=== PATIENT | female | born 1980 ===

== ENCOUNTER → 2020-10-21 15:29 | Outpatient (BNV) | payer MEDICAID, SELFPAY | PROVIDERS: Visit Provider Internal Medicine Medical Oncology | DX: C82.90 Follicular lymphoma, unspecified, unspecified site (principal) | CPT/HCPCS: 99213; 99214 ==

== ENCOUNTER 2020-12-09 14:46 | Outpatient (REF) | payer MEDICAID, SELFPAY ==
[2020-12-11 13:41] LABS: H Pylori Breath Test NOT DETECTED (NOT DETECTED)
== END 2020-12-09 14:47 | disposition home or self-care (01) ==
LOC: HO.LNP 14:46
PROVIDERS: PCP Family Medicine; Referring Provider Family Medicine; Visit Provider Nurse Practitioner Family
DX: K21.9 Gastro-esophageal reflux disease without esophagitis (principal); R10.13 Epigastric pain; K59.00 Constipation, unspecified; C82.90 Follicular lymphoma, unspecified, unspecified site; Z11.0 Encounter for screening for intestinal infectious diseases; Z88.0 Allergy status to penicillin
CPT/HCPCS: 83013; 99202

== ENCOUNTER 2021-01-20 09:09 | Day surgery (SDC) | payer MEDICAID, SELFPAY ==
[2021-01-13 10:07] VITALS: BMI 32.6
--- NOTE | 2021-01-19 10:12 | HO.ANESPROP2 ---
Documented by User: Laura Mercedes NP 01/19/21 10:13 HPI - Anesthesia Eval Consult details Narrative: 40yo F for Upper Endoscopy PMFSH Active Problems Active Problems: All Active Problems (Updated 01/13/21 @ 10:06 by Shelbie Diamond) Follicular lymphoma (Acute) Past Medical History Medical History Follicular lymphoma Family History Family History Maternal Aunt Diabetes Hypertension Surgical History Surgical History H/O hernia repair Social History Social History Alcohol intake: current Alcohol intake frequency: a few times a month Alcohol type: wine Patient Tobacco Use Status: Current everyday Tobacco user Tobacco use type: Cigarette Cigarettes Per Day: 5 Smoked in Last 30 Days: Yes Use of substances other than those prescribed or required for medical reasons: Yes Substance Use Type: Marijuana Substance Use Frequency: Daily Are you DNR?: No Advance Directives: No Advance Directives Information Provided: Yes Meds Allergies Allergy/AdvReac Type Severity Reaction Status Date / Time Penicillins [PENICILLINS] Allergy Intermediate RASH Verified 01/20/21 09:26 Home Medications Medication Instructions Recorded Confirmed Last Taken Type clonazepam 1 mg tablet 1 tab PO BID 10/21/20 01/20/21 01/20/21 09:00 History Exam Exam Date and Time: January 19, 2021 1012 Height,Weight and Vital Signs: Height 5 ft 2 in Weight 80.966 kg Pertinent Lab Results Pertinent Lab Results: Laboratory Tests 10/21/20 10/21/20 15:42 15:42 WBC 10.0 Hgb 12.9 Hct 39.1 Plt Count 260 Sodium 142 Potassium 3.9 Chloride 107 Carbon Dioxide 28 BUN 10 Creatinine 0.79 Assessment and Plan Assessment Anesthesia Assessment: Chart Reviewed Documented by User: Qing Mckeon MD 01/20/21 10:23 [facility] Past Medical History Medical History Follicular lymphoma Functional capacity: independent ambulation Patient : No Family History Family History Maternal Aunt Diabetes Hypertension Surgical History Surgical History H/O hernia repair History of Problems with Anesthesia: No Social History Social History Alcohol intake: current Alcohol intake frequency: a few times a month Alcohol type: wine Patient Tobacco Use Status: Current everyday Tobacco user Tobacco use type: Cigarette Cigarettes Per Day: 5 Smoked in Last 30 Days: Yes Use of substances other than those prescribed or required for medical reasons: Yes Substance Use Type: Marijuana Substance Use Frequency: Daily Are you DNR?: No Advance Directives: No Advance Directives Information Provided: Yes Meds Allergies Allergy/AdvReac Type Severity Reaction Status Date / Time Penicillins [PENICILLINS] Allergy Intermediate RASH Verified 01/20/21 09:26 Home Medications Medication Instructions Recorded Confirmed Last Taken Type clonazepam 1 mg tablet 1 tab PO BID 10/21/20 01/20/21 01/20/21 09:00 History Exam Airway TM Dist: >3cm Neck ROM: Full Heart: RRR Lungs: CTA Assessment and Plan Final Anesthetic Review History of Problems with Anesthesia: No
[2021-01-20 09:26] VITALS: BMI 32.1
[2021-01-20 09:31] VITALS: BP 125/79; PULSE 61; RESP 16; TEMP 36.2; O2SAT 100
[2021-01-20 09:31] LABS: UPreg QC Valid YES; Urine Pregnancy NEGATIVE (NEGATIVE)
[2021-01-20] MEDS: Lactated Ringers 1,000 ML 100 ML IVCONT (09:48)
--- NOTE | 2021-01-20 10:10 | MHC.SHP ---
Pre-Procedural Eval Section A Date of Service: 01/20/21 The patient is an INPATIENT: No The History & Physical has been completed within 30 days and I have reviewed it.: No Section B Chief Complaint: GERD Details of Present Illness: GERD, epigastric pain, regurgitation Medical History: Significant History (Follicular lymphoma) History of Previous Operations: Relevant previous surgery/procedure and date(s) (H/O hernia repair) Allergies: Allergies Allergy/AdvReac Type Severity Reaction Status Date / Time Penicillins [PENICILLINS] Allergy Intermediate RASH Verified 01/20/21 09:26 Review of Systems Sugical H&P ROS: Negative: Constitution, Cardiovascular and Respiratory and Yes, Specify: Gastrointestinal (GERD) Exam Surgical H&P Exam: Normal: Heart, Normal: Lungs, Normal: Extremities and Normal: Abdomen Plan Diagnosis/Plan: Unchanged I have reviewed the history and physical and performed a pertinent physical examination on my patient. No changes have occurred unless specified.
--- NOTE | 2021-01-20 10:18 | PM.OP ---
Brief Operative Note Date of Service: 01/20/21 Pre-op diagnosis: GERD, regurgitation Post-op diagnosis: other (GERD, hiatal hernia, gastritis) Procedure: FLEXIBLE TRANSORAL UPPER GASTROINTESTINAL ENDOSCOPY WITH BIOPSIES Consent: Indications for the procedure and potential complications of bleeding, perforation, reaction to medications and missed diagnosis were discussed with the patient and informed consent was obtained. Instrument: Olympus GIF H 190 mid size upper endoscope Monitoring: Vital signs and clinical assessment, continuous EKG monitoring, Pulse oximetry, Carbon Dioxide monitoring and blood pressure monitoring were done throughout the procedure. Procedure: The patient was placed in the left lateral decubitis position and pre-procedure medications were administered and a bite block was placed. The endoscope was inserted into the mouth and advanced under direct vision to the third part of duodenum. A careful inspection was made as the upper endoscope was withdrawn including a retroflexed examination of the proximal stomach; Findings and interventions are described below. Findings: Larynx: Normal Esophagus: GE junction at 34 cms, small hiatal hernia 34 to 36 cms. No esophagitis or Grissom Stomach: Mild gastric erythema. Biopsies were obtained. Grade 2 flap valve on retroflexed examination of the cardia. Duodenum: Normal bulb and descending duodenum. Biopsies were obtained from 3rd part of duodenum to check for celiac sprue. Intervention: Biopsies as noted above Impression and Post Procedure Diagnosis: Endoscopy Findings: ESOPHAGUS: Small hiatal hernia STOMACH: Gastritis DUODENUM: Normal - biopsied to check for celiac sprue Plan: Await pathology results Patient has an appointment on 02/03/21 in the GI Clinic with DIANE Jain. Above findings were reviewed with the patient and GERD and Hiatal hernia handouts were given in the discharge area Surgeon: Ricki Arguello MD Anesthesia: MAC (Dr Cha, Ariana CarbajalDeandre [facility]) Was an Deputy Director Of Finance used for this Procedure?: Yes Deputy Director Of Finance: Karen Broderick Estimated blood loss (mL): 0 Pathology: other (A- SMALL BOWEL BIOPSIES- R/O CELIACS B- GASTRIC ANTRUM BIOPSIES- R/O H.PYLORI) Condition: stable Disposition: PACU
--- NOTE | 2021-01-20 10:18 | W.PM.OPN ---
Operative Note Operative Note Date of Service: 01/20/21 Narrative: Pre-op diagnosis:?GERD, regurgitation Post-op diagnosis:?other (GERD, hiatal hernia, gastritis) Procedure:? FLEXIBLE TRANSORAL UPPER GASTROINTESTINAL ENDOSCOPY WITH BIOPSIES Consent:?Indications for the procedure and potential complications of bleeding, perforation, reaction to medications and missed diagnosis were discussed with the patient and informed consent was obtained. Instrument:?Olympus GIF H 190 mid size upper endoscope Monitoring: Vital signs and clinical assessment, continuous EKG monitoring, Pulse oximetry, Carbon Dioxide monitoring and blood pressure monitoring were done throughout the procedure. Procedure:?The patient was placed in the left lateral decubitis position and pre-procedure medications were administered and a bite block was placed. The endoscope was inserted into the mouth and advanced under direct vision to the third part of duodenum. A careful inspection was made as the upper endoscope was withdrawn including a retroflexed examination of the proximal stomach; Findings and interventions are described below. Findings: Larynx:? Normal Esophagus:?GE junction at 34 cms, small hiatal hernia 34 to 36 cms.? No esophagitis or Grissom Stomach:?Mild gastric erythema. Biopsies were obtained. Grade 2 flap valve on retroflexed examination of the cardia. Duodenum:?Normal bulb and descending duodenum.? Biopsies were obtained from 3rd part of duodenum to check for celiac sprue. Intervention:?Biopsies as noted above Impression and Post Procedure Diagnosis: Endoscopy Findings: ESOPHAGUS: Small hiatal hernia STOMACH: Gastritis DUODENUM: Normal - biopsied to check for celiac sprue Plan: Await pathology results Patient has an appointment on 02/03/21 in the GI Clinic with Joann Jones NP-. Above findings were reviewed with the patient and GERD and Hiatal hernia handouts were given in the discharge area Surgeon:?Ricki Arguello MD Anesthesia:?MAC (Dr Cha, Ariana Maddox CRNA) Was an Flight Line Mechanic used for this Procedure?:?Yes Flight Line Mechanic:?Karen Broderick Estimated blood loss (mL):?0 Pathology:?other (A- SMALL BOWEL BIOPSIES-? R/O CELIACS? B- GASTRIC ANTRUM BIOPSIES- R/O H.PYLORI) Condition:?stable Disposition:?PACU
[2021-01-20 10:36] VITALS: BP 93/49; PULSE 70; RESP 16; TEMP 36.1; O2SAT 93
[2021-01-20 10:51] VITALS: BP 127/72; PULSE 62; RESP 18; TEMP 36.1; O2SAT 98
--- NOTE | 2021-01-20 10:59 | PC.NURSE ---
iv d/nancy nad
== END 2021-01-20 11:53 | disposition home or self-care (01) ==
PROVIDERS: Nurse Practitioner; PCP Family Medicine; Visit Provider Internal Medicine Gastroenterology
PROC: 0DJ08ZZ Inspection of Upper Intestinal Tract, Via Natural or Artificial Opening Endoscopic (ICD-10-PCS; CPT 43235; principal; 2021-01-20 10:30)
DX: K21.9 Gastro-esophageal reflux disease without esophagitis (principal); K29.50 Unspecified chronic gastritis without bleeding; K44.9 Diaphragmatic hernia without obstruction or gangrene; C82.90 Follicular lymphoma, unspecified, unspecified site; F12.90 Cannabis use, unspecified, uncomplicated; F17.210 Nicotine dependence, cigarettes, uncomplicated; Z79.899 Other long term (current) drug therapy; Z88.0 Allergy status to penicillin
CPT/HCPCS: 43239; 81025; 88305; 88342

== ENCOUNTER → 2021-02-03 11:09 | Outpatient (BNVA) | payer MEDICAID, SELFPAY | PROVIDERS: PCP Family Medicine; Visit Provider Nurse Practitioner Family ==

== ENCOUNTER → 2021-03-03 11:08 | Outpatient (BNVA) | payer MEDICAID, SELFPAY | PROVIDERS: PCP Family Medicine; Visit Provider Nurse Practitioner Family ==

== ENCOUNTER 2021-11-21 07:22 | Emergency (ER) | payer MEDICAID, SELFPAY ==
--- NOTE | ~2021-11-21 | CT_ITS ---
EXAMINATION: CT ABDOMEN AND PELVIS WITHOUT CONTRAST CLINICAL INFORMATION: Back pain. Abdominal lymphoma. Night sweats. COMPARISON: Multiple priors, most recent CT abdomen/pelvis dated 05/05/2019. TECHNIQUE: Multidetector volumetric imaging was performed from the superior aspect of the liver through the pubic symphysis. Sagittal and coronal reformatted images were obtained on the technologist's workstation. This CT examination was performed using dose optimization techniques as appropriate, variously including the following: *Automated exposure control *Adjustment of mA and/or kV according to patient size (this includes techniques or standardized protocols for targeted exams where dose is matched to indication/reason for exam; i.e. extremities or head) *Use of iterative reconstruction technique DLP: 641 mGy-cm FINDINGS: LUNG BASES: The visualized lung bases are unremarkable. LIVER, GALLBLADDER, AND BILIARY TREE: The liver is normal in size, shape, and attenuation. No focal hepatic lesion or biliary ductal dilatation is present. The gallbladder is unremarkable with no evidence of radiopaque gallstones, gallbladder wall thickening, or obvious pericholecystic inflammatory changes. PANCREAS: Unremarkable. SPLEEN: Unremarkable. ADRENAL GLANDS: Unremarkable. KIDNEYS AND URETERS: The kidneys are normal in size, shape, and attenuation. No hydronephrosis, hydroureter, or calculi seen. No perinephric stranding. BLADDER: Unremarkable. GASTROINTESTINAL TRACT: No bowel wall thickening or inflammatory change. No small- or large-bowel obstruction. Unremarkable appendix. PERITONEAL CAVITY: No intra-abdominal free air or free fluid. No new intra-abdominal mass or organized fluid collection/abscess formation. ABDOMINAL WALL: No significant hernia is appreciated. LYMPH NODES: Redemonstration of central mesenteric stranding, similar when compared to the prior examination. No new or increasing lymphadenopathy. VASCULAR: Unremarkable. PELVIC VISCERA: Nabothian cysts within the cervix. Otherwise unremarkable. OSSEOUS STRUCTURES: Unremarkable. CT/CT abdomen pelvis wo con IMPRESSION: 1. No acute intra-abdominal or intrapelvic findings to explain the patient's pain. 2. Stable central mesenteric stranding, unchanged. No new or increasing lymphadenopathy. Fleischner guidelines were followed.
[2021-11-21 07:27] VITALS: BP 113/84; BP 122/80; PULSE 75; PULSE 76; RESP 18; TEMP 36.7; O2SAT 96; O2SAT 98; BMI 34.0
[2021-11-21] MEDS: Ketorolac Tromethamine 15 MG/ML VIAL IM (08:02)
[2021-11-21] MEDS: Acetaminophen 325 MG TABLET 975 MG PO (08:02)
--- NOTE | 2021-11-21 09:13 | ED_ITS ---
HPI - Back Pain/Injury General Chief Complaint: Back Pain/Injury Stated Complaint: back pain Time Seen by Provider: 11/21/21 07:49 Source: patient and [employer] Mode of arrival: ambulatory History of Present Illness HPI Narrative: 41-year-old female with history of abdominal lymphoma and was followed by Dr. Bell in 2017 presents with persistent back pain for 4 weeks that she had attributed to a work related injury but states that is continued to bother her despite taking chom-oav-mxaxmyo medications. She says that last night she was awoken with severe abdominal pain that she states radiates down into both lower extremities that results and difficulty with her having a bowel movement but denies any groin numbness, does report night sweats as well as weight loss but denies any urinary symptoms. Related Data Home Medications Medication Instructions Recorded Confirmed clonazepam 1 mg tablet 1 tab PO BID 10/21/20 06/26/21 aripiprazole 5 mg tablet 5 mg PO DAILY 03/03/21 06/26/21 fluticasone propionate 220 0 mcg PO BID 03/03/21 06/26/21 mcg/actuation HFA aerosol inhaler (Flovent HFA) trazodone 100 mg tablet 100 mg PO BEDTIME 03/03/21 06/26/21 Previous Rx's Medication Instructions Recorded docusate sodium 100 mg capsule 100 mg PO BEDTIME #30 caps 03/03/21 methylcellulose (laxative) 500 mg 500 mg PO DAILY #30 tabs 03/03/21 tablet (Citrucel) ondansetron 4 mg disintegrating 4 mg PO Q8H PRN nausea and 04/17/21 tablet vomiting #20 tabs pantoprazole 40 mg tablet,delayed 40 mg PO BID #30 tabs 06/26/21 release cyclobenzaprine 5 mg tablet 5 mg PO BEDTIME PRN muscle spasm 11/21/21 #4 tabs ketorolac 10 mg tablet 10 mg PO Q6H PRN pain 5 days #20 11/21/21 tabs Allergies Allergy/AdvReac Type Severity Reaction Status Date / Time Penicillins [PENICILLINS] Allergy Intermediate RASH Verified 06/26/21 09:23 Review of Systems Review of Systems: Pertinent positives and negatives as stated HPI and 10 point review of systems is otherwise negative. [facility] Past Medical History Source: nursing notes reviewed Medical History Back pain Follicular lymphoma Surgical History H/O hernia repair Hx of esophagogastroduodenoscopy Family History Family History Maternal Aunt Diabetes Hypertension Social History Social History Household Members: Significant Other Alcohol intake: current Alcohol intake frequency: a few times a month Alcohol type: wine Patient Tobacco Use Status: Current everyday Tobacco user Tobacco use type: Cigarette Cigarettes Per Day: 5 Substance Use Type: Marijuana Advance Directives: No Advance Directives Information Provided: Yes Patient : No Current occupational status: disabled Physical Exam Vital Signs: Vital Signs: Last Vital Signs Temp 98.1 F 11/21/21 07:27 Pulse 75 11/21/21 07:27 Resp 18 11/21/21 07:27 BP 113/84 11/21/21 07:27 Pulse Ox 96 11/21/21 07:27 O2 Del Method 11/21/21 07:27 BMI result Body Mass Index 34.0 VITAL SIGNS: Reviewed. GENERAL: Well developed, well nourished, in no acute distress. HEAD: Normocephalic/atraumatic EYES: PERRLA, EOMI EARS: Ext canals without abnormality OROPHARYNX: no oral lesions noted, posterior pharynx clear LUNGS: Normal breath sounds. No adventitious sounds or accessory muscle use. SpO2<96> CARDIOVASCULAR: Regular rate and rhythm without noted murmurs ABDOMEN: Soft, non-tender, non-distended with bowel sounds. BACK: No midline vertebral tenderness or step-offs noted, no noted muscle spasm MUSCULOSKELETAL: No tenderness, deformities, or effusions noted on gross inspection. EXTREMITIES: No cyanosis, clubbing or edema. SKIN: Inspection of the skin reveals no rashes NEUROLOGIC: Alert and oriented x 4. Course Course Course Narrative: 41-year-old female with history and clinical presentation concerning for possible cancer recurrence given the less likelihood of persistent minor back injury for this length of time and given patient's reports of night sweats and weight loss additionally raises concerns for recurrence. There is a possibility this is UTI/cystitis, renal colic and low clinical suspicion for cauda equina. review of all investigations otherwise negative for acute findings. Patient was informed of all results and will be treated for back pain and has had some relief but will require some additional lidocaine patch and muscle relaxant. She is otherwise discharged home. MDM - Back Pain/Injury Lab Data Result diagrams: 11/21/21 09:38 11/21/21 09:38 Labs: Lab Results 11/21/21 11/21/21 11/21/21 Range/Units 09:38 09:38 09:39 WBC 8.2 (4.8-10.8) X10*3/uL RBC 4.90 (4.20-5.50) X10*6/uL Hgb 14.1 (12.0-16.0) g/dl Hct 42.9 (37.0-47.0) % MCV 87.6 (80.0-98.0) fL MCH 28.8 (27.0-33.0) pg MCHC 32.9 (31.0-35.0) g/dl RDW 13.3 (11.0-16.0) % Plt Count 227 (160-400) X10*3/uL MPV 10.6 (9.4-12.3) fL Immature Gran % (Auto) 0.2 (0.0-0.4) % Neut % (Auto) 59.1 (45-73) % Lymph % (Auto) 33.2 (20-40) % [place] % (Auto) 5.4 (2-11) % Eos % (Auto) 1.6 (0-4) % Baso % (Auto) 0.5 (0-2) % Lymph # (Auto) 2.7 (1.2-4.9) X10*3/uL [place] # (Auto) 0.4 (0.1-1.2) X10*3/uL Eos # (Auto) 0.1 (0.0-0.4) X10*3/uL Baso # (Auto) 0.0 (0.0-0.2) X10*3/uL Abs Immat Gran (auto) 0.02 (0.00-0.03) X10*3/uL Absolute Neuts (auto) 4.8 (2.0-8.3) x10*3/uL Absolute Nucleated RBC 0.000 (0.0-0.012) X10*3/uL Nucleated RBC % (auto) 0.0 (0.0-0.2) /100WBC Sodium 139 (135-145) mmol/L Potassium 5.2 H D (3.3-5.1) mmol/L Chloride 107 (96-108) mmol/L Carbon Dioxide 25 (22-29) mmol/L Anion Gap 12 (12-20) BUN 12 (9-16) mg/dL Creatinine 0.82 (0.5-1.4) mg/dL Estim Creat Clear Calc 89.2 Estimated GFR > 60 Random Glucose 99 (60-115) mg/dL Calcium 8.9 (8.4-10.2) mg/dL Total Bilirubin 1.2 H (0.0-1.0) mg/dL AST 18 (5-31) U/L ALT 10 (0-31) U/L Alkaline Phosphatase 61 (39-117) U/L Lactate Dehydrogenase 163 (122-220) U/L Total Protein 6.5 (6.5-8.0) g/dL Albumin 4.0 (3.5-5.0) g/dL Urine Color YELLOW Urine Appearance CLEAR Urine pH 6.0 (5.0-8.0) Ur Specific [place] 1.025 (1.005-1.025) Urine Protein NEG (NEG-TRACE) MG/DL Urine Glucose (UA) NEG (NEG) MG/DL Urine Ketones NEG (NEG) MG/DL Urine Blood NEG (NEG) Urine Nitrite NEG (NEG) Ur Leukocyte Esterase NEG (NEG) Urine Test (NEGATIVE) 11/21/21 Range/Units 09:39 WBC (4.8-10.8) X10*3/uL RBC (4.20-5.50) X10*6/uL Hgb (12.0-16.0) g/dl Hct (37.0-47.0) % MCV (80.0-98.0) fL MCH (27.0-33.0) pg MCHC (31.0-35.0) g/dl RDW (11.0-16.0) % Plt Count (160-400) X10*3/uL MPV (9.4-12.3) fL Immature Gran % (Auto) (0.0-0.4) % Neut % (Auto) (45-73) % Lymph % (Auto) (20-40) % [place] % (Auto) (2-11) % Eos % (Auto) (0-4) % Baso % (Auto) (0-2) % Lymph # (Auto) (1.2-4.9) X10*3/uL [place] # (Auto) (0.1-1.2) X10*3/uL Eos # (Auto) (0.0-0.4) X10*3/uL Baso # (Auto) (0.0-0.2) X10*3/uL Abs Immat Gran (auto) (0.00-0.03) X10*3/uL Absolute Neuts (auto) (2.0-8.3) x10*3/uL Absolute Nucleated RBC (0.0-0.012) X10*3/uL Nucleated RBC % (auto) (0.0-0.2) /100WBC Sodium (135-145) mmol/L Potassium (3.3-5.1) mmol/L Chloride (96-108) mmol/L Carbon Dioxide (22-29) mmol/L Anion Gap (12-20) BUN (9-16) mg/dL Creatinine (0.5-1.4) mg/dL Estim Creat Clear Calc Estimated GFR Random Glucose (60-115) mg/dL Calcium (8.4-10.2) mg/dL Total Bilirubin (0.0-1.0) mg/dL AST (5-31) U/L ALT (0-31) U/L Alkaline Phosphatase (39-117) U/L Lactate Dehydrogenase (122-220) U/L Total Protein (6.5-8.0) g/dL Albumin (3.5-5.0) g/dL Urine Color Urine Appearance Urine pH (5.0-8.0) Ur Specific [place] (1.005-1.025) Urine Protein (NEG-TRACE) MG/DL Urine Glucose (UA) (NEG) MG/DL Urine Ketones (NEG) MG/DL Urine Blood (NEG) Urine Nitrite (NEG) Ur Leukocyte Esterase (NEG) Urine Test NEGATIVE (NEGATIVE) Discharge Plan Discharge Clinical Impression: Back pain, Muscle spasm Patient Disposition: Home, Self-Care Instructions: Muscle Spasm (ED), Back Pain (ED) Additional Instructions: 1. Tylenol 1000 mg, por v?a oral, cada 6 horas seg?n sea necesario para controlar el dolor. No exceda los 4000 mg dentro de las 24 horas. 2. Parche de lidoca?na, aplique en el ?mary de m?xima sensibilidad bambi se indica en el empaque exterior. 3. Realice un seguimiento con guzman proveedor de atenci?n primaria el lunes por la ma?andrew para hitesh reevaluaci?n adicional del manejo ambulatorio. Regrese a la milagros de emergencias si los s?ntomas empeoran. Prescriptions: New cyclobenzaprine 5 mg tablet 5 mg PO BEDTIME PRN (Reason: muscle spasm) Qty: 4 0RF ketorolac 10 mg tablet 10 mg PO Q6H PRN (Reason: pain) 5 Days Qty: 20 0RF Rx Instructions: Patient has received Toradol here in the emergency room. No Action ondansetron 4 mg tablet,disintegrating 4 mg PO Q8H PRN (Reason: nausea and vomiting) Qty: 20 0RF pantoprazole 40 mg tablet,delayed release (DR/EC) 40 mg PO BID Qty: 30 6RF Rx Instructions: michele hitesh tableta media hora antes del desayuno clonazepam 1 mg tablet 1 tab PO BID aripiprazole 5 mg tablet 5 mg PO DAILY trazodone 100 mg tablet 100 mg PO BEDTIME Flovent HFA 220 mcg/actuation HFA aerosol inhaler 0 mcg PO BID Citrucel 500 mg tablet 500 mg PO DAILY Qty: 30 6RF Rx Instructions: michele un comprimido todos los waggoner con un vaso de agua docusate sodium 100 mg capsule 100 mg PO BEDTIME Qty: 30 6RF Rx Instructions: michele hitesh capsula todas las noches antes de acostarse Referrals: Elsi Sal MD [Primary Care Provider] - Print Language: Trinidadian
[2021-11-21 09:45] LABS: MANUAL DIFF FLAG NO
[2021-11-21 09:46] LABS: Basophils Percent Auto 0.5 % (0-2); Eosinophils Absolute Auto 0.1 X10*3/uL (0.0-0.4); Eosinophils Percent Auto 1.6 % (0-4); Hematocrit 42.9 % (37.0-47.0); Hemoglobin 14.1 g/dl (12.0-16.0); Imm Gran Abs Auto 0.02 X10*3/uL (0.00-0.03); Imm Gran Pct Auto 0.2 % (0.0-0.4); Lymphocytes Absolute Auto 2.7 X10*3/uL (1.2-4.9); Lymphocytes Percent Auto 33.2 % (20-40); Mean Corpuscular HGB Conc 32.9 g/dl (31.0-35.0); Mean Corpuscular Hemoglobin 28.8 pg (27.0-33.0); Mean Corpuscular Volume 87.6 fL (80.0-98.0); Mean Platelet Volume 10.6 fL (9.4-12.3); Monocytes Absolute Auto 0.4 X10*3/uL (0.1-1.2); Monocytes Percent Auto 5.4 % (2-11); Neutrophils Absolute Auto 4.8 x10*3/uL (2.0-8.3); Neutrophils Percent Auto 59.1 % (45-73); Platelet Count 227 X10*3/uL (160-400); Red Cell Distribution Width 13.3 % (11.0-16.0); White Blood Count 8.2 X10*3/uL (4.8-10.8)
[2021-11-21 09:50] LABS: Appearance Urine CLEAR; Color Urine YELLOW; Glucose Urine UA NEG (NEG); Leukocyte Esterase Urine NEG (NEG); Nitrite Urine NEG (NEG); Specific Gravity - Urine 1.025 (1.005-1.025); Urine Blood NEG (NEG); Urine Ketones NEG (NEG); Urine Protein NEG (NEG-TRACE)
[2021-11-21 10:05] LABS: Alanine Aminotransferase 10 U/L (0-31); Alkaline Phosphatase 61 U/L (39-117); Anion Gap 12 (12-20); Aspartate Amino Transferase 18 U/L (5-31); Bilirubin Total 1.2 mg/dL (0.0-1.0); Blood Urea Nitrogen 12 mg/dL (9-16); Calcium 8.9 mg/dL (8.4-10.2); Carbon Dioxide 25 mmol/L (22-29); Chloride 107 mmol/L (96-108); Creatinine Clr Calc Pharmacy 89.2; Estimated Glomerular Filt Rate > 60; Glucose Random 99 mg/dL (60-115); Lactate Dehydrogenase 163 U/L (122-220); Potassium 5.2 mmol/L (3.3-5.1); Sodium 139 mmol/L (135-145); Total Protein 6.5 g/dL (6.5-8.0)
[2021-11-21 10:39] LABS: UPreg QC Valid YES; Urine Pregnancy NEGATIVE (NEGATIVE)
[2021-11-21] MEDS: Lidocaine 4 % Patch ADH..PATCH 1 PATCH TRANSDERMA (12:08)
[2021-11-21] MEDS: Cyclobenzaprine HCl 5 MG TABLET PO (12:09)
== END 2021-11-21 12:34 | disposition home or self-care (01) ==
PROVIDERS: Emergency Provider Student in an Organized Health Care Education/Training Program; PCP Family Medicine
DX: M54.50 Low back pain, unspecified (principal); M62.830 Muscle spasm of back; R10.2 Pelvic and perineal pain; Z79.899 Other long term (current) drug therapy
CPT/HCPCS: 36415; 74176; 80053; 81003; 81025; 83615; 85025; 96372; 99284; J1885

== ENCOUNTER 2021-12-04 08:01 | Outpatient (REF) | payer MEDICAID, SELFPAY ==
--- NOTE | ~2021-12-04 | CT_ITS ---
EXAMINATION: CT CHEST, ABDOMEN AND PELVIS WITH CONTRAST. CLINICAL INFORMATION: Follicular lymphoma. Question recurrence. COMPARISON: CT abdomen pelvis 11/21/[address] chest 04/02/2019. TECHNIQUE: 5 mm thin axial and reformatted 3 mm thin sagittal and coronal images of chest, abdomen and pelvis were obtained following IV 85 mL Omnipaque 350. DLP: 427 mGy-cm FINDINGS: CHEST: LUNGS: The lungs are well expanded and clear of acute pneumonic process. There are no pulmonary nodules, mass or consolidation. No ground-glass density seen. MEDIASTINUM: The thyroid lobes are symmetric and normal. The central trachea and the bronchi are widely patent. The heart size and the great vessels are normal caliber. No abnormal size mediastinal or hilar lymph nodes seen. No pericardial effusion seen. PLEURA: There is no pleural calcification, thickening or effusion. AXILLA: There is no abnormal axillary lymph nodes. The chest wall is unremarkable. OSSEOUS STRUCTURES: No lytic or sclerotic process seen. ABDOMEN AND PELVIS: LIVER, DUCTS AND GALLBLADDER: The liver is normal size, homogeneous density without intrahepatic ductal dilatation. There is a focal 6 mm hypodensity right hepatic lobe. No additional lesions seen. The gallbladder is contracted and unremarkable. SPLEEN: Unremarkable. PANCREAS: Unremarkable. ADRENAL GLANDS: Unremarkable. KIDNEYS AND URETER: Both kidney nephrograms are symmetrical, normal size and cortical thinning. No radiopaque renal calculi or hydronephrosis seen. No perinephric fat stranding. BLADDER: Unremarkable. GI TRACT: There is scattered stool seen throughout the colon without significant distention. The small bowel loops are normal caliber. The ileocecal junction and the terminal ileum is unremarkable. Appendix is normal caliber. No inflammatory process, free air or free fluid seen. There is a nonspecific mesenteric haziness in the left midabdomen, stable. ABDOMINAL WALL: There is a small umbilical hernia containing fat. LYMPHOVASCULAR STRUCTURES: Unremarkable. No abnormal lymph nodes seen in the retroperitoneum. PELVIS: The uterus is anteverted. There is no adnexal mass or free fluid seen. There are small nabothian cysts seen in the cervix. There are no abnormal lymph nodes. No inguinal hernia seen. OSSEOUS STRUCTURES: There is no aggressive lytic or sclerotic process seen. CT/CT abdomen pelvis w con IMPRESSION: Unremarkable CT chest. No acute intra-abdominal or pelvic acute process. Punctate hypodensity in the right hepatic lobe, probable cyst. It is stable to 11/21/2021 and 05/05/2019 exam.
[2021-12-04] MEDS: iohexoL 350 MG/ML 100 ML INFUS..BTL IV (10:53)
[2021-12-04] MEDS: Barium Sulfate Oral (Mocha) 450 ML ORAL.SUSP 900 ML PO (10:54)
== END 2021-12-04 08:02 | disposition home or self-care (01) ==
LOC: HO.CT 08:01
PROVIDERS: Visit Provider Internal Medicine Medical Oncology
DX: C82.92 Follicular lymphoma, unspecified, intrathoracic lymph nodes (principal)
CPT/HCPCS: 71260; 74177; Q9967

== ENCOUNTER 2022-06-02 09:48 | Emergency (ER) | payer MEDICAID, SELFPAY ==
--- NOTE | ~2022-06-02 | XR_ITS ---
EXAMINATION: XR CHEST CLINICAL INFORMATION: Cough COMPARISON: Previous chest x-ray from 2019 TECHNIQUE: 2 views of the chest were obtained. FINDINGS: No significant abnormality is noted involving the heart, lungs, mediastinum, bony thorax or soft tissues. XR/XR chest 2V IMPRESSION: Unremarkable examination.
--- NOTE | 2022-06-02 09:56 | ED_ITS ---
HPI - General Adult General Chief complaint: Upper Respiratory Symptoms Stated complaint: Back/abd pain, cough, nausea per EMS Time Seen by Provider: 06/02/22 09:49 Source: patient and EMS Mode of arrival: EMS Limitations: no limitations History of Present Illness HPI narrative: Patient is a 41 year old assigned female at with no reported medical history presenting to the emergency department today with a cough, nausea, and body aches. Patient states that over the last 3 days she has had a cough, body aches, and nausea. Patient denies any dizziness, lightheadedness, abdominal pain, vomiting, fever, chills, blurry vision, double vision, loss of vision, chest pain, difficulty breathing, shortness of breath, back pain, night sweats, pain with urination, increased urinary frequency, increased urinary urgency, blood in her urine or stool, syncope or a near syncopal episode, recent trauma or falls, bowel incontinence, bladder incontinence, bowel retention, bladder retention, or any other complaints at this time. Onset (ago): day(s) (3) Severity: mild Severity scale (1-10): 3 Relieving factors: none Exacerbating factors: none Associated symptoms: cough Treatments prior to arrival: none Related Data Home Medications Medication Instructions Recorded Confirmed clonazepam 1 mg tablet 1 tab PO BID 10/21/20 11/24/21 aripiprazole 5 mg tablet 5 mg PO DAILY 03/03/21 11/24/21 fluticasone propionate 220 0 mcg PO BID 03/03/21 11/24/21 mcg/actuation HFA aerosol inhaler (Flovent HFA) trazodone 100 mg tablet 100 mg PO BEDTIME 03/03/21 11/24/21 Previous Rx's Medication Instructions Recorded docusate sodium 100 mg capsule 100 mg PO BEDTIME #30 caps 03/03/21 methylcellulose (laxative) 500 mg 500 mg PO DAILY #30 tabs 03/03/21 tablet (Citrucel) ondansetron 4 mg disintegrating 4 mg PO Q8H PRN nausea and 04/17/21 tablet vomiting #20 tabs pantoprazole 40 mg tablet,delayed 40 mg PO BID #30 tabs 06/26/21 release cyclobenzaprine 5 mg tablet 5 mg PO BEDTIME PRN muscle spasm 11/21/21 #4 tabs ketorolac 10 mg tablet 10 mg PO Q6H PRN pain 5 days #20 11/21/21 tabs benzonatate 100 mg capsule 100 mg PO BID PRN cough 7 days #14 06/02/22 caps Allergies Allergy/AdvReac Type Severity Reaction Status Date / Time Penicillins [PENICILLINS] Allergy Intermediate RASH Verified 11/24/21 08:44 Review of Systems Constitutional: Constitutional: Reports no additional constitutional complaints, Reports body ache(s), Denies chills, Denies fever(s) and Denies night sweats Eyes: Eyes: Reports no additional eye complaints, Denies blurry vision, Denies change in vision, Denies diplopia, Denies eye discharge, Denies loss of vision and Denies eye pain ENT: Denies dizziness Cardiovascular: Cardiovascular: Reports no additional cardiovascular complaints, Denies chest pain, Denies lightheadedness, Denies Loss of Consciousness and Denies dyspnea Respiratory: Respiratory: Reports no additional respiratory complaints, Reports cough and Denies dyspnea Gastrointestinal: Gastrointestinal: Reports no additional gastrointestinal complaints, Denies abdominal pain, Denies melena, Denies hematochezia, Denies change in bowel habits, Denies change in stool character and Reports nausea Genitourinary: Genitourinary: Denies hematuria, Denies urinary frequency, Denies dysuria, Denies urinary incontinence, Denies urinary hesitancy and Denies urinary urgency Musculoskeletal: Musculoskeletal: Reports no additional musculoskeletal complaints, Denies numbness and Denies tingling Neurologic: Denies dizziness, Denies loss of vision, Denies numbness and Denies tingling Psychiatric: Psychiatric: Reports no additional psychiatric complaints Endocrine: Endocrine: Reports no additional endocrine complaints Hematologic/Lymphatic: Hematologic/Lymphatic: Reports no additional hematologic/lymphatic complaints Allergic/Immunologic: Allergic/Immunologic: Reports no additional allergic/immunologic complaints [facility] Past Medical History Attestation statement: The following information was validated with the patient. Source: old records reviewed and nursing notes reviewed Medical History Back pain Follicular lymphoma Surgical History H/O hernia repair Hx of esophagogastroduodenoscopy Family History Family History Maternal Aunt Diabetes Hypertension Social History Social History Household Members: Spouse and Children Housing: House Are you a primary care program resident to a significant other at home: No Do you presently have visiting nurse or other home services: No Alcohol intake: current Alcohol intake frequency: a few times a month Alcohol type: wine Patient Tobacco Use Status: Current everyday Tobacco user Tobacco use type: Cigarette Substance Use Type: Marijuana Advance Directives: No Advance Directives Information Provided: Yes service: No Current occupational status: employed Physical Exam ED Vital Signs: Vital Signs - 24 hr 06/02/22 09:58 Temperature 100.1 F Pulse Rate 99 Respiratory Rate 16 Blood Pressure 137/80 Pulse Oximetry 100 Oxygen Delivery Method Room Air BMI result Body Mass Index 35.4 Const General: cooperative, no acute distress, alert and awake Nutritional Appearance: well nourished Orientation/consciousness: patient oriented x3 Limitations: no limitations HENMT Head: Yes normal to inspection and Yes atraumatic Ears: hearing grossly normal bilaterally and external ears normal General nose exam: Normal external nose present, no nasal discharge noted and no epistaxis Face and sinus: Yes normal facial exam, No abrasion and No laceration Mouth: Normal oral and palatal mucosa present, no drooling and no muffled voice Eyes General: appearance normal, both eyes and all related structures Periorbital: periorbital findings normal Eyelids: Yes eyelids normal Conjunctivae: conjunctivae normal Pupils: Equal, round and reactive pupils present EOM: EOMs intact bilaterally Neck Neck: Yes normal visual inspection, Yes full ROM and Yes no lymphadenopathy Chest Chest palpation & inspection: normal inspection of the chest Resp Effort & Inspection: normal respiratory effort and able to speak in complete sentences Auscultation: clear to auscultation bilaterally Cardio Rate: regular rate Rhythm: regular rhythm GI Inspection: Yes normal to inspection Palpation (GI): Soft to palpation, not firm, nontender, no guarding and not rigid Neuro General: patient oriented x3 and moves all extremities Cranial nerves: Yes Equal, round and reactive pupils present Cognition (Neuro): normal cognition Motor exam (neuro): 5/5 motor strength present throughout Sensory Exam: Normal double simultaneous stimulation for sensation Coordination: chaxde-en-fucz test normal Extrem General: Yes normal to inspection, Yes full ROM and Yes capillary refill normal Psych Appearance: grossly normal Mental Status: mental status grossly normal Affect: normal affect Attitude: cooperative Thought process: Normal thought process present Thought content: Normal thought content present Insight: Good insight present (Psych) Medications Administered Discontinued Medications Generic Name Dose Route Start Last Admin Trade Name Yuliya PRN Reason Stop Dose Admin Acetaminophen 650 mg 06/02/22 09:57 06/02/22 10:15 Acetaminophen 325 Mg Tablet PO 06/02/22 09:58 650 mg ONCE ONE Administration Benzonatate 100 mg 06/02/22 09:57 06/02/22 10:15 Benzonatate 100 Mg Capsule PO 06/02/22 09:58 100 mg ONCE ONE Administration Ondansetron HCl 4 mg 06/02/22 09:57 06/02/22 10:15 Ondansetron Odt 4 Mg Tab.Rapdis TRANSLINGU 06/02/22 09:58 4 mg ONCE ONE Administration Medical Decision Making Medical Decision Making [facility] Narrative: Patient is a 41 year old assigned female at with no reported medical history presenting to the emergency department today with cough, body aches, and nausea. Patient's physical exam was unremarkable. Patient's chest x-ray showed no acute process. Patient's influenza swab was positive. I explained my physical exam findings as well as all test results to the patient. I answered all questions asked by the patient. Patient received ODT Zofran, PO Benzonatate, and PO Tylenol which she stated helped her symptoms significantly. I stressed the importance of the patient taking her medication as prescribed. I stressed the im portance of the patient following up with her primary care provider. I stressed the importance of the patient returning to the emergency department immediately if her symptoms were to worsen or if she were to develop any dizziness, shortness of breath, difficulty breathing, chest pain, blurry vision, loss of vision, nausea, vomiting, abdominal pain, fever, chills, back pain, or any other complaints. Patient verbalized agreement and understanding with this treatment plan and discharge. Differential Diagnosis Differential Diagnoses: The differential diagnosis associated with the presentation includes influenza, URI, COVID-19, RSV Lab Data [facility] Lab Attestation statement: I reviewed the patient's lab results. Labs: Lab Results 06/02/22 Range/Units 10:05 Influenza Type A (PCR) POSITIVE A (Negative) Influenza Type B (PCR) NEGATIVE (Negative) RSV RNA Qual (PCR) NEGATIVE (Negative) SARS-CoV-2 RNA (RT-PCR) NEGATIVE (Negative) Radiology Impression Discussion of test interpretation with radiology: I have reviewed the radiologist's reading. Radiologist Impression: My interpretation is in agreement with the radiologist's impression of this imaging study. EXAMINATION: XR CHEST CLINICAL INFORMATION: Cough COMPARISON: Previous chest x-ray from 2019 TECHNIQUE: 2 views of the chest were obtained. FINDINGS: No significant abnormality is noted involving the heart, lungs, mediastinum, bony thorax or soft tissues. XR/XR chest 2V IMPRESSION: Unremarkable examination. Dictated By: Gayle Velazquez MD Signed By: Electronically signed by Gayle Velazquez MD 06/02/22 1048 Independent Historian Clinical information obtained from an independent historian. History obtained from or confirmed by: EMS Discharge Plan Discharge Clinical Impression: Influenza Patient Disposition: Home, Self-Care Instructions: Influenza (ED) Additional Instructions: Follow up with your primary care provider. Return to the emergency department immediately if your symptoms worsen or if you develop any dizziness, shortness of breath, difficulty breathing, chest pain, blurry vision, loss of vision, nausea, vomiting, abdominal pain, fever, chills, back pain, or any other complaints. Gloria un seguimiento con guzman proveedor de atenci?n primaria. Regrese a la milagros de emergencias de inmediato si nallely s?ntomas empeoran o si presenta mareos, dificultad para respirar, dolor de pecho, visi?n borrosa, p?rdida de la visi?n, n?useas, v?mitos, dolor abdominal, fiebre, escalofr?os, dolor de espalda o cualquier otras quejas. Prescriptions: New benzonatate 100 mg capsule 100 mg PO BID PRN (Reason: cough) 7 Days Qty: 14 0RF No Action ondansetron 4 mg tablet,disintegrating 4 mg PO Q8H PRN (Reason: nausea and vomiting) Qty: 20 0RF pantoprazole 40 mg tablet,delayed release (DR/EC) 40 mg PO BID Qty: 30 6RF Rx Instructions: michele hitesh tableta media hora antes del desayuno clonazepam 1 mg tablet 1 tab PO BID cyclobenzaprine 5 mg tablet 5 mg PO BEDTIME PRN (Reason: muscle spasm) Qty: 4 0RF ketorolac 10 mg tablet 10 mg PO Q6H PRN (Reason: pain) 5 Days Qty: 20 0RF Rx Instructions: Patient has received Toradol here in the emergency room. aripiprazole 5 mg tablet 5 mg PO DAILY trazodone 100 mg tablet 100 mg PO BEDTIME Flovent HFA 220 mcg/actuation HFA aerosol inhaler 0 mcg PO BID Citrucel 500 mg tablet 500 mg PO DAILY Qty: 30 6RF Rx Instructions: michele un comprimido todos los waggoner con un vaso de agua docusate sodium 100 mg capsule 100 mg PO BEDTIME Qty: 30 6RF Rx Instructions: michele hitesh capsula todas las noches antes de acostarse Referrals: Elsi Sal MD [Primary Care Provider] - Stand Alone Forms: Work/School Release Print Language: Macanese
[2022-06-02 09:58] VITALS: BP 120/81; BP 137/80; PULSE 90; PULSE 99; RESP 16; TEMP 37.8; O2SAT 100; O2SAT 98; BMI 35.4
[2022-06-02] MEDS: Benzonatate 100 MG CAPSULE PO (10:15)
[2022-06-02] MEDS: Acetaminophen 325 MG TABLET 650 MG PO (10:15)
[2022-06-02] MEDS: Ondansetron ODT 4 MG TAB.RAPDIS TRANSLINGU (10:15)
[2022-06-02 10:54] LABS: Influenza A PCR POSITIVE (Negative); Influenza B PCR NEGATIVE (Negative); Resp Syncy Virus RNA Qual PCR NEGATIVE (Negative); SARS COV2 PCR INHOUSE NEGATIVE (Negative)
== END 2022-06-02 11:29 | disposition home or self-care (01) ==
PROVIDERS: Physician Assistant Medical; Emergency Provider Student in an Organized Health Care Education/Training Program; PCP Family Medicine
DX: J10.1 Influenza due to other identified influenza virus with other respiratory manifestations (principal); M54.50 Low back pain, unspecified; R05.9 Cough, unspecified; R11.2 Nausea with vomiting, unspecified; Z20.822 Contact with and (suspected) exposure to COVID-19; Z79.899 Other long term (current) drug therapy
CPT/HCPCS: 0241U; 71046; 99283

== ENCOUNTER 2022-08-23 14:38 | Outpatient (REF) | payer MEDICAID, SELFPAY ==
[2022-08-25 11:55] LABS: H Pylori Breath Test Negative (Negative)
== END 2022-08-23 14:39 | disposition home or self-care (01) ==
LOC: CF 14:38
PROVIDERS: PCP Family Medicine; Visit Provider Nurse Practitioner Family
DX: K21.9 Gastro-esophageal reflux disease without esophagitis (principal); K58.9 Irritable bowel syndrome, unspecified; R14.0 Abdominal distension (gaseous)
CPT/HCPCS: 36415; 83013; 99212

== ENCOUNTER 2022-09-11 12:46 | Emergency (ER) | payer MEDICAID, SELFPAY ==
--- NOTE | ~2022-09-11 | CT_ITS ---
EXAMINATION: CT abdomen pelvis wo IV con CLINICAL INFORMATION: Reason for Exam low back pain COMPARISON: No prior CT available for comparison. TECHNIQUE: Multidetector volumetric imaging was performed from the superior aspect of the liver through the pubic symphysis , noncontrasted study Sagittal and coronal reformatted images were obtained on the technologist's workstation. This CT examination was performed using dose optimization techniques as appropriate, variously including the following: *Automated exposure control *Adjustment of mA and/or kV according to patient size (this includes techniques or standardized protocols for targeted exams where dose is matched to indication/reason for exam; i.e. extremities or head) *Use of iterative reconstruction technique DLP: 697 mGy-cm FINDINGS: LOWER THORAX: Included lung bases are clear. HEPATOBILIARY: Tiny hypodensity in the posterior segment right lobe of the liver less than 5 mm too small to characterize nonspecific. Similar tiny 5 mm structure in the left lobe of the liver. Liver otherwise unremarkable. GALLBLADDER: Gallbladder unremarkable. SPLEEN: Spleen is normal in size. PANCREAS: No focal mass or ductal dilatation. STOMACH AND GASTROINTESTINAL TRACT: Stomach is grossly unremarkable. There is no bowel distention or thickening. No CT evidence of appendicitis. ADRENALS: No adrenal nodules. KIDNEYS/URETERS: No hydronephrosis, stones or solid mass lesions. URINARY BLADDER: Partially decompressed. PELVIC VISCERA: Unremarkable PERITONEUM: There is sun cloudy mesentery midabdomen, a few mesenteric lymph nodes compatible with mesenteric panniculitis. LYMPH NODES: No lymphadenopathy. VASCULAR:Abdominal aorta normal in size, no aneurysm found. BONES, ABDOMINAL WALL AND SOFT TISSUES: Age-appropriate changes of the spine and skeletal system, no destructive osteolytic or osteosclerotic bone lesion found CT/CT abdomen pelvis wo IV con IMPRESSION: * No CT evidence of acute intra-abdominal process to explain patient's pain symptoms. No kidney stone or hydronephrosis. No evidence of appendicitis. * Sun cloudy mesentery midabdomen, a few mesenteric lymph nodes compatible with mesenteric panniculitis. Mesenteric panniculitis is a nonspecific finding and can coexistent with malignancy such as extra-abdominal non-Hodgkin lymphoma, breast carcinoma, prostate carcinoma, lung carcinoma, gastrointestinal carcinoma, colorectal carcinoma, melanoma, pancreatic neoplasm among other neoplasms. It also can coexist with benign process such as Crohn's disease, sarcoidosis, liver cirrhosis, colitis, lupus, sclerosing cholangitis, pancreatitis, mesenteritis, retroperitoneal fibrosis. It also could be idiopathic. Recommended clinical assessment and careful exclusion of possible other neoplasms. If no further action taken now, followup CT scan in 6 months advised. Reference: [place] Journal of Radiology July 1999, volume 174, #2.
[2022-09-11 12:50] VITALS: BP 116/90; PULSE 85; O2SAT 96
[2022-09-11 13:18] VITALS: BP 114/69; PULSE 66; RESP 18; TEMP 36.8; O2SAT 100; BMI 34.9
--- NOTE | 2022-09-11 13:18 | ED.GENADULT ---
HPI - General Adult General Chief complaint: Back Pain/Injury <LEONIE Ha - Last Filed: 09/11/22 13:19> Stated complaint: BACK PAIN RAD TO R,NO INJURY PER EMS <LEONIE Ha - Last Filed: 09/11/22 13:19> Time Seen by Provider: 09/11/22 14:16 <LEONIE Ha - Last Filed: 09/11/22 13:19> Source: patient and EMS <LEONIE Fairbanks Last Filed: 09/11/22 18:23> Mode of arrival: EMS <LEONIE Fairbanks Last Filed: 09/11/22 18:23> Limitations: no limitations <LEONIE Fairbanks Last Filed: 09/11/22 18:23> History of Present Illness HPI narrative: 41 yo female with history of asthma and follicular lymphoma in 2017 who presents to the ER for evaluation of severe low lack pain that started 3 days ago when she got out of bed. She states the pain is across her entire lower back, radiates down her buttocks and her legs. It also radiates to her middle and upper back at times. Worse with movement and walking. No urinary symptoms. She saw her PCP who arranged physical therapy, however she was unable to go becaue of the pain. She had not taken any medications for the pain. She has never had pain like this in the past. No fever, chills, incontinence, numbness or weakness. The pain makes it hard for her to stand. <LEONIE Fairbanks - Last Filed: 09/11/22 18:23> MD complaint: low back pain <LEONIE Fairbanks Last Filed: 09/11/22 18:23> Onset (ago): day(s) (3) <LEONIE Fairbanks Last Filed: 09/11/22 18:23> Location: back <LEONIE Fairbanks Last Filed: 09/11/22 18:23> Radiation: back and extremity <LEONIE Fairbanks Last Filed: 09/11/22 18:23> Severity: severe <LEONIE Fairbanks Last Filed: 09/11/22 18:23> Severity scale (1-10): 10 <LEONIE Fairbanks - Last Filed: 09/11/22 18:23> Quality: stabbing, aching and sharp <LEONIE Fairbanks - Last Filed: 09/11/22 18:23> Pain Consistency: constant <LEONIE Fairbanks - Last Filed: 09/11/22 18:23> Relieving factors: immobilization and rest <LEONIE Fairbanks Last Filed: 09/11/22 18:23> Exacerbating factors: movement <LEONIE Fairbanks - Last Filed: 09/11/22 18:23> Associated symptoms: denies other symptoms <LEONIE Fairbanks - Last Filed: 09/11/22 18:23> Treatments prior to arrival: none <LEONIE Fairbanks Last Filed: 09/11/22 18:23> Related Data Home medications: Home Medications Medication Instructions Recorded Confirmed clonazepam 1 mg tablet 1 tab PO BID 10/21/20 08/23/22 fluticasone propionate 220 0 mcg PO BID 03/03/21 08/23/22 mcg/actuation HFA aerosol inhaler (Flovent HFA) trazodone 100 mg tablet 100 mg PO BEDTIME 03/03/21 08/23/22 sertraline 25 mg tablet 25 mg PO DAILY 08/23/22 08/23/22 Previous Rx's Medication Instructions Recorded pantoprazole 40 mg tablet,delayed 40 mg PO DAILY #30 tabs 08/23/22 release sucralfate 1 gram tablet 1 g PO BEDTIME #30 tabs 08/23/22 cyclobenzaprine 10 mg tablet 10 mg PO TID PRN muscle spasm #14 09/11/22 tabs ibuprofen 600 mg tablet 600 mg PO Q8H PRN pain #14 tabs 09/11/22 oxycodone 5 mg tablet 5 mg PO Q8H PRN severe pain (scale 09/11/22 score 7-10) #6 tabs prednisone 50 mg tablet 50 mg PO DAILY #5 tabs 09/11/22 <LEONIE Ha - Last Filed: 09/11/22 13:19> Allergies/adverse reactions: Allergies Allergy/AdvReac Type Severity Reaction Status Date / Time Penicillins [PENICILLINS] Allergy Intermediate RASH Verified 09/11/22 13:18 <LEONIE Ha - Last Filed: 09/11/22 13:19> Review of Systems Review of Systems: Yes all other systems are reviewed and are negative <LEONIE Fairbanks - Last Filed: 09/11/22 18:23> COUNTS INCLUDE 234 BEDS AT THE [facility] Past Medical History Medical History: Medical History Back pain Follicular lymphoma <LEONIE Ha - Last Filed: 09/11/22 13:19> Surgical History: Surgical History H/O hernia repair Hx of esophagogastroduodenoscopy <LEONIE Ha - Last Filed: 09/11/22 13:19> Family History Family History: Family History Maternal Aunt Diabetes Hypertension <LEONIE Ha - Last Filed: 09/11/22 13:19> Social History Social History: Social History Household Members: Spouse and Children Housing: House Are you a primary pet care associate to a significant other at home: No Do you presently have visiting nurse or other home services: No Alcohol intake: current Alcohol intake frequency: a few times a month Alcohol type: wine Patient Tobacco Use Status: Current everyday Tobacco user Tobacco use type: Cigarette Substance Use Type: Marijuana Advance Directives: No Advance Directives Information Provided: Yes service: No Current occupational status: employed <LEONIE Ha - Last Filed: 09/11/22 13:19> Physical Exam ED Vital Signs: Vital Signs - 24 hr 09/11/22 13:18 Temperature 98.3 F Pulse Rate 66 Respiratory Rate 18 Blood Pressure 114/69 Pulse Oximetry 100 Oxygen Delivery Method Room Air BMI result Body Mass Index 34.9 <LEONIE Ha - Last Filed: 09/11/22 13:19> Vital Signs - 24 hr 09/11/22 13:18 Temperature 98.3 F Pulse Rate 66 Respiratory Rate 18 Blood Pressure 114/69 Pulse Oximetry 100 Oxygen Delivery Method Room Air BMI result Body Mass Index 34.9 <LEONIE Fairbanks - Last Filed: 09/11/22 18:23> Appearance: Alert. Oriented X3. No acute distress. Head: normocephalic, atraumatic. Eyes: Pupils equal, round and reactive to light. ENT: Pharynx normal. No tonsillar swelling or exudate. Neck: Normal inspection. Neck supple. CVS: Normal heart rate and rhythm. Pulses normal. Respiratory: No respiratory distress. Breath sounds normal. Abdomen: Soft and nontender. +BS x4 Back: lumbar soft tissue tenderness L>R, no midline tenderness. +straight leg raise test on the left. Skin: Skin warm and dry. Normal skin color. Normal skin turgor. No rashes. Extremities: No lower extremity edema. No joint swelling. Neuro/psych: Oriented X 3. No motor deficit. No sensory deficit. Normal DTRs. CN II-XII intact. Normal speech and cognition. <LEONIE Fairbanks - Last Filed: 09/11/22 18:23> Course Course Course Narrative: RME performed by Siobhan Weeks PA-C. Patient is a 41 year old assigned female at presenting to the emergency department with back pain. Labs, imaging, and swab ordered. Patient placed back in the waiting room pending room availability and results. <LEONIE Ha - Last Filed: 09/11/22 13:19> Medications Administered Discontinued Medications Generic Name Dose Route Start Last Admin Trade Name Freq PRN Reason Stop Dose Admin Acetaminophen 975 mg 09/11/22 14:31 09/11/22 14:35 Acetaminophen 325 Mg Tablet PO 09/11/22 14:32 975 mg ONCE ONE Administration Ketorolac Tromethamine 30 mg 09/11/22 14:31 09/11/22 14:35 Ketorolac Tromethamine 30 Mg/Ml Vial IM 09/11/22 14:32 30 mg ONCE ONE Administration Oxycodone HCl 5 mg 09/11/22 14:31 09/11/22 14:36 Oxycodone Hcl Immed Release 5 Mg Tablet PO 09/11/22 14:32 5 mg ONCE ONE Administration <LEONIE Ha - Last Filed: 09/11/22 13:19> Medications Administered Discontinued Medications Generic Name Dose Route Start Last Admin Trade Name Freq PRN Reason Stop Dose Admin Acetaminophen 975 mg 09/11/22 14:31 09/11/22 14:35 Acetaminophen 325 Mg Tablet PO 09/11/22 14:32 975 mg ONCE ONE Administration Ketorolac Tromethamine 30 mg 09/11/22 14:31 09/11/22 14:35 Ketorolac Tromethamine 30 Mg/Ml Vial IM 09/11/22 14:32 30 mg ONCE ONE Administration Oxycodone HCl 5 mg 09/11/22 14:31 09/11/22 14:36 Oxycodone Hcl Immed Release 5 Mg Tablet PO 09/11/22 14:32 5 mg ONCE ONE Administration <LEONIE Fairbanks - Last Filed: 09/11/22 18:23> Medical Decision Making Medical Decision Making MDM Narrative: 41-year-old female with history of follicular lymphoma in 2017 presents to the ER for evaluation of 3 days of nontraumatic lower back pain that radiates down her legs and buttocks. It is worse with movement and ambulation. She has no red flag symptoms of low back pain. Her deep tendon reflexes are intact. Her CT scan does not show any acute abnormalities causing low back pain. It does show some nonspecific mesenteric panniculitis. The case was discussed with Dr. Guzman who is on-call for Oncology - not a concerning finding for recurrent lymphoma. supervisor pig machine was used to discuss the results and impression from the oncologist. Her pain significantly improved after a round of pain medication, anti-inflammatories. She is up and ambulating well. Will plan to discharge her on pain control and steroids. She will follow-up with her primary care doctor next week. She will re-attempt physical therapy once her pain is more controlled. Patient was given return precautions I will follow-up with her PCP next week. She is stable for discharge home. She agrees with plan. <LEONIE Fairbanks - Last Filed: 09/11/22 18:23> Differential Diagnosis Differential Diagnoses: The differential diagnosis associated with the presentation includes <LEONIE Fairbanks - Last Filed: 09/11/22 18:23> Inflammatory disorders, malignancy, trauma, osteoporosis, nerve root compression, radiculopathy, plexopathy, degenerative disc disease, disc herniation, spinal stenosis, sacroiliac joint dysfunction, facet joint injury, and less likely infection?like abscess or diskitis <LEONIE Fairbanks - Last Filed: 09/11/22 18:23> Consult Healthcare Provider Management of the patient was discussed with: Hammer Fitter <LEONIE Fairbanks - Last Filed: 09/11/22 18:23> Dr. Guzman - not an acute finding for mesenteric panniculitis as tylical recurrenace for lymphoma. no current B symptoms, normal CBC which is reassuring <LEONIE Fairbanks - Last Filed: 09/11/22 18:23> Lab Data MDM Lab Attestation statement: I reviewed the patient's lab results. <LEONIE Fairbanks - Last Filed: 09/11/22 18:23> unremarkable <LEONIE Fairbanks - Last Filed: 09/11/22 18:23> Result Diagrams: 09/11/22 13:34 09/11/22 13:34 <LEONIE Ha - Last Filed: 09/11/22 13:19> Labs: Lab Results 09/11/22 09/11/22 09/11/22 Range/Units 13:34 13:34 13:34 WBC 9.2 (4.8-10.8) X10*3/uL RBC 4.72 (4.20-5.50) X10*6/uL Hgb 13.5 (12.0-16.0) g/dl Hct 40.9 (37.0-47.0) % MCV 86.7 (80.0-98.0) fL MCH 28.6 (27.0-33.0) pg MCHC 33.0 (31.0-35.0) g/dl RDW 12.9 (11.0-16.0) % Plt Count 250 (160-400) X10*3/uL MPV 10.8 (9.4-12.3) fL Immature Gran % (Auto) 0.2 (0.0-0.4) % Neut % (Auto) 62.9 (45-73) % Lymph % (Auto) 29.3 (20-40) % [place] % (Auto) 5.2 (2-11) % Eos % (Auto) 2.0 (0-4) % Baso % (Auto) 0.4 (0-2) % Lymph # (Auto) 2.7 (1.2-4.9) X10*3/uL [place] # (Auto) 0.5 (0.1-1.2) X10*3/uL Eos # (Auto) 0.2 (0.0-0.4) X10*3/uL Baso # (Auto) 0.0 (0.0-0.2) X10*3/uL Abs Immat Gran (auto) 0.02 (0.00-0.03) X10*3/uL Absolute Neuts (auto) 5.8 (2.0-8.3) x10*3/uL Absolute Nucleated RBC 0.000 (0.0-0.012) X10*3/uL Nucleated RBC % (auto) 0.0 (0.0-0.2) /100WBC Sodium 141 (135-145) mmol/L Potassium 4.7 D (3.3-5.1) mmol/L Chloride 106 (96-108) mmol/L Carbon Dioxide 28 (22-29) mmol/L Anion Gap 12 (12-20) BUN 12 (9-16) mg/dL Creatinine 0.74 (0.5-1.4) mg/dL Estim Creat Clear Calc 100.2 Estimated GFR > 60 Random Glucose 85 (60-115) mg/dL Calcium 8.8 (8.4-10.2) mg/dL Magnesium 2.0 (1.6-2.6) mg/dL Total Bilirubin 1.3 H (0.0-1.0) mg/dL AST 14 (5-31) U/L ALT 6 (0-31) U/L Alkaline Phosphatase 62 (39-117) U/L Total Protein 6.1 L (6.5-8.0) g/dL Albumin 3.8 (3.5-5.0) g/dL Beta HCG, Quant < 2 mIU/mL Urine Color Urine Appearance Urine pH (5.0-9.0) Ur Specific [place] (1.005-1.025) Urine Protein (Neg-Trace) mg/dL Urine Glucose (UA) (Negative) mg/dL Urine Ketones (Negative) mg/dL Urine Blood (Negative) Urine Nitrite (Negative) Ur Leukocyte Esterase (Negative) COVID-19 (GIL) (Negative) COVID-19 Clin Com 09/11/22 09/11/22 Range/Units 13:34 13:44 WBC (4.8-10.8) X10*3/uL RBC (4.20-5.50) X10*6/uL Hgb (12.0-16.0) g/dl Hct (37.0-47.0) % MCV (80.0-98.0) fL MCH (27.0-33.0) pg MCHC (31.0-35.0) g/dl RDW (11.0-16.0) % Plt Count (160-400) X10*3/uL MPV (9.4-12.3) fL Immature Gran % (Auto) (0.0-0.4) % Neut % (Auto) (45-73) % Lymph % (Auto) (20-40) % [place] % (Auto) (2-11) % Eos % (Auto) (0-4) % Baso % (Auto) (0-2) % Lymph # (Auto) (1.2-4.9) X10*3/uL [place] # (Auto) (0.1-1.2) X10*3/uL Eos # (Auto) (0.0-0.4) X10*3/uL Baso # (Auto) (0.0-0.2) X10*3/uL Abs Immat Gran (auto) (0.00-0.03) X10*3/uL Absolute Neuts (auto) (2.0-8.3) x10*3/uL Absolute Nucleated RBC (0.0-0.012) X10*3/uL Nucleated RBC % (auto) (0.0-0.2) /100WBC Sodium (135-145) mmol/L Potassium (3.3-5.1) mmol/L Chloride (96-108) mmol/L Carbon Dioxide (22-29) mmol/L Anion Gap (12-20) BUN (9-16) mg/dL Creatinine (0.5-1.4) mg/dL Estim Creat Clear Calc Estimated GFR Random Glucose (60-115) mg/dL Calcium (8.4-10.2) mg/dL Magnesium (1.6-2.6) mg/dL Total Bilirubin (0.0-1.0) mg/dL AST (5-31) U/L ALT (0-31) U/L Alkaline Phosphatase (39-117) U/L Total Protein (6.5-8.0) g/dL Albumin (3.5-5.0) g/dL Beta HCG, Quant mIU/mL Urine Color Yellow Urine Appearance Clear Urine pH 6.5 (5.0-9.0) Ur Specific [place] 1.020 (1.005-1.025) Urine Protein Negative (Neg-Trace) mg/dL Urine Glucose (UA) Negative (Negative) mg/dL Urine Ketones Negative (Negative) mg/dL Urine Blood Negative (Negative) Urine Nitrite Negative (Negative) Ur Leukocyte Esterase Negative (Negative) COVID-19 (GIL) Negative (Negative) COVID-19 Clin Com See Note <LEONIE Ha - Last Filed: 09/11/22 13:19> Lab Results 09/11/22 09/11/22 09/11/22 Range/Units 13:34 13:34 13:34 WBC 9.2 (4.8-10.8) X10*3/uL RBC 4.72 (4.20-5.50) X10*6/uL Hgb 13.5 (12.0-16.0) g/dl Hct 40.9 (37.0-47.0) % MCV 86.7 (80.0-98.0) fL MCH 28.6 (27.0-33.0) pg MCHC 33.0 (31.0-35.0) g/dl RDW 12.9 (11.0-16.0) % Plt Count 250 (160-400) X10*3/uL MPV 10.8 (9.4-12.3) fL Immature Gran % (Auto) 0.2 (0.0-0.4) % Neut % (Auto) 62.9 (45-73) % Lymph % (Auto) 29.3 (20-40) % [place] % (Auto) 5.2 (2-11) % Eos % (Auto) 2.0 (0-4) % Baso % (Auto) 0.4 (0-2) % Lymph # (Auto) 2.7 (1.2-4.9) X10*3/uL [place] # (Auto) 0.5 (0.1-1.2) X10*3/uL Eos # (Auto) 0.2 (0.0-0.4) X10*3/uL Baso # (Auto) 0.0 (0.0-0.2) X10*3/uL Abs Immat Gran (auto) 0.02 (0.00-0.03) X10*3/uL Absolute Neuts (auto) 5.8 (2.0-8.3) x10*3/uL Absolute Nucleated RBC 0.000 (0.0-0.012) X10*3/uL Nucleated RBC % (auto) 0.0 (0.0-0.2) /100WBC Sodium 141 (135-145) mmol/L Potassium 4.7 D (3.3-5.1) mmol/L Chloride 106 (96-108) mmol/L Carbon Dioxide 28 (22-29) mmol/L Anion Gap 12 (12-20) BUN 12 (9-16) mg/dL Creatinine 0.74 (0.5-1.4) mg/dL Estim Creat Clear Calc 100.2 Estimated GFR > 60 Random Glucose 85 (60-115) mg/dL Calcium 8.8 (8.4-10.2) mg/dL Magnesium 2.0 (1.6-2.6) mg/dL Total Bilirubin 1.3 H (0.0-1.0) mg/dL AST 14 (5-31) U/L ALT 6 (0-31) U/L Alkaline Phosphatase 62 (39-117) U/L Total Protein 6.1 L (6.5-8.0) g/dL Albumin 3.8 (3.5-5.0) g/dL Beta HCG, Quant < 2 mIU/mL Urine Color Urine Appearance Urine pH (5.0-9.0) Ur Specific [place] (1.005-1.025) Urine Protein (Neg-Trace) mg/dL Urine Glucose (UA) (Negative) mg/dL Urine Ketones (Negative) mg/dL Urine Blood (Negative) Urine Nitrite (Negative) Ur Leukocyte Esterase (Negative) COVID-19 (GIL) (Negative) COVID-19 Clin Com 09/11/22 09/11/22 Range/Units 13:34 13:44 WBC (4.8-10.8) X10*3/uL RBC (4.20-5.50) X10*6/uL Hgb (12.0-16.0) g/dl Hct (37.0-47.0) % MCV (80.0-98.0) fL MCH (27.0-33.0) pg MCHC (31.0-35.0) g/dl RDW (11.0-16.0) % Plt Count (160-400) X10*3/uL MPV (9.4-12.3) fL Immature Gran % (Auto) (0.0-0.4) % Neut % (Auto) (45-73) % Lymph % (Auto) (20-40) % [place] % (Auto) (2-11) % Eos % (Auto) (0-4) % Baso % (Auto) (0-2) % Lymph # (Auto) (1.2-4.9) X10*3/uL [place] # (Auto) (0.1-1.2) X10*3/uL Eos # (Auto) (0.0-0.4) X10*3/uL Baso # (Auto) (0.0-0.2) X10*3/uL Abs Immat Gran (auto) (0.00-0.03) X10*3/uL Absolute Neuts (auto) (2.0-8.3) x10*3/uL Absolute Nucleated RBC (0.0-0.012) X10*3/uL Nucleated RBC % (auto) (0.0-0.2) /100WBC Sodium (135-145) mmol/L Potassium (3.3-5.1) mmol/L Chloride (96-108) mmol/L Carbon Dioxide (22-29) mmol/L Anion Gap (12-20) BUN (9-16) mg/dL Creatinine (0.5-1.4) mg/dL Estim Creat Clear Calc Estimated GFR Random Glucose (60-115) mg/dL Calcium (8.4-10.2) mg/dL Magnesium (1.6-2.6) mg/dL Total Bilirubin (0.0-1.0) mg/dL AST (5-31) U/L ALT (0-31) U/L Alkaline Phosphatase (39-117) U/L Total Protein (6.5-8.0) g/dL Albumin (3.5-5.0) g/dL Beta HCG, Quant mIU/mL Urine Color Yellow Urine Appearance Clear Urine pH 6.5 (5.0-9.0) Ur Specific [place] 1.020 (1.005-1.025) Urine Protein Negative (Neg-Trace) mg/dL Urine Glucose (UA) Negative (Negative) mg/dL Urine Ketones Negative (Negative) mg/dL Urine Blood Negative (Negative) Urine Nitrite Negative (Negative) Ur Leukocyte Esterase Negative (Negative) COVID-19 (GIL) Negative (Negative) COVID-19 Clin Com See Note <LEONIE Fairbanks - Last Filed: 09/11/22 18:23> Independent Interpretation I performed an independent interpretation of an: CT Scan <LEONIE Fairbanks - Last Filed: 09/11/22 18:23> Interpretation: spine appears normal, no obstructive bowel pattern - agree w/ radiology read <LEONIE Fairbanks - Last Filed: 09/11/22 18:23> Radiology Impression Discussion of test interpretation with radiology: I have reviewed the radiologist's reading. <LEONIE Fairbanks - Last Filed: 09/11/22 18:23> Radiologist Impression: CT/CT abdomen pelvis wo IV con IMPRESSION: ? *? No CT evidence of acute intra-abdominal process to explain patient's pain symptoms. No kidney stone or hydronephrosis. No evidence of appendicitis. ? *? Jaimie cloudy mesentery midabdomen, a few mesenteric lymph nodes compatible with mesenteric panniculitis. ? Mesenteric panniculitis is a nonspecific finding and can coexistent with malignancy such as extra-abdominal non-Hodgkin lymphoma, breast carcinoma, prostate carcinoma, lung carcinoma, gastrointestinal carcinoma, colorectal carcinoma, melanoma, pancreatic neoplasm among other neoplasms. It also can coexist with benign process such as Crohn's disease, sarcoidosis, liver cirrhosis, colitis, lupus, sclerosing cholangitis, pancreatitis, mesenteritis, retroperitoneal fibrosis. It also could be idiopathic. Recommended clinical assessment and careful exclusion of possible other neoplasms. If no further action taken now, followup CT scan in 6 months advised. <LEONIE Fairbanks Last Filed: 09/11/22 18:23> External Record Review External record reviewed: Office record, Outpatient record, Prior outpatient labs and Prior outpatient radiology <LEONIE Fairbanks - Last Filed: 09/11/22 18:23> Prescription Management I considered prescription management with: Pain Medication <LEONIE Fairbanks - Last Filed: 09/11/22 18:23> Chronic Conditions Patient?s care impacted by: Other (lymphoma) <LEONIE Fairbanks - Last Filed: 09/11/22 18:23> Critical Care Time Critical Care Time Critical Care Time: No <LEONIE Fairbanks Last Filed: 09/11/22 18:23> Discharge Plan Discharge Clinical Impression: Sciatica <LEONIE Ha Last Filed: 09/11/22 13:19> Patient Disposition: Home, Self-Care <LEONIE Ha Last Filed: 09/11/22 13:19> Instructions: Sciatica (ED) <LEONIE aH Last Filed: 09/11/22 13:19> Additional Instructions: Your labs today were normal. Your CT scan showed Jaimie cloudy mesentery mid abdomen, a few mesenteric lymph nodes compatible with mesenteric panniculitis. This is a nonspecific finding. Spoke with the oncologist about this finding, they are not concerned at this time. Recommend following up with your primary care doctor. Take the prescribed medications for your back pain. No bending, lifting or twisting. Use ice several times per day for 20 minutes at a time for the next 48 hours and then change to heat. Take medications as prescribed to help with pain and discomfort. Follow up with your Primary Care Doctor this week. If your pain worsens, if you develop new numbness, tingling, weakness, loss of function or incontinence call 911 or come back to the ER right away for evaluation. Tus laboratorios hoy fueron normales. Barajas tomograf?a computarizada mostr? Mesenterio nublado brumoso en la mitad del abdomen, algunos ganglios linf?ticos mesent?ricos compatibles con paniculitis mesent?saleem. Mariaelena es un hallazgo inespec?fico . Habl? con el onc?logo sobre mariaelena hallazgo, no est?n preocupados en mariaelena momento. Recomendar el seguimiento con barajas m?dico de atenci?n primaria. [place] los medicamentos recetados para barajas dolor de espalda. Sin doblar, levantar o torcer. Use hielo varias veces al d?a colette 20 minutos a la vez colette las pr?ximas 48 horas y luego cambie a calor. [place] los medicamentos seg?n lo prescrito para ayudar con el dolor y la incomodidad. Gloria un seguimiento con barajas m?dico de atenci?n primaria esta semana. Si barajas dolor empeora, si desarrolla un nuevo entumecimiento, hormigueo, debilidad, p?rdida de funci?n o incontinencia, llame al 911 o regrese a la milagros de emergencias de inmediato para hitesh evaluaci?n. <LEONIE Ha - Last Filed: 09/11/22 13:19> Prescriptions: New oxycodone 5 mg tablet 5 mg PO Q8H PRN (Reason: severe pain (scale score 7-10)) Qty: 6 0RF Rx Instructions: Partial Fill upon patient request. prednisone 50 mg tablet 50 mg PO DAILY Qty: 5 0RF cyclobenzaprine 10 mg tablet 10 mg PO TID PRN (Reason: muscle spasm) Qty: 14 0RF ibuprofen 600 mg tablet 600 mg PO Q8H PRN (Reason: pain) Qty: 14 0RF No Action clonazepam 1 mg tablet 1 tab PO BID trazodone 100 mg tablet 100 mg PO BEDTIME Flovent HFA 220 mcg/actuation HFA aerosol inhaler 0 mcg PO BID sertraline 25 mg tablet 25 mg PO DAILY pantoprazole 40 mg tablet,delayed release (DR/EC) 40 mg PO DAILY Qty: 30 2RF Rx Instructions: take one tablet half an hour before breakfast sucralfate 1 gram tablet 1 g PO BEDTIME Qty: 30 4RF <LEONIE Ha - Last Filed: 09/11/22 13:19> Referrals: [facility] [place] Oncology/Hematology [Provider Group] Esli Sal MD [Primary Care Provider] - (back pain - CT negative for acute pathology) <LEONIE Ha - Last Filed: 09/11/22 13:19> Interventions: ED Discharge Assessment Last Done: 09/11/22 17:58 <LEONIE Ha - Last Filed: 09/11/22 13:19> Discharge Date/Time: 09/11/22 17:59 <LEONIE Ha - Last Filed: 09/11/22 13:19> Print Language: [place] <LEONIE Ha - Last Filed: 09/11/22 13:19>
[2022-09-11 13:40] LABS: MANUAL DIFF FLAG NO
[2022-09-11 13:43] LABS: Basophils Percent Auto 0.4 % (0-2); Eosinophils Absolute Auto 0.2 X10*3/uL (0.0-0.4); Hematocrit 40.9 % (37.0-47.0); Hemoglobin 13.5 g/dl (12.0-16.0); Imm Gran Abs Auto 0.02 X10*3/uL (0.00-0.03); Imm Gran Pct Auto 0.2 % (0.0-0.4); Lymphocytes Absolute Auto 2.7 X10*3/uL (1.2-4.9); Lymphocytes Percent Auto 29.3 % (20-40); Mean Corpuscular Hemoglobin 28.6 pg (27.0-33.0); Mean Corpuscular Volume 86.7 fL (80.0-98.0); Mean Platelet Volume 10.8 fL (9.4-12.3); Monocytes Absolute Auto 0.5 X10*3/uL (0.1-1.2); Monocytes Percent Auto 5.2 % (2-11); Neutrophils Absolute Auto 5.8 x10*3/uL (2.0-8.3); Neutrophils Percent Auto 62.9 % (45-73); Platelet Count 250 X10*3/uL (160-400); Red Blood Count 4.72 X10*6/uL (4.20-5.50); Red Cell Distribution Width 12.9 % (11.0-16.0); White Blood Count 9.2 X10*3/uL (4.8-10.8)
[2022-09-11 13:54] LABS: Appearance Urine Clear; Color Urine Yellow; Glucose Urine UA Negative (Negative); Leukocyte Esterase Urine Negative (Negative); Nitrite Urine Negative (Negative); PH 6.5 (5.0-9.0); Urine Blood Negative (Negative); Urine Ketones Negative (Negative); Urine Protein Negative (Neg-Trace)
[2022-09-11 13:56] LABS: COVID-19 Test Negative (Negative); IDNOW Serial# 9DB6401D
[2022-09-11] MEDS: Ketorolac Tromethamine 30 MG/ML VIAL IM (14:35)
[2022-09-11] MEDS: Acetaminophen 325 MG TABLET 975 MG PO (14:35)
[2022-09-11] MEDS: oxyCODONE HCl Immed Release 5 MG TABLET PO (14:36)
[2022-09-11 14:38] LABS: Alanine Aminotransferase 6 U/L (0-31); Albumin Level 3.8 g/dL (3.5-5.0); Alkaline Phosphatase 62 U/L (39-117); Anion Gap 12 (12-20); Aspartate Amino Transferase 14 U/L (5-31); Bilirubin Total 1.3 mg/dL (0.0-1.0); Blood Urea Nitrogen 12 mg/dL (9-16); Calcium 8.8 mg/dL (8.4-10.2); Carbon Dioxide 28 mmol/L (22-29); Chloride 106 mmol/L (96-108); Creatinine Clr Calc Pharmacy 100.2; Estimated Glomerular Filt Rate > 60; Glucose Random 85 mg/dL (60-115); Potassium 4.7 mmol/L (3.3-5.1); Sodium 141 mmol/L (135-145); Total Protein 6.1 g/dL (6.5-8.0)
--- NOTE | 2022-09-11 14:40 | PC.NURSE ---
pt medicated per AUG for 10/10 back pain, pt tearful, awaiting CT, call vail placed within reach [facility]CTM
[2022-09-11 14:58] LABS: HCG Quantitative < 2 mIU/mL
== END 2022-09-11 17:59 | disposition home or self-care (01) ==
PROVIDERS: Physician Assistant Medical; Emergency Provider Emergency Medicine; PCP Family Medicine
DX: M54.42 Lumbago with sciatica, left side (principal); M54.41 Lumbago with sciatica, right side; Z20.822 Contact with and (suspected) exposure to COVID-19; F17.210 Nicotine dependence, cigarettes, uncomplicated; F12.90 Cannabis use, unspecified, uncomplicated; C82.90 Follicular lymphoma, unspecified, unspecified site
CPT/HCPCS: 36415; 74176; 80053; 81003; 83735; 84702; 85025; 87635; 96372; 99283; 99284; J1885

== ENCOUNTER 2022-09-15 09:45 | Outpatient (REF) | payer MEDICAID, SELFPAY ==
[2022-09-15 17:02] LABS: CT PCR NOT DETECTED (Not Detect.); NG PCR NOT DETECTED (Not Detect.)
[2022-09-16 22:23] LABS: HPV mRNA E6/E7 rflx Not Detected (Not Detected)
== END 2022-09-15 09:46 | disposition home or self-care (01) ==
LOC: HO.LNP 09:45
PROVIDERS: PCP Family Medicine; Visit Provider Obstetrics & Gynecology
DX: N93.9 Abnormal uterine and vaginal bleeding, unspecified (principal); Z11.51 Encounter for screening for human papillomavirus (HPV)
CPT/HCPCS: 0353U; 81025; 87624; 88142; 99202

== ENCOUNTER 2022-12-15 13:08 | Emergency (ER) | payer MEDICAID, SELFPAY ==
--- NOTE | ~2022-12-15 | CT_ITS ---
EXAMINATION: CT HEAD WITHOUT CONTRAST CT CERVICAL SPINE WITHOUT CONTRAST CLINICAL INFORMATION: Headache. Fall. COMPARISON: None. TECHNIQUE: Imaging was performed from the skull base to vertex without intravenous administration of contrast. In addition, helical noncontrast CT imaging was acquired through the cervical spine and source images were reviewed along with axial reconstructions and sagittal and coronal MPRs. [This CT examination was performed using dose optimization techniques as appropriate, variously including the following: *Automated exposure control *Adjustment of mA and/or kV according to patient size (this includes techniques or standardized protocols for targeted exams where dose is matched to indication/reason for exam; i.e. extremities or head) *Use of iterative reconstruction technique] DLP: 10.25+643.99+384.28 mGy-cm FINDINGS: HEAD: No intracranial mass, hemorrhage, or midline shift is visualized. The ventricles and sulci are proportional. No extra-axial collections are identified. The paranasal sinuses and mastoid air cells are well aerated. CERVICAL SPINE: There is no evidence of acute cervical spine fracture. Vertebral bodies remain normal in height. Cervical vertebrae have normal alignment. There is mild multilevel degenerative spondylosis of the cervical spine with disc height narrowing and endplate spurs and facet joint arthrosis No pre- or paravertebral soft tissue abnormality is identified. Limited assessment of the lung apices is unremarkable. CT/CT cervical spine wo IV con IMPRESSION: 1. No acute intracranial pathology. 2. No CT evidence of acute cervical spine fracture or traumatic subluxation
--- NOTE | ~2022-12-15 | CT_ITS ---
EXAMINATION: CT CHEST, ABDOMEN AND PELVIS WITHOUT CONTRAST CLINICAL INFORMATION: Status post fall. COMPARISON: 09/11/2022 TECHNIQUE: Multidetector volumetric imaging was performed of the chest, abdomen and pelvis. Oral contrast was not administered. Sagittal and coronal reformatted images were obtained on the technologist's workstation. This CT examination was performed using dose optimization techniques as appropriate, variously including the following: *Automated exposure control *Adjustment of mA and/or kV according to patient size (this includes techniques or standardized protocols for targeted exams where dose is matched to indication/reason for exam; i.e. extremities or head) *Use of iterative reconstruction technique DLP: 213.6 mGy-cm FINDINGS: CHEST: CHEST WALL: No acute abnormality. MEDIASTINUM: No bulky axillary, hilar or mediastinal lymphadenopathy. Great vessels are of normal caliber. Heart size is normal. No pericardial effusion. CORONARY ARTERY CALCIFICATION: No significant coronary artery calcification appreciated on this exam. PLEURA: There is no pleural effusion. LUNGS: No suspicious pulmonary nodule. ABDOMEN AND PELVIS: ABDOMINAL AND PELVIC WALL: No acute abnormality. LIVER AND BILIARY TREE: The noncontrast liver is normal in size and contour. No biliary ductal dilatation. GALLBLADDER: Unremarkable. PANCREAS: Unremarkable. SPLEEN: Unremarkable. ADRENAL GLANDS: Unremarkable. KIDNEYS AND URETERS: The kidneys are symmetric in size. No renal calculus. No hydronephrosis or perinephric stranding. GASTROINTESTINAL TRACT: Small hiatal hernia. Small and large bowel loops are of normal caliber. No small bowel obstruction. Appendix is within normal limits. VASCULAR: Normal caliber abdominal aorta. LYMPH NODES: Nonspecific mesenteric stranding and edema. No bulky abdominal or pelvic lymphadenopathy. FREE FLUID: No free fluid. BLADDER: Unremarkable. PELVIC VISCERA: Unremarkable. OSSEOUS STRUCTURES: No destructive bone lesions. CT/CT abdomen pelvis wo IV con IMPRESSION: No acute abnormality in the chest, abdomen or pelvis.
--- NOTE | ~2022-12-15 | XR_ITS ---
EXAMINATION: XR THORACIC SPINE CLINICAL INFORMATION: Tenderness to palpation COMPARISON: CT chest 12/15/2022 TECHNIQUE: 3 views of the thoracic spine were obtained. FINDINGS: Mild degenerative spondylosis of thoracic disc height narrowing degenerative lipping at the anterior endplates of the vertebrae. No acute abnormality. There is no fracture or bone destruction seen and the vertebral alignment is normal. . There is no abnormality of the paraspinal soft tissues. XR/XR thoracic spine 3V IMPRESSION: 1. No acute abnormality. 2. Mild degenerative spondylosis of thoracic spine.
--- NOTE | ~2022-12-15 | CT_ITS ---
EXAMINATION: CT HEAD WITHOUT CONTRAST CT CERVICAL SPINE WITHOUT CONTRAST CLINICAL INFORMATION: Headache. Fall. COMPARISON: None. TECHNIQUE: Imaging was performed from the skull base to vertex without intravenous administration of contrast. In addition, helical noncontrast CT imaging was acquired through the cervical spine and source images were reviewed along with axial reconstructions and sagittal and coronal MPRs. [This CT examination was performed using dose optimization techniques as appropriate, variously including the following: *Automated exposure control *Adjustment of mA and/or kV according to patient size (this includes techniques or standardized protocols for targeted exams where dose is matched to indication/reason for exam; i.e. extremities or head) *Use of iterative reconstruction technique] DLP: 10.25+643.99+384.28 mGy-cm FINDINGS: HEAD: No intracranial mass, hemorrhage, or midline shift is visualized. The ventricles and sulci are proportional. No extra-axial collections are identified. The paranasal sinuses and mastoid air cells are well aerated. CERVICAL SPINE: There is no evidence of acute cervical spine fracture. Vertebral bodies remain normal in height. Cervical vertebrae have normal alignment. There is mild multilevel degenerative spondylosis of the cervical spine with disc height narrowing and endplate spurs and facet joint arthrosis No pre- or paravertebral soft tissue abnormality is identified. Limited assessment of the lung apices is unremarkable. CT/CT head/brain wo IV con IMPRESSION: 1. No acute intracranial pathology. 2. No CT evidence of acute cervical spine fracture or traumatic subluxation
[2022-12-15 13:50] VITALS: BP 122/80; PULSE 80; RESP 16; TEMP 36.4; O2SAT 98; BMI 34.0
--- NOTE | 2022-12-15 13:50 | ED.GENADULT ---
HPI - General Adult General Chief complaint: Dizziness Stated complaint: Fall Time Seen by Provider: 12/15/22 14:08 Related Data Home Medications Medication Instructions Recorded Confirmed clonazepam 1 mg tablet 1 tab PO BID 10/21/20 08/23/22 fluticasone propionate 220 0 mcg PO BID 03/03/21 08/23/22 mcg/actuation HFA aerosol inhaler (Flovent HFA) trazodone 100 mg tablet 100 mg PO BEDTIME 03/03/21 08/23/22 sertraline 25 mg tablet 25 mg PO DAILY 08/23/22 08/23/22 Previous Rx's Medication Instructions Recorded pantoprazole 40 mg tablet,delayed 40 mg PO DAILY #30 tabs 08/23/22 release sucralfate 1 gram tablet 1 g PO BEDTIME #30 tabs 08/23/22 cyclobenzaprine 10 mg tablet 10 mg PO TID PRN muscle spasm #14 09/11/22 tabs ibuprofen 600 mg tablet 600 mg PO Q8H PRN pain #14 tabs 09/11/22 oxycodone 5 mg tablet 5 mg PO Q8H PRN severe pain (scale 09/11/22 score 7-10) #6 tabs prednisone 50 mg tablet 50 mg PO DAILY #5 tabs 09/11/22 Allergies Allergy/AdvReac Type Severity Reaction Status Date / Time Penicillins [PENICILLINS] Allergy Intermediate RASH Verified 12/15/22 13:50 PMFSH Past Medical History Medical History (Updated 12/15/22 @ 17:21 by Annie Cueva MD) Back pain DEEPALI I (cervical intraepithelial neoplasia I) Depression Follicular lymphoma Surgical History H/O hernia repair Hx of esophagogastroduodenoscopy Family History Family History Maternal Aunt Diabetes Hypertension Social History Social History Household Members: Spouse and Children Housing: House Are you a primary healthcare economics manager to a significant other at home: No Do you presently have visiting nurse or other home services: No Alcohol intake: current Alcohol intake frequency: holidays/special occasions only Alcohol type: wine Patient Tobacco Use Status: Current everyday Tobacco user Tobacco use type: Cigarette Smoked in Last 30 Days: No Use of substances other than those prescribed or required for medical reasons: Yes Substance Use Type: Marijuana Advance Directives: No Patient : No service: No Current occupational status: employed Physical Exam ED Vital Signs: Vital Signs - 24 hr 12/15/22 13:50 12/15/22 14:38 12/15/22 15:17 Temperature 97.6 F 97.8 F 97.6 F Pulse Rate 80 60 56 Respiratory Rate 16 14 14 Blood Pressure 122/80 105/72 101/6 L Pulse Oximetry 98 98 100 Oxygen Delivery Method Room Air Room Air Room Air BMI result Body Mass Index 34.0 Course Course Course Narrative: This is an RME: Additional HPI, ROS, PE not included below will be deferred to primary provider. Patient is a 42-year-old Croatian-speaking female with history of follicular lymphoma and AUB presenting to the emergency department with complaint of back pain after two slip and falls today. This morning was walking when she slipped and fell onto her back. Later in the day she also slipped getting out of the bathub. Reports intermittent episodes of lightheadedness for the past week and shortness of breath. States was home during the falls. Denies taking any blood thinners. No midline c-spine tenderness. Mild thoracic spinal tenderness to palpation. No lumbar spinal tenderness. Plan: EKG, labs, x-ray Medications Administered Discontinued Medications Generic Name Dose Route Start Last Admin Trade Name Freq PRN Reason Stop Dose Admin Sodium Chloride 1,000 mls @ 999 mls/hr 12/15/22 14:45 12/15/22 16:48 Ns IV 12/15/22 15:45 Infused .Q1H1M [facility] Medical Decision Making Lab Data 12/15/22 14:10 12/15/22 14:10 Labs: Lab Results 12/15/22 12/15/22 12/15/22 Range/Units 14:10 14:10 14:10 WBC 6.6 (4.8-10.8) X10*3/uL RBC 4.78 (4.20-5.50) X10*6/uL Hgb 13.6 (12.0-16.0) g/dl Hct 41.7 (37.0-47.0) % MCV 87.2 (80.0-98.0) fL MCH 28.5 (27.0-33.0) pg MCHC 32.6 (31.0-35.0) g/dl RDW 13.2 (11.0-16.0) % Plt Count 219 (160-400) X10*3/uL MPV 10.8 (9.4-12.3) fL Immature Gran % (Auto) 0.3 (0.0-0.4) % Neut % (Auto) 49.1 (45-73) % Lymph % (Auto) 41.5 H (20-40) % [place] % (Auto) 6.2 (2-11) % Eos % (Auto) 2.3 (0-4) % Baso % (Auto) 0.6 (0-2) % Lymph # (Auto) 2.8 (1.2-4.9) X10*3/uL [place] # (Auto) 0.4 (0.1-1.2) X10*3/uL Eos # (Auto) 0.2 (0.0-0.4) X10*3/uL Baso # (Auto) 0.0 (0.0-0.2) X10*3/uL Abs Immat Gran (auto) 0.02 (0.00-0.03) X10*3/uL Absolute Neuts (auto) 3.3 (2.0-8.3) x10*3/uL Absolute Nucleated RBC 0.000 (0.0-0.012) X10*3/uL Nucleated RBC % (auto) 0.0 (0.0-0.2) /100WBC Sodium 142 (135-145) mmol/L Potassium 4.4 (3.3-5.1) mmol/L Chloride 108 (96-108) mmol/L Carbon Dioxide 27 (22-29) mmol/L Anion Gap 11 L (12-20) BUN 11 (9-16) mg/dL Creatinine 0.77 (0.5-1.4) mg/dL Estim Creat Clear Calc 94.0 Estimated GFR > 60 Random Glucose 89 (60-115) mg/dL Calcium 9.4 D (8.4-10.2) mg/dL Troponin I High Sens < 2.7 (<3.5-17.0) ng/L Beta HCG, Quant mIU/mL 12/15/22 Range/Units 14:10 WBC (4.8-10.8) X10*3/uL RBC (4.20-5.50) X10*6/uL Hgb (12.0-16.0) g/dl Hct (37.0-47.0) % MCV (80.0-98.0) fL MCH (27.0-33.0) pg MCHC (31.0-35.0) g/dl RDW (11.0-16.0) % Plt Count (160-400) X10*3/uL MPV (9.4-12.3) fL Immature Gran % (Auto) (0.0-0.4) % Neut % (Auto) (45-73) % Lymph % (Auto) (20-40) % [place] % (Auto) (2-11) % Eos % (Auto) (0-4) % Baso % (Auto) (0-2) % Lymph # (Auto) (1.2-4.9) X10*3/uL [place] # (Auto) (0.1-1.2) X10*3/uL Eos # (Auto) (0.0-0.4) X10*3/uL Baso # (Auto) (0.0-0.2) X10*3/uL Abs Immat Gran (auto) (0.00-0.03) X10*3/uL Absolute Neuts (auto) (2.0-8.3) x10*3/uL Absolute Nucleated RBC (0.0-0.012) X10*3/uL Nucleated RBC % (auto) (0.0-0.2) /100WBC Sodium (135-145) mmol/L Potassium (3.3-5.1) mmol/L Chloride (96-108) mmol/L Carbon Dioxide (22-29) mmol/L Anion Gap (12-20) BUN (9-16) mg/dL Creatinine (0.5-1.4) mg/dL Estim Creat Clear Calc Estimated GFR Random Glucose (60-115) mg/dL Calcium (8.4-10.2) mg/dL Troponin I High Sens (<3.5-17.0) ng/L Beta HCG, Quant < 2 mIU/mL Discharge Plan Discharge Clinical Impression: Near syncope Patient Disposition: Home, Self-Care Instructions: Near Syncope (ED) Prescriptions: No Action clonazepam 1 mg tablet 1 tab PO BID oxycodone 5 mg tablet 5 mg PO Q8H PRN (Reason: severe pain (scale score 7-10)) Qty: 6 0RF Rx Instructions: Partial Fill upon patient request. prednisone 50 mg tablet 50 mg PO DAILY Qty: 5 0RF cyclobenzaprine 10 mg tablet 10 mg PO TID PRN (Reason: muscle spasm) Qty: 14 0RF ibuprofen 600 mg tablet 600 mg PO Q8H PRN (Reason: pain) Qty: 14 0RF trazodone 100 mg tablet 100 mg PO BEDTIME Flovent HFA 220 mcg/actuation HFA aerosol inhaler 0 mcg PO BID sertraline 25 mg tablet 25 mg PO DAILY pantoprazole 40 mg tablet,delayed release (DR/EC) 40 mg PO DAILY Qty: 30 2RF Rx Instructions: take one tablet half an hour before breakfast sucralfate 1 gram tablet 1 g PO BEDTIME Qty: 30 4RF Referrals: Elsi Sal MD [Primary Care Provider] - 12/17/22 Interventions: ED Discharge Assessment Last Done: 12/15/22 17:47 Discharge Date/Time: 12/15/22 17:47
--- NOTE | 2022-12-15 13:55 | ECG_ITS ---
Test Reason : syncope ? Blood Pressure : / mmHG Vent. Rate : 067 BPM Atrial Rate : 067 BPM P-R Int : 144 ms QRS Dur : 082 ms QT Int : 386 ms P-R-T Axes : 041 000 026 degrees QTc Int : 407 ms Normal sinus rhythm with sinus arrhythmia Normal ECG When compared with ECG of 05-MAY-2019 09:34, No significant change was found Referred By: Akanksha Marquez Electronically Signed By:SAKINA REEDER MD
[2022-12-15 14:15] LABS: MANUAL DIFF FLAG NO
[2022-12-15 14:16] LABS: Basophils Percent Auto 0.6 % (0-2); Eosinophils Absolute Auto 0.2 X10*3/uL (0.0-0.4); Eosinophils Percent Auto 2.3 % (0-4); Hematocrit 41.7 % (37.0-47.0); Hemoglobin 13.6 g/dl (12.0-16.0); Imm Gran Abs Auto 0.02 X10*3/uL (0.00-0.03); Imm Gran Pct Auto 0.3 % (0.0-0.4); Lymphocytes Absolute Auto 2.8 X10*3/uL (1.2-4.9); Lymphocytes Percent Auto 41.5 % (20-40); Mean Corpuscular HGB Conc 32.6 g/dl (31.0-35.0); Mean Corpuscular Hemoglobin 28.5 pg (27.0-33.0); Mean Corpuscular Volume 87.2 fL (80.0-98.0); Mean Platelet Volume 10.8 fL (9.4-12.3); Monocytes Absolute Auto 0.4 X10*3/uL (0.1-1.2); Monocytes Percent Auto 6.2 % (2-11); Neutrophils Absolute Auto 3.3 x10*3/uL (2.0-8.3); Neutrophils Percent Auto 49.1 % (45-73); Platelet Count 219 X10*3/uL (160-400); Red Blood Count 4.78 X10*6/uL (4.20-5.50); Red Cell Distribution Width 13.2 % (11.0-16.0); White Blood Count 6.6 X10*3/uL (4.8-10.8)
[2022-12-15 14:29] LABS: Anion Gap 11 (12-20); Blood Urea Nitrogen 11 mg/dL (9-16); Calcium 9.4 mg/dL (8.4-10.2); Carbon Dioxide 27 mmol/L (22-29); Chloride 108 mmol/L (96-108); Estimated Glomerular Filt Rate > 60; Glucose Random 89 mg/dL (60-115); Potassium 4.4 mmol/L (3.3-5.1); Sodium 142 mmol/L (135-145)
[2022-12-15 14:38] VITALS: BP 105/72; PULSE 60; RESP 14; TEMP 36.6; O2SAT 98
[2022-12-15 14:38] LABS: HCG Quantitative < 2 mIU/mL; Troponin-I High Sensitivity < 2.7 ng/L (<3.5-17.0)
--- NOTE | 2022-12-15 14:39 | ED_ITS ---
HPI - Dizziness General Chief Complaint: Dizziness Stated Complaint: Fall Time Seen by Provider: 12/15/22 14:08 History of Present Illness HPI Narrative: Patient is a 42-year-old female presents today with having syncopal episode x2. Patient claims she was lightheaded dizzy while trying to walk to the bathroom. Associated with no diaphoresis. Patient fell hitting her back. Complaining of pain to the back of her head all the way down to the lumbar area. There is no bowel urinary incontinence. There is no focal weakness. Patient got up went to take a shower after shower patient felt lightheaded again and then had a 2nd episode of near-syncope. She denies any history of diabetes, hypertension, high cholesterol, smoking, [place]. Does have a family history of coronary artery di sease. Patient's father from [place] at the age of 42. Patient denies any coughing congestion upper respiratory symptoms. Denies noticing any blood in the stool. Currently not on blood thinners. Minimal diaphoresis. Positive history of anxiety. No history of leg swelling. Not on control. No history of blood clots in the past. Related Data Home Medications Medication Instructions Recorded Confirmed clonazepam 1 mg tablet 1 tab PO BID 10/21/20 08/23/22 fluticasone propionate 220 0 mcg PO BID 03/03/21 08/23/22 mcg/actuation HFA aerosol inhaler (Flovent HFA) trazodone 100 mg tablet 100 mg PO BEDTIME 03/03/21 08/23/22 sertraline 25 mg tablet 25 mg PO DAILY 08/23/22 08/23/22 Previous Rx's Medication Instructions Recorded pantoprazole 40 mg tablet,delayed 40 mg PO DAILY #30 tabs 08/23/22 release sucralfate 1 gram tablet 1 g PO BEDTIME #30 tabs 08/23/22 cyclobenzaprine 10 mg tablet 10 mg PO TID PRN muscle spasm #14 09/11/22 tabs ibuprofen 600 mg tablet 600 mg PO Q8H PRN pain #14 tabs 09/11/22 oxycodone 5 mg tablet 5 mg PO Q8H PRN severe pain (scale 09/11/22 score 7-10) #6 tabs prednisone 50 mg tablet 50 mg PO DAILY #5 tabs 09/11/22 Allergies Allergy/AdvReac Type Severity Reaction Status Date / Time Penicillins [PENICILLINS] Allergy Intermediate RASH Verified 12/15/22 13:50 Review of Systems Review of Systems: No chest pain or diaphoresis Yes all other systems are reviewed and are negative [facility] Past Medical History Attestation statement: The following information was validated with the patient. Medical History (Updated 12/15/22 @ 17:21 by Annie Cueva MD) Back pain DEEPALI I (cervical intraepithelial neoplasia I) Depression Follicular lymphoma Surgical History H/O hernia repair Hx of esophagogastroduodenoscopy Family History Family History Maternal Aunt Diabetes Hypertension Social History Social History Household Members: Spouse and Children Housing: House Are you a primary career services coordinator to a significant other at home: No Do you presently have visiting nurse or other home services: No Alcohol intake: current Alcohol intake frequency: holidays/special occasions only Alcohol type: wine Patient Tobacco Use Status: Current everyday Tobacco user Tobacco use type: Cigarette Smoked in Last 30 Days: No Use of substances other than those prescribed or required for medical reasons: Yes Substance Use Type: Marijuana Advance Directives: No Patient : No service: No Current occupational status: employed Physical Exam Vital Signs: Vital Signs: Last Vital Signs Temp 97.6 F 12/15/22 15:17 Pulse 56 12/15/22 15:17 Resp 14 12/15/22 15:17 BP 101/6 L 12/15/22 15:17 Pulse Ox 100 12/15/22 15:17 O2 Del Method Room Air 12/15/22 15:17 BMI result Body Mass Index 34.0 Appearance: Alert. Oriented X3. No acute distress. Eyes: Pupils equal, round and reactive to light. ENT: Pharynx normal. Neck: Normal inspection. Neck supple. No lymph nodes noted. No crepitus CVS: Normal heart rate and rhythm. Pulses normal. Normal S1 and S2 Respiratory: No respiratory distress. Breath sounds normal. No Wheezing. No rales Abdomen: Soft and nontender. No rigidity. No distention. good BS x4 Skin: Skin warm and dry. Normal skin color. Normal skin turgor. Extremities: No lower extremity edema. Neurovascular intact to all extremities. No Lacerations. No Rash Neuro: Oriented X 3. No motor deficit. No sensory deficit. Moving all extermities. No slurred speech Medications Administered Discontinued Medications Generic Name Dose Route Start Last Admin Trade Name Freq PRN Reason Stop Dose Admin Sodium Chloride 1,000 mls @ 999 mls/hr 12/15/22 14:45 12/15/22 16:48 Ns IV 12/15/22 15:45 Infused .Q1H1M [facility] Medical Decision Making Medical Decision Making [facility] Narrative: Patient well-appearing. Positive getting up feeling lightheaded then had a near syncopal episode. Seems basal vagal. Has no risk factors for PE. Has no leg swelling. Not on control. Patient's cardiac enzyme was negative x2 sets. My interpretation of patient's EKG showed a sinus rhythm heart rate is 65 SD QRS QT within normal limits is no acute ST segment elevation noted. Patient's hemoglobin is 13.6 is no evidence for anemia. Her electrolytes are normal there is no evidence for gross dehydration. Symptom improved while in the ED. CT scan of the head was negative for any acute evidence of bleeding. CT scan of chest abdomen pelvis negative for any traumatic injury. No evidence of abdominal aortic aneurysm. Her test was negative. She is in stable condition. Will discharge patient home. Differential Diagnosis Differential Diagnoses: The differential diagnosis associated with the pres entation includes Intracranial bleed, arrhythmia, PE, ACS, related issue, Lab Data [facility] Lab Attestation statement: I reviewed the patient's lab results. 12/15/22 14:10 12/15/22 14:10 Labs: Lab Results 12/15/22 12/15/22 12/15/22 Range/Units 14:10 14:10 14:10 WBC 6.6 (4.8-10.8) X10*3/uL RBC 4.78 (4.20-5.50) X10*6/uL Hgb 13.6 (12.0-16.0) g/dl Hct 41.7 (37.0-47.0) % MCV 87.2 (80.0-98.0) fL MCH 28.5 (27.0-33.0) pg MCHC 32.6 (31.0-35.0) g/dl RDW 13.2 (11.0-16.0) % Plt Count 219 (160-400) X10*3/uL MPV 10.8 (9.4-12.3) fL Immature Gran % (Auto) 0.3 (0.0-0.4) % Neut % (Auto) 49.1 (45-73) % Lymph % (Auto) 41.5 H (20-40) % [place] % (Auto) 6.2 (2-11) % Eos % (Auto) 2.3 (0-4) % Baso % (Auto) 0.6 (0-2) % Lymph # (Auto) 2.8 (1.2-4.9) X10*3/uL [place] # (Auto) 0.4 (0.1-1.2) X10*3/uL Eos # (Auto) 0.2 (0.0-0.4) X10*3/uL Baso # (Auto) 0.0 (0.0-0.2) X10*3/uL Abs Immat Gran (auto) 0.02 (0.00-0.03) X10*3/uL Absolute Neuts (auto) 3.3 (2.0-8.3) x10*3/uL Absolute Nucleated RBC 0.000 (0.0-0.012) X10*3/uL Nucleated RBC % (auto) 0.0 (0.0-0.2) /100WBC Sodium 142 (135-145) mmol/L Potassium 4.4 (3.3-5.1) mmol/L Chloride 108 (96-108) mmol/L Carbon Dioxide 27 (22-29) mmol/L Anion Gap 11 L (12-20) BUN 11 (9-16) mg/dL Creatinine 0.77 (0.5-1.4) mg/dL Estim Creat Clear Calc 94.0 Estimated GFR > 60 Random Glucose 89 (60-115) mg/dL Calcium 9.4 D (8.4-10.2) mg/dL Troponin I High Sens < 2.7 (<3.5-17.0) ng/L Beta HCG, Quant mIU/mL 12/15/22 Range/Units 14:10 WBC (4.8-10.8) X10*3/uL RBC (4.20-5.50) X10*6/uL Hgb (12.0-16.0) g/dl Hct (37.0-47.0) % MCV (80.0-98.0) fL MCH (27.0-33.0) pg MCHC (31.0-35.0) g/dl RDW (11.0-16.0) % Plt Count (160-400) X10*3/uL MPV (9.4-12.3) fL Immature Gran % (Auto) (0.0-0.4) % Neut % (Auto) (45-73) % Lymph % (Auto) (20-40) % [place] % (Auto) (2-11) % Eos % (Auto) (0-4) % Baso % (Auto) (0-2) % Lymph # (Auto) (1.2-4.9) X10*3/uL [place] # (Auto) (0.1-1.2) X10*3/uL Eos # (Auto) (0.0-0.4) X10*3/uL Baso # (Auto) (0.0-0.2) X10*3/uL Abs Immat Gran (auto) (0.00-0.03) X10*3/uL Absolute Neuts (auto) (2.0-8.3) x10*3/uL Absolute Nucleated RBC (0.0-0.012) X10*3/uL Nucleated RBC % (auto) (0.0-0.2) /100WBC Sodium (135-145) mmol/L Potassium (3.3-5.1) mmol/L Chloride (96-108) mmol/L Carbon Dioxide (22-29) mmol/L Anion Gap (12-20) BUN (9-16) mg/dL Creatinine (0.5-1.4) mg/dL Estim Creat Clear Calc Estimated GFR Random Glucose (60-115) mg/dL Calcium (8.4-10.2) mg/dL Troponin I High Sens (<3.5-17.0) ng/L Beta HCG, Quant < 2 mIU/mL Independent Interpretation I performed an independent interpretation of an: EKG and CT Scan Interpretation: EKG showed a sinus pattern heart rate is 70 SD QRS QT within normal limits is no acute ST segment elevation noted. CT scan of the head was grossly negative for any acute evidence of bleeding Radiology Impression Discussion of test interpretation with radiology: I have reviewed the radiologist's reading. External Record Review External record reviewed: Office record Patient's previous office workup was reviewed. Discharge Plan Discharge Clinical Impression: Near syncope Patient Disposition: Home, Self-Care Instructions: Near Syncope (ED) Prescriptions: No Action clonazepam 1 mg tablet 1 tab PO BID oxycodone 5 mg tablet 5 mg PO Q8H PRN (Reason: severe pain (scale score 7-10)) Qty: 6 0RF Rx Instructions: Partial Fill upon patient request. prednisone 50 mg tablet 50 mg PO DAILY Qty: 5 0RF cyclobenzaprine 10 mg tablet 10 mg PO TID PRN (Reason: muscle spasm) Qty: 14 0RF ibuprofen 600 mg tablet 600 mg PO Q8H PRN (Reason: pain) Qty: 14 0RF trazodone 100 mg tablet 100 mg PO BEDTIME Flovent HFA 220 mcg/actuation HFA aerosol inhaler 0 mcg PO BID sertraline 25 mg tablet 25 mg PO DAILY pantoprazole 40 mg tablet,delayed release (DR/EC) 40 mg PO DAILY Qty: 30 2RF Rx Instructions: take one tablet half an hour before breakfast sucralfate 1 gram tablet 1 g PO BEDTIME Qty: 30 4RF Referrals: Elsi Sal MD [Primary Care Provider] - 12/17/22
[2022-12-15 15:17] VITALS: BP 101/6; PULSE 56; RESP 14; TEMP 36.4; O2SAT 100
[2022-12-15] MEDS: 0.9 % Sodium Chloride 1,000 ML 999 ML IV (15:39)
--- NOTE | 2022-12-15 15:40 | PC.NURSE ---
Addendum entered by Delmy Cortez 12/15/22 15:42: 20g IV placed in the left forearm Original Note: IVF administered per provider order.
== END 2022-12-15 17:47 | disposition home or self-care (01) ==
PROVIDERS: Registered Nurse Emergency; Emergency Provider Emergency Medicine Emergency Medical Services; PCP Family Medicine
DX: R55 Syncope and collapse (principal); E11.9 Type 2 diabetes mellitus without complications; I10 Essential (primary) hypertension; E78.5 Hyperlipidemia, unspecified; F17.210 Nicotine dependence, cigarettes, uncomplicated; F12.90 Cannabis use, unspecified, uncomplicated; Z79.899 Other long term (current) drug therapy
CPT/HCPCS: 36415; 70450; 71250; 72072; 72125; 74176; 80048; 84484; 84702; 85025; 93005; 96360; 99284; 99285

== ENCOUNTER → 2022-12-15 13:55 | Outpatient (BNV) | payer MEDICAID, SELFPAY | PROVIDERS: Emergency Provider Emergency Medicine Emergency Medical Services; PCP Family Medicine; Visit Provider Internal Medicine Cardiovascular Disease | DX: I49.9 Cardiac arrhythmia, unspecified (principal) | CPT/HCPCS: 93010 ==

== ENCOUNTER 2023-03-01 08:32 | Outpatient (REF) | payer MEDICAID, SELFPAY ==
[2023-03-01 11:15] LABS: MANUAL DIFF FLAG NO
[2023-03-01 11:35] LABS: Basophils Percent Auto 0.5 % (0-2); Eosinophils Absolute Auto 0.1 X10*3/uL (0.0-0.4); Eosinophils Percent Auto 2.1 % (0-4); Hematocrit 42.5 % (37.0-47.0); Hemoglobin 14.1 g/dl (12.0-16.0); Imm Gran Abs Auto 0.01 X10*3/uL (0.00-0.03); Imm Gran Pct Auto 0.2 % (0.0-0.4); Lymphocytes Absolute Auto 2.6 X10*3/uL (1.2-4.9); Lymphocytes Percent Auto 42.7 % (20-40); Mean Corpuscular HGB Conc 33.2 g/dl (31.0-35.0); Mean Corpuscular Volume 87.3 fL (80.0-98.0); Mean Platelet Volume 11.6 fL (9.4-12.3); Monocytes Absolute Auto 0.3 X10*3/uL (0.1-1.2); Monocytes Percent Auto 4.6 % (2-11); Neutrophils Absolute Auto 3.1 x10*3/uL (2.0-8.3); Neutrophils Percent Auto 49.9 % (45-73); Platelet Count 209 X10*3/uL (160-400); Red Blood Count 4.87 X10*6/uL (4.20-5.50); Red Cell Distribution Width 13.4 % (11.0-16.0); White Blood Count 6.1 X10*3/uL (4.8-10.8)
[2023-03-01 11:54] LABS: Alanine Aminotransferase 6 U/L (0-31); Alkaline Phosphatase 55 U/L (39-117); Anion Gap 15 (12-20); Aspartate Amino Transferase 16 U/L (5-31); Bilirubin Total 0.8 mg/dL (0.0-1.0); Blood Urea Nitrogen 11 mg/dL (9-16); Calcium 9.1 mg/dL (8.4-10.2); Carbon Dioxide 24 mmol/L (22-29); Chloride 106 mmol/L (96-108); Estimated Glomerular Filt Rate > 60; Glucose Random 93 mg/dL (60-115); Lactate Dehydrogenase 260 U/L (122-220); Sodium 141 mmol/L (135-145); Total Protein 6.6 g/dL (6.5-8.0)
[2023-03-03 04:28] LABS: Follicle Stimulating Hormone 84.1 mIU/mL; Lutenizing Hormone 45.4 mIU/mL
[2023-03-07 05:13] LABS: Estradiol Ultra Sensitive 33 pg/mL
== END 2023-03-01 08:33 | disposition home or self-care (01) ==
LOC: HO.HHCL 08:32
PROVIDERS: Visit Provider Student in an Organized Health Care Education/Training Program
DX: R61 Generalized hyperhidrosis (principal)
CPT/HCPCS: 36415; 80053; 82670; 83001; 83002; 83615; 85025

== ENCOUNTER 2023-03-02 08:22 | Outpatient (AMB) | payer MEDICAID, SELFPAY ==
[2023-03-02 08:30] VITALS: BP 100/66; BMI 34.4
--- NOTE | 2023-03-02 08:30 | A.OFFVIS_ITS ---
Intake Vital Signs 03/02/23 08:30 Height 5 ft 1 in Weight 182 lb BMI 34.4 BP 100/66 Intake Visit Reasons: menses for 34 days Intake Note: The patient agreed to use of a medical numerical control operator during this encounter. Scribed for FRANKLIN Pena by Anna Sue medical numerical control operator, on 03/02/2023 at 8:56 am EST. Account Maintenance Representative Required: Yes Account Maintenance Representative Language: Billing Specialist Name: Jaylene Information Interpreted: non-clinical & clinical Soda Fountain Operator: Soda Fountain Operator Present (Jaylene) Allergies Penicillins [PENICILLINS] Allergy (Intermediate, Verified 03/02/23 08:37) RASH Is last menstrual period known: Yes Last menstrual period: 01/11/23 HPI HPI Comments History of Present Illness Details She is here to with complaints of VB for over a month with cramping. Reports last regular menses was in August, it stopped and returned in January 11- Feb 18. History of AUB, seen last in September by Dr. Carrasquillo, did not follow up with labs or US eval. at that time. Denies any urinary symptoms. No odors or itching. [facility] Medical History Pelvic pain Depression DEEPALI I (cervical intraepithelial neoplasia I) Back pain Follicular lymphoma Surgical History Hx of esophagogastroduodenoscopy H/O hernia repair Family History Maternal Aunt Diabetes Hypertension Social History Household Members: Spouse and Children Housing: House Are you a primary customer care specialist to a significant other at home: No Do you presently have visiting nurse or other home services: No Alcohol intake: current Alcohol intake frequency: holidays/special occasions only Alcohol type: wine Patient Tobacco Use Status: Current everyday Tobacco user Tobacco use type: Cigarette Substance Use Type: Marijuana service: No Current occupational status: employed Female Reproductive History Menstrual Date of last menstrual period: 01/11/23 Physical Exam Vital Signs: Last Vital Signs BP 100/66 03/02/23 08:30 BMI result Body Mass Index 34.4 Const General: cooperative, healthy appearing, comfortable, no acute distress, well developed, alert and awake Other: General: Yes bladder normal to palpation External Female Exam: normal external appearance and normal appearance of the urethra Speculum Exam - Vagina: normal appearance of the vagina, normal palpation and normal vaginal discharge Speculum Exam - Cervix: normal appearance of the cervix and normal palpation Bimanual exam- vagina & uterus: normal bimanual exam, normal palpation, bladder normal to palpation and normal palpation Bimanual Exam- Adnexa, other: normal adnexae and no masses Results AMB Test Urine AMB Test Urine Negative Last Edit by JOHN Bingham on 03/02/23 08:42 Results Reviewed Results Reviewed: Laboratory Last Values [facility]st Clinic Negative 03/02/23 08:41 Assessment & Plan Assessment & Plan (1) Abnormal uterine bleeding (AUB): Comment: History of DEEPALI 1 in 2014 followed by negative co testing in 2017 Code(s): N93.9 - Abnormal uterine and vaginal bleeding, unspecified Plan: Discussed: US and lab work previously ordered. Strongly advised to comply with plan of care. Follow up in person for results. BV testing and GC/CT panel done today. Await results and treat accordingly. All of her questions and concerns were addressed to the best of my ability and shared decision making. She is agreeable to plan of care. (2) Pelvic pain: Code(s): R10.2 - Pelvic and perineal pain Orders: Orders AMB HCG Urine Test Today Z32.02 - Encounter for test, result negative Bacterial Vaginosis Panel Today N93.9 - Abnormal uterine and vaginal bleeding, unspecified, R10.2 - Pelvic and perineal pain CT NG by PCR Today N93.9 - Abnormal uterine and vaginal bleeding, unspecified, R10.2 - Pelvic and perineal pain Coding Level of Care Code Est Pt Level 3 (26565) Diagnoses Abnormal uterine bleeding (AUB) N93.9 Pelvic pain R10.2
== END 2023-03-02 09:16 | disposition home or self-care (01) ==
PROVIDERS: PCP Family Medicine; Visit Provider Advanced Practice Midwife
DX: N93.9 Abnormal uterine and vaginal bleeding, unspecified (principal); R10.2 Pelvic and perineal pain; Z32.02 Encounter for pregnancy test, result negative
CPT/HCPCS: 99213

== ENCOUNTER 2023-03-02 08:22 | Outpatient (REF) | payer MEDICAID, SELFPAY ==
[2023-03-02 10:10] LABS: Hematocrit 41.9 % (37.0-47.0); Hemoglobin 13.6 g/dl (12.0-16.0); Mean Corpuscular HGB Conc 32.5 g/dl (31.0-35.0); Mean Corpuscular Hemoglobin 28.8 pg (27.0-33.0); Mean Corpuscular Volume 88.8 fL (80.0-98.0); Mean Platelet Volume 11.2 fL (9.4-12.3); Platelet Count 212 X10*3/uL (160-400); Red Blood Count 4.72 X10*6/uL (4.20-5.50); Red Cell Distribution Width 13.3 % (11.0-16.0); White Blood Count 6.6 X10*3/uL (4.8-10.8)
[2023-03-02 10:56] LABS: HCG Quantitative 3 mIU/mL; TSH reflex Free T4 1.02 uIU/mL (0.32-4.0)
[2023-03-02 18:25] LABS: CT PCR NOT DETECTED (Not Detect.); NG PCR NOT DETECTED (Not Detect.)
[2023-03-03 13:00] LABS: BV Int Neg Control Negative (Negative); BV Int Pos Control Positive (Positive)
== END 2023-03-02 08:23 | disposition home or self-care (01) ==
LOC: HO.LAB 08:22
PROVIDERS: Obstetrics & Gynecology; PCP Family Medicine; Visit Provider Advanced Practice Midwife
DX: N93.9 Abnormal uterine and vaginal bleeding, unspecified (principal); R10.2 Pelvic and perineal pain; Z32.02 Encounter for pregnancy test, result negative; Z20.2 Contact with and (suspected) exposure to infections with a predominantly sexual mode of transmission
CPT/HCPCS: 0353U; 36415; 81025; 84443; 84702; 85027; 87480; 87510; 87660; 99212

== ENCOUNTER 2023-03-02 09:04 | Outpatient (REF) | payer MEDICAID, SELFPAY | END 2023-03-02 09:05 | disposition home or self-care (01) | LOC: HO.LNP 09:04 | PROVIDERS: Visit Provider Advanced Practice Midwife | DX: Z13.89 Encounter for screening for other disorder (principal) ==

== ENCOUNTER 2023-03-02 13:53 | Outpatient (REF) | payer MEDICAID, SELFPAY ==
--- NOTE | ~2023-03-02 | US_ITS ---
EXAMINATION: ULTRASOUND PELVIC, COMPLETE CLINICAL INFORMATION: Abnormal uterine and vaginal bleeding. COMPARISON: 06/21/2017. TECHNIQUE: Pelvic ultrasound was performed using transvaginal and transabdominal technique without spectral doppler. FINDINGS: The uterus is of normal size and echogenicity measuring 9.2 x 4.9 x 5.2 cm. Left fundal fibroid measuring 2.4 x 2.2 x 2.1 cm not significantly changed from 2.4 x 2.5 x 2.4 cm on 06/21/2017. A regular homogeneous endometrium is identified measuring 0.4 cm in thickness. The right ovary measures 2.8 x 1.6 x 2.3 cm, volume 5.4 mL. The right ovary appears normal. The left ovary measures 2.3 x 1.1 x 1.8 cm, volume 2.4 mL. The left ovary appears normal. There is no pelvic free fluid. US/US pelvic and transvaginal IMPRESSION: Fibroid uterus. Normal thickness endometrial stripe.
== END 2023-03-02 13:54 | disposition home or self-care (01) ==
LOC: HO.US 13:53
PROVIDERS: PCP Family Medicine; Visit Provider Obstetrics & Gynecology
DX: N93.9 Abnormal uterine and vaginal bleeding, unspecified (principal)
CPT/HCPCS: 76830; 76856

== ENCOUNTER 2023-03-09 16:21 | Outpatient (REF) | payer MEDICAID, SELFPAY ==
[2023-03-09 18:40] LABS: HCG Quantitative 3 mIU/mL
[2023-03-12 02:08] LABS: Lutenizing Hormone 62.8 mIU/mL
[2023-03-12 02:22] LABS: Follicle Stimulating Hormone 104.6 mIU/mL
== END 2023-03-09 16:22 | disposition home or self-care (01) ==
LOC: HO.LAB 16:21
PROVIDERS: Absent Provider Internal Medicine Medical Oncology; PCP Family Medicine; Visit Provider Obstetrics & Gynecology
DX: N93.9 Abnormal uterine and vaginal bleeding, unspecified (principal)
CPT/HCPCS: 36415; 83001; 83002; 84702

== ENCOUNTER 2023-03-16 12:51 | Outpatient (AMB) | payer MEDICAID, SELFPAY ==
--- NOTE | 2023-03-16 12:55 | MHC.OFFVIS ---
Intake Vital Signs 03/16/23 12:56 Height 5 ft 1 in BP 110/72 Intake Visit Reasons: Ultrasound follow up Professor Of Biostatistics Required: Yes Professor Of Biostatistics Language: Sugar Chipper Machine Operator Name: Jaylene Information Interpreted: non-clinical & clinical Allergies Penicillins [PENICILLINS] Allergy (Intermediate, Verified 03/16/23 12:55) RASH HPI HPI Comments History of Present Illness Details The patient is presenting for follow-up from previous visit in 09/26 to discuss the results of her abnormal uterine bleeding workup and options of treatment. The following workup was done.: H&H= 13.6/41.6 FSH/LH 104.6/62 in the menopausal range TSH within normal, HCG= 3 repeated state the same GC and chlamydia were negative. Co testing was done was negative. Pelvic ultrasound showed the following: The uterus is of normal size and echogenicity measuring 9.2 x 4.9 x 5.2 cm. Left fundal fibroid measuring 2.4 x 2.2 x 2.1 cm not significantly changed from 2.4 x 2.5 x 2.4 cm on 06/21/2017. A regular homogeneous endometrium is identified measuring 0.4 cm in thickness. The right ovary measures 2.8 x 1.6 x 2.3 cm, volume 5.4 mL. The right ovary appears normal. The left ovary measures 2.3 x 1.1 x 1.8 cm, volume 2.4 mL. The left ovary appears normal. There is no pelvic free fluid. Mammogram ordered in 09/26 not done yet [facility] Medical History Pelvic pain Depression DEEPALI I (cervical intraepithelial neoplasia I) Back pain Follicular lymphoma Surgical History Hx of esophagogastroduodenoscopy H/O hernia repair Family History Maternal Aunt Diabetes Hypertension Social History Household Members: Spouse and Children Housing: House Are you a primary critical care nurse to a significant other at home: No Do you presently have visiting nurse or other home services: No Alcohol intake: current Alcohol intake frequency: holidays/special occasions only Alcohol type: wine Patient Tobacco Use Status: Current everyday Tobacco user Tobacco use type: Cigarette Substance Use Type: Marijuana service: No Current occupational status: employed Review of Systems Const All systems reviewed & are unremarkable except as noted in HPI and below Reports as per HPI and Reports no additional complaints GI Reports no additional complaints Reports no additional complaints Physical Exam Vital Signs: Last Vital Signs BP 110/72 03/16/23 12:56 Assessment & Plan Assessment & Plan (1) Postmenopausal bleeding: Code(s): N95.0 - Postmenopausal bleeding Plan: Discussed with the patient the results of her workup including elevated FSH/ LH and the diagnosis of menopause and postmenopausal bleeding. Endometrial stripe is 4 mm but since the patient has recurrent episodes of vaginal bleeding recommended endometrial sampling rule out endometrial pathology including endometrial hyperplasia and/or malignancy. The patient would like to schedule another appointment for EMB, explained to the patient the importance of not delaying the diagnosis therefore the treatment request delaying the treatment and diagnose can affect the prognosis. 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 Will repeat pelvic ultrasound periodically. Instructions given to patient to call in case any of the following occurs: pressure symptoms, abnormal uterine bleeding, pelvic pain; and to schedule a future office follow-up appointment for reassessment and to order a repeat ultrasound . All questions answered, the patient verbalized understanding and agreed with the plan . (3) Menopause: Code(s): Z78.0 - Asymptomatic menopausal state Plan: Discussed with the patient the results of FSH/LH pointing to worse the diagnosis of clinical menopause. Instructed the patient to schedule her mammogram as soon as possible. Will check mammogram results and EMB pathology and discuss different options of treatment next visit. Coding Level of Care Code Est Pt Level 3 (34651) Diagnoses Postmenopausal bleeding N95.0 Uterine myoma D25.9 Menopause Z78.0
[2023-03-16 12:56] VITALS: BP 110/72
== END 2023-03-16 15:52 | disposition home or self-care (01) ==
PROVIDERS: PCP Family Medicine; Visit Provider Obstetrics & Gynecology
DX: N95.0 Postmenopausal bleeding (principal); D25.9 Leiomyoma of uterus, unspecified; Z78.0 Asymptomatic menopausal state
CPT/HCPCS: 99213

== ENCOUNTER → 2023-03-16 12:51 | Outpatient (BNVA) | payer MEDICAID, SELFPAY | PROVIDERS: PCP Family Medicine; Visit Provider Obstetrics & Gynecology | DX: N95.0 Postmenopausal bleeding (principal); D25.9 Leiomyoma of uterus, unspecified; Z78.0 Asymptomatic menopausal state | CPT/HCPCS: 99212 ==

== ENCOUNTER 2023-03-21 15:16 | Outpatient (AMB) | payer MEDICAID, SELFPAY ==
[2023-03-21 15:26] VITALS: BP 116/66; BMI 34.2
--- NOTE | 2023-03-21 15:26 | A.OFFVIS_ITS ---
Intake Vital Signs 03/21/23 15:26 Height 5 ft 1 in Weight 180 lb 12.465 oz BMI 34.2 BP 116/66 Intake Visit Reasons: EMB Chart Writer Required: Yes Chart Writer Language: Bottle House Quality Control Technician Name: Jaylene LOPEZ Information Interpreted: non-clinical & clinical Carbon Paper Coating Machine Setter: Carbon Paper Coating Machine Setter Present (Jaylene LOPEZ) Accompanied by: Self / Same As Patient Allergies Penicillins [PENICILLINS] Allergy (Intermediate, Verified 03/21/23 15:27) RASH PFSH Medical History Pelvic pain Depression DEEPALI I (cervical intraepithelial neoplasia I) Back pain Follicular lymphoma Surgical History Hx of esophagogastroduodenoscopy H/O hernia repair Family History Maternal Aunt Diabetes Hypertension Social History Household Members: Spouse and Children Housing: House Are you a primary child day care teacher to a significant other at home: No Do you presently have visiting nurse or other home services: No Alcohol intake: current Alcohol intake frequency: holidays/special occasions only Alcohol type: wine Patient Tobacco Use Status: Current everyday Tobacco user Tobacco use type: Cigarette Substance Use Type: Marijuana service: No Current occupational status: employed Physical Exam Vital Signs: Last Vital Signs BP 116/66 03/21/23 15:26 BMI result Body Mass Index 34.2 Office Procedures Endometrial Biopsy Details: The patient was counseled regarding the indication and benefits of endometrial sampling to rule out endometrial pathology including not limited to endometrial hyperplasia or endometrial cancer and others; The alternatives (Either do nothing vs. hysteroscopy D&C) & the risks were discussed with the patient including but not limited: pain, uterine perforation, bleeding, infection, possible injury to bladder, bowel, ureter, possible need for blood transfusion with all its possible risks. The patient verbalized understanding all questions answered and signed consent. The patient was placed into the dorsal lithotomy position; a speculum was inserted in the vagina. Using aseptic technique for the procedure, the cervix was cleansed with Betadine. The anterior lip of the cervix was grasped with a single tooth tenaculum. The uterus was sounded to 7 cm with a 4 mm Pipelle was used. Tissues samples were obtained and placed in formalin, in a patient labeled container and sent to the pathology department. At the end of the procedure, there was minimal bleeding noted The patient tolerated the procedure well and was discharged in good condition with the following instructions: Nothing in the vagina until the bleeding stops. No sex until the bleeding stops, to call if any of the following occurs: fever (>100.4), flu-like symptoms, abdominal pain, heavy bleeding, four smelling vaginal discharge. The patient was instructed to schedule a Follow up appointment in 2 weeks to discuss pathology results of the biopsy and treatment options. This note was generated with a voice recognition program. Some errors may have been overlooked during the review of this note. Sometimes these errors may affect the content or meaning of a given sentence. [id number] Biopsy Assessment & Plan Assessment & Plan (1) Postmenopausal bleeding: Code(s): N95.0 - Postmenopausal bleeding Orders: Orders AMB Endometrial Biopsy Today N95.0 - Postmenopausal bleeding Coding Level of Care Code Procedure Only Diagnoses Postmenopausal bleeding N95.0 CPT Codes Endometrial Biopsy - CPT: 45893-Srxoblahlrr Biopsy ([id number])
== END 2023-03-21 15:45 | disposition home or self-care (01) ==
PROVIDERS: PCP Family Medicine; Visit Provider Obstetrics & Gynecology
DX: N95.0 Postmenopausal bleeding (principal); Z32.02 Encounter for pregnancy test, result negative
CPT/HCPCS: 58100

== ENCOUNTER 2023-03-21 15:16 | Outpatient (REF) | payer MEDICAID, SELFPAY | END 2023-03-21 15:17 | disposition home or self-care (01) | LOC: HO.LNP 15:16 | PROVIDERS: PCP Family Medicine; Visit Provider Obstetrics & Gynecology | DX: N93.9 Abnormal uterine and vaginal bleeding, unspecified (principal); N95.0 Postmenopausal bleeding | CPT/HCPCS: 58100; 81025; 88305 ==

== ENCOUNTER 2023-05-04 10:40 | Outpatient (REF) | payer MEDICAID, SELFPAY ==
[2023-05-04 11:55] LABS: Estimated Average Glucose 100 mg/dL; Hemoglobin A1c % 5.1 % (<6.0)
[2023-05-04 12:17] LABS: Cholesterol 192 mg/dL (<200); HDL Cholesterol 53 mg/dL (>40); LDL Cholesterol Calculated 126 mg/dL (<100); Triglycerides 69 mg/dL (<150)
[2023-05-04 12:18] LABS: Alanine Aminotransferase 7 U/L (0-31); Alkaline Phosphatase 65 U/L (39-117); Anion Gap 9 (12-20); Aspartate Amino Transferase 14 U/L (5-31); Bilirubin Total 1.5 mg/dL (0.0-1.0); Blood Urea Nitrogen 11 mg/dL (9-16); Calcium 8.8 mg/dL (8.4-10.2); Carbon Dioxide 30 mmol/L (22-29); Chloride 107 mmol/L (96-108); Estimated Glomerular Filt Rate > 60; Glucose Random 95 mg/dL (60-115); Potassium 3.4 mmol/L (3.3-5.1); Sodium 143 mmol/L (135-145); Total Protein 6.8 g/dL (6.5-8.0)
[2023-05-04 13:38] LABS: Reflex LDLD? No
== END 2023-05-04 10:41 | disposition home or self-care (01) ==
LOC: HO.HHCL 10:40
PROVIDERS: Visit Provider Family Medicine
DX: E06.9 Thyroiditis, unspecified (principal); Z83.3 Family history of diabetes mellitus
CPT/HCPCS: 36415; 80053; 80061; 83036

== ENCOUNTER 2023-05-10 10:35 | Outpatient (REF) | payer MEDICAID, SELFPAY ==
[2023-05-10 18:15] LABS: CT PCR NOT DETECTED (Not Detect.); NG PCR NOT DETECTED (Not Detect.)
[2023-05-11 14:21] LABS: BV Int Neg Control Negative (Negative); BV Int Pos Control Positive (Positive)
== END 2023-05-10 10:36 | disposition home or self-care (01) ==
LOC: HO.LNP 10:35
PROVIDERS: PCP Family Medicine; Visit Provider Obstetrics & Gynecology
DX: N76.0 Acute vaginitis (principal); D25.9 Leiomyoma of uterus, unspecified; N95.0 Postmenopausal bleeding
CPT/HCPCS: 0353U; 87480; 87510; 87660; 99212

== ENCOUNTER 2023-05-10 10:35 | Outpatient (AMB) | payer MEDICAID, SELFPAY ==
--- NOTE | 2023-05-10 10:45 | A.OFFVIS_ITS ---
Intake Vital Signs 05/10/23 10:49 Height 5 ft 1 in Weight 180 lb 12.465 oz BMI 34.2 BP 116/74 Intake Visit Reasons: EMB Results Intake Note: c/o of vaginal discharge Lamp Shade Joiner Required: Yes Lamp Shade Joiner Language: Manager Of Allied Health Services Name: Jaylene LOPEZ Information Interpreted: non-clinical & clinical Gis Administrator: Gis Administrator Present (Jaylene LOPEZ) Accompanied by: Self / Same As Patient Allergies Penicillins [PENICILLINS] Allergy (Intermediate, Verified 05/10/23 10:50) RASH Post menopausal: Yes HPI HPI Comments History of Present Illness Details The patient is presenting for follow-up to discuss the results of her abnormal uterine bleeding workup and options of treatment. The patient is complaining of vaginal discharge associated vulvovaginal itching with no foul odor. The following workup was done.: H&H= 13.6/41.9 TSH, GC and chlamydia were negative. FSH/LH in the menopausal range HCG was 3 repeated was 3. Endometrial biopsy pathology showed the following: Benign inactive endometrium, and benign endocervical glandular and squamous epithelium; no atypia or carcinoma Co testing was done was negative. Mammogram not done Pelvic ultrasound showed the following: The uterus is of normal size and echogenicity measuring 9.2 x 4.9 x 5.2 cm. Left fundal fibroid measuring 2.4 x 2.2 x 2.1 cm not significantly changed from 2.4 x 2.5 x 2.4 cm on 06/21/2017. A regular homogeneous endometrium is identified measuring 0.4 cm in thickness. The right ovary measures 2.8 x 1.6 x 2.3 cm, volume 5.4 mL. The right ovary appears normal. The left ovary measures 2.3 x 1.1 x 1.8 cm, volume 2.4 mL. The left ovary appears normal. There is no pelvic free fluid. [facility] Medical History Pelvic pain Depression DEEPALI I (cervical intraepithelial neoplasia I) Back pain Follicular lymphoma Surgical History Hx of esophagogastroduodenoscopy H/O hernia repair Family History Maternal Aunt Diabetes Hypertension Social History Household Members: Spouse and Children Housing: House Are you a primary client care coordinator to a significant other at home: No Do you presently have visiting nurse or other home services: No Alcohol intake: current Alcohol intake frequency: holidays/special occasions only Alcohol type: wine Patient Tobacco Use Status: Current everyday Tobacco user Tobacco use type: Cigarette Substance Use Type: Marijuana service: No Current occupational status: employed Assessment & Plan Assessment & Plan (1) Uterine myoma: Code(s): D25.9 - Leiomyoma of uterus, unspecified Plan: Discussed with the patient the findings on pelvic ultrasound & the risk of myosarcoma; discussed with the patient the options of treatment including expe ctant management versus hysterectomy; the pros and cons, risks benefits of each approach were discussed with the patient including the fact that in cases of myosarcoma, surgical treatment can lead to early diagnosis and positively affects the prognosis; after further discussion, the patient decided to proceed with expectant management. Will repeat pelvic ultrasound periodically. Instructions given to patient to call in case any of the following occurs: pressure symptoms, abnormal uterine bleeding, pelvic pain; and to schedule a future office follow-up appointment for reassessment and to order a repeat ultrasound . All questions answered, the patient verbalized understanding and agreed with the plan . (2) Postmenopausal bleeding: Code(s): N95.0 - Postmenopausal bleeding Plan: Instructions given the patient to schedule screening mammogram. Discussed with the patient the results of her FSH/LH being elevated, and the diagnosis of menopause, in addition discussed with the patient the endometrial biopsy showing inactive endometrium. Discussed with the patient the sensitivity, specificity, positive and negative predictive value, of endometrial biopsy in detecting endometrial pathology including but not limited to endometrial hyperplasia, cancer and other pathology; instructed the patient to call in case is vaginal bleeding bleeding recurs, the next step will be to proceed with a diagnostic hysteroscopy/D&C for further endometrial sampling evaluation to rule out endometrial pathology. All questions answered and the patient verbalized understanding and agreed with the plan. (3) Vulvovaginitis: Code(s): N76.0 - Acute vaginitis Plan: GC/CT, Bacterial Vaginosis panel taken, Terazol 0.8% q.h.s. for 3 days was sent to the patient's pharmacy. The patient was instructed to call if symptoms don't improve in 48 hours. Medications: New terconazole 0.8% 1 appful vaginal BEDTIME 20 grams 0RF 3 days Coding Level of Care Code Est Pt Level 3 (42864) Diagnoses Uterine myoma D25.9 Postmenopausal bleeding N95.0 Vulvovaginitis N76.0
[2023-05-10 10:49] VITALS: BP 116/74; BMI 34.2
== END 2023-05-10 11:31 | disposition home or self-care (01) ==
LOC: HO.HWS 10:35
PROVIDERS: PCP Family Medicine; Referring Provider Family Medicine; Visit Provider Obstetrics & Gynecology
DX: D25.9 Leiomyoma of uterus, unspecified (principal); N95.0 Postmenopausal bleeding; N76.0 Acute vaginitis
CPT/HCPCS: 99213

== ENCOUNTER 2023-06-09 13:46 | Outpatient (REF) | payer MEDICAID, SELFPAY | END 2023-06-09 13:47 | disposition home or self-care (01) | LOC: HO.LNP 13:46 | PROVIDERS: PCP Family Medicine; Visit Provider Obstetrics & Gynecology | DX: N76.0 Acute vaginitis (principal) | CPT/HCPCS: 0353U; 87480; 87510; 87660; 99212 ==

== ENCOUNTER 2023-06-09 13:46 | Outpatient (AMB) | payer MEDICAID, SELFPAY ==
--- NOTE | 2023-06-09 13:53 | MHC.OFFVIS ---
Intake Vital Signs 06/09/23 13:57 Height 5 ft 1 in Weight 180 lb 12.465 oz BMI 34.2 Intake Visit Reasons: vaginal itch Allergies Penicillins [PENICILLINS] Allergy (Intermediate, Verified 05/10/23 10:50) RASH HPI HPI Comments History of Present Illness Details Presenting complaining of bilateral vulvovaginal itching with no vaginal odor PFSH Medical History Pelvic pain Depression DEEPALI I (cervical intraepithelial neoplasia I) Back pain Follicular lymphoma Surgical History Hx of esophagogastroduodenoscopy H/O hernia repair Family History Maternal Aunt Diabetes Hypertension Social History Household Members: Spouse and Children Housing: House Are you a primary day care home provider to a significant other at home: No Do you presently have visiting nurse or other home services: No Alcohol intake: current Alcohol intake frequency: holidays/special occasions only Alcohol type: wine Patient Tobacco Use Status: Current everyday Tobacco user Tobacco use type: Cigarette Substance Use Type: Marijuana service: No Current occupational status: employed Review of Systems Const All systems reviewed & are unremarkable except as noted in HPI and below Physical Exam General: Yes no CVA tenderness External Female Exam: normal external appearance and normal appearance of the urethra Speculum Exam - Vagina: normal appearance of the vagina, normal palpation, no lesions and no masses Speculum Exam - Cervix: normal appearance of the cervix, normal palpation, no lesions, no masses and nontender Bimanual exam- vagina & uterus: normal bimanual exam, normal palpation, uterine size normal, normal palpation, uterine shape normal, No Cervical tenderness present and non-tender Bimanual Exam- Adnexa, other: normal adnexae Back/Spine/Pelvis Back: no CVA tenderness Assessment & Plan Assessment & Plan (1) Vulvovaginitis: Code(s): N76.0 - Acute vaginitis Plan: GC/CT, Bacterial Vaginosis panel taken, Terazol 0.8% q.h.s. for 3 days was sent to the patient's pharmacy. The patient was instructed to call if symptoms don't improve in 48 hours. Medications: New terconazole 0.8% 1 appful vaginal BEDTIME 20 grams 0RF 3 days Coding Level of Care Code Est Pt Level 3 (74615) Diagnoses Vulvovaginitis N76.0
[2023-06-09 13:57] VITALS: BMI 34.2
== END 2023-06-09 15:16 | disposition home or self-care (01) ==
LOC: HO.HWS 13:46
PROVIDERS: PCP Family Medicine; Visit Provider Obstetrics & Gynecology
DX: N76.0 Acute vaginitis (principal)
CPT/HCPCS: 99213

== ENCOUNTER 2023-07-05 12:56 | Outpatient (AMB) | payer MEDICAID, SELFPAY ==
--- NOTE | 2023-07-05 13:01 | A.OFFVIS_ITS ---
Intake Vital Signs 07/05/23 13:03 Height 5 ft 1 in Weight 191 lb BMI 36.1 BP 118/67 Intake Visit Reasons: vaginal bleeding Residential Life Director Required: Yes Residential Life Director Language: Sales Agent Financial Report Service Name: Jaylene Montes Information Interpreted: non-clinical & clinical Barrel Assembly Inspector: Barrel Assembly Inspector Present (Jaylene) Allergies Penicillins [PENICILLINS] Allergy (Intermediate, Verified 07/05/23 13:08) RASH Is last menstrual period known: Yes Last menstrual period: 07/03/23 HPI HPI Comments History of Present Illness Details The patient is presenting complaining of vaginal bleeding. The patient was evaluated with the same complaint in 02/26 the following workup was done Ultrasound showed a 2.4 cm myoma, endometrial biopsy showed inactive endometrium with no evidence of endometrial hyperplasia and malignancy, co testing done in 09/26 was negative, TSH was negative and LH/FSH were elevated in the menopausal range. Mammogram was ordered but still not done. Instruction was given to the patient to call in case of recurrence of her vaginal bleeding. PFSH Medical History Pelvic pain Depression DEEPALI I (cervical intraepithelial neoplasia I) Back pain Follicular lymphoma Surgical History Hx of tubal ligation Hx of esophagogastroduodenoscopy H/O hernia repair Family History Maternal Aunt Diabetes Hypertension Social History Household Members: Spouse and Children Housing: House Are you a primary ocular care aide to a significant other at home: No Do you presently have visiting nurse or other home services: No Alcohol intake: current Alcohol intake frequency: holidays/special occasions only Alcohol type: wine Patient Tobacco Use Status: Current everyday Tobacco user Tobacco use type: Cigarette Substance Use Type: Marijuana service: No Current occupational status: employed Female Reproductive History Menstrual Date of last menstrual period: 07/03/23 Date of last pap smear: 09/15/22 (NEGATIVE) Review of Systems Const All systems reviewed & are unremarkable except as noted in HPI and below Physical Exam Vital Signs: Last Vital Signs BP 118/67 07/05/23 13:03 BMI result Body Mass Index 36.1 General: Yes no CVA tenderness External Female Exam: normal external appearance and normal appearance of the urethra Speculum Exam - Vagina: normal appearance of the vagina, normal palpation, no lesions and no masses Speculum Exam - Cervix: normal appearance of the cervix, normal palpation, no lesions, no masses and nontender Bimanual exam- vagina & uterus: normal bimanual exam, normal palpation, uterine size normal, normal palpation, uterine shape normal, No Cervical tenderness present and non-tender Bimanual Exam- Adnexa, other: normal adnexae Back/Spine/Pelvis Back: no CVA tenderness Assessment & Plan Assessment & Plan (1) Postmenopausal bleeding: Comment: Recurrent Code(s): N95.0 - Postmenopausal bleeding Plan: Discussed with the patient the differential diagnosis of post menopausal bleeding with normal pelvic exam including but not limited to, endometrial hyperplasia, cancer, polyps and other causes; co testing up-to-date, not indicated today, recommended repeat ultrasound to measure the size of the myomas, and schedule endometrial biopsy to rule out endometrial pathology including endometrial hyperplasia and/or malignancy. Instructed the patient to schedule an ultrasound follow-up with an EMB appointment in 2 weeks. All questions answered, the patient verbalized understanding and agreed with the plan. Coding Level of Care Code Est Pt Level 3 (88534) Diagnoses Postmenopausal bleeding N95.0
[2023-07-05 13:03] VITALS: BP 118/67; BMI 36.1
== END 2023-07-05 13:32 | disposition home or self-care (01) ==
LOC: HO.HWS 12:56
PROVIDERS: PCP Family Medicine; Visit Provider Obstetrics & Gynecology
DX: N95.0 Postmenopausal bleeding (principal)
CPT/HCPCS: 99213

== ENCOUNTER → 2023-07-05 12:56 | Outpatient (BNVA) | payer MEDICAID, SELFPAY | PROVIDERS: PCP Family Medicine; Visit Provider Obstetrics & Gynecology | DX: N95.0 Postmenopausal bleeding (principal) | CPT/HCPCS: 99212 ==

== ENCOUNTER 2023-08-03 12:46 | Outpatient (REF) | payer MEDICAID, SELFPAY ==
[2023-08-03 18:40] LABS: CT PCR NOT DETECTED (Not Detect.); NG PCR NOT DETECTED (Not Detect.)
[2023-08-04 04:12] LABS: Syphilis Screen Nonreactive (Nonreactive)
[2023-08-04 04:23] LABS: HBsAGNum1 0.34 S/CO (0.00-0.99); HIV AB/AG Nonreactive (Nonreactive); HIV Num 1 0.05 S/CO (0.00-0.99); Hepatitis B Surface Antigen Negative (Negative); ~HepC Num1 0.08 S/CO (0.00-0.79); ~Hepatitis C Antibody Nonreactive (Nonreactive)
[2023-08-04 15:43] LABS: BV Int Neg Control Negative (Negative); BV Int Pos Control Positive (Positive)
== END 2023-08-03 12:47 | disposition home or self-care (01) ==
LOC: HO.LAB 12:46
PROVIDERS: PCP Family Medicine; Visit Provider Obstetrics & Gynecology
DX: N76.0 Acute vaginitis (principal); B96.89 Other specified bacterial agents as the cause of diseases classified elsewhere; Z20.2 Contact with and (suspected) exposure to infections with a predominantly sexual mode of transmission
CPT/HCPCS: 0353U; 36415; 86780; 86803; 87340; 87389; 87480; 87510; 87660; 99212

== ENCOUNTER 2023-08-03 12:46 | Outpatient (AMB) | payer MEDICAID, SELFPAY ==
[2023-08-03 13:02] VITALS: BMI 34.6
--- NOTE | 2023-08-03 13:02 | A.OFFVIS_ITS ---
Intake Vital Signs 08/03/23 13:02 Height 5 ft 1 in Weight 182 lb 15.739 oz BMI 34.6 Intake Visit Reasons: ? BV Rate Engineer Required: Yes Rate Engineer Language: Chairman And Chief Executive Officer Name: Jaylene LOPEZ Information Interpreted: non-clinical & clinical Waredresser: Waredresser Present (Jaylene LOPEZ) Accompanied by: Self / Same As Patient Allergies Penicillins [PENICILLINS] Allergy (Intermediate, Verified 08/03/23 13:06) RASH HPI HPI Comments History of Present Illness Details The patient is presenting complaining of vaginal discharge associated with foul odor, no other associated symptoms, vaginal itching or any other complaint PFSH Medical History Pelvic pain Depression DEEPALI I (cervical intraepithelial neoplasia I) Back pain Follicular lymphoma Surgical History Hx of tubal ligation Hx of esophagogastroduodenoscopy H/O hernia repair Family History Maternal Aunt Diabetes Hypertension Social History Household Members: Spouse and Children Housing: House Are you a primary specialist wound care to a significant other at home: No Do you presently have visiting nurse or other home services: No Alcohol intake: current Alcohol intake frequency: holidays/special occasions only Alcohol type: wine Patient Tobacco Use Status: Current everyday Tobacco user Tobacco use type: Cigarette Substance Use Type: Marijuana service: No Current occupational status: employed Review of Systems Const All systems reviewed & are unremarkable except as noted in HPI and below Physical Exam Vital Signs: BMI result Body Mass Index 34.6 General: Yes no CVA tenderness External Female Exam: normal external appearance and normal appearance of the urethra Speculum Exam - Vagina: normal appearance of the vagina, normal palpation, no lesions and no masses Speculum Exam - Cervix: normal appearance of the cervix, normal palpation, no lesions, no masses and nontender Bimanual exam- vagina & uterus: normal bimanual exam, normal palpation, uterine size normal, normal palpation, uterine shape normal, No Cervical tenderness present and non-tender Bimanual Exam- Adnexa, other: normal adnexae Back/Spine/Pelvis Back: no CVA tenderness Assessment & Plan Assessment & Plan (1) Bacterial vaginitis: Code(s): N76.0 - Acute vaginitis; B96.89 - Other specified bacterial agents as the cause of diseases classified elsewhere Plan: GC and chlamydia cultures with BV panel taken. Per CDC recommendation, will screen for STI, HepBs Ag, HIV, RPR, Hep C Ab ordered. Will treat with Flagyl 500 mg p.o. b.i.d. x 7 days, Instructions given to the patient to refrain from sexual activity or to use condoms consistently and correctly during the BV treatment regimen, not to douch, it might increase the risk for relapse, and to call if symptoms persist or recur. Medications: New metronidazole 500 mg PO BID 7 days 14 tabs 0RF Coding Level of Care Code Est Pt Level 3 (75219) Diagnoses Bacterial vaginitis N76.0; B96.89
== END 2023-08-03 15:24 | disposition home or self-care (01) ==
LOC: HO.HWS 12:46
PROVIDERS: PCP Family Medicine; Visit Provider Obstetrics & Gynecology
DX: N76.0 Acute vaginitis (principal); B96.89 Other specified bacterial agents as the cause of diseases classified elsewhere
CPT/HCPCS: 99213

== ENCOUNTER 2023-08-03 14:51 | Outpatient (REF) | payer MEDICAID, SELFPAY | END 2023-08-03 14:52 | disposition home or self-care (01) | LOC: HO.LNP 14:51 | PROVIDERS: Visit Provider Obstetrics & Gynecology | DX: Z13.89 Encounter for screening for other disorder (principal) ==

== ENCOUNTER 2023-09-30 12:03 | Emergency (ER) | payer MEDICAID, SELFPAY ==
[2023-09-30 12:49] VITALS: BP 126/78; PULSE 65; RESP 16; TEMP 36.6; O2SAT 97; BMI 36.1
--- NOTE | 2023-09-30 12:49 | ED_ITS ---
HPI - General Adult General Chief complaint: Dental/Oral Stated complaint: headache Time Seen by Provider: 09/30/23 12:55 Source: patient and lowerator operator (all interactions with this patient were facilitated by an [facility] regulatory affairs strategy specialist) Mode of arrival: ambulatory Limitations: language barrier (all interactions with this patient were facilitated by an [facility] regulatory affairs strategy specialist) History of Present Illness HPI narrative: Patient is a 43 year old assigned female at with no reported medical history presenting to the emergency department today with right sided dental pain. Patient states that her right lower molar is cracked and needs to be removed but she is having too much pain to make it to her dentist appointment next week. Patient denies any dizziness, lightheadedness, abdominal pain, nausea, vomiting, fever, chills, blurry vision, double vision, loss of vision, chest pain, difficulty breathing, shortness of breath, back pain, night sweats, pain with urination, increased urinary frequency, increased urinary urgency, blood in her urine or stool, syncope or a near syncopal episode, recent trauma or falls, bowel incontinence, bladder incontinence, bowel retention, bladder retention, or any other complaints at this time. Onset (ago): day(s) Location: mouth and right Severity: mild Severity scale (1-10): 4 Quality: aching Pain Consistency: constant Relieving factors: none Exacerbating factors: none Associated symptoms: denies other symptoms Treatments prior to arrival: none Related Data Home Medications ?Medication ?Instructions ?Recorded ?Confirmed clonazepam 1 mg tablet 1 tab PO BID 10/21/20 03/07/23 fluticasone propionate 220 0 mcg PO BID 03/03/21 03/07/23 mcg/actuation HFA aerosol inhaler (Flovent HFA) trazodone 100 mg tablet 100 mg PO BEDTIME 03/03/21 03/07/23 sertraline 25 mg tablet 25 mg PO DAILY 08/23/22 03/07/23 Previous Rx's ?Medication ?Instructions ?Recorded pantoprazole 40 mg tablet,delayed 40 mg PO DAILY #30 tabs 08/23/22 release sucralfate 1 gram tablet 1 g PO BEDTIME #30 tabs 08/23/22 cyclobenzaprine 10 mg tablet 10 mg PO TID PRN muscle spasm #14 09/11/22 tabs ibuprofen 600 mg tablet 600 mg PO Q8H PRN pain #14 tabs 09/11/22 metronidazole 500 mg tablet 500 mg PO BID 7 days #14 tabs 08/03/23 terconazole 0.8 % vaginal cream 1 appful vaginal BEDTIME 3 days 08/04/23 #20 grams chlorhexidine gluconate 0.12 % 15 ml buccal BID #118 mL 09/30/23 mouthwash (Peridex) clindamycin HCl 300 mg capsule 450 mg (1.5 x 300 mg) PO TID 7 09/30/23 days #32 caps naproxen 500 mg tablet 500 mg PO BID 7 days #14 tabs 09/30/23 Allergies Allergy/AdvReac Type Severity Reaction Status Date / Time Penicillins [PENICILLINS] Allergy Intermediate RASH Verified 09/30/23 12:51 Review of Systems 2 Constitutional: Constitutional: Reports no additional constitutional complaints, Denies chills, Denies fever(s) and Denies night sweats Eyes: Eyes: Reports no additional eye complaints, Denies blurry vision, Denies change in vision, Denies diplopia, Denies eye discharge, Denies loss of vision and Denies eye pain ENT: Denies dizziness Comments: right lower dental pain Cardiovascular: Cardiovascular: Reports no additional cardiovascular complaints, Denies chest pain, Denies lightheadedness, Denies Loss of Consciousness and Denies dyspnea Respiratory: Respiratory: Reports no additional respiratory complaints and Denies dyspnea Gastrointestinal: Gastrointestinal: Reports no additional gastrointestinal complaints, Denies abdominal pain, Denies melena, Denies hematochezia, Denies change in bowel habits and Denies change in stool character Genitourinary: Genitourinary: Denies hematuria, Denies urinary frequency, Denies dysuria, Denies urinary incontinence, Denies urinary hesitancy and Denies urinary urgency Musculoskeletal: Musculoskeletal: Reports no additional musculoskeletal complaints, Denies numbness and Denies tingling Neurologic: Denies dizziness, Denies loss of vision, Denies numbness and Denies tingling Psychiatric: Psychiatric: Reports no additional psychiatric complaints Endocrine: Endocrine: Reports no additional endocrine complaints Hematologic/Lymphatic: Hematologic/Lymphatic: Reports no additional hematologic/lymphatic complaints Allergic/Immunologic: Allergic/Immunologic: Reports no additional allergic/immunologic complaints PMFSH Past Medical History Attestation statement: The following information was validated with the patient. Source: old records reviewed and nursing notes reviewed Medical History Pelvic pain Depression DEEPALI I (cervical intraepithelial neoplasia I) Back pain Follicular lymphoma Surgical History Hx of tubal ligation Hx of esophagogastroduodenoscopy H/O hernia repair Family History Family History Maternal Aunt Diabetes Hypertension Social History Social History Household Members: Spouse and Children Housing: House Are you a primary acute care occupational therapist to a significant other at home: No Do you presently have visiting nurse or other home services: No Alcohol intake: current Alcohol intake frequency: holidays/special occasions only Alcohol type: wine Patient Tobacco Use Status: Current everyday Tobacco user Tobacco use type: Cigarette Substance Use Type: Marijuana Advance Directives: No Advance Directives Information Provided: Yes service: No Current occupational status: employed Physical Exam ED Vital Signs: Vital Signs - 24 hr 09/30/23 12:49 Temperature 97.9 F Pulse Rate 65 Respiratory Rate 16 Blood Pressure 126/78 Pulse Oximetry 97 Oxygen Delivery Method Room Air BMI result Body Mass Index 36.1 Const General: cooperative, no acute distress, alert and awake Nutritional Appearance: well nourished Orientation/consciousness: patient oriented x3 Limitations: no limitations HENMT Head: Yes normal to inspection and Yes atraumatic Ears: hearing grossly normal bilaterally and external ears normal General nose exam: Normal external nose present, no nasal discharge noted and no epistaxis Face and sinus: Yes normal facial exam, No abrasion and No laceration Mouth: Normal oral and palatal mucosa present, no drooling and no muffled voice Teeth and gingiva: poor dentition Teeth image: 2 1. cracked tooth - mild surrounding erythema, no fluctuance Eyes General: appearance normal, both eyes and all related structures Periorbital: periorbital findings normal Eyelids: Yes eyelids normal Conjunctivae: conjunctivae normal Pupils: Equal, round and reactive pupils present EOM: EOMs intact bilaterally Neck Neck: Yes normal visual inspection, Yes full ROM and Yes no lymphadenopathy Chest Chest palpation & inspection: normal inspection of the chest Resp Effort & Inspection: normal respiratory effort and able to speak in complete sentences GI Inspection: Yes normal to inspection Neuro General: patient oriented x3 and moves all extremities Cranial nerves: Yes Equal, round and reactive pupils present Cognition (Neuro): normal cognition Motor exam (neuro): 5/5 motor strength present throughout Sensory Exam: Normal double simultaneous stimulation for sensation Coordination: [id number]-[id number] test normal Extrem General: Yes normal to inspection, Yes full ROM and Yes capillary refill normal Psych Appearance: grossly normal Mental Status: mental status grossly normal Affect: normal affect Attitude: cooperative Thought process: Normal thought process present Thought content: Normal thought content present Insight: Good insight present (Psych) Medications Administered Discontinued Medications Generic Name Dose Route Start Last Admin Trade Name Freq PRN Reason Stop Dose Admin Oxycodone HCl 5 mg 09/30/23 12:55 09/30/23 12:58 Oxycodone Hcl Immed Release 5 Mg Tablet PO 09/30/23 12:56 5 mg ONCE ONE Administration Medical Decision Making Medical Decision Making MDM Narrative: Patient is a 43 year old assigned female at with no reported medical history presenting to the emergency department today with right lower dental pain. Patient's physical exam was as noted in the physical exam portion of this note. I explained my physical exam findings to the patient. I answered all questions asked by the patient. I stressed the importance of the patient taking her medication as prescribed. I stressed the importance of the patient following up with her primary care provider and a dentist. I stressed the importance of the patient returning to the emergency department immediately if her symptoms were to worsen or if she were to develop any dizziness, shortness of breath, difficulty breathing, chest pain, blurry vision, loss of vision, nausea, vomiting, abdominal pain, fever, chills, back pain, or any other complaints. Patient verbalized agreement and understanding with this treatment plan and discharge. Differential Diagnosis Differential Diagnoses: The differential diagnosis associated with the presentation includes Dental caries Cracked tooth Dental abscess Admission/Observation Consideration of admission/observation: Escalation of care including admission/observation considered Patient would have been admitted to the hospital had her clinical presentation warranted hospital admission. Prescription Management I considered prescription management with: Pain Medication (patient prescribed pain medication) and Antibiotic (patient prescribed an antibiotic for possible dental infection) Discharge Plan Discharge Clinical Impression: Abscess, dental Patient Disposition: Home, Self-Care Instructions: Dental Abscess (ED) Additional Instructions: Take your antibiotic as prescribed. Follow up with your primary care provider and a dentist. Return to the emergency department immediately if your symptoms worsen or if you develop any dizziness, shortness of breath, difficulty breathing, chest pain, blurry vision, loss of vision, nausea, vomiting, abdominal pain, fever, chills, back pain, or any other complaints. Prescriptions: New naproxen 500 mg tablet 500 mg PO BID 7 Days Qty: 14 0RF clindamycin HCl 300 mg capsule 450 mg PO TID 7 Days Qty: 32 0RF chlorhexidine gluconate [Peridex] 0.12 % mouthwash 15 ml buccal BID Qty: 118 0RF No Action terconazole 0.8 % cream 1 appful vaginal BEDTIME 3 Days Qty: 20 0RF clonazepam 1 mg tablet 1 tab PO BID cyclobenzaprine 10 mg tablet 10 mg PO TID PRN (Reason: muscle spasm) Qty: 14 0RF ibuprofen 600 mg tablet 600 mg PO Q8H PRN (Reason: pain) Qty: 14 0RF trazodone 100 mg tablet 100 mg PO BEDTIME Flovent HFA 220 mcg/actuation HFA aerosol inhaler 0 mcg PO BID sertraline 25 mg tablet 25 mg PO DAILY pantoprazole 40 mg tablet,delayed release (DR/EC) 40 mg PO DAILY Qty: 30 2RF Rx Instructions: take one tablet half an hour before breakfast sucralfate 1 gram tablet 1 g PO BEDTIME Qty: 30 4RF metronidazole 500 mg tablet 500 mg PO BID 7 Days Qty: 14 0RF Referrals: [facility] [place] Family Medicine [Provider Group] (Call to establish and follow up with a primary care provider. If you already have a primary care provider, please follow up with them.) [facility] [place] [facility] [Provider Group] [facility] [place] [facility] [Provider Group] Discharge Date/Time: 09/30/23 13:03 Print Language: Welsh
[2023-09-30] MEDS: oxyCODONE HCl Immed Release 5 MG TABLET PO (12:58)
== END 2023-09-30 13:03 | disposition home or self-care (01) ==
PROVIDERS: Emergency Provider Student in an Organized Health Care Education/Training Program; PCP Family Medicine
DX: K04.7 Periapical abscess without sinus (principal); K08.89 Other specified disorders of teeth and supporting structures; F17.210 Nicotine dependence, cigarettes, uncomplicated
CPT/HCPCS: 99282; 99283

== ENCOUNTER 2023-12-26 13:11 | Outpatient (AMB) | payer MEDICAID, SELFPAY ==
--- NOTE | 2023-12-26 13:13 | MHC.OFFVIS ---
Vital Signs 12/26/23 13:14 Height 5 ft 1 in Weight 178 lb 2.136 oz BMI 33.7 BP 106/56 L Blood Pressure Location Lt brachial Position Sitting Pulse 70 Pulse Source Pulse Oximeter Pulse Oximetry (%) 99 Oxygen Delivery Method Room Air Intake Visit Reasons: Colonoscopy Screening Intake Note: Breana presents in office today for a scheduled colo s/p scrn CC: Pt reports previous hx of colo s/p approximately 14-15 years ago. Pt reports that they have also been experiencing abdominal pain which they notice primarily after eating. This started approximately 4 mos ago. Pt reports that they are also experiencing constipation intermittently. Net Developer Programmer Required: Yes Net Developer Programmer Services: Net Developer Programmer Present Net Developer Programmer Name: [id number] Information Interpreted: non-clinical & clinical Accompanied by: Family/Other Allergies Penicillins [PENICILLINS] Allergy (Intermediate, Verified 12/26/23 13:24) RASH HPI HPI Colonoscopy Screening: Details: LAST VISIT GERD (gastroesophageal reflux disease) Will do H pylori testing in the office today. Will treat empirically if positive. Will start her on pantoprazole in the morning half an hour before breakfast and sucralfate at bedtime. Discussed with patient avoiding dietary triggers a late night snacking. Staying upright for minimal 3 hours after meals discussed with patient. IBS (irritable bowel syndrome) Low FODMAP diet discussed with patient. Patient states that she sometimes at nighttime will have milk with cookies and wakes up in the middle of the night with epigastric discomfort. List of food recommended as well as list of food to avoid given to patient. Postprandial abdominal bloating Discussed with patient avoiding dietary triggers. Low FODMAP diet discussed with patient as mentioned above. I will see patient in 6 weeks, sooner on as needed basis. Patient is agreeable to this plan and verbalizes understanding of instructions. She was given the opportunity to ask questions and all questions answered. ? Thank you for allowing me to participate in her care Plan Orders Orders H Pylori Breath Test Today Rast Allergen Today K21.9, R10.13, R14.0 Medications New pantoprazole take one tablet half an hour before breakfast 40 mg PO DAILY 30 tabs 2RF K21.9 sucralfate 1 g PO BEDTIME 30 tabs 4RF R19.7 TODAY'S VISIT: Patient has positive family history of CRC. Patient's maternal cousin was diagnosed with colorectal cancer at age 44, had a surgery last Tuesday for tumor removal. Patient is maternal aunt also was diagnosed with colorectal cancer. Patient requested to be seen sooner and is requesting to go for colonoscopy. Patient denies any rectal bleeding or melena. Occasional abdominal bloating depending on what she eats. Patient states that she is moving her bowels without any issues. No history of sleep apnea. Not on any anticoagulation medication. No trouble with anesthesia in the past. Patient denies any cardiac or respiratory symptoms. Patient is taking pantoprazole daily and sucralfate at bedtime and reports that her symptoms are suppressed for the most part. [facility] Medical History Pelvic pain Depression DEEPALI I (cervical intraepithelial neoplasia I) Back pain Follicular lymphoma Surgical History Hx of tubal ligation Hx of esophagogastroduodenoscopy H/O hernia repair Family History (Updated 12/26/23 @ 13:24 by ENRICO Winters) Maternal Aunt Diabetes Hypertension Colon cancer Family/Other Lung cancer Breast cancer Colon cancer Social History Household Members: Spouse and Children Housing: House Are you a primary ambulatory care coordinator to a significant other at home: No Do you presently have visiting nurse or other home services: No Alcohol intake: current Alcohol intake frequency: holidays/special occasions only Alcohol type: wine Patient Tobacco Use Status: Current everyday Tobacco user Tobacco use type: Cigarette Substance Use Type: Marijuana service: No Current occupational status: employed Review of Systems Const Denies weight gain and Denies weight loss ENT Reports no additional complaints, Denies dysphagia and Denies odynophagia Card Reports no additional complaints Resp Reports no additional complaints GI Denies abdominal pain, Denies belching, Denies melena, Denies bloating, Denies change in bowel habits, Denies dysphagia, Denies excessive flatus, Denies dyspepsia, Denies heartburn, Denies diarrhea, Denies loose stools, Denies nausea, Denies odynophagia and Denies vomiting Musc Reports no additional complaints Neuro Reports no additional complaints Psych Reports no additional complaints Endo Reports no additional complaints Physical Exam Vital Signs: Last Vital Signs Pulse 70 12/26/23 13:14 BP 106/56 L 12/26/23 13:14 Pulse Ox 99 12/26/23 13:14 Oxygen Delivery Method Room Air 12/26/23 13:14 BMI result Body Mass Index 33.7 Const General: healthy appearing, no acute distress and well developed Nutritional Appearance: well nourished Orientation/consciousness: patient oriented x3 Resp Effort & Inspection: normal respiratory effort, able to speak in complete sentences, no tracheal deviation and symmetric chest movement Auscultation: clear to auscultation bilaterally Cardio Rate: regular rate GI Inspection: Yes normal to inspection and No distended Palpation (GI): Soft to palpation, not firm, nontender and No hepatosplenomegaly present Auscultation: normal bowel sounds General: Yes no CVA tenderness Back/Spine/Pelvis Back: no CVA tenderness Skin General skin exam: elasticity normal, turgor normal and dry skin Neuro General: patient oriented x3 Psych Appearance: grossly normal Mental Status: mental status grossly normal Assessment & Plan Assessment & Plan (1) GERD (gastroesophageal reflux disease): Code(s): K21.9 - Gastro-esophageal reflux disease without esophagitis Qualifiers: Esophagitis presence: esophagitis presence not specified Qualified Code(s): K21.9 - Gastro-esophageal reflux disease without esophagitis (2) IBS (irritable bowel syndrome): Code(s): K58.9 - Irritable bowel syndrome without diarrhea Qualifiers: Irritable bowel syndrome type: without diarrhea Qualified Code(s): K58.9 - Irritable bowel syndrome without diarrhea (3) Postprandial abdominal bloating: Code(s): R14.0 - Abdominal distension (gaseous) (4) Family history of colorectal cancer: Code(s): Z80.0 - Family history of malignant neoplasm of digestive organs Plan Continue pantoprazole and sucralfate. Patient will be sent for upper endoscopy to rule out gastritis, esophagitis, duodenitis, gastric or peptic ulcer, Grissom's, H pylori. Patient just found out that her cousin who is 44 years old was diagnosed with colorectal cancer and had surgery last Tuesday. Patient denies any melena, hematochezia, unintentional weight loss or ribbon like stools. Patient will be sent for colonoscopy due to strong family history of CRC. Patient's aunt also was diagnosed with colorectal cancer. No issues with anesthesia in the past. No history of sleep apnea. Not on any anticoagulation medication. Patient denies any cardiac or respiratory symptoms. I will see patient in 2 months to re-evaluate. Patient will be schedule for upper endoscopy and colonoscopy. Message sent to surgical schedulers. Medications: New bisacodyl (Dulcolax (bisacodyl)) 10 mg (2 x 5 mg) PO BEDTIME 180 tabs 4RF polyethylene glycol 3350 (Miralax) As directed by gastroenterology department at [facility] 238 grams PO ONCE 238 grams 0RF Z12.11 - Encounter for screening for malignant neoplasm of colon pantoprazole take one tablet half an hour before breakfast 40 mg PO DAILY 30 tabs 3RF K21.9 - Gastro-esophageal reflux disease without esophagitis Coding Level of Care Code Est Pt Level 3 (29802) Diagnoses Gastroesophageal reflux disease, unspecified whether esophagitis present K21.9 Esophagitis presence: esophagitis presence not specified Irritable bowel syndrome without diarrhea K58.9 Irritable bowel syndrome type: without diarrhea Postprandial abdominal bloating R14.0 Family history of colorectal cancer Z80.0 Time Spent (min) 30 Comment 20 minutes spent with patient and additional 10 minutes spent reviewing her records
[2023-12-26 13:14] VITALS: BP 106/56; PULSE 70; O2SAT 99; BMI 33.7
== END 2023-12-26 13:54 | disposition home or self-care (01) ==
PROVIDERS: PCP Family Medicine; Visit Provider Nurse Practitioner Family
DX: K21.9 Gastro-esophageal reflux disease without esophagitis (principal); K58.9 Irritable bowel syndrome, unspecified; R14.0 Abdominal distension (gaseous); Z80.0 Family history of malignant neoplasm of digestive organs
CPT/HCPCS: 99213

== ENCOUNTER → 2023-12-26 13:11 | Outpatient (BNVA) | payer MEDICAID, SELFPAY | PROVIDERS: PCP Family Medicine; Visit Provider Nurse Practitioner Family | DX: K21.9 Gastro-esophageal reflux disease without esophagitis (principal); K58.9 Irritable bowel syndrome, unspecified; R14.0 Abdominal distension (gaseous); Z80.0 Family history of malignant neoplasm of digestive organs | CPT/HCPCS: 99212 ==

== ENCOUNTER 2024-01-26 11:34 | Outpatient (REF) | payer MEDICAID, SELFPAY ==
[2024-01-29 00:39] LABS: TS Negative Control Passed; TS Panel A 1; TS Panel B 0; TS Positive Control Passed; TSpotTB Negative (Negative)
== END 2024-01-26 11:35 | disposition home or self-care (01) ==
LOC: HO.HHCL 11:34
PROVIDERS: Visit Provider Family Medicine
DX: Z11.1 Encounter for screening for respiratory tuberculosis (principal)
CPT/HCPCS: 36415; 86481

== ENCOUNTER 2024-02-20 11:13 | Outpatient (REF) | payer MEDICAID, SELFPAY ==
[2024-02-21 05:01] LABS: CT PCR NOT DETECTED (Not Detect.); NG PCR NOT DETECTED (Not Detect.)
[2024-02-21 11:14] LABS: Bacterial Vaginosis PCR POSITIVE (Negative); Candida Group PCR DETECTED (Not Detect); Candida glab krusei PCR NOT DETECTED (Not Detect); Trichomonas vaginalis PCR NOT DETECTED (Not Detect)
== END 2024-02-20 11:14 | disposition home or self-care (01) ==
LOC: HO.LNP 11:13
PROVIDERS: PCP Family Medicine; Visit Provider Obstetrics & Gynecology
DX: N76.0 Acute vaginitis (principal); B96.89 Other specified bacterial agents as the cause of diseases classified elsewhere
CPT/HCPCS: 0352U; 87491; 87591; 99212

== ENCOUNTER 2024-02-20 11:13 | Outpatient (AMB) | payer MEDICAID, SELFPAY ==
[2024-02-20 11:18] VITALS: BMI 33.3
--- NOTE | 2024-02-20 11:18 | A.OFFVIS_ITS ---
Vital Signs 02/20/24 11:18 Height 5 ft 1 in Weight 176 lb 5.917 oz BMI 33.3 Intake Visit Reasons: vaginal discharge Delivery Recruiter Required: Yes Delivery Recruiter Language: Forming Machine Upkeep Mechanic Helper Services: Delivery Recruiter Present (in person) Delivery Recruiter Name: Jaylene LOPEZ Information Interpreted: non-clinical & clinical Rosin Barrel Filler: Rosin Barrel Filler Present (Jaylene LOPEZ) Allergies Penicillins [PENICILLINS] Allergy (Intermediate, Verified 12/26/23 13:24) RASH HPI Comments Details: The patient is presenting complaining of vaginal discharge associated with foul odor, no other associated symptoms, vaginal itching or any other complaint. The patient had 3 previous episodes of recurrent BV since 05/28 [facility] Medical History Pelvic pain Depression DEEPALI I (cervical intraepithelial neoplasia I) Back pain Follicular lymphoma Surgical History Hx of tubal ligation Hx of esophagogastroduodenoscopy H/O hernia repair Family History Maternal Aunt Diabetes Hypertension Colon cancer Family/Other Lung cancer Breast cancer Colon cancer Social History Household Members: Spouse and Children Housing: House Are you a primary associate director career services to a significant other at home: No Do you presently have visiting nurse or other home services: No Alcohol intake: current Alcohol intake frequency: holidays/special occasions only Alcohol type: wine Patient Tobacco Use Status: Current everyday Tobacco user Tobacco use type: Cigarette Substance Use Type: Marijuana service: No Current occupational status: employed Review of Systems Const All systems reviewed & are unremarkable except as noted in HPI and below Physical Exam Vital Signs: BMI result Body Mass Index 33.3 General: Yes no CVA tenderness External Female Exam: normal external appearance and normal appearance of the urethra Speculum Exam - Vagina: normal appearance of the vagina, normal palpation, no lesions and no masses Speculum Exam - Cervix: normal appearance of the cervix, normal palpation, no lesions, no masses and nontender Bimanual exam- vagina & uterus: normal bimanual exam, normal palpation, uterine size normal, normal palpation, uterine shape normal, No Cervical tenderness present and non-tender Bimanual Exam- Adnexa, other: normal adnexae Back/Spine/Pelvis Back: no CVA tenderness Assessment & Plan Assessment & Plan (1) Bacterial vaginitis: Comment: Recurrent Code(s): N76.0 - Acute vaginitis; B96.89 - Other specified bacterial agents as the cause of diseases classified elsewhere Category: Medical Plan: Urine dip and test done in the office were negative. Discussed with the patient that detection of certain BV-associated organisms has been associated with antimicrobial resistance and can be the cause of subsequent treatment failure. Limited data are available regarding optimal management strategies for women with persistent or recurrent BV. Recent fasting blood sugar was within normal, after completion of the recommended treatment will use CDC guidelines to treat recurrent BV with metronidazole 500 mg twice daily for 7 days followed by intravaginal boric acid 600 mg daily for 21 days and then suppressive 0.75% metronidazole gel twice weekly for 4?6 months, if this fails the other suppressive regimen is monthly oral metronidazole 2g administered with fluconazole 150 mg has also been evaluated as suppressive therapy; this regimen reduced the incidence of BV and promoted colonization with normal vaginal jonathon. All questions answered, the patient verbalized understanding Orders: Orders CT NG by PCR Today B96.89 - Other specified bacterial agents as the cause of diseases classified elsewhere, N76.0 - Acute vaginitis Hepatitis C Antibody Today B96.89 - Other specified bacterial agents as the cause of diseases classified elsewhere, N76.0 - Acute vaginitis Bacterial Vaginosis Panel Today B96.89 - Other specified bacterial agents as the cause of diseases classified elsewhere, N76.0 - Acute vaginitis Hepatitis B Surface Antigen Today B96.89 - Other specified bacterial agents as the cause of diseases classified elsewhere, N76.0 - Acute vaginitis HIV Ab/Ag Today B96.89 - Other specified bacterial agents as the cause of diseases classified elsewhere, N76.0 - Acute vaginitis Syphilis Screen Today B96.89 - Other specified bacterial agents as the cause of diseases classified elsewhere, N76.0 - Acute vaginitis Medications: New metronidazole 500 mg PO BID 7 days 14 tabs 0RF metronidazole Start on 03/21 after completion of initial 7 days of metronidazole treatment and boric acid vaginal suppositories. 2,000 mg (4 x 500 mg) PO .Once a month 4 months 16 tabs 0RF fluconazole Start in a month after completion of metronidazole 1 week treatment followed by boric acid vaginal suppositories therapy for 21 days. 150 mg PO .Once a month 4 months 4 tabs 0RF Coding Level of Care Code Est Pt Level 3 (91044) Diagnoses Bacterial vaginitis N76.0; B96.89
== END 2024-02-20 12:13 | disposition home or self-care (01) ==
LOC: HO.HWS 11:13
PROVIDERS: PCP Family Medicine; Referring Provider Family Medicine; Visit Provider Obstetrics & Gynecology
DX: N76.0 Acute vaginitis (principal); B96.89 Other specified bacterial agents as the cause of diseases classified elsewhere
CPT/HCPCS: 99213

== ENCOUNTER 2024-03-20 09:58 | Outpatient (REF) | payer MEDICAID, SELFPAY ==
[2024-03-20 11:25] LABS: MANUAL DIFF FLAG NO
[2024-03-20 11:26] LABS: Basophils Percent Auto 0.5 % (0-2); Eosinophils Absolute Auto 0.1 X10*3/uL (0.0-0.4); Eosinophils Percent Auto 1.5 % (0-4); Hematocrit 40.8 % (37.0-47.0); Hemoglobin 13.7 g/dl (12.0-16.0); Imm Gran Abs Auto 0.01 X10*3/uL (0.00-0.03); Imm Gran Pct Auto 0.1 % (0.0-0.4); Lymphocytes Absolute Auto 2.8 X10*3/uL (1.2-4.9); Lymphocytes Percent Auto 37.7 % (20-40); Mean Corpuscular HGB Conc 33.6 g/dl (31.0-35.0); Mean Corpuscular Hemoglobin 29.1 pg (27.0-33.0); Mean Corpuscular Volume 86.8 fL (80.0-98.0); Mean Platelet Volume 11.6 fL (9.4-12.3); Monocytes Absolute Auto 0.3 X10*3/uL (0.1-1.2); Monocytes Percent Auto 4.5 % (2-11); Neutrophils Absolute Auto 4.2 x10*3/uL (2.0-8.3); Neutrophils Percent Auto 55.7 % (45-73); Platelet Count 241 X10*3/uL (160-400); Red Cell Distribution Width 13.7 % (11.0-16.0); White Blood Count 7.5 X10*3/uL (4.8-10.8)
[2024-03-20 12:05] LABS: Alanine Aminotransferase 9 U/L (0-31); Albumin Level 3.9 g/dL (3.5-5.0); Alkaline Phosphatase 59 U/L (39-117); Aspartate Amino Transferase 15 U/L (5-31); Bilirubin Direct 0.4 mg/dL (0.0-0.5); Bilirubin Total 1.2 mg/dL (0.0-1.0); Lipase 19 U/L (8-78); Total Protein 6.5 g/dL (6.5-8.0)
[2024-03-20 12:06] LABS: Syphilis Screen Nonreactive (Nonreactive)
[2024-03-20 12:27] LABS: HBsAGNum1 0.38 S/CO (0.00-0.99); HIV AB/AG Nonreactive (Nonreactive); HIV Num 1 0.05 S/CO (0.00-0.99); Hepatitis B Surface Antigen Negative (Negative); ~HepC Num1 0.09 S/CO (0.00-0.79); ~Hepatitis C Antibody Nonreactive (Nonreactive)
== END 2024-03-20 09:59 | disposition home or self-care (01) ==
LOC: HO.HHCL 09:58
PROVIDERS: Obstetrics & Gynecology; Visit Provider Internal Medicine
DX: N76.0 Acute vaginitis (principal); R10.13 Epigastric pain; B96.89 Other specified bacterial agents as the cause of diseases classified elsewhere
CPT/HCPCS: 36415; 80076; 83690; 85025; 86780; 86803; 87340; 87389

== ENCOUNTER 2024-07-13 16:44 | Outpatient (REF) | payer MEDICAID, SELFPAY ==
--- OUTSIDE RECORDS SUMMARY | 2024-07-13 16:46 | XMS_ITS | Encounter Summary ---
Author Organization [employer] [facility] Address [address] [place] [address] [address] [place] [address] Care Team Providers Care Diabetes Manager Name Role Phone Elsi Sal MD Primary Care Provider Reason for Visit * Reason Comments Med Refill Encounter Details Date Type Department Care Team (Late st Contact Info) Description 08/05/2022 Refill [facility] [address] [place] [address] Francisco Perdomo FNP Social History Tobacco Use Types Packs/Day Years Used Date Smoking Tobacco: Every Day Cigarettes Smokeless Tobacco: Never Comments Unknown Sex and Gender Information Value Date Recorded Sex Assigned at Female 04/05/2022 10:17 AM EDT Legal Sex Female 10:17 AM EDT Gender Identity Female 04/05/2022 10:17 AM EDT Sexual Orientation Choose not to disclose 2021 10:17 AM EDT documented as of this encounter Plan of Treatment Not on file documented as of this encounter Visit Diagnoses Not on filedocumented in this encounter Care Teams Diabetes Manager Relationship Specialty Start Date End Date Elsi Sal MD [address] [place] [address] PCP - General Family Medicine 05/09/11 documented as of this encounter
--- OUTSIDE RECORDS SUMMARY | 2024-07-13 16:46 | XMS_ITS | Encounter Summary ---
Author Organization [employer] Address [address] [place] [address] [address] [place] [address] Care Team Providers Care Heel Caser Name Role Phone Elsi Sal MD Primary Care Provider Reason for Visit * Reason Onset Date Comments Med Refill Appointment 07/30/2022 Encounter Details Date Type Department Care Team (Late st Contact Info) Description 07/30/2022 Refill [facility] [address] [place] [address] Francisco Perdomo FNP Social History Tobacco Use [...] AM EDT documented as of this encounter Miscellaneous Notes * Telephone Encounter - ROSEY Diaz - 08/04/2022 12:11 PM EST No prescriptions without Psychopharmacology follow up. * Telephone Encounter - Isela García - 08/04/2022 11:19 AM EST T/C placed to pt @ [phone] and the person who answered my call said is a wrong phone #. Also, I called @ her mother phone # that is listed and is disconnected at this time. documented in this encounter Plan of Treatment Not on file documented as of this encounter Visit Diagnoses Not on filedocumented in this encounter Care Teams Heel Caser Relationship Specialty Start Date End Date Elsi Sal MD [address] [place] [address] PCP - General Family Medicine 05/09/11 documented as of this encounter
--- OUTSIDE RECORDS SUMMARY | 2024-07-13 16:47 | XMS_ITS | Encounter Summary ---
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 Name Role Phone Elsi Sal MD Primary Care Provider [phone] Reason for Visit * Reason Comments Back Pain Headache Encounter Details Date Type Department Care Team ([facility] st Contact Info) Description 07/13/2024 8:40 AM EST Office Visit [facility] [address], [place] [phone] Cristhian Lozada MD [address] [place], [place] [phone] Acute bilateral low back pain with left-sided sciatica (Primary Dx); Migraine without status migrainosus, not intractable, unspecified migraine type; Vomiting and diarrhea Social History Tobacco Use Types Packs/Day Years Used Date Smoking Tobacco: Never Smokeless Tobacco: Never Depression Answer Date Recorded Patient Health Questionnaire-9 Score 7 04/20/2023 Patient Health Questionnaire-9 Score 7 04/20/2023 Last PHQ-9: Questionnaire Data Not on file 1 06/20/2022 Housing Stability Answer Date Recorded What is your housing situation today? I have mati fink 03/21/[address] you li ve. Do you have problems with any of the following? None of the above 03/21/2023 Food Insecurity Answer Date Recorded Within the past 12 months, y ou worried that your food would run out before you got money to buy more: Never True 03/21/2023 Within the past 12 months,th e food you bought just didn't last and you didn't have enough money to get more: Never True Transportation Answer Date Recorded In the past 12 months, has l ack of transportation kept you from medical appts, meetings, work or from getting things needed for daily living? No 03/21/2023 Utilities Answer Date Recorded In the past 12 months, has t he electric, gas, oil or water company threatened to shut off services in your home? No 03/21/2023 Depression Answer Date Recorded Patient Health Questionnaire-2 Score 2 04/20/2023 Comments No Sex and Gender Information Value Date Recorded Sex Assigned at Female 04/05/2022 10:17 AM EDT Legal Sex Female 10:17 AM EDT Gender Identity Female 04/05/2022 10:17 AM EDT Sexual Orientation Choose not to disclose 2021 10:17 AM EDT documented as of this encounter Last Filed Vital Signs Vital Sign Reading Time Taken Comments Blood Pressure 115/74 07/13/2024 8:40 AM EST Pulse 67 07/13/2024 8:40 AM EST Temperature 36.2 ??C (97.2 ??F) 07/13/2024 8:40 AM ES T Respiratory Rate 17 07/13/2024 8:40 AM EST Oxygen Saturation 99% 07/13/2024 8:40 AM EST Inhaled Oxygen Concentration - - Weight 83.7 kg (184 lb 9.6 oz) 07/13/2024 8:40 A M EST Height - - Body Mass Index 34.88 03/20/2024 9:08 AM EDT documented in this encounter Progress Notes * Cristhian Lozada MD - 07/13/2024 8:40 AM EST Subjective Patient ID: Breana Garcia is a 43 y.o. female. 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 Denies fever, chills, abd. pain, urinary sx, bowel or bladder dysfunction, saddle anesthesia, extremity weakness or numbness, cough. Had similar pain 2018, was told that it was due to sciatic nerve. Resolved with medication. And what she describes as a lumbar spine injection at ?[facility]. Tried Tylenol and ibuprofen with little relief. Last dose of ibuprofen was yesterday. Also had onset of headache and nausea yesterday with associated photosensitivity and phonosensitivity. No vomiting. States h/o migraines since childhood. Used to be prescribed Imitrex and Zofran. Mother and son have h/o migraine. Lives with mother. LMP=irreg. Never smoked. 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 Respiratory: Negative for shortness of breath. Cardiovascular: Negative for chest pain. Gastrointestinal: Positive for nausea. Negative for abdominal pain and vomiting. Musculoskeletal: Positive for back pain. Skin: Negative for rash. Neurological: Positive for headaches. Objective Physical Exam Constitutional: Appearance: Normal appearance. HENT: Right Ear: Tympanic membrane, ear canal and external ear normal. Left Ear: Tympanic membrane, ear canal and external ear normal. Nose: Nose normal. Mouth/Throat: Mouth: Mucous membranes are moist. Pharynx: Oropharynx is clear. Eyes: Conjunctiva/sclera: Conjunctivae normal. Pupils: Pupils are equal, round, and reactive to light. Cardiovascular: Rate and Rhythm: Normal rate and regular rhythm. Pulses: Popliteal pulses are 2+ on the left side. Heart sounds: No murmur heard. Pulmonary: Effort: Pulmonary effort is normal. Breath sounds: Normal breath sounds. Musculoskeletal: General: Normal range of motion. Cervical back: No tenderness. Skin: Findings: No rash. Neurological: Mental Status: She is alert. Cranial Nerves: Cranial nerves 2-12 are intact. Sensory: Sensation is intact. Motor: Motor function is intact. Gait: Gait is intact. Comments: Normal plantar- and dorsiflexion of left foot and toes against resistance. Psychiatric: Mood and Affect: Mood normal. Behavior: Behavior normal. Procedures Assessment/Plan Diagnoses and all orders for this visit: Acute bilateral low back pain with left-sided sciatica U/a: sm leuk, otherwise neg Urine C&S pending. Presumptive mechanical pain. Prescribed tizanidine, refilled Tylenol and ibuprofen. Work note given. Given Toradol 30 mg IM in [facility]. Rtc Tuesday if not improving. - ketorolac (Toradol) injection 30 mg Migraine without status migrainosus, not intractable, unspecified migraine type Refilled Imitrex and Zofgran. Rtc if not improving. - ondansetron (Zofran) 4 MG tablet; Take 1 tablet (4 mg) by mouth every 8 (eight) hours if needed for nausea or vomiting for up to 15 doses. - acetaminophen (Tylenol) 500 MG tablet; Take 2 tablets (1,000 mg) by mouth every 6 (six) hours if needed for moderate pain or fever for up to 25 doses. - POCT urinalysis dipstick manually resulted Other orders - SUMAtriptan (Imitrex) 50 MG tablet; Take 1 tablet (50 mg) by mouth 1 (one) time if needed for migraine. May repeat dose once in 2 hours if no relief. Do not exceed 2 doses in 24 hours. - tiZANidine (Zanaflex) 2 MG tablet; Take 1 tablet (2 mg) by mouth every 6 (six) hours if needed for muscle spasms for up to 10 days. - ibuprofen 800 MG tablet; Take 1 tablet (800 mg) by mouth if needed in the morning, at noon, and at bedtime for mild pain for up to 10 days. documented in this encounter Plan of Treatment Scheduled Orders Name Type Priority Associated Diagnoses Orde r Schedule Culture, Urine, Routine Microbiology Routine Acute bilateral low back pain with left-sided sciatica Ordered: 07/13/2024 documented as of this encounter Procedures Procedure Name Priority Date/Time Associated Diagnosis Comments POCT URINALYSIS DIPSTICK Routine 07/13/2024 9:16 AM EST Vomiting and diarrhea documented in this encounter Results * (ABNORMAL) POCT urinalysis dipstick manually resulted (07/13/2024 9:16 AM EST) Color, UA Yellow Clarity, UA Clear Glucose, UA Negative Bilirubin, UA Negative Ketones, UA Negative Spec Grav, UA 1.020 Blood, UA Positive(A) Negative, None Detected Comment:Trace- intact pH, UA 6.5 Protein, UA Negative Urobilinogen, UA 1.0 Leukocytes, UA Few 15(A) Negative, Rare, Trace Comment:Small Nitrite, UA Negative Negative, None Detected Urine 07/13/2024 9:16 AM EST Cristhian Lozada MD POINT OF CARE TEST ENTER/EDIT OR DERABLES Final Result documented in this encounter Visit Diagnoses Diagnosis Acute bilateral low back pain with left-sided sciatica- Primary Migraine without status migrainosus, not intractable, unspecified migraine type Vomiting and diarrhea documented in this encounter Administered Medications Inactive Administered Medications - up to 3 most recent administrations Medication Order MAR Action Action Date Dose Rate Site ketorolac (Toradol) injection 30 mg 30 mg, Intramuscular, Once, On Tue07/13/24 at 0915, For 1 doseIndications:Acute bilateral low back pain with left-sided sciatica Given 07/13/2024 9:15 AM EST 30 mg Right Upper Buttock documented in this encounter Additional Health Concerns Assessment Noted Time PHQ-9 Depression Total Score: 7 04/20/20 23 10:34 AM EST documented as of this encounter Care Teams 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
--- OUTSIDE RECORDS SUMMARY | 2024-07-13 16:47 | XMS_ITS | Encounter Summary ---
Author Organization [employer] Address [address] [place] [address] [address] [place] [address] Care Team Providers Care Room Attendants Name Role Phone Elsi Sal MD Primary Care Provider [phone] Reason for Visit * Reason Onset Date Comments r/s appt 08/06/2022 Appointment 08/06/2022 Encounter Details Date Type Department Care Team ([facility] st Contact Info) Description 08/06/2022 Telephone [facility] [address] [place], [place] [phone] Elsi Sal MD [address] [place], [place] [phone] r/s appt ; Appointment Social History Tobacco Use Types Packs/Day Years Used Date Smoking Tobacco: Every Day Cigarettes Smokeless Tobacco: Never Depression Answer Date Recorded Patient Health Questionnaire-9 Score 13 08/10/2022 Depression Answer Date Recorded Patient Health Questionnaire-2 Score 5 08/10/2022 Comments Unknown Sex and Gender Information Value Date Recorded Sex Assigned at Female 04/05/2022 10:17 AM EDT Legal Sex Female 10:17 AM EDT Gender Identity Female 04/05/2022 10:17 AM EDT Sexual Orientation Choose not to disclose 2021 10:17 AM EDT COVID-19 Exposure Response Date Recorded In the last 10 days, have yo u been in contact with someone who was confirmed or suspected to have Coronavirus/COVID-19? No / Unsure 08/09/2022 2:58 PM EST documented as of this encounter Miscellaneous Notes * Telephone Encounter - Isela García - 08/06/2022 11:34 AM EST T/C placed to pt regarding to re-schedule her appt as tele-visit -RV. Pt agrees to schedule for 08/10/22 @ 2:15pm. * Telephone Encounter - Andrew Vick - 08/06/2022 10:06 AM EST Tc from pt wanting to r/s appt for 02/22/2022. Please contact pt at [phone] documented in this encounter Plan of Treatment Not on file documented as of this encounter Visit Diagnoses Not on filedocumented in this encounter Care Teams Room Attendants Relationship Specialty Start Date End Date Elsi Sal MD [address] [place] [address] PCP - General Family Medicine 05/09/11 documented as of this encounter
--- OUTSIDE RECORDS SUMMARY | 2024-07-13 16:47 | XMS_ITS | Clinical Summary ---
Author Organization [employer] Address [address] [facility] [address] [place] [address] Care Team Providers Care Retail Zone Specialist Name Role Phone Elsi Sal MD Primary Care Provider [phone] Allergies Active Allergy Reactions Criticality Noted Date Comments Penicillins Rash High 09/03/2014 Medications ARIPiprazole (Abilify) 10 MG tabletIndicat ions:Major depressive disorder, recurrent, severe with psychotic features (CMS/HCC) Take 1 tablet (10 mg) by mouth in the morning. 30 tablet 1 08/11/19 23 Active traZODone (Desyrel) 50 MG tabletIndicat ions:Major depressive disorder, recurrent, severe with psychotic features (CMS/HCC) Take 1 tablet (50 mg) by mouth at bedtime. 90 tablet 1 08/11/19 23 Active clonazePAM (KlonoPIN) 1 MG tabletIndicat ions:Major depressive disorder, recurrent, severe with psychotic features (CMS/HCC) Take 1 tablet (1 mg) by mouth every 12 (twelve) hours if needed for anxiety. 60 tablet 2 08/11/19 23 Active SALINE MIST 0.65 % nasal spray USE 1-2 SPRAY ON EACH NOSTRIL EVERY 2-3 HOURS NEEDED FOR NASAL CONGESTION 12/02/19 22 Active sucralfate (Carafate) 1 g tablet Take 1 g by mouth at bedtime. 08/24/19 23 Active albuterol (2.5 MG/3ML) 0.083% nebulizer solution inhale 3 milliliter (2.5MG) by nebulization route every 4-6 hours as needed for difficulty breathing, up to 4 times/day as needed 75 mL 1 09/07/19 23 Active cetirizine (ZyrTEC) 10 MG tablet Take 1 tablet (10 mg) by mouth in the morning. 90 tablet 3 04/20/20 23 Active ibuprofen 600 MG tablet Take 1 tablet by mouth every 8 hours as needed for pain or fever. 30 tablet 1 04/20/20 23 Active albuterol 108 (90 Base) MCG/ACT inhaler Take 2 puffs via inhaler every 4 hours as needed for difficulty breathing 18 g 3 06/02/20 23 Active fluticasone (Flonase) 50 MCG/ACT nasal spray Administer 1-2 sprays into each nostril in the morning. Shake gently. Before first use, prime pump. After use, clean tip and replace cap. 48 mL 07/18/19 24 025 Active pantoprazole (ProtoNix) 40 MG EC tabletIndicat ions:Epigastr ic pain Take 1 tablet (40 mg) by mouth before breakfast. Do not crush, chew, or split. 30 tablet 3 03/20/20 24 Active ondansetron (Zofran) 4 MG tabletIndicat ions:Vomiting and diarrhea Take 1 tablet (4 mg) by mouth every 8 (eight) hours if needed for nausea or vomiting for up to 15 doses. 15 tablet 07/13/19 25 Active SUMAtriptan (Imitrex) 50 MG tablet Take 1 tablet (50 mg) by mouth 1 (one) time if needed for migraine. May repeat dose once in 2 hours if no relief. Do not exceed 2 doses in 24 hours. 9 tablet 1 07/13/19 25 Active tiZANidine (Zanaflex) 2 MG tablet Take 1 tablet (2 mg) by mouth every 6 (six) hours if needed for muscle spasms for up to 10 days. 30 tablet 07/13/19 25 025 Active acetaminophen (Tylenol) 500 MG tabletIndicat ions:Vomiting and diarrhea Take 2 tablets (1,000 mg) by mouth every 6 (six) hours if needed for moderate pain or fever for up to 25 doses. 50 tablet 07/13/19 25 Active ibuprofen 800 MG tablet Take 1 tablet (800 mg) by mouth if needed in the morning, at noon, and at bedtime for mild pain for up to 10 days. 20 tablet 07/13/19 25 025 Active acetaminophen (Tylenol) 500 MG tabletIndicat ions:Vomiting and diarrhea Take 2 tablets (1,000 mg) by mouth every 6 (six) hours if needed for moderate pain or fever for up to 25 doses. 50 tablet 04/20/20 23 025 Discontinued(R eorder (will not trigger notification to Pharmacy)) ondansetron (Zofran) 4 MG tabletIndicat ions:Vomiting and diarrhea Take 1 tablet (4 mg) by mouth every 8 (eight) hours if needed for nausea or vomiting for up to 15 doses. 15 tablet 03/20/20 24 025 Discontinued(R eorder (will not trigger notification to Pharmacy)) Hospital, Clinic, or Other Facility Administered Medication Ordered Dose Route Frequency Start Date End Date Status ketorolac (Toradol) injection 30 mgIndications:Acute bilateral low back pain with left-sided sciatica 30 mg IM Once 07/13/2024 07/13/2024 Ended Active Problems Problem Noted Date Diagnosed Date Migraine without status migrainosus, not intract able 07/13/2024 Epigastric pain 03/20/2024 Assessment & Plan (03/20/2024 9:42 AM EDT): Patient here with c/o intermittent epigastric and RUQ abdominal pain for a couple of weeks, associated with diarrhea for the last couple of days. Pt describes the pain as colicky, intensity when severe 5-6/10 radiation to RUQ. On exam there is tenderness to palpation epigastric and RUQ region, NO rebound, NO guarding. BS normal. Etiology ? PUD ?, Cholelithiasis, Pancreatitis? Viral Gastroenteritis Plan: Obtain, CBC, LFTs, Lipase, Stool Cx, C.Diff and O and P. Abd U/S Will also refer to GI since patient c/o chronic GERD that does not go away Will send a script for Nausea to her Pharmacy. Instructed patient to present herself to nearest ER if symptoms do not improve or worsen Follow up with PCP in 1 week to review testing Diarrhea of presumed infectious origin Assessment & Plan (03/20/2024 9:44 AM EDT): Patient here with c/o intermittent epigastric and RUQ abdominal pain for a couple of weeks, associated with diarrhea for the last couple of days. Pt describes the pain as colicky, intensity when severe 5-6/10 radiation to RUQ. On exam there is tenderness to palpation epigastric and RUQ region, NO rebound, NO guarding. BS normal. Etiology ? PUD ?, Cholelithiasis, Pancreatitis? Viral Gastroenteritis Plan: Obtain, CBC, LFTs, Lipase, Stool Cx, C.Diff and O and P. Abd U/S Will also refer to GI since patient c/o chronic GERD that does not go away Will send a script for Nausea to her Pharmacy. Instructed patient to present herself to nearest ER if symptoms do not improve or worsen Follow up with PCP in 1 week to review testing COVID-19 06/03/2023 Assessment & Plan (06/03/2023 6:47 PM EST): Pt w respiratory symptoms-home + COVID 19 test -pt has asthma,hx of lymphoma,obesity within window x tx -normal renal function from last labs in 04/2023 -Px paxlovid -no interactions found w her meds -supportive tx -hydration -isolation x at least 5 days and if day 6 feeling better can come out isolation but to still use N95 mask for 10 days -alarm signs and symptoms discussed -advised that once is feeling better in next 2 to 3 weeks can come to vaccine clinic to get COVID vaccine History of cervical dysplasia 09/12/2022 Assessment & Plan (09/12/2022 11:17 AM EDT): -DEEPALI I-II in 2014 , evaluated by Dr. Carrasquillo, [facility] -Last PAP in 2017 was NILM -Refer back Abnormal uterine bleeding (AUB) 09/06/2022 Assessment & Plan (04/29/2023 6:17 PM EST): - following with [facility] gynecology - Pt has fibroid - EMBx on 03/21/23 was normal Assessment & Plan (03/02/2023 6:24 AM EDT): Pt w known Hx of abnormal uterine bleeding since 08/2022 - was seen by real estate intern, but lost care. -I requested workforce specialist to send again previous referral for pelvic and TV US done by PCP this year. -Advise pt to call real estate intern today to reschedule apt. May need endometrial biopsy if ongoing bleeding. I provided pt w her real estate intern's phone number so that she can schedule her apt Assessment & Plan (09/12/2022 11:22 AM EDT): -evaluate with US -check lab for early menopause / premature ovarian failure Secondary oligomenorrhea 09/06/2022 Assessment & Plan (09/12/2022 11:16 AM EDT): -likely perimenopausal -Hx DEEPALI I-II, 2014, most recent PAP in 2017 was NILM, followed by [facility] -will refer back to [facility] for PAP History of COVID-19 09/05/2022 History of follicular lymphoma 09/05/2022 Assessment & Plan (09/12/2022 11:15 AM EDT): Oncologist: Dr. 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 Negative for CD5 and CD8. Consistent with low-grade lymphoma, follicular or marginal zone lymphoma. 09/01/16 BM biopsy negative Completed 6 cycles of bendamustine and rituximab, 09/15/16 - 02/03/17 07/29/17 An Abd/pelvic CT scan was ordered that showed interval increase in the haziness of the mesenteric fat compared to the most recent prior study. However, there is no mesenteric lymphadenopathy at present. Findings consistent with mesenteric reactive / inflammatory changes. 09/2017 MRI negative for lymphadenopathy Most recent CT Chest and Abd in December 2021, showed no recurrence or adenopathy. GERD (gastroesophageal reflux disease) 3 Assessment & Plan (04/29/2023 6:27 PM EST): - following with [facility], last seen on 08/23/22, restarted pantoprazole and sucralfate - continue pantoprazole 40 mg daily - continue sucralfate 1 g qhs Assessment & Plan (09/05/2022 4:33 PM EDT): - following with [facility], last seen on 08/23/22, restarted pantoprazole and sucralfate - continue pantoprazole 40 mg daily - continue sucralfate 1 g qhs Major depressive disorder, r ecurrent, severe with psychotic features 08/10/2022 Assessment & Plan (04/29/2023 6:20 PM EST): Continue Abilify 10 mg daily, Trazodone 50 mg at bedtime, Clonazepam 1 mg BID prn. Continue following with Francisco for clinical pharmacology and threapist Assessment & Plan (08/10/2022 3:03 PM EST): Has been off her medications for several months and symptoms have recurred. Will resume Abilify 10 mg daily, Trazodone 50 mg at bedtime, Clonazepam 1 mg BID prn). F/U for counseling when available and F/U with me in 1 month. She agrees with the plan. 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 Negative for CD5 and CD8. Consistent with low-grade lymphoma, follicular or marginal zone lymphoma. 09/01/16 BM biopsy negative Completed 6 cycles of bendamustine and rituximab, 09/15/16 - 02/03/17 07/29/17 An Abd/pelvic CT scan was ordered that showed interval increase in the haziness of the mesenteric fat compared to the most recent prior study. However, there is no mesenteric lymphadenopathy at present. Findings consistent with mesenteric reactive / inflammatory changes. 09/2017 MRI negative for lymphadenopathy Most recent abd/pelvis CT in December [address] in Feb 2023, showed no recurrence or adenopathy. Assessment & Plan (03/02/2023 6:24 AM EDT): In remission from low-grade follicular lymphoma, s/p 6 cycles of bendamustine and rituximab. Dx 08/20/16 retroperitoneal lymph node biopsy positive for mature B-cell lymphoma From PCP's last note - most recent CT Chest and Abd in December 2021, showed no recurrence or adenopathy Pt complaining of a couple of mo of ongoing significant night sweats. Can have sweats during the day as well, but more pronounced at night, w <10 lb weight loss in last 5 mo. From exam - no lymphadenopathy. -Given Hx, I'm referring today for CT chest, abdomen, pelvis - to rule out recurrence of lymphoma. -Doing labs as well to also rule out early menopausal Sx. Assessment & Plan (09/12/2022 11:14 AM EDT): Oncologist: Dr. 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 Negative for CD5 and CD8. Consistent with low-grade lymphoma, follicular or marginal zone lymphoma. 09/01/16 BM biopsy negative Completed 6 cycles of bendamustine and rituximab, 09/15/16 - 02/03/17 07/29/17 An Abd/pelvic CT scan was ordered that showed interval increase in the haziness of the mesenteric fat compared to the most recent prior study. However, there is no mesenteric lymphadenopathy at present. Findings consistent with mesenteric reactive / inflammatory changes. 09/2017 MRI negative for lymphadenopathy Most recent CT Chest and Abd in December 2021, showed no recurrence or adenopathy. Low back pain radiating to both legs 09/03/2014 Assessment & Plan (09/12/2022 11:22 AM EDT): -minimize NSAIDs use given her GERD symptoms -Rx APAP 1g q6 hours prn for pain -home back exercise -PT referral with a possible evaluation by [facility] / pain management -if no improvement, evaluate with MRI -lidocaine patch Asthma 03/28/2014 Assessment & Plan (04/29/2023 6:13 PM EST): -continue albuterol HFA and neb -continue remaining a non-smoker Assessment & Plan (09/12/2022 11:11 AM EDT): -refill albuterol HFA and neb -she requests a new script for albuterol nebulizer machine -continue remaining a non-smoker Panic disorder 03/28/2014 Mixed anxiety and depressive disorder 03/28/2014 04/13/2023 Assessment & Plan (06/03/2023 6:44 PM EST): -lost care w Francisco Joelle --sent today message to Isela Pinzon to try to reschedule for f up and for med refills Encounters Date Type Department Care Team Description 07/13/2024 8:40 AM EST Office Visit [facility] [address] [place] [phone] Cristhian Lozada MD Acute bilateral low back pain with left-sided sciatica (Primary Dx); Migraine without status migrainosus, not intractable, unspecified migraine type; Vomiting and diarrhea 05/07/2024 Telephone [facility] [address] [place], [place] [phone] Elsi Sal MD Nurse Triage from Last 3 Months Immunizations Name Administration Dates Next Due Influenza injectable quadriv alent IIV4 with preservative 02/26/2016 Influenza injectable quadriv alent preservative free 04/09/2019,07/12/2017,09/03/2014 Influenza, IIV3, injectable 04/26/2011, 5 Influenza, seasonal, injecta ble, preservative free 03/25/2014 Pneumococcal Polysaccharide PPSV23 03/25/2014,,05/13/2005 Tdap 04/26/2011 Social History Tobacco Use Types Packs/Day Years Used Date Smoking Tobacco: Never Smokeless Tobacco: Never Tobacco Cessation:Counseling Given: Not Answered Depression Answer Date Recorded Patient Health Questionnaire-9 [...] not to disclose 2021 10:17 AM EDT Last Filed Vital Signs Vital Sign Reading [...] oz) 07/13/2024 8:40 A M EST Height 154.9 cm (5' 1 ) 03/20/2024 9:08 AM EDT Body Mass Index 34.88 03/20/2024 9:08 AM EDT Plan of Treatment Health Maintenance Due Date Last Done Comments COVID-19 Vaccine (#1) 09/29/1987 Alcohol/Substance Use Screening 1994 Family Planning (PISQ) 1997 Hepatitis B Vaccines (1 of 3 - 19+ 3-dose series) 2001 Zoster Vaccines (1 of 2) 2001 Pneumococcal Vaccine: Pediatrics (0 to 5 Years) and At-Risk Patients (6 to 49) Years) (3 of 3 - PCV) 03/25/2015 03/25/2014, 04/26/2011, 05/13/2005 DTaP/Tdap/Td Vaccines (2 - Td or Tdap) 04/26/2021 04/26/2011 Mammogram 2022 SDOH Screening 09/07/2023 09/06/2022 Influenza Vaccine (#1) 2024 9, 07/12/2017, 02/26/2016, Additional history exists Depression Screening 04/20/2024 04/20/2023, 04/20/20 23 Tobacco Screening 07/13/2025 07/13/2024 Cervical Cancer Screening 09/16/2027 HPV/Cotest 09/16/2027 09/15/2022 Pap Smear 09/16/2027 09/15/2022 RSV Patients and Patients Aged 60 years or older (1 - 1-dose 75+ series) 2057 HIV Screening Completed 03/20/2024, 07/08, 02/20/2021 Hepatitis C Screening Completed 03/20/2024 , 08/03/2023, 02/20/2021 HIB Vaccines Aged Out No longer eligi ble based on patient's age to complete this topic HPV Vaccines Aged Out No longer eligi ble based on patient's age to complete this topic Hepatitis A Vaccines Aged Out No long er eligible based on patient's age to complete this topic IPV Vaccines Aged Out No longer eligi ble based on patient's age to complete this topic Meningococcal Vaccine Aged Out No ger ayanna eligible based on patient's age to complete this topic RSV under 20 months Aged Out No longe r eligible based on patient's age to complete this topic Rotavirus Vaccines Aged Out No longer eligible based on patient's age to complete this topic Procedures Procedure Name Priority Date/Time Associated Diagnosis Comments POCT URINALYSIS DIPSTICK Routine 07/13/2024 9:16 AM EST Vomiting and diarrhea HEPATITIS C ANTIBODY Routine 03/20/2024 10:05 AM EDT HIV 1/2 ANTIGEN/ANTIBODY, FOURTH GENERATION W/RFL Routine 03/20/2024 10:05 AM EDT HPV MRNA E6/E7 REFLEX TO HPV 16, 18/45 Routine 09/15/2022 10:18 AM EDT PAP SMEAR Routine 09/15/2022 10:18 AM EDT from Last 3 Months or Most Recently Relevant to Health Maintenance Results * (ABNORMAL) POCT urinalysis dipstick manually [...] CARE TEST ENTER/EDIT OR DERABLES Final Result * Hepatitis C Ab (03/20/2024 10:05 AM EDT) Hepatitis C Antibody Nonreactive Nonreactive [facility] Comment:Antibodies to HCV no t detected; does not exclude early acuteHCV infection. 03/20/2024 10:0 5 AM EDT 03/20/2024 11:11 AM EDT Generic External Data Provider LAB BLOOD ORDERAB LES Final Result [facility] [address] [place] [phone] * HIV-1/2 Antigen and Antibodies, Fourth Generation, with Reflexes (03/20/2024 10:05 AM EDT) HIV AB/AG Nonreactive Nonreactive [facility] Comment:HIV-1 p24 Ag and/or HIV-1/HIV-2 Ab not detected.A test result that is nonreactive does not exclude thepossibility of exposure to or infection with HIV-1 and/orHIV-2. Nonreactive results in this assay for individualswith prior exposure to HIV-1 and/or HIV-2 may be due toantigen and antibody levels that are below the limit ofdetection of this assay.The [employer] HIV Ag/Ab Combo assay result andsupplemental assay results should be interpreted inconjunction with the patient's clinical presentation,history and other laboratory results. If the results areinconsistent with clinical evidence, additional testing issuggested to confirm the result. 03/20/2024 10:0 5 AM EDT 03/20/2024 11:11 AM EDT us Generic External Data Provider LAB BLOOD ORDERAB LES Final Result [facility] [address] [place] [phone] * HPV mRNA E6/E7 w/Reflex to HPV Genotypes 16, 18/45 (09/15/2022 10:18 AM EDT) HPV nRNA E6/E7 Not Detected Not Detected [facility] Comment:Methodology: Transcr iption-Mediated AmplificationThis assay detects E6/E7 viral messenger RNA (mRNA) from 14high-risk HPV types (16,18,31,33,35,39,45,51,52,56,58,59,66,68).Cervical sources are required for HPV testing.If a vaginal source from a patient who has had atotal hysterectomy with removal of cervix wassubmitted, please contact the testing laboratoryfor alternative testing options.For additional information, please refer [email or web address]/[email or web address](This link if provided for information/educational purposes only.)THIS TEST WAS PERFORMED AT:[facility] [address] [id number] GARCIA MD HPV mRNA E6/E7 TNP [facility] HPV 16 RNA TNP [facility] HPV 18/45 RNA TNP [facility] 09/15/2022 10:1 8 AM EDT 09/15/2022 12:00 PM EDT us [facility] External Provider LAB CYT OLOGY ORDERABLES Final Result [facility] [address] [place] [phone] * Pap Smear (09/15/2022 10:18 AM EDT) 09/15/2022 10:1 8 AM EDT 09/15/2022 12:00 PM EDT Lady [facility] - 09/20/2022 12:11 PM EDT ----- ------- Name: Breana Mcmillan I ? Age/Sex: 41/F ? : 1980 Unit#: [id number] ?? Attend Dr: Wilbur Carrasquillo MD ?Re09/15/22 ?Status: DEP REF ? Location: HO.LNP ?Disch: ? ----- ------- SPEC : [id number] ? RECD: 09/15/22-1200 ? STATUS: ??SOUT ? REQ NUM: [id number] ? HERBER: 09/15/22-1018 ? SUBM DR: Wilbur Carrasquillo MD ? ENTERED: ??09/15/22-6 ?SP TYPE: Pap Smr ?OTHR DR: Elsi Sal MD ? ORDERED: ??Pap Smear ? Interpretation ?? Satisfactory for evaluation. ?? No endocervical cells seen. ?? Negative for intraepithelial lesion or malignancy. ? HPV mRNA E6/E7: ?NOT DETECTED ? This assay detects E6/E7 viral messenger RNA (mRNA) from 14 high-risk HPV types (16, 18, ?? 31, 33, 35, 39, 45, 51, 52, 56, 58, 59, 66, 68) ? HPV testing performed by [facility], [place], [place]. ??See reference laboratory ?? portion of the EMR for entire report. ?Clinical Information LMP: 08/30/2022 Previous PAP test: 2017, Abnormal Other history: HPV+ ? Material Received ?? ThinPrep-Cervical Copies To: ?? Elsi Sal MD ?? [address] ?? [place] [id number] ? Wilbur Carrasquillo MD ?? [address] [facility] ?? [place] ?? [phone] ----- ------- Signed (signature on file) Margaret Ford Brenda 09/20/221210 ? ----- ------- ? END OF REPORT ? us [facility] External Provider LAB CYT OLOGY ORDERABLES Final Result [facility] [address] [place], [place] [phone] from Last 3 Months or Most Recently Relevant to Health Maintenance Insurance [employer] C3 Care Teams Retail Zone Specialist Relationship Specialty Start Date End Date Elsi Sal MD [address] [place] [phone] PCP - General Family Medicine 05/09/11
--- OUTSIDE RECORDS SUMMARY | 2024-07-13 16:47 | XMS_ITS | Encounter Summary ---
Author Organization [employer] Address [address] [facility] [address] [place] [address] Care Team Providers Care Composition Teacher Name Role Phone Elsi Sal MD Primary Care Provider Reason for Visit * Reason Onset Date Comments Nurse Triage 05/07/2024 Encounter Details Date Type Department Care Team ([facility] st Contact Info) Description 05/07/2024 Telephone [facility] MEDICINE [address] [place], [place] [phone] Elsi Sal MD [address] [place], [place] [phone] Nurse Triage Social History Tobacco Use Types Packs/Day Years [...] encounter Miscellaneous Notes * Telephone Encounter - Ellen Garcia - 05/07/2024 4:18 PM EST Symptom: Breast Symptoms Outcome: Schedule an appointment to be seen within 24 hours Reason: Caller denied all higher acuity questions The caller accepted this outcome. documented in this encounter Plan of Treatment Not on file documented as of this encounter Visit Diagnoses Not on filedocumented in this encounter Additional Health Concerns Assessment Noted Time PHQ-9 Depression Total Score: 7 04/20/20 23 10:34 AM EST documented as of this encounter Care Teams Composition Teacher Relationship Specialty Start Date End Date Elsi Sal MD [address] [place] [address] PCP - General Family Medicine 05/09/11 documented as of this encounter
== END 2024-07-13 16:45 | disposition home or self-care (01) ==
LOC: HO.HHCLNP 16:44
PROVIDERS: Visit Provider Emergency Medicine
DX: M54.42 Lumbago with sciatica, left side (principal)
CPT/HCPCS: 87086; 87088; 87186

== ENCOUNTER 2024-08-03 05:26 | Emergency (ER) | payer MEDICAID, SELFPAY ==
--- NOTE | ~2024-08-03 | CT_ITS ---
EXAMINATION: CT ABDOMEN PELVIS WITH IV CONTRAST HISTORY: lower ABD pain L>R, rad back, sx, constipation COMPARISON: There are no prior studies for comparison. TECHNIQUE: CT scan of the abdomen and pelvis was performed following administration of 85 mL Omnipaque 350 using standard departmental protocol. Coronal and sagittal reformatted images were generated and reviewed. Oral contrast material was not administered at the request of the referring physician. This CT exam was performed with one or more of the following dose reduction techniques: automated exposure control, adjustment of the mA and/or kV according to patient size, use of iterative reconstruction technique. DLP: 632 mGy-cm FINDINGS: LOWER CHEST: The visualized lung bases are clear. There is no pleural effusion. CARDIOVASCULATURE: The heart is normal in size. There is no pericardial effusion. LIVER: The liver is normal in size and contour. No liver mass is identified. The hepatic and portal veins are patent. GALLBLADDER / BILE DUCTS: The gallbladder is unremarkable. There is no intra or extrahepatic biliary ductal dilatation. SPLEEN: The spleen is normal in size. No focal splenic lesion is identified. PANCREAS: The pancreas is unremarkable in appearance. ADRENAL GLANDS: Within normal limits. KIDNEYS/RETROPERITONEUM: No renal calculi are identified. There is no hydronephrosis. No renal masses are identified. LYMPH NODES: No abdominal or pelvic lymphadenopathy. VASCULATURE: The abdominal aorta is normal in caliber. MESENTERY/PERITONEUM: No free fluid. No masses. There is no free intraperitoneal gas. STOMACH: The stomach is collapsed, limiting evaluation. SMALL BOWEL: The small bowel is normal in caliber. COLON: There is mild wall thickening of the descending and sigmoid colon suggestive of colitis. There is a moderate amount of stool ascending, and transverse colon. APPENDIX: Normal. URINARY BLADDER/PELVIC ORGANS: The urinary bladder is unremarkable. The uterus and ovaries are unremarkable. BONES / SOFT TISSUES: No suspicious bony or soft tissue abnormalities. CT/CT abdomen pelvis w IV con IMPRESSION: Mild wall thickening of the descending and sigmoid colon, suggestive of colitis. Electronically signed by: Tim Romero MD 08/03/2024 09:33 AM [facility]
--- NOTE | ~2024-08-03 | XR_ITS ---
CLINICAL HISTORY: constipation 1 view abdomen Comparison: None Findings: No pneumoperitoneum or pneumatosis. No abnormal calcifications. No acute fractures. IMPRESSION: The bowel gas pattern is normal This document has been electronically signed by: Tyree Sidhu MD on 08/03/2024 07:19:45
[2024-08-03 05:32] VITALS: BP 121/72; PULSE 67; RESP 16; TEMP 36.9; O2SAT 98; BMI 34.9
[2024-08-03 05:46] LABS: MANUAL DIFF FLAG NO
[2024-08-03 05:47] LABS: Basophils Percent Auto 0.7 % (0-2); Eosinophils Absolute Auto 0.1 X10*3/uL (0.0-0.4); Hemoglobin 13.6 g/dl (12.0-16.0); Imm Gran Abs Auto 0.02 X10*3/uL (0.00-0.03); Imm Gran Pct Auto 0.3 % (0.0-0.4); Lymphocytes Absolute Auto 2.5 X10*3/uL (1.2-4.9); Lymphocytes Percent Auto 40.9 % (20-40); Mean Corpuscular HGB Conc 33.2 g/dl (31.0-35.0); Mean Corpuscular Hemoglobin 28.6 pg (27.0-33.0); Mean Corpuscular Volume 86.1 fL (80.0-98.0); Mean Platelet Volume 10.7 fL (9.4-12.3); Monocytes Absolute Auto 0.4 X10*3/uL (0.1-1.2); Monocytes Percent Auto 6.1 % (2-11); Neutrophils Absolute Auto 3.1 x10*3/uL (2.0-8.3); Platelet Count 252 X10*3/uL (160-400); Red Blood Count 4.76 X10*6/uL (4.20-5.50); Red Cell Distribution Width 13.5 % (11.0-16.0); White Blood Count 6.1 X10*3/uL (4.8-10.8)
[2024-08-03 05:56] LABS: Appearance Urine Clear; Color Urine Dark Yellow; Glucose Urine UA Negative (Negative); Leukocyte Esterase Urine Trace (Negative); Nitrite Urine Negative (Negative); PH 5.5 (5.0-9.0); UMIC TRIGGER UACC YES; Urine Blood Negative (Negative); Urine Ketones Trace mg/dL (Negative); Urine Protein Negative (Neg-Trace)
[2024-08-03 05:58] LABS: UPreg QC Valid YES; Urine Pregnancy NEGATIVE (NEGATIVE)
[2024-08-03 05:59] LABS: Anion Gap 12 (12-20); Blood Urea Nitrogen 9 mg/dL (9-16); Carbon Dioxide 26 mmol/L (22-29); Chloride 108 mmol/L (96-108); Creatinine Clr Calc Pharmacy 103.8; Estimated Glomerular Filt Rate > 60; Glucose Random 83 mg/dL (60-115); Potassium 3.7 mmol/L (3.3-5.1); Sodium 142 mmol/L (135-145)
--- NOTE | 2024-08-03 06:21 | PC.NURSE ---
pt a&o, reports having pain for several weeks, did see her primaory who called her to let her know she had a kidney infection, complete antibiotic but pain it not improving. pt change into hospital attire, call bed in reach, pt awaiting to be seen.
[2024-08-03 06:22] LABS: Bacteria Urine 1+ (None Seen); Hyaline Casts Urine 0-2 /LPF (0-2); RBC Urine 0-2 /HPF (0-2); UACC Culture Trigger YES
--- OUTSIDE RECORDS SUMMARY | 2024-08-03 06:38 | XMS_ITS | Encounter Summary ---
Author Organization [email or web address] Address [address] [facility] [address] [place] [address] Care Team Providers Care Formulation Scientist Name Role Phone Elsi Sal MD Primary Care Provider [phone] Reason for Visit * Reason Onset Date Comments Nurse Triage 05/07/2024 Encounter Details Date Type Department Care Team ([facility] st Contact Info) Description 05/07/2024 Telephone [facility] MEDICINE [address] [place], [place] [phone] Elsi Sal MD [address] [place], [place] [phone] Nurse Triage Social History Tobacco Use Types [...] documented as of this encounter Care Teams Formulation Scientist Relationship Specialty Start Date End Date Elsi Sal MD [address] [place] [address] PCP - General Family Medicine 05/09/11 documented as of this encounter
--- OUTSIDE RECORDS SUMMARY | 2024-08-03 06:38 | XMS_ITS | Clinical Summary ---
Author Organization [employer] Address [address] [facility] [address] [place] [address] Care Team Providers Care Car Rental Clerk Name Role Phone Elsi Sal MD Primary Care Provider [phone] Allergies Active Allergy Reactions Criticality Noted Date [...] and replace cap. 48 mL 07/18/19 24 Active pantoprazole (ProtoNix) 40 MG EC tabletIndicat [...] hours. 9 tablet 1 07/13/19 25 Active acetaminophen (Tylenol) 500 MG tabletIndicat ions:Vomiting and diarrhea Take 2 tablets (1,000 mg) by mouth every 6 (six) hours if needed for moderate pain or fever for up to 25 doses. 50 tablet 07/13/19 25 Active acetaminophen (Tylenol) 500 MG tabletIndicat ions:Vomiting [...] eorder (will not trigger notification to Pharmacy)) tiZANidine (Zanaflex) 2 MG tablet Take 1 tablet (2 mg) by mouth every 6 (six) hours if needed for muscle spasms for up to 10 days. 30 tablet 07/13/19 25 025 Discontinued(I neffective) ibuprofen 800 MG tablet Take 1 tablet (800 mg) by mouth if needed in the morning, at noon, and at bedtime for mild pain for up to 10 days. 20 tablet 07/13/19 25 025 ciprofloxacin (Cipro) 500 MG tablet Take 1 tablet (500 mg) by mouth 2 times daily for 5 days. 10 tablet 07/16/19 25 025 Hospital, Clinic, or Other Facility Administered Medication [...] in 2014 , evaluated by Dr. Carrasquillo, [facility] -Last PAP in 2017 was NILM -Refer back Abnormal uterine bleeding (AUB) 09/06/2022 Assessment & Plan (04/29/2023 6:17 PM EST): - following with [facility] gynecology - Pt has fibroid - EMBx on 03/21/23 was normal Assessment & Plan (03/02/2023 6:24 AM EDT): Pt w known Hx of abnormal uterine bleeding since 08/2022 - was seen by employment assistant, but lost care. -I requested community service specialist to send again previous referral for pelvic and TV US done by PCP this year. -Advise pt to call employment assistant today to reschedule apt. May need endometrial biopsy if ongoing bleeding. I provided pt w her employment assistant's phone number so that she can schedule her apt Assessment & Plan (09/12/2022 11:22 AM EDT): -evaluate with US -check lab for early menopause / premature ovarian failure Secondary oligomenorrhea 09/06/2022 Assessment & Plan (09/12/2022 11:16 AM EDT): -likely perimenopausal -Hx DEEPALI I-II, 2014, most recent PAP in 2017 was NILM, followed by [facility] -will refer back to [facility] for PAP History of COVID-19 09/05/2022 History [...] (04/29/2023 6:27 PM EST): - following with [facility] GI, last seen on 08/23/22, restarted pantoprazole and sucralfate - continue pantoprazole 40 mg daily - continue sucralfate 1 g qhs Assessment & Plan (09/05/2022 4:33 PM EDT): - following with [facility] GI, last seen on 08/23/22, restarted pantoprazole [...] -PT referral with a possible evaluation by [facility] / pain management -if [...] Plan (06/03/2023 6:44 PM EST): -lost care lee Lai --sent today message to Isela Pinzon to try to reschedule for f up and for med refills Encounters Date Type Department Care Team Description 07/16/2024 8:40 AM EST Office Visit [facility] [address] [place] [phone] Cristhian Lozada MD Urinary tract infection without hematuria, site unspecified (Primary Dx); Acute bilateral low back pain with bilateral sciatica; Other migraine without status migrainosus, not intractable 07/13/2024 8:40 AM EST Office Visit [facility] [address] [place] [phone] Cristhian Lozada MD Acute bilateral low back pain with left-sided sciatica (Primary Dx); Migraine without status migrainosus, not intractable, unspecified migraine type; Vomiting and diarrhea 05/07/2024 Telephone [facility] [address] [place] [phone] Elsi Sal MD Nurse Triage from Last [...] Sign Reading Time Taken Comments Blood Pressure 119/73 07/16/2024 8:37 AM EST Pulse 64 07/16/2024 8:37 AM EST Temperature 35.8 ??C (96.5 ??F) 07/16/2024 8:37 AM ES T Respiratory Rate 17 07/16/2024 8:37 AM EST Oxygen Saturation 99% 07/16/2024 8:37 AM EST Inhaled Oxygen Concentration - - Weight 83.7 kg (184 lb 9.6 oz) 07/16/2024 8:37 A M EST Height 154.9 cm (5' [...] Screening 04/20/2024 04/20/2023, 04/20/20 23 Tobacco Screening 07/16/2025 07/16/2024 Cervical Cancer Screening 09/16/2027 HPV/Cotest 09/16/2027 09/15/2022 [...] Procedure Name Priority Date/Time Associated Diagnosis Comments CULTURE, URINE, ROUTINE Routine 07/13/2024 9:17 AM EST Acute bilateral low back pain with left-sided sciatica POCT URINALYSIS DIPSTICK Routine 07/13/2024 9:16 AM EST Vomiting and diarrhea HEPATITIS C ANTIBODY Routine 03/20/2024 10:05 AM EDT HIV 1/2 ANTIGEN/ANTIBODY, FOURTH GENERATION W/RFL Routine 03/20/2024 10:05 AM EDT HPV MRNA E6/E7 REFLEX TO HPV 16, 18/45 Routine 09/15/2022 10:18 AM EDT PAP SMEAR Routine 09/15/2022 10:18 AM EDT from Last 3 Months or Most Recently Relevant to Health Maintenance Results * Culture, Urine, Routine (07/13/2024 9:17 AM EST) Urine Urine specimen obtained by clean catch procedure / Unknown 07/13/2024 9:17 AM EST 07/13/2024 4:45 PM EST Comment:[facility] - 07/16/2024 8:01 AM EST Escherichia coli Quant > 100,000 cfu/mL Escherichia coli: Ampicillin >=32(R) Escherichia coli: Cefazolin (Urine) 16(S) Escherichia coli: Cefepime <=0.12(S) Escherichia coli: Ceftriaxone <=0.25(S) Escherichia coli: Ciprofloxacin <=0.06(S) Escherichia coli: Gentamicin >=16(R) Escherichia coli: Nitrofurantoin <=16(S) Escherichia coli: Trimethoprim/Sulfamethoxazole >=320(R) Specimen Source: Urine clean catch us Cristhian Lozada MD LAB MICROBIOLOGY - GENERAL ORDER RICH Final Result Performing Organization Address [facility] Co de Phone Number [facility] [address] [place] [phone] * (ABNORMAL) POCT urinalysis dipstick manually resulted [...] Hepatitis C Ab (03/20/2024 10:05 AM EDT) Pathologist [facility] [place] Hepatitis C Antibody Nonreactive Nonreactive [facility] Comment:Antibodies to HCV no t detected; does not exclude early acuteHCV infection. 03/20/2024 10:0 5 AM EDT 03/20/2024 11:11 AM EDT Generic External Data Provider LAB BLOOD ORDERAB LES Final Result Performing Organization Address [facility] Co de Phone Number [facility] [address] [place] [phone] * HIV-1/2 Antigen and Antibodies, Fourth Generation, with Reflexes (03/20/2024 10:05 AM EDT) HIV AB/AG Nonreactive Nonreactive [facility] Comment:HIV-1 p24 Ag and/or HIV-1/HIV-2 Ab not detected.A test result that is nonreactive does not exclude thepossibility of exposure to or infection with HIV-1 and/orHIV-2. Nonreactive results in this assay for individualswith prior exposure to HIV-1 and/or HIV-2 may be due toantigen and antibody levels that are below the limit ofdetection of this assay.The [employer] HIV Ag/Ab Combo assay result andsupplemental assay results should be interpreted inconjunction with the patient's clinical presentation,history and other laboratory results. If the results areinconsistent with clinical evidence, additional testing issuggested to confirm the result. 03/20/2024 10:0 5 AM EDT 03/20/2024 11:11 AM EDT us Generic External Data Provider LAB BLOOD ORDERAB LES Final Result [facility] [address] [place] [phone] [phone] * HPV mRNA E6/E7 w/Reflex to HPV Genotypes 16, 18/45 (09/15/2022 10:18 AM EDT) HPV nRNA E6/E7 Not Detected Not Detected [facility] Comment:Methodology: Transcr iption-Mediated AmplificationThis assay detects E6/E7 viral messenger RNA (mRNA) from 14high-risk HPV types (16,18,31,33,35,39,45,51,52,56,58,59,66,68).Cervical sources are required for HPV testing.If a vaginal source from a patient who has had atotal hysterectomy with removal of cervix wassubmitted, please contact the testing laboratoryfor alternative testing options.For additional information, please refer tohttp://education.Somo/faq/VCN950i4(This link if provided for information/educational purposes only.)THIS TEST WAS PERFORMED AT:[facility] [employer] [place] [phone] GARCIA MD HPV mRNA E6/E7 [facility] HPV 16 RNA [facility] HPV 18/45 RNA [facility] 09/15/2022 10:1 8 AM EDT 09/15/2022 12:00 PM EDT [facility] External Provider LAB CYT YENY ORDERABLES Final Result [facility] [address] [place] [phone] [phone] * Pap Smear (09/15/2022 10:18 AM EDT) 09/15/2022 10:1 8 AM EDT 09/15/2022 12:00 PM EDT Narrative [facility] - 09/20/2022 12:11 PM EDT ----- ------- Name: Breana Mcmillan I ? Age/Sex: 41/F ? : 1980 Unit#: [id number] ?? Attend Dr: Wilbur Carrasquillo MD ?Re09/15/22 ?Status: DEP REF ? Location: HO.LNP ?Disch: ? ----- ------- SPEC : [id number] ? RECD: 09/15/22-1200 ? STATUS: ??SOUT ? REQ NUM: [id number] ? HERBER: 09/15/22-1018 ? SUBM DR: Wilbur Carrasquillo MD ? ENTERED: ??09/15/22-1216 ?SP TYPE: Pap Smr ?OTHR DR: Elsi [...] 66, 68) ? HPV testing performed by [facility], [place], [place]. ??See reference laboratory ?? portion of the EMR for entire report. ?Clinical Information LMP: 08/30/2022 Previous PAP test: 2017, Abnormal Other history: HPV+ ? Material Received ?? ThinPrep-Cervical Copies To: ?? Elsi Sal MD ?? [address] ?? [place] [address] ? Wilubr Carrasquillo MD ?? [address] ?? [place] [address] ?? [phone] ----- ------- Signed (signature on file) Margaret Gutierrez 09/20/22 1211 ? ----- ------- ? END OF REPORT ? [facility] External Provider LAB [facility] ORDERABLES Final Result [facility] [address] [place] [phone] [phone] from Last 3 Months or Most Recently Relevant to Health Maintenance Insurance [facility] C3 Care Teams Car Rental Clerk Relationship Specialty Start Date End Date Elsi Sal MD [address] [place] [phone] PCP - General Family Medicine 05/09/11
--- OUTSIDE RECORDS SUMMARY | 2024-08-03 06:38 | XMS_ITS | Encounter Summary ---
Author Organization [employer] Address [address] [place] [address] 7t [place] [address] Care Team Providers Care Critical Care Nurse Name Role Phone Elsi Sal MD Primary Care Provider [phone] Reason for Visit * Reason Onset Date Comments r/s appt 08/06/2022 Appointment 08/06/2022 Encounter Details Date Type Department Care Team ([facility] st Contact Info) Description 08/06/2022 Telephone [facility] [address] [place], [place] [phone] Elsi Sal MD [address] [place], [place] [phone] r/s appt ; Appointment Social History Tobacco [...] appt for 02/22/2022. Please contact pt at [phone] documented in this encounter Plan of Treatment Not on file documented as of this encounter Visit Diagnoses Not on filedocumented in this encounter Care Teams Critical Care Nurse Relationship Specialty Start Date End Date Elsi Sal MD [address] [place] [address] PCP - General Family Medicine 05/09/11 documented as of this encounter
--- OUTSIDE RECORDS SUMMARY | 2024-08-03 06:38 | XMS_ITS | Encounter Summary ---
Author Organization [employer] [facility] Address [address] [place] [address] [address] [place] [address] Care Team Providers Care Embroiderer Hand Name Role Phone Elsi Sal MD Primary Care Provider [phone] Reason for Visit * Reason Comments Med Refill Encounter Details Date Type Department Care Team (Late st Contact Info) Description 08/05/2022 Refill [facility] [address] [place] [address] Francisco Perdomo FNP Social History Tobacco Use [...] on filedocumented in this encounter Care Teams Embroiderer Hand Relationship Specialty Start Date End Date Elsi Sal MD [address] [place] [address] PCP - General Family Medicine 05/09/11 documented as of this encounter
--- OUTSIDE RECORDS SUMMARY | 2024-08-03 06:38 | XMS_ITS | Encounter Summary ---
Author Organization [employer] Address [address] [facility] 7t [place] [address] Care Team Providers Care Manager Administrative Services Name Role Phone Elsi Sal MD Primary Care Provider [phone] Reason for Visit * Reason Comments Back Pain Encounter Details Date Type Department Care Team ([facility] st Contact Info) Description 07/16/2024 8:40 AM EST Office Visit [facility] [address], [place] [phone] Cristhian Lozada MD [address] [place], [place] [phone] Urinary tract infection without hematuria, site unspecified (Primary Dx); Acute bilateral low back pain with bilateral sciatica; Other migraine without status migrainosus, not intractable Social History Tobacco Use Types Packs/Day Years [...] oz) 07/16/2024 8:37 A M EST Height - - Body Mass Index 34.88 03/20/2024 9:08 AM EDT documented in this encounter Progress Notes * Cristhian Lozada MD - 07/16/2024 8:40 AM EST Subjective Patient ID: Breana Garcia is a 43 y.o. female. Milk Route Deliverer: César. BEBO Toussiant was seen in [facility] 3 days ago for 1 day h/o pain across lower back with radiation down left LE, constant, worse when walking, changing positions, bending. 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 Had similar pain 2018, was told that it was due to sciatic nerve. Resolved with medication. And what she describes as a lumbar spine injection. Also had 1 day h/o migraine at that visit with nausea, with associated photosensitivity and phonosensitivity. No vomiting. Was prescribed tizanidine, refilled acetaminophen, Imitrex, Zofran and ibuprofen. Was given Uqgzabp31 mg IM in [facility]. She returns today stating that sx improve transiently with meds, then back pain, bilat radiculopathy, and headache recurs. Denied fever, chills, abd. pain, bowel or bladder dysfunction, saddle anesthesia, extremity weakness or numbness, cough. Noted urine odor, has no other urinary sx. Urine C&S done at [facility] 3 days ago, today results are available, grew E.coli > 100,000 cfu/ml,resistant to Bactrim. Lives with mother. LMP=irreg. Never smoked. Patient [...] Epigastric pain Diarrhea of presumed infectious origin Migraine without status migrainosus, not intractable The following portions of the chart were reviewed this encounter and updated as appropriate: Tobacco Allergies Meds Problems Med Hx Surg Hx Fam Hx Review of Systems Constitutional: Negative for fever. Respiratory: Negative for shortness of breath. Cardiovascular: Negative for chest pain. Gastrointestinal: Negative for abdominal pain. Musculoskeletal: Positive for back pain. Skin: Negative [...] and Rhythm: Normal rate and regular rhythm. Heart sounds: No murmur heard. Pulmonary: Effort: Pulmonary effort is normal. Breath sounds: Normal breath sounds. Abdominal: Tenderness: There is right CVA tenderness and left CVA tenderness. Musculoskeletal: General: Normal range of motion. Cervical back: No tenderness. Comments: Tenderness across lower lumbar area. Skin: Findings: No rash. Neurological: Mental Status: She is alert. Cranial Nerves: Cranial nerves 2-12 are intact. Gait: Gait is intact. Psychiatric: Mood and Affect: Mood normal. Behavior: Behavior normal. Procedures Assessment/Plan Diagnoses and all orders for this visit: Urinary tract infection without hematuria, site unspecified Has penicillin allergy. E. Coli were resist to Bactrim. Prescribed cipro for possible pyelonephritis as cause of sx. Rtc or go to ED if not improving. Acute bilateral low back pain with bilateral sciatica As above. If not improving after UTI is treated, will refer to pain management. Other migraine without status migrainosus, not intractable As above. If not improving, will refer to neurology. Other orders - ciprofloxacin (Cipro) 500 MG tablet; Take 1 tablet (500 mg) by mouth 2 times daily for 5 days. documented in this encounter Plan of Treatment Not on file documented as of this encounter Visit Diagnoses Diagnosis Urinary tract infection without hematuria, site unspecified- Primary Acute bilateral low back pain with bilateral sciatica Other migraine without status migrainosus, not intractable documented in this encounter Additional Health Concerns Assessment Noted Time PHQ-9 Depression Total Score: 7 04/20/20 23 10:34 AM EST documented as of this encounter Care Teams Manager Administrative Services Relationship Specialty Start Date End Date Elsi Sal MD [address] [place] [address] PCP - General Family Medicine 05/09/11 documented as of this encounter
--- OUTSIDE RECORDS SUMMARY | 2024-08-03 06:38 | XMS_ITS | Encounter Summary ---
Author Organization [employer] Address [address] [facility] 7t [place] [address] Care Team Providers Care Finish Photographer Name Role Phone Elsi Sal MD Primary Care Provider [phone] Reason for Visit * Reason Comments Back Pain Headache Encounter Details Date Type Department Care Team ([facility] st Contact Info) Description 07/13/2024 8:40 AM EST Office Visit [facility] [address] [place], [place] [phone] Cristhian Lozada MD [address] [place], [place] [phone] Acute bilateral low back pain with left-sided [...] Breana Garcia is a 43 y.o. female. Director Independent: César LAGUNAS Breana had onset yesterday during [...] describes as a lumbar spine injection at ?[facility]. Tried Tylenol and ibuprofen with [...] on file documented as of this encounter Procedures Procedure Name Priority Date/Time Associated Diagnosis Comments CULTURE, URINE, ROUTINE Routine 07/13/2024 9:17 AM EST Acute bilateral low back pain with left-sided sciatica POCT URINALYSIS DIPSTICK Routine 07/13/2024 9:16 AM EST Vomiting and diarrhea documented in this encounter Results * Culture, Urine, Routine (07/13/2024 9:17 AM EST) Urine Urine specimen obtained by clean catch procedure / Unknown 07/13/2024 9:17 AM EST 07/13/2024 4:45 PM EST Comment:[facility] Narrative [facility] - 07/16/2024 8:01 AM EST Escherichia coli Quant > 100,000 cfu/mL Escherichia coli: Ampicillin >=32(R) Escherichia coli: Cefazolin (Urine) 16(S) Escherichia coli: Cefepime <=0.12(S) Escherichia coli: Ceftriaxone <=0.25(S) Escherichia coli: Ciprofloxacin <=0.06(S) Escherichia coli: Gentamicin >=16(R) Escherichia coli: Nitrofurantoin <=16(S) Escherichia coli: Trimethoprim/Sulfamethoxazole >=320(R) Specimen Source: Urine clean catch us Cristhian Lozada MD LAB MICROBIOLOGY - GENERAL ORDER RICH Final Result [facility] [address] [place] [phone] * (ABNORMAL) POCT urinalysis dipstick manually [...] None Detected Urine 07/13/2024 9:16 AM EST us Cristhian Lozada MD POINT OF CARE TEST [...] documented as of this encounter Care Teams Finish Photographer Relationship Specialty Start Date End Date Elsi Sal MD [address] [place] [address] PCP - General Family Medicine 05/09/11 documented as of this encounter
--- OUTSIDE RECORDS SUMMARY | 2024-08-03 06:38 | XMS_ITS | Encounter Summary ---
Author Organization [employer] Address [address] [place] [address] [address] [place] [address] Care Team Providers Care Inspector And Tester Name Role Phone Elsi Sal MD Primary Care Provider [phone] Reason for Visit * Reason Onset Date Comments Med Refill Appointment 07/30/2022 Encounter Details Date Type Department Care Team (Late st Contact Info) Description 07/30/2022 Refill [facility] [address] [place] [address] Francisco Perdomo FNP Social History Tobacco Use [...] AM EST T/C placed to pt @ [phone] and the person who answered my call said is a wrong phone #. Also, I called @ her mother phone # that is listed and is disconnected at this time. documented in this encounter Plan of Treatment Not on file documented as of this encounter Visit Diagnoses Not on filedocumented in this encounter Care Teams Inspector And Tester Relationship Specialty Start Date End Date Elsi Sal MD [address] [place] [address] PCP - General Family Medicine 05/09/11 documented as of this encounter
[2024-08-03 06:44] LABS: Alanine Aminotransferase 10 U/L (0-31); Albumin Level 3.9 g/dL (3.5-5.0); Alkaline Phosphatase 66 U/L (39-117); Aspartate Amino Transferase 21 U/L (5-31); Bilirubin Direct 0.5 mg/dL (0.0-0.5); Bilirubin Total 1.7 mg/dL (0.0-1.0); Lipase 19 U/L (8-78)
[2024-08-03] MEDS: Ketorolac Tromethamine 15 MG/ML VIAL IVPUSH (07:41)
[2024-08-03 07:43] VITALS: BP 124/78; PULSE 55; RESP 16; O2SAT 100
[2024-08-03 07:54] LABS: HCG Quantitative < 2 mIU/mL
--- NOTE | 2024-08-03 07:57 | ED.ABDPAIN ---
HPI - Abdominal Pain General Chief Complaint: Abdominal Pain Stated Complaint: stomach pain, diarrhea Time Seen by Provider: 08/03/24 06:32 Source: patient Mode of arrival: ambulatory Limitations: no limitations History of Present Illness ED Provider: Yue Cummings NP HPI narrative: patient is a 43-year-old female who presents emergency department for evaluation. Reports over the past 3 weeks has been experiencing pain diffusely across the lower abdomen radiating into the lower back. She reports about 2 weeks ago she was seen at her primary care doctor's office, reports that she was told that she had a kidney infection was given a course of antibiotics for 5 days in addition to Tylenol and ibuprofen, she reports completing the antibiotics but noticed no change in her symptoms. She does admit to having a burning sensation in it feeling hot when she is urinating. Recently, she has also been experiencing small soft bowel movements, with some liquid stool associated with this which she states is atypical for her bowel movements. Denies fevers, chills, chest pain, nausea, vomiting, hematemesis, hematochezia, melena, dysuria, urinary frequency, urinary urgency, urinary hesitancy, hematuria. denies pelvic pain or abnormal vaginal discharge. Denies concern for sexually transmitted infection. Denies concern for . Related Data Home Medications ?Medication ?Instructions ?Recorded ?Confirmed clonazepam 1 mg tablet 1 tab PO BID 10/21/20 11/03/23 fluticasone propionate 220 0 mcg PO BID 03/03/21 11/03/23 mcg/actuation HFA aerosol inhaler (Flovent HFA) trazodone 100 mg tablet 100 mg PO BEDTIME 03/03/21 11/03/23 sertraline 25 mg tablet 25 mg PO DAILY 08/23/22 11/03/23 cetirizine 10 mg tablet 10 mg PO QAM 12/26/23 Previous Rx's ?Medication ?Instructions ?Recorded ibuprofen 600 mg tablet 600 mg PO Q8H PRN pain #14 tabs 09/11/22 naproxen 500 mg tablet 500 mg PO BID 7 days #14 tabs 09/30/23 polyethylene glycol 3350 17 238 g PO ONCE #238 grams 12/26/23 gram/dose oral powder (Miralax) bisacodyl 5 mg tablet,delayed 10 mg (2 x 5 mg) PO BEDTIME #180 01/23/24 release (Dulcolax (bisacodyl)) tabs pantoprazole 40 mg tablet,delayed 40 mg PO DAILY #30 tabs 01/23/24 release fluconazole 150 mg tablet 150 mg PO .Once a month 4 months 02/20/24 #4 tabs metronidazole 500 mg tablet 2,000 mg (4 x 500 mg) PO .Once a 02/20/24 month 4 months #16 tabs metronidazole 500 mg tablet 500 mg PO BID 7 days #14 tabs 02/20/24 terconazole 0.8 % vaginal cream 1 appful vaginal BEDTIME 3 days 02/22/24 #20 grams bisacodyl 5 mg tablet,delayed 20 mg (4 x 5 mg) PO ONCE 1 day #4 05/23/24 release (Dulcolax (bisacodyl)) tabs polyethylene glycol 3350 17 238 g PO ONCE 1 day #238 grams 05/23/24 gram/dose oral powder (Miralax) levofloxacin 500 mg tablet 500 mg PO DAILY #5 tabs 08/03/24 metronidazole 500 mg tablet 500 mg PO BID #14 tabs 08/03/24 Allergies Allergy/AdvReac Type Severity Reaction Status Date / Time Penicillins [PENICILLINS] Allergy Intermediate RASH Verified 08/03/24 05:36 Review of Systems Review of Systems Yes all other systems are reviewed and are negative PMFSH Past Medical History Attestation statement: The following information was validated with the patient. Source: old records reviewed Medical History Pelvic pain Depression DEEPALI I (cervical intraepithelial neoplasia I) Back pain Follicular lymphoma Surgical History Hx of tubal ligation Hx of esophagogastroduodenoscopy H/O hernia repair Family History Family History Maternal Aunt Diabetes Hypertension Colon cancer Family/Other Lung cancer Breast cancer Colon cancer Social History Social History Household Members: Spouse and Children Housing: House Are you a primary youth care worker to a significant other at home: No Do you presently have visiting nurse or other home services: No Alcohol intake: current Alcohol intake frequency: does not drink Alcohol type: wine Patient Tobacco Use Status: Current everyday Tobacco user Tobacco use type: Cigarette Smoked in Last 30 Days: No Use of substances other than those prescribed or required for medical reasons: No Substance Use Type: Marijuana Advance Directives: No Advance Directives Information Provided: Yes Do you have a plan to hurt others: No Plan service: No Current occupational status: employed Physical Exam ED Vital Signs: Vital Signs - 24 hr 08/03/24 05:32 08/03/24 07:43 Temperature 98.4 F Pulse Rate 67 55 Respiratory Rate 16 16 Blood Pressure 121/72 124/78 Pulse Oximetry 98 100 Oxygen Delivery Method Room Air Room Air BMI result Body Mass Index 34.9 Appearance: Alert.?Oriented to person, place and time. No acute distress.?Normal affect.?? Neck: Normal inspection.? Neck supple.?? CVS: Heart sounds normal. Normal heart rate and rhythm.? Pulses normal.?? Respiratory: No respiratory distress.? Lung sounds clear to auscultation bilaterally?? Abdomen: Soft With diffuse lower abdominal tenderness upon palpation left greater than right. No rebound tenderness at McBurney's point. Negative psoas sign. Negative Rovsing sign. Negative Edgar sign. No CVAT. Normoactive bowel sounds. No pulsatile mass.?? Skin: Skin warm and dry.? Normal skin color.? Extremities: No lower extremity edema.? Neuro: Moves all extremities spontaneously. Sensation intact bilaterally. Ambulates with normal steady gait. Course Reevaluation(s) Reevaluation #1: CT findings concerning for colitis. Has been having more than 3 bowel movements daily, symptom onset just about 3 weeks ago, no associated nausea or vomiting. Has not had a bowel movement here to send for stool panel testing or C difficile testing. She has recently been treated with a course of Cipro as per MDM, C diff very well may be on the differential. She is having very small volume stools when she is going. Abdominal examination is not out of proportion with pain, unlikely mesenteric ischemia. At this time was concerning for bacterial colitis, will treat with Levaquin and Flagyl, advised outpatient follow-up with PCP, and stool samples to be sent should diarrhea persist. Medical Decision Making Medical Decision Making [facility] Narrative: Patient is a 43-year-old female with past medical history depression, abdominal hernia /P repair, follicular lymphoma s/p chemotherapy in 2017 who presents emergency department for evaluation of abdominal pain with soft stools as well as dysuria as per HPI. Per pharmacy records, she received Cipro 500 mg twice daily for 5 days on 07/16/2024, which again as per HPI did not result in any change in symptoms. On evaluation she does have diffuse lower abdominal tenderness upon palpation left greater than right without CVAT. She arrives without signs of systemic toxicity, afebrile without tachycardia tachypnea or hypoxia, no hypotension. Reviewed labs obtained prior to my assumption of care; CBC is without leukocytosis anemia or thrombocytopenia. No electrolyte derangement. No NAHOMY. Total bilirubin is elevated consistent with baseline otherwise without acute abnormality of LFTs, lipase within normal range. HCG is negative. Urinalysis with trace leukocyte esterase 6-10 urine WBCs in addition to squamous epithelial cells, 1+ urine bacteria may be urogenital contamination versus true urinary tract infection. KUB was obtained prior, no obstructive bowel gas pattern is noted. She will receive ToradolTo evaluate for pathology such as colitis, diverticulitis, nephrolithiasis, ureteral calculi, hydronephrosis, pyelonephritis Differential Diagnosis Differential Diagnoses: The differential diagnosis associated with the presentation includes (See narrative above) Admission/Observation Consideration of admission/observation: Escalation of care including admission/observation considered (See narrative above ) Lab Data MDM Lab Attestation statement: I reviewed the patient's lab results. ( see narrative above) 08/03/24 05:42 08/03/24 05:42 Labs: Lab Results 08/03/24 08/03/24 Range/Units 05:42 05:46 WBC 6.1 (4.8-10.8) X10*3/uL RBC 4.76 (4.20-5.50) X10*6/uL Hgb 13.6 (12.0-16.0) g/dl Hct 41.0 (37.0-47.0) % MCV 86.1 (80.0-98.0) fL MCH 28.6 (27.0-33.0) pg MCHC 33.2 (31.0-35.0) g/dl RDW 13.5 (11.0-16.0) % Plt Count 252 (160-400) X10*3/uL MPV 10.7 (9.4-12.3) fL Immature Gran % (Auto) 0.3 (0.0-0.4) % Neut % (Auto) 50.0 (45-73) % Lymph % (Auto) 40.9 H (20-40) % Keith % (Auto) 6.1 (2-11) % Eos % (Auto) 2.0 (0-4) % Baso % (Auto) 0.7 (0-2) % Lymph # (Auto) 2.5 (1.2-4.9) X10*3/uL Keith # (Auto) 0.4 (0.1-1.2) X10*3/uL Eos # (Auto) 0.1 (0.0-0.4) X10*3/uL Baso # (Auto) 0.0 (0.0-0.2) X10*3/uL Abs Immat Gran (auto) 0.02 (0.00-0.03) X10*3/uL Absolute Neuts (auto) 3.1 (2.0-8.3) x10*3/uL Absolute Nucleated RBC 0.000 (0.0-0.012) X10*3/uL Nucleated RBC % (auto) 0.0 (0.0-0.2) /100WBC Sodium 142 (135-145) mmol/L Potassium 3.7 (3.3-5.1) mmol/L Chloride 108 (96-108) mmol/L Carbon Dioxide 26 (22-29) mmol/L Anion Gap 12 (12-20) BUN 9 (9-16) mg/dL Creatinine 0.70 (0.5-1.4) mg/dL Estim Creat Clear Calc 103.8 Estimated GFR > 60 Random Glucose 83 (60-115) mg/dL Calcium 9.0 (8.4-10.2) mg/dL Total Bilirubin 1.7 H (0.0-1.0) mg/dL Direct Bilirubin 0.5 (0.0-0.5) mg/dL AST 21 (5-31) U/L ALT 10 (0-31) U/L Alkaline Phosphatase 66 (39-117) U/L Total Protein 7.0 (6.5-8.0) g/dL Albumin 3.9 (3.5-5.0) g/dL Lipase 19 (8-78) U/L Beta HCG, Quant < 2 mIU/mL Urine Color Dark Yellow Urine Appearance Clear Urine pH 5.5 (5.0-9.0) Ur Specific [place] 1.020 (1.005-1.025) Urine Protein Negative (Neg-Trace) mg/dL Urine Glucose (UA) Negative (Negative) mg/dL Urine Ketones Trace (Negative) mg/dL Urine Blood Negative (Negative) Urine Nitrite Negative (Negative) Ur Leukocyte Esterase Trace H (Negative) Urine RBC 0-2 (0-2) /HPF Urine WBC 6-10 H (0-5) /HPF Ur Squamous Epith Cells 3-5 (0-2) /HPF Urine Bacteria 1+ (None Seen) Hyaline Casts 0-2 (0-2) /LPF Urine Test NEGATIVE (NEGATIVE) Independent Interpretation I performed an independent interpretation of an: CT Scan ( no nephrolithiasis or hydronephrosis, no ureteral calculi) Radiology Impression Discussion of test interpretation with radiology: I have reviewed the radiologist's reading. Radiologist Impression: CT/CT abdomen pelvis w IV con IMPRESSION: Mild wall thickening of the descending and sigmoid colon, suggestive of colitis. External Record Review External record reviewed: Outpatient record Prescription Management I considered prescription management with: Pain Medication and Antibiotic Medications Administered Discontinued Medications Generic Name Dose Route Start Last Admin Trade Name Michaelq PRN Reason Stop Dose Admin Sodium Chloride 1,000 mls @ 999 mls/hr 08/03/24 08:15 08/03/24 08:33 Ns IV 08/03/24 09:15 999 mls/hr .Q1H1M [place] Administration Iohexol 100 ml 08/03/24 09:19 08/03/24 09:19 Iohexol 350 Mg/Ml 100 Ml Infus..Btl IV 08/03/24 09:20 85 ml ONCE ONE Administration Ketorolac Tromethamine 15 mg 08/03/24 07:17 08/03/24 07:41 Ketorolac Tromethamine 15 Mg/Ml Vial IVPUSH 08/03/24 07:18 15 mg ONCE ONE Administration Discharge Plan Discharge Clinical Impression: Colitis Patient Disposition: Home, Self-Care Instructions: Colitis (ED) Additional Instructions: Your workup today is concerning for colitis which is an inflammation to the intestines likely resulting in your abdominal pain as well as the diarrhea. Prescription for antibiotics have been sent to your pharmacy including Levaquin and Jagruti. Please consult with your primary care doctor, if you continue to have persistent diarrhea they may consider sending a stool for sample outpatient, so that it can have further testing. you may return with any new or worsening symptoms or concerns Prescriptions: New levofloxacin 500 mg tablet 500 mg PO DAILY Qty: 5 0RF metronidazole 500 mg tablet 500 mg PO BID Qty: 14 0RF No Action bisacodyl [Dulcolax (bisacodyl)] 5 mg tablet,delayed release (DR/EC) 10 mg PO BEDTIME Qty: 180 4RF pantoprazole 40 mg tablet,delayed release (DR/EC) 40 mg PO DAILY Qty: 30 3RF Rx Instructions: take one tablet half an hour before breakfast terconazole 0.8 % cream 1 appful vaginal BEDTIME 3 Days Qty: 20 0RF bisacodyl [Dulcolax (bisacodyl)] 5 mg tablet,delayed release (DR/EC) 20 mg PO ONCE 1 Days Qty: 4 0RF Rx Instructions: the day before colonoscopy take 2 pills at 12pm and 2 pills at 5pm with water polyethylene glycol 3350 [Miralax] 17 gram/dose powder 238 g PO ONCE 1 Days Qty: 238 0RF Rx Instructions: the day before your procedure mix entire bottle with 64 ounces of a clear liquid and at 5pm begin drinking 1 cup every 15minutes until half is gone. Continue to drink plenty of clear liquids. At 10pm finish drinking remaining prep. clonazepam 1 mg tablet 1 tab PO BID naproxen 500 mg tablet 500 mg PO BID 7 Days Qty: 14 0RF ibuprofen 600 mg tablet 600 mg PO Q8H PRN (Reason: pain) Qty: 14 0RF trazodone 100 mg tablet 100 mg PO BEDTIME Flovent HFA 220 mcg/actuation HFA aerosol inhaler 0 mcg PO BID sertraline 25 mg tablet 25 mg PO DAILY metronidazole 500 mg tablet 500 mg PO BID 7 Days Qty: 14 0RF metronidazole 500 mg tablet 2,000 mg PO .Once a month 120 Days Qty: 16 0RF Rx Instructions: Start on 03/21 after completion of initial 7 days of metronidazole treatment and boric acid vaginal suppositories. fluconazole 150 mg tablet 150 mg PO .Once a month 120 Days Qty: 4 0RF Rx Instructions: Start in a month after completion of metronidazole 1 week treatment followed by boric acid vaginal suppositories therapy for 21 days. cetirizine 10 mg tablet 10 mg PO QAM polyethylene glycol 3350 [Miralax] 17 gram/dose powder 238 g PO ONCE Qty: 238 0RF Rx Instructions: As directed by gastroenterology department at [facility] Referrals: Neil Yousif MD [Primary Care Provider] - Print Language: [place]
[2024-08-03] MEDS: 0.9 % Sodium Chloride 1,000 ML 999 ML IV (08:33)
[2024-08-03] MEDS: iohexoL 350 MG/ML 100 ML INFUS..BTL IV (09:19)
[2024-08-03 11:21] VITALS: BP 138/74; PULSE 53; RESP 15; TEMP 36.6; O2SAT 97
[2024-08-03 11:37] VITALS: BP 138/74; PULSE 53; RESP 15; TEMP 36.6; O2SAT 97
== END 2024-08-03 11:37 | disposition home or self-care (01) ==
PROVIDERS: Nurse Practitioner Family; Emergency Provider Emergency Medicine; PCP Family Medicine
DX: K52.9 Noninfective gastroenteritis and colitis, unspecified (principal); R10.30 Lower abdominal pain, unspecified; R11.2 Nausea with vomiting, unspecified; K59.00 Constipation, unspecified; Z79.899 Other long term (current) drug therapy
CPT/HCPCS: 36415; 74018; 74177; 80048; 80076; 81001; 81003; 81025; 83690; 84702; 85025; 87086; 87088; 87186; 96361; 96374; 99285; J1885; Q9967

== ENCOUNTER → 2024-08-03 06:31 | Outpatient (BNV) | payer MEDICAID, SELFPAY | PROVIDERS: Emergency Provider Emergency Medicine; PCP Family Medicine; Visit Provider Specialist | DX: R10.30 Lower abdominal pain, unspecified (principal); K59.00 Constipation, unspecified | CPT/HCPCS: 74018; 74177 ==

== ENCOUNTER 2024-08-06 18:28 | Outpatient (REF) | payer MEDICAID, SELFPAY ==
--- OUTSIDE RECORDS SUMMARY | 2024-08-06 19:27 | XMS_ITS | Encounter Summary ---
Author Organization [employer] Address [address] [place] [address] [address] [place] [address] Care Team Providers Care Supervisor Cook Room Name Role Phone Elsi Sal MD Primary Care Provider [phone] Reason for Visit * Reason Onset Date Comments Med Refill Appointment 07/30/2022 Encounter Details Date Type Department Care Team (Late st Contact Info) Description 07/30/2022 Refill [facility] [address] [place] [address] Francisco Perdomo FNP Social History Tobacco Use [...] AM EST T/C placed to pt @ [phone] and the person who answered my call said is a wrong phone #. Also, I called @ her mother phone # that is listed and is disconnected at this time. documented in this encounter Plan of Treatment Not on file documented as of this encounter Visit Diagnoses Not on filedocumented in this encounter Care Teams Supervisor Cook Room Relationship Specialty Start Date End Date Elsi Sal MD [address] [place] [address] PCP - General Family Medicine 05/09/11 documented as of this encounter
--- OUTSIDE RECORDS SUMMARY | 2024-08-06 19:27 | XMS_ITS | Encounter Summary ---
Author Organization [employer] Address [address] [facility] [address] [place] [address] Care Team Providers Care Product Blending Supervisor Name Role Phone Elsi Sal MD Primary Care Provider [phone] Reason for Visit * Reason Comments Back Pain Headache Encounter Details Date Type Department Care Team ([facility] st Contact Info) Description 07/13/2024 8:40 AM EST Office Visit [facility] [address] [place], [place] [phone] Cristhian Lozada MD [address] [place], [place] [phone] Acute bilateral low back pain with left-sided [...] Breana Garcia is a 43 y.o. female. Medical Intern: César LAGUNAS Breana had onset yesterday during [...] describes as a lumbar spine injection at ?[facility]. Tried Tylenol and ibuprofen with [...] EST 07/13/2024 4:45 PM EST Comment:UACC Narrative [facility] - 07/16/2024 8:01 AM [...] MICROBIOLOGY - GENERAL ORDER RICH Final Result [facility] [address] [place] [phone] * (ABNORMAL) POCT urinalysis dipstick manually [...] documented as of this encounter Care Teams Product Blending Supervisor Relationship Specialty Start Date End Date Elsi Sal MD [address] [place] [address] PCP - General Family Medicine 05/09/11 documented as of this encounter
--- OUTSIDE RECORDS SUMMARY | 2024-08-06 19:27 | XMS_ITS | Encounter Summary ---
Author Organization [employer] Address [address] [place] [address] 7 [place] [address] Care Team Providers Care Brand Lead Name Role Phone Elsi Sal MD Primary Care Provider [phone] Reason for Visit * Reason Onset Date Comments ER Follow-up 08/03/2024 Encounter Details Date Type Department Care Team ([facility] st Contact Info) Description 08/03/[address] [facility] MEDICINE [address] [place], [place] [phone] Elsi Sal MD [address] [place], [place] [phone] ER Follow-up Social History Tobacco Use Types Packs/Day Years Used Date Smoking Tobacco: Never Smokeless Tobacco: Never Alcohol Answer Date Recorded How often do you have a drink containing alcohol ? 2 08/06/2024 Average Number of Drinks Not on file 025 Frequency of Binge Drinking Not on file 08/2024 Depression Answer Date Recorded Patient Health Questionnaire-9 Score 14 08/06/2024 Patient Health Questionnaire-9 Score 14 08/06/2024 Last PHQ-9: Questionnaire Data Not on file 0 08/06/2024 Housing Stability Answer Date Recorded What is your housing situation today? I do not have housing (Staying with others, in a hotel, in a jail, living outside on the street, on a beach, in a car, or in a park 08/06/[address] you li ve. Do you have problems with any of the following? None of the above 08/06/2024 Food Insecurity Answer Date Recorded Within the past 12 months, y ou worried that your food would run out before you got money to buy more: Never True 2024 Within the past 12 months,th e food you bought just didn't last and you didn't have enough money to get more: Sometimes True 08/06/2024 Transportation Answer Date Recorded In the past 12 months, has l ack of transportation kept you from medical appts, meetings, work or from getting things needed for daily living? No 08/06/2024 Utilities Answer Date Recorded In the past 12 months, has t he electric, gas, oil or water company threatened to shut off services in your home? No 08/06/2024 Depression Answer Date Recorded Patient Health Questionnaire-2 Score 3 08/06/2024 Internet Access Answer Date Recorded Internet Access Q1 I am not sure 08/06/2024 Internet Access Q2 Not on file 08/06/2024 Comments No Sex and Gender Information Value Date Recorded Sex Assigned at Female 04/05/2022 10:17 AM EDT Legal Sex Female 10:17 AM EDT Gender Identity Female 04/05/2022 10:17 AM EDT Sexual Orientation Choose not to disclose 2021 10:17 AM EDT documented as of this encounter Miscellaneous Notes * Telephone Encounter - Nikki Pizarro RN - 08/03/2024 2:12 PM EST Date: 08/03/24 Hospital: [facility] Seen for: UTI Symptomatic Yes Called pt. [address] [employer] [address] [address] [address] [place]. Pt states that she was seen a couple weeks ago in Walk in for UTI sx. Pt. Had UTI and was put on antibiotics. Pt. Then went to [facility] ED on 08/03/24 for same UTI sx. With abdominal pain and had Colitis. Pt. Is on strong antibiotic x 1 week. Pt. Has been continuing antibiotic with diarrhea now. Pt. Still having abdominal pain and has to go to work next week.Pt. Is requesting a FU appt. With PCP only. Advised that she can go to walk in today or tomorrow orshe can have an appt. With PCP on 08/06/24 at 11am and continue antibiotic. Advised a bland diet andBananas, white rice, apple juice,toast to try to help her diarrhea while on antibiotic. Advised to drink plenty of water and if she needs to be seen sooner walk in at [facility] hours provided to pt. I will send note to clinical coordinators to get [facility] ED note into chart from 08/03/24. Protocol Used: Urinary Tract Infection on Antibiotic Follow-up Call - Female (Adult) Protocol-Based Disposition: See in Office or Video Visit Today or Tomorrow- Pt declines walk in andappt. Made for 08/06/24 with PCP at 11am. Positive Triage Question: * Taking antibiotic > 72 hours (3 days) for UTI and painful urination or frequency is SAME (unchanged, not better) * All higher-acuity triage questions were negative Care Advice Discussed: * Drink Extra Fluids * Drink Extra Fluids - Extra Notes and Warnings * Cranberry Juice * Telephone Encounter - Eitan Gamble - 08/03/2024 1:16 PM EST Patient calling to report ED visit on : Date: 08/03/24 Hospital: [facility] Seen for: UTI Symptomatic Yes Symptom: Abdominal Pain - Female - Not Outcome: Schedule an appointment to be seen within 24 hours Reason: Caller denied all higher acuity questions Please contact pt at [phone]. (Ugandan Speaker) documented in this encounter Plan of Treatment Not on file documented as of this encounter Visit Diagnoses Not on filedocumented in this encounter Additional Health Concerns Assessment Noted Time PHQ-9 Depression Total Score: 7 04/20/20 23 10:34 AM EST documented as of this encounter Care Teams Brand Lead Relationship Specialty Start Date End Date Elsi Sal MD [address] [place] [address] PCP - General Family Medicine 05/09/11 documented as of this encounter
--- OUTSIDE RECORDS SUMMARY | 2024-08-06 19:27 | XMS_ITS | Encounter Summary ---
Author Organization [employer] Address [address] [place] [address] 7t [place] [address] Care Team Providers Care Cash Applications Clerk Name Role Phone Elsi Sal MD Primary Care Provider [phone] Reason for Visit * Reason Onset Date Comments r/s appt 08/06/2022 Appointment 08/06/2022 Encounter Details Date Type Department Care Team ([facility] st Contact Info) Description 08/06/2022 Telephone [facility] MEDICINE [address] [place], [place] [phone] Elsi Sal MD [address] [place], [place] [phone] r/s appt ; Appointment Social History Tobacco [...] appt for 02/22/2022. Please contact pt at [phone] documented in this encounter Plan of Treatment Not on file documented as of this encounter Visit Diagnoses Not on filedocumented in this encounter Care Teams Cash Applications Clerk Relationship Specialty Start Date End Date Elsi Sal MD [address] [place] [address] PCP - General Family Medicine 05/09/11 documented as of this encounter
--- OUTSIDE RECORDS SUMMARY | 2024-08-06 19:27 | XMS_ITS | Encounter Summary ---
Author Organization [employer] Address [address] 7t [place] [address] Care Team Providers Care Primary School Teacher Librarian Name Role Phone Elsi Sal MD Primary Care Provider [phone] Reason for Visit * Reason Onset Date Comments Nurse Triage 05/07/2024 Encounter Details Date Type Department Care Team ([facility] st Contact Info) Description 05/07/2024 Telephone [facility] MEDICINE [address] [place], [place] [phone] Elsi Sal MD [address] [place], [place] [phone] Nurse Triage Social History Tobacco Use Types [...] documented as of this encounter Care Teams Primary School Teacher Librarian Relationship Specialty Start Date End Date Elsi Sal MD [address] [place] [address] PCP - General Family Medicine 05/09/11 documented as of this encounter
--- OUTSIDE RECORDS SUMMARY | 2024-08-06 19:27 | XMS_ITS | Clinical Summary ---
Author Organization [employer] Address [address] 7t [place] [address] Care Team Providers Care Typesetting Machine Operator/Tender Name Role Phone Elsi Sal MD Primary Care Provider [phone] Allergies Active Allergy Reactions Criticality Noted Date Comments Penicillins Rash High 09/03/2014 Medications traZODone (Desyrel) 50 MG tabletIndicat ions:Major depressive [...] 25 doses. 50 tablet 07/13/19 25 Active budesonide-fo rmoterol (Symbicort) 80-4.5 MCG/ACT inhaler Take two puffs twice daily and may take additional 1-2 puffs every 4 hours as needed. Maximum 12 puffs per day. Rinse mouth with water after use. Do not swallow. 1 each 11 08/07/19 25 Active meloxicam (Mobic) 7.5 MG tablet Take 1 tablet (7.5 mg) by mouth Once per day. 30 tablet 2 08/07/19 25 026 Active ARIPiprazole (Abilify) 10 MG tabletIndicat ions:Major depressive disorder, recurrent, severe with psychotic features (CMS/HCC) Take 1 tablet (10 mg) by mouth in the morning. 30 tablet 1 08/11/19 23 025 Discontinued(M ed list cleanup (will not trigger notification to Pharmacy)) acetaminophen (Tylenol) 500 MG tabletIndicat ions:Vomiting and [...] Active Problems Problem Noted Date Diagnosed Date Lower abdominal pain 08/06/2024 Assessment & Plan (08/06/2024 1:00 PM EST): - Advised to complete current antibiotic treatment for colitis 08/06/24 - Ordered Culture, Urine, Routine 08/06/24 Migraine without status migrainosus, not intract able [...] in 2014 , evaluated by Dr. Carrasquillo, [facility] OFFICE SYSTEMS TECHNOLOGY INSTRUCTOR -Last PAP in 2017 was NILM -Refer back Abnormal uterine bleeding (AUB) 09/06/2022 Assessment & Plan (04/29/2023 6:17 PM EST): - following with [facility] gynecology - Pt has fibroid - EMBx on 03/21/23 was normal Assessment & Plan (03/02/2023 6:24 AM EDT): Pt w known Hx of abnormal uterine bleeding since 08/2022 - was seen by hand clipper, but lost care. -I requested range management specialist to send again previous referral for pelvic and TV US done by PCP this year. -Advise pt to call hand clipper today to reschedule apt. May need endometrial biopsy if ongoing bleeding. I provided pt w her hand clipper's phone number so that she can schedule her apt Assessment & Plan (09/12/2022 11:22 AM EDT): -evaluate with US -check lab for early menopause / premature ovarian failure Secondary oligomenorrhea 09/06/2022 Assessment & Plan (09/12/2022 11:16 AM EDT): -likely perimenopausal -Hx DEEPALI I-II, 2014, most recent PAP in 2017 was NILM, followed by [facility] OFFICE SYSTEMS TECHNOLOGY INSTRUCTOR -will refer back to OFFICE SYSTEMS TECHNOLOGY INSTRUCTOR for PAP History of COVID-19 09/05/2022 History [...] recurrence or adenopathy. GERD (gastroesophageal reflux disease) Assessment & Plan (04/29/2023 6:27 PM EST): - following with [facility] GI, last seen on 08/23/22, restarted pantoprazole and sucralfate - continue pantoprazole 40 mg daily - continue sucralfate 1 g qhs Assessment & Plan (09/05/2022 4:33 PM EDT): - following with [facility] GI, last seen on 08/23/22, restarted pantoprazole [...] l ymph nodes 08/26/2016 Assessment & Plan (08/06/2024 1:01 PM EST): Oncologist: Dr. Bell Currently in [...] no recurrence or adenopathy. Assessment & Plan (04/29/2023 6:16 PM EST): [...] 6 cycles of bendamustine and rituximab. Dx 3/17/17 retroperitoneal lymph node biopsy positive for mature [...] to both legs 09/03/2014 Assessment & Plan (08/06/2024 12:02 PM EST): -minimize NSAIDs use given her GERD symptoms -Rx APAP 1g q6 hours prn for pain -home back exercise -lidocaine patch - Pt was advised to complete evaluation with EGD/ Colonoscopy 08/06/24 - Will consider PT referral if persistent - Will prescribed Moloxicam advisory to use with cation Assessment & Plan (09/12/2022 11:22 AM EDT): -minimize NSAIDs use given her GERD symptoms -Rx APAP 1g q6 hours prn for pain -home back exercise -PT referral with a possible evaluation by [facility] / pain management -if no improvement, evaluate with MRI -lidocaine patch Asthma 03/28/2014 Assessment & Plan (08/06/2024 12:00 PM EST): - previously on albuterol HFA and neb - Will start Symbicort at [facility] 08/06/24 -continue remaining a non-smoker Assessment & Plan (04/29/2023 6:13 PM EST): [...] Encounters Date Type Department Care Team Description 08/06/2024 11:00 AM EST Office Visit [facility] [address] [place] [address] Elsi Sal MD Gastroesophageal reflux disease, unspecified whether esophagitis present (Primary Dx); Follicular 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 (CMS/HCC); Lower abdominal pain; Mild persistent asthma without complication; Breast cancer screening by mammogram; Screening for lipid disorders; Screening for diabetes mellitus; Class 2 obesity due to excess calories without serious comorbidity with body mass index (BMI) of 35.0 to 35.9 in adult; Low back pain radiating to both legs 08/06/2024 Travel 08/03/2024 Telephone [facility] [address] [place] [address] Elsi Sal MD ER Follow-up 07/16/2024 8:40 AM EST Office Visit [facility] [address] [place] [phone] Cristhian Lozada MD Urinary tract infection without hematuria, site unspecified (Primary Dx); Acute bilateral low back pain with bilateral sciatica; Other migraine without status migrainosus, not intractable 07/13/2024 8:40 AM EST Office Visit [facility] [address] [place] [phone] Cristhian Lozada MD Acute bilateral low back pain with left-sided sciatica (Primary Dx); Migraine without status migrainosus, not intractable, unspecified migraine type; Vomiting and diarrhea from Last 3 Months Immunizations Name Administration Dates Next Due Influenza injectable quadriv alent IIV4 with preservative 02/26/2016 Influenza injectable quadriv alent preservative free 04/09/2019,07/12/2017,09/03/2014 Influenza, IIV3, injectable 04/26/2011, 5 Influenza, seasonal, injecta ble, preservative free 03/25/2014 Pneumococcal Polysaccharide PPSV23 03/25/2014,,05/13/2005 Tdap 04/26/2011 Social History Tobacco Use Types Packs/Day Years Used Date Smoking Tobacco: Never Smokeless Tobacco: Never Tobacco Cessation:Counseling Given: Not Answered Alcohol Answer Date Recorded How often do [...] with others, in a hotel, in a senior living, living outside on the street, on a [...] Sign Reading Time Taken Comments Blood Pressure 117/74 08/06/2024 11:13 AM EST Pulse 54 08/06/2024 11:13 AM EST Temperature 36.1 ??C (97 ??F) 08/06/2024 11:13 AM EST Respiratory Rate 20 08/06/2024 11:13 AM EST Oxygen Saturation 100% 08/06/2024 11:13 AM EST Inhaled Oxygen Concentration - - Weight 85.3 kg (188 lb) 08/06/2024 11:13 AM EST Height 154.9 cm (5' 1 ) 08/06/2024 11:13 AM EST Body Mass Index 35.52 08/06/2024 11:13 AM EST Plan of Treatment Health Maintenance Due Date Last Done Comments COVID-19 Vaccine (#1) 09/29/1987 Family Planning (PISQ) 1997 Hepatitis B Vaccines (1 of 3 - 19+ 3-dose series) 2001 Zoster Vaccines (1 of 2) 2001 Pneumococcal Vaccine: Pediatrics (0 to 5 Years) and At-Risk Patients (6 to 49) Years) (3 of 3 - PCV) 03/25/2015 03/25/2014, 04/26/2011, 05/13/2005 DTaP/Tdap/Td Vaccines (2 - Td or Tdap) 04/26/2021 04/26/2011 Mammogram 2022 Influenza Vaccine (#1) 2024 9, 07/12/2017, 02/26/2016, Additional history exists Depression Monitoring (PHQ-9) 02/06/2025 08/06/2024, 08/06/2024 Alcohol/Substance Use Screening 08/06/2025 08/06/2024 Depression Screening 08/06/2025 08/06/2024, 08/07/19 SDOH Screening 08/06/2025 08/06/2024 Tobacco Screening 08/06/2025 08/06/2024 Cervical Cancer Screening 09/16/2027 HPV/Cotest 09/16/2027 09/15/2022 Pap Smear 09/16/2027 09/15/2022 Lipid Panel 05/04/2028 05/04/2023, 02/20/2021 RSV Patients and Patients Aged 60 years [...] Associated Diagnosis Comments POCT URINALYSIS DIPSTICK Routine 08/06/2024 11:53 AM EST Lower abdominal pain CULTURE, URINE, ROUTINE Routine 07/13/2024 9:17 AM EST Acute bilateral low back pain with left-sided sciatica POCT URINALYSIS DIPSTICK Routine 07/13/2024 9:16 AM EST Vomiting and diarrhea HEPATITIS C ANTIBODY Routine 03/20/2024 10:05 AM EDT HIV 1/2 ANTIGEN/ANTIBODY, FOURTH GENERATION W/RFL Routine 03/20/2024 10:05 AM EDT LIPID PANEL WITH REFLEX TO DIRECT LDL Routine 05/04/2023 10:45 AM EST Obesity (BMI 35.0-39.9 without comorbidity) HPV MRNA E6/E7 REFLEX TO HPV 16, 18/45 Routine 09/15/2022 10:18 AM EDT PAP SMEAR Routine 09/15/2022 10:18 AM EDT from Last 3 Months or Most Recently Relevant to Health Maintenance Results * POCT Urinalysis (08/06/2024 11:53 AM EST) Only the most recent of2 resultswithin the time period is included. Color, UA Yellow Clarity, UA Clear Glucose, UA Negative Bilirubin, UA Negative Ketones, UA Positive Spec Grav, UA 1.030 Blood, UA Negative Negative, None Detected pH, UA 6.0 Protein, UA Negative Urobilinogen, UA 2.0 Leukocytes, UA Trace Negative, Rare, Trace Nitrite, UA Negative Negative, None Detected Appearance, UA clear QC Media Lot # [id number] Lot# Expiration Date Urine 08/06/2024 11:5 3 AM EST Elsi Sal MD POINT OF CARE TEST ENTER/EDIT OR DERABLES Final Result * Culture, Urine, Routine (07/13/2024 9:17 AM EST) Urine Urine specimen obtained by clean catch procedure / Unknown 07/13/2024 9:17 AM EST 07/13/2024 4:45 PM EST Comment:[facility] Narrative [facility] - 07/16/2024 8:01 AM EST Escherichia coli Quant > 100,000 cfu/mL Escherichia coli: Ampicillin >=32(R) Escherichia coli: Cefazolin (Urine) 16(S) Escherichia coli: Cefepime <=0.12(S) Escherichia coli: Ceftriaxone <=0.25(S) Escherichia coli: Ciprofloxacin <=0.06(S) Escherichia coli: Gentamicin >=16(R) Escherichia coli: Nitrofurantoin <=16(S) Escherichia coli: Trimethoprim/Sulfamethoxazole >=320(R) Specimen Source: Urine clean catch Cristhian Lozada MD LAB MICROBIOLOGY - GENERAL ORDER RICH Final Result Performing Organization Address [facility]/ZIP Co de Phone Number [facility] [address] [place] [phone] * Hepatitis C Ab (03/20/2024 10:05 AM EDT) Hepatitis C Antibody Nonreactive Nonreactive [facility] Comment:Antibodies to HCV no t detected; does not exclude early acuteHCV infection. 03/20/2024 10:0 5 AM EDT 03/20/2024 11:11 AM EDT Generic External Data Provider LAB BLOOD ORDERAB LES Final Result Performing Organization Address [facility]/ZIP Co de Phone Number [facility] [address] [place] [phone] * HIV-1/2 Antigen and Antibodies, Fourth Generation, with Reflexes (03/20/2024 10:05 AM EDT) HIV AB/AG Nonreactive Nonreactive [facility] Comment:HIV-1 p24 Ag and/or HIV-1/HIV-2 Ab not detected.A test result that is nonreactive does not exclude thepossibility of exposure to or infection with HIV-1 and/orHIV-2. Nonreactive results in this assay for individualswith prior exposure to HIV-1 and/or HIV-2 may be due toantigen and antibody levels that are below the limit ofdetection of this assay.The Hybrent HIV Ag/Ab Combo assay result andsupplemental assay results should be interpreted inconjunction with the patient's clinical presentation,history and other laboratory results. If the results areinconsistent with clinical evidence, additional testing issuggested to confirm the result. 03/20/2024 10:0 5 AM EDT 03/20/2024 11:11 AM EDT us Generic External Data Provider LAB BLOOD ORDERAB LES Final Result Performing Organization Address [facility] Co de Phone Number [facility] [address] [place] [phone] * (ABNORMAL) Lipid Panel with Reflex to Direct LDL (05/04/2023 10:45 AM EST) Triglycerides 69 <150 mg/dL [facility] Comment:Desirable Triglyceri de: less than 150 mg/dLBorderline High Triglyceride 150-199 mg/dLHigh Triglyceride: 200-499 mg/dLVery High Triglyceride: greater than or equal to 5OO mg/dL Cholesterol 192 <200 mg/dL [facility] Comment:Desirable Cholestero l: less than 200 mg/dLBorderline High Cholesterol: 200-239 mg/dLHigh Cholesterol: greater than 239 mg/dL LDL Cholesterol Calculated 126(H) <100 mg/dL [facility] Comment:Desirable LDL: less than 100 mg/dLNear Optimal/Above Optimal LDL: 110- 129 mg/dLBorderline High LDL: 130-159 mg/dLHigh LDL: 160-189 mg/dLVery High LDL: greater than or equal to 190 mg/dL HDL Cholesterol 53 >40 mg/dL [facility] Comment:Desirable HDL: great er than 40 mg/dL Note: This HDL assay may give artificially low results in patients with liver disease. Blood 05/04/2023 10:4 5 AM EST 05/04/2023 11:19 AM EST us Elsi Sal MD LAB BLOOD ORDERABLES Final Resul t Performing Organization Address City/[facility]/ZIP Co de Phone Number [facility] [address] [place] [address] [phone] * HPV mRNA E6/E7 w/Reflex to HPV Genotypes 16, 18/45 (09/15/2022 10:18 AM EDT) HPV nRNA E6/E7 Not Detected Not Detected [facility] Comment:Methodology: Transcr iption-Mediated AmplificationThis assay detects E6/E7 viral messenger RNA (mRNA) from 14high-risk HPV types (16,18,31,33,35,39,45,51,52,56,58,59,66,68).Cervical sources are required for HPV testing.If a vaginal source from a patient who has had atotal hysterectomy with removal of cervix wassubmitted, please contact the testing laboratoryfor alternative testing options.For additional information, please refer [email or web address]/faq/ANV124q5(This link if provided for information/educational purposes only.)THIS TEST WAS PERFORMED AT:[employer] [place] [phone] GARCIA MD HPV mRNA E6/E7 TNP [facility] HPV 16 RNA [facility] HPV 18/45 RNA [facility] 09/15/2022 10:1 8 AM EDT 09/15/2022 12:00 PM EDT [facility] External Provider LAB CYT OLOGY ORDERABLES Final Result [facility] [address] [place] [address] [phone] * Pap Smear (09/15/2022 10:18 AM EDT) 09/15/2022 10:1 8 AM EDT 09/15/2022 12:00 PM EDT Narrative [facility] - 09/20/2022 12:11 PM EDT ----- ------- Name: Breana Mcmillna I ? Age/Sex: 41/F ? : 1980 Unit#: [id number] ?? Attend Dr: Wilbur Carrasquillo MD ?Re09/15/22 ?Status: DEP REF ? Location: HO.LNP ?Disch: ? ----- ------- SPEC : [id number] ? RECD: 09/15/22-1200 ? STATUS: ??SOUT ? REQ NUM: [id number] ? HERBER: 09/15/22-1018 ? SUBM DR: Wilbur [...] 66, 68) ? HPV testing performed by [employer], [place], [place]. ??See reference laboratory ?? portion of the EMR for entire report. ?Clinical Information LMP: 08/30/2022 Previous PAP test: 2017, Abnormal Other history: HPV+ ? Material Received ?? ThinPrep-Cervical Copies To: ?? Elsi Sal MD ?? [address] ?? [place] [address] ? Wilbur Carrasquillo MD ?? [address] [facility] ?? [place] [address] ?? [phone] ----- ------- Signed (signature on file) Margaret Ford Brenda 09/20/22 1211 ? ----- ------- ? END OF REPORT ? us [facility] External Provider LAB CYT OLOGY ORDERABLES Final Result [facility] [address] [place] [address] [phone] from Last 3 Months or Most Recently Relevant to Health Maintenance Insurance [id number] C[facility] Care Teams Typesetting Machine Operator/Tender Relationship Specialty Start Date End Date Elsi Sal MD [address] [place] [address] PCP - General Family Medicine 05/09/11
--- OUTSIDE RECORDS SUMMARY | 2024-08-06 19:27 | XMS_ITS | Encounter Summary ---
Author Organization [email or web address] Address [address] [place] [address] 7 [place] [address] Care Team Providers Care Artificial Fly Tier Name Role Phone Elsi Sal MD Primary Care Provider [phone] Reason for Visit * Reason Comments Med Refill Encounter Details Date Type Department Care Team (Late st Contact Info) Description 08/05/2022 Refill [facility] [address] [place] [address] Francisco Perdomo FNP Social History Tobacco Use [...] on filedocumented in this encounter Care Teams Artificial Fly Tier Relationship Specialty Start Date End Date Elsi Sal MD [address] [place] [address] PCP - General Family Medicine 05/09/11 documented as of this encounter
--- OUTSIDE RECORDS SUMMARY | 2024-08-06 19:27 | XMS_ITS | Encounter Summary ---
Author Organization [employer] Address [address] [facility] 7t [place] [address] Care Team Providers Care Clinical Mental Health Counselor Name Role Phone Elsi Sal MD Primary Care Provider [phone] Encounter Details Date Type Department Care Team (Latest Contact Info) Description 08/06/2024 Travel Social History Tobacco Use Types Packs/Day Years [...] with others, in a hotel, in a group home, living outside on the street, on a [...] Assessment Noted Time PHQ-9 Depression Total Score: 14 025 11:47 AM EST documented as of this encounter Care Teams Clinical Mental Health Counselor Relationship Specialty Start Date End Date Elsi Sal MD [address] [id number] PCP - General Family Medicine 05/09/11 documented as of this encounter
--- OUTSIDE RECORDS SUMMARY | 2024-08-06 19:27 | XMS_ITS | Encounter Summary ---
Author Organization [employer] Address [address] [place] [address] 7t [place] [address] Care Team Providers Care Christmas Tree Farm Manager Name Role Phone Elsi Sal MD Primary Care Provider [phone] Reason for Referral * Imaging (Routine) - Closed Specialty Diagnoses / Procedures Referred By Contac t Referred To Contact Radiology Diagnoses Breast cancer screening by mammogram Procedures BI Mammogram Screening Tomosynthesis Bilateral Elsi Sal MD [address] [place] [address] Phone: tel: fax: [address] Phone: tel: fax: Referral ID Status Reason Start Date Expiration Date Visits Re quested Visits Authorized [id number] Closed 08/06/2024 08/06/2025 1 1 Encounter Details Date Type Department Care Team (Latest Contact Info) Description 08/06/2024 11:00 AM EST Office Visit [facility] MEDICINE [address] [place], [place] [phone] Elsi Sal MD [address] [place], [place] [phone] Gastroesophageal reflux disease, unspecified whether esophagitis present [...] Low back pain radiating to both legs Social History Tobacco Use Types Packs/Day Years [...] with others, in a hotel, in a long-term, living outside on the street, on a [...] Mass Index 35.52 08/06/2024 11:13 AM EST documented in this encounter Miscellaneous Notes * Assessment & Plan Note - Shyla Edmond MA - 08/06/2024 1:01 PM ESTAssociated Problem(s): Follicular 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 (CMS/HCC) Oncologist: Dr. Bell Currently in remission from [...] Feb 2023, showed no recurrence or adenopathy. * Assessment & Plan Note - Shyla Edmond MA - 08/06/2024 12:04 PM EST Associated Problem(s): Lower abdominal pain - Advised to complete current antibiotic treatment for colitis 08/06/24 - Ordered Culture, Urine, Routine 08/06/24 * Assessment & Plan Note - Shyla Edmond MA - 08/06/2024 12:02 PM EST Associated Problem(s): Low back pain radiating to both legs -minimize NSAIDs use given her GERD symptoms -Rx APAP 1g q6 hours prn for pain -home back exercise -lidocaine patch - Pt was advised to complete evaluation with EGD/ Colonoscopy 08/06/24 - Will consider PT referral if persistent - Will prescribed Moloxicam advisory to use with cation * Assessment & Plan Note - Shyla Edmond MA - 08/06/2024 12:00 PM EST Associated Problem(s): Asthma - previously on albuterol HFA and neb - Will start Symbicort at [facility] 08/06/24 -continue remaining a non-smoker documented in this encounter Plan of Treatment Scheduled Orders Name Type Priority Associated Diagnoses Orde r Schedule TSH with Reflex to Free T4 Lab Routine Class 2 obesity due to excess calories without serious comorbidity with body mass index (BMI) of 35.0 to 35.9 in adult Expected: 08/06/2024 (Approximate), Expires: 08/06/2025 Hemoglobin A1c Lab Routine Screening for diabetes mellitus Expected: 08/06/2024 (Approximate), Expires: 08/06/2025 Comprehensive Metabolic Panel Lab Routine Class 2 obesity due to excess calories without serious comorbidity with body mass index (BMI) of 35.0 to 35.9 in adult Expected: 08/06/2024 (Approximate), Expires: 08/06/2025 Lipid Panel with Reflex to Direct LDL Lab Routine Screening for lipid disorders Expected: 08/06/2024 (Approximate), Expires: 08/06/2025 BI Mammogram Screening Tomosynthesis Bilateral Imaging Routine Breast cancer screening by mammogram Expected: 08/06/2024, Expires: 10/06/2025 Culture, Urine, Routine Microbiology Routine Lower abdominal pain Expected: 08/06/2024 (Approximate), Expires: 08/06/2025 documented as of this encounter Procedures Procedure Name Priority Date/Time Associated Diagnosis Comments POCT URINALYSIS DIPSTICK Routine 08/06/2024 11:53 AM EST Lower abdominal pain documented in this encounter Results * POCT Urinalysis (08/06/2024 11:53 AM EST) Color, UA Yellow Clarity, UA [...] documented in this encounter Visit Diagnoses Diagnosis Gastroesophageal reflux disease, unspecified whether esophagitis present- Primary Follicular 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 (CMS/HCC) Lower abdominal pain Abdominal pain, other specified site Mild persistent asthma without complication Breast cancer screening by mammogram Screening for lipid disorders Screening for diabetes mellitus Class 2 obesity due to excess calories without serious comorbidity with body mass index (BMI) of 35.0 to 35.9 in adult Low back pain radiating to both legs Lumbago documented in this encounter Additional Health Concerns Assessment Noted Time PHQ-9 Depression Total Score: 14 025 11:47 AM EST documented as of this encounter Care Teams Christmas Tree Farm Manager Relationship Specialty Start Date End Date Elsi Sal MD [address] [place] [id number] PCP - General Family Medicine 05/09/11 documented as of this encounter
--- OUTSIDE RECORDS SUMMARY | 2024-08-06 19:27 | XMS_ITS | Encounter Summary ---
Author Organization [employer] Address [address] [facility] 7t [place] [address] Care Team Providers Care Water Resources Engineer Name Role Phone Elsi Sal MD Primary Care Provider [phone] Reason for Visit * Reason Comments Back Pain Encounter Details Date Type Department Care Team ([facility] st Contact Info) Description 07/16/2024 8:40 AM EST Office Visit [facility] [address] [place], [place] [phone] Cristhian Lozada MD [address] [place], [place] [phone] Urinary tract infection without hematuria, site unspecified [...] Breana Garcia is a 43 y.o. female. 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 BEBO Toussaint was seen in [facility] 3 days ago for 1 day [...] acetaminophen, Imitrex, Zofran and ibuprofen. Was given [id number] mg IM in [facility]. She returns today stating that sx improve transiently with meds, then back pain, bilat radiculopathy, and headache recurs. Denied fever, chills, abd. pain, bowel or bladder dysfunction, saddle anesthesia, extremity weakness or numbness, cough. Noted urine odor, has no other urinary sx. Urine C&S done at [facility] 3 days ago, today results are [...] documented as of this encounter Care Teams Water Resources Engineer Relationship Specialty Start Date End Date Elsi Sal MD [address] [place] [address] PCP - General Family Medicine 05/09/11 documented as of this encounter
== END 2024-08-06 18:29 | disposition home or self-care (01) ==
LOC: HO.HHCLNP 18:28
PROVIDERS: Visit Provider Family Medicine
DX: R10.30 Lower abdominal pain, unspecified (principal)
CPT/HCPCS: 87086

== ENCOUNTER 2024-10-01 08:28 | Outpatient (REF) | payer MEDICAID, SELFPAY ==
--- NOTE | ~2024-10-01 | US_ITS ---
EXAMINATION: MM DIAGNOSTIC DIGITAL BREAST TOMOSYNTHESIS, BILATERAL Bilateral Limited ultrasound. CLINICAL INFORMATION: Bilateral breast pain. COMPARISON: Mammography: Comparison is made with relevant prior exams. TECHNIQUE: Digital breast mammography with tomosynthesis is performed in both the craniocaudal and mediolateral oblique views along with computer-aided detection (CAD). FINDINGS: There are scattered areas of fibroglandular density (ACR BI-RADS breast composition Category b). There are no significant masses, abnormal calcifications, or other abnormalities. Targeted color Doppler ultrasound scanning in the area of the patient's pain the left breast upper outer quadrant lower outer quadrant lower inner quadrant upper inner quadrant demonstrates normal fibronodular breast tissue. There is no sonographic abnormality. Targeted color Doppler ultrasound scanning in the right breast area of patient's pain upper inner quadrant lower inner quadrant lower outer quadrant upper outer quadrant demonstrates normal fibronodular breast tissue. There is no sonographic abnormality. Results are provided to the patient at time of visit by the technologist. US/US breast BI limited mamm only IMPRESSION: No mammographic or sonographic abnormality to account for the patient's bilateral breast pain. Recommend clinical evaluation and follow-up. ASSESSMENT: BI-RADS BI-RADS 1 - Negative RECOMMENDATION: 1 year F/U This patient's information was entered into a reminder system with a target due date for their next mammogram. Electronically signed by: Jordana Velazquez DO 10/01/2024 10:54 AM EDT
--- OUTSIDE RECORDS SUMMARY | 2024-10-01 08:54 | XMS_ITS | Encounter Summary ---
Author Organization [facility] [employer] [facility] Address [address] [place] [address] 7 [place] [address] Care Team Providers Care Heavy Equipment Operator/Paver Name Role Phone Elsi Sal MD Primary Care Provider [phone] Reason for Visit * Reason Comments Med Refill Encounter Details Date Type Department Care Team (Late st Contact Info) Description 08/05/2022 Refill [facility] MEDICINE [address] [place] [address] Francisco Perdomo FNP Social History Tobacco Use [...] as of this encounter Plan of Treatment Upcoming Encounters Date Type Department Care Team (Late st Contact Info) Description 10/16/2024 3:30 PM EDT Office Visit [facility] MEDICINE [address] [place], [place] [phone] Elsi Sal MD [address] [place] [address] documented as of this encounter Visit Diagnoses Not on filedocumented in this encounter Care Teams Heavy Equipment Operator/Paver Relationship Specialty Start Date End Date Elsi Sal MD [address] [place], [place] [phone] PCP - General Family Medicine 05/09/11 documented as of this encounter
--- OUTSIDE RECORDS SUMMARY | 2024-10-01 08:54 | XMS_ITS | Encounter Summary ---
Author Organization [employer] Address [address] [facility] 7t [place] [address] Care Team Providers Care Ticket Maker Name Role Phone Elsi Sal MD Primary Care Provider [phone] Reason for Referral * Imaging (Routine) - Authorized Specialty Diagnoses / Procedures Referred By Cici butts Referred To Contact Radiology Diagnoses Breast pain Procedures BI Mammogram Diagnostic Tomosynthesis Bilateral Elsi Sal MD [address] [place] [address] Phone: tel: fax: [address] Phone: tel: fax: Referral ID Status Reason Start Date Expiration Date V isits Requested Visits Authorized [id number] Authorized 08/09/2024 08/09/2025 1 1 Encounter Details Date Type Department Care Team (Late st Contact Info) Description 08/09/2024 Orders Only [facility] MEDICINE [address] [place] [address] [phone] Elsi Sal MD [address] [place], [place] [phone] Breast pain (Primary Dx) Social History Tobacco Use Types Packs/Day Years [...] with others, in a hotel, in a mcc, living outside on the street, on a [...] Description 10/16/2024 3:30 PM EDT Office Visit [facility] MEDICINE [address] [place] [address] Elsi Sal MD [address] [place] [address] Scheduled Orders Name Type Priority Associated Diagnoses Orde r Schedule BI Mammogram Diagnostic Tomosynthesis Bilateral Imaging Routine Breast pain Expected: 08/09/2024, Expires: 10/09/2025 documented as of this encounter Visit Diagnoses Diagnosis Breast pain- Primary Mastodynia documented in this encounter Additional Health Concerns Assessment Noted Time PHQ-9 Depression Total Score: 14 025 11:47 AM EST documented as of this encounter Care Teams Ticket Maker Relationship Specialty Start Date End Date Elsi Sal MD [address] [place] [id number] PCP - General Family Medicine 05/09/11 documented as of this encounter
--- OUTSIDE RECORDS SUMMARY | 2024-10-01 08:54 | XMS_ITS | Encounter Summary ---
Author Organization [email or web address] Address [address] [place] [address] 7 [place] [address] Care Team Providers Care Nurse Staff Community Health Name Role Phone Elsi Sal MD Primary Care Provider [phone] Reason for Visit * Reason Onset Date Comments ER Follow-up 08/03/2024 Encounter Details Date Type Department Care Team ([facility] st Contact Info) Description 08/03/2024 Telephone [facility] MEDICINE [address] [place], [place] [phone] Elsi Sal MD [address] [place], [place] [phone] ER Follow-up Social History Tobacco Use Types [...] with others, in a hotel, in a snf, living outside on the street, on a [...] 08/03/2024 2:12 PM EST Date: 08/03/24 Hospital: [facility] Seen for: UTI Symptomatic Yes Called pt. [address] [employer] [id number] María Elena. Pt states that she was seen a couple weeks ago in Walk in for UTI sx. Pt. Had UTI and was put on antibiotics. Pt. Then went to [facility] ED on 08/03/24 for same UTI sx. [...] to be seen sooner walk in at [facility] hours provided to pt. I will send note to clinical coordinators to get [facility] ED note into chart from 08/03/24. Protocol [...] ED visit on : Date: 08/03/24 Hospital: [facility] Seen for: UTI Symptomatic Yes Symptom: Abdominal Pain - Female - Not Outcome: Schedule an appointment to be seen within 24 hours Reason: Caller denied all higher acuity questions Please contact pt at [phone]. (Swiss Speaker) documented in this encounter Plan of Treatment Upcoming Encounters Date Type Department Care Team (Late st Contact Info) Description 10/16/2024 3:30 PM EDT Office Visit [facility] MEDICINE [address] [place] [address] Elsi Sal MD [address] [place] [address] documented as of this encounter Visit Diagnoses Not on filedocumented in this encounter Additional Health Concerns Assessment Noted Time PHQ-9 Depression Total Score: 7 04/20/20 23 10:34 AM EST documented as of this encounter Care Teams Nurse Staff Community Health Relationship Specialty Start Date End Date Elsi Sal MD [address] [place] [phone] PCP - General Family Medicine 05/09/11 documented as of this encounter
--- OUTSIDE RECORDS SUMMARY | 2024-10-01 08:54 | XMS_ITS | Encounter Summary ---
Author Organization [employer] Address [address] [place] [address] 7t [place] [address] Care Team Providers Care Environmental Health Safety Manager Name Role Phone Elsi Sal MD Primary Care Provider [phone] Reason for Visit * Reason Onset Date Comments Med Refill Appointment 07/30/2022 Encounter Details Date Type Department Care Team (Late st Contact Info) Description 07/30/2022 Refill [facility] MEDICINE [address] [place] [address] Francisco Perdomo FNP Social History Tobacco Use [...] AM EST T/C placed to pt @ [phone] and the person who answered my call said is a wrong phone #. Also, I called @ her mother phone # that is listed and is disconnected at this time. documented in this encounter Plan of Treatment Upcoming Encounters Date Type Department Care Team (Late st Contact Info) Description 10/16/2024 3:30 PM EDT Office Visit [facility] MEDICINE [address] [place] [address] Elsi Sal MD [address] [place] [address] documented as of this encounter Visit Diagnoses Not on filedocumented in this encounter Care Teams Environmental Health Safety Manager Relationship Specialty Start Date End Date Elsi Sal MD [address] [place], [place] [phone] PCP - General Family Medicine 05/09/11 documented as of this encounter
--- OUTSIDE RECORDS SUMMARY | 2024-10-01 08:54 | XMS_ITS | Encounter Summary ---
Author Organization [employer] Address [address] [place] [address] 7t [place] [address] Care Team Providers Care Television Repairman Name Role Phone Elsi Sal MD Primary Care Provider [phone] Reason for Visit * Reason Onset Date Comments r/s appt 08/06/2022 Appointment 08/06/2022 Encounter Details Date Type Department Care Team ([facility] st Contact Info) Description 08/06/2022 Telephone [facility] MEDICINE [address] [place], [place] [phone] Elsi Sal MD [address] [place], [place] [phone] r/s appt ; Appointment Social History Tobacco [...] appt for 02/22/2022. Please contact pt at [phone] documented in this encounter Plan of Treatment Upcoming Encounters Date Type Department Care Team (Late st Contact Info) Description 10/16/2024 3:30 PM EDT Office Visit [facility] MEDICINE [address] [place] [address] Elsi Sal MD [address] [place] [address] documented as of this encounter Visit Diagnoses Not on filedocumented in this encounter Care Teams Television Repairman Relationship Specialty Start Date End Date Elsi Sal MD [address] [place] [address] PCP - General Family Medicine 05/09/11 documented as of this encounter
--- OUTSIDE RECORDS SUMMARY | 2024-10-01 08:54 | XMS_ITS | Encounter Summary ---
Author Organization [employer] Address [address] [facility] 7t [place] [address] Care Team Providers Care Manager Knowledge Name Role Phone Elsi Sal MD Primary Care Provider [phone] Reason for Visit * Reason Onset Date Comments Nurse Triage 05/07/2024 Encounter Details Date Type Department Care Team ([facility] st Contact Info) Description 05/07/2024 Telephone [facility] MEDICINE [address] [place], [place] [phone] Elsi Sal MD [address] [place], [place] [phone] Nurse Triage Social History Tobacco Use Types [...] Description 10/16/2024 3:30 PM EDT Office Visit [facility] MEDICINE [address] [place] [address] Elsi Sal MD [address] [place] [address] documented as of this encounter Visit Diagnoses Not on filedocumented in this encounter Additional Health Concerns Assessment Noted Time PHQ-9 Depression Total Score: 7 04/20/20 23 10:34 AM EST documented as of this encounter Care Teams Manager Knowledge Relationship Specialty Start Date End Date Elsi Sal MD [address] [place] [address] PCP - General Family Medicine 05/09/11 documented as of this encounter
--- OUTSIDE RECORDS SUMMARY | 2024-10-01 08:54 | XMS_ITS | Clinical Summary ---
Author Organization [employer] Address [address] [facility] 7t [place] [address] Care Team Providers Care Women'S Soccer Coach Name Role Phone Elsi Sal MD Primary Care Provider [phone] Allergies Active Allergy Reactions Criticality Noted Date Comments Penicillins Rash High 09/03/2014 Medications * This document contains information received from the source organization and may not represent a complete record from that organization. SALINE MIST 0.65 % nasal spray USE [...] 24 Active pantoprazole (ProtoNix) 40 MG EC tabletIndicati ons:Epigastric pain Take 1 tablet (40 mg) by mouth before breakfast. Do not crush, chew, or split. 30 tablet 3 03/20/20 24 Active ondansetron (Zofran) 4 MG tabletIndicati ons:Vomiting and diarrhea Take 1 tablet (4 mg) by mouth every 8 (eight) hours if needed for nausea or vomiting for up to 15 doses. 15 tablet 07/13/19 25 Active acetaminophen (Tylenol) 500 MG tabletIndicati ons:Vomiting and diarrhea Take 2 tablets (1,000 mg) by mouth every 6 (six) hours if needed for moderate pain or fever for up to 25 doses. 50 tablet 07/13/19 25 Active budesonide-for moterol (Symbicort) 80-4.5 MCG/ACT inhaler Take two puffs twice daily and may take additional 1-2 puffs every 4 hours as needed. Maximum 12 puffs per day. Rinse mouth with water after use. Do not swallow. 1 each 11 08/07/19 25 Active meloxicam (Mobic) 7.5 MG tablet Take 1 tablet (7.5 mg) by mouth Once per day. 30 tablet 2 08/07/19 25 026 Active hydrocortisone (Proctosol HC) 2.5 % rectal creamIndicatio ns:Hemorrhoids , unspecified hemorrhoid type Insert into the rectum 2 times daily. 28 g 08/10/19 25 Active traZODone (Desyrel) 50 MG tabletIndicati ons:Major depressive disorder, recurrent, severe with psychotic features (CMS/HCC) Take 1 tablet (50 mg) by mouth at bedtime. 30 tablet 1 08/29/19 25 025 Active FLUoxetine (PROzac) 10 MG capsuleIndicat ions:Major depressive disorder, recurrent, severe with psychotic features (CMS/HCC) Take 1 capsule (10 mg) by mouth in the morning. 30 capsule 1 08/29/19 25 025 Active ARIPiprazole (Abilify) 10 MG tabletIndicati ons:Major depressive disorder, recurrent, severe with psychotic features (CMS/HCC) Take 0.5 tablets (5 mg) by mouth Once per day. 15 tablet 1 08/29/19 25 025 Active hydrOXYzine pamoate (Vistaril) 25 MG capsuleIndicat ions:Major depressive disorder, recurrent, severe with psychotic features (CMS/HCC),Ashley c disorder Take 1 capsule (25 mg) by mouth if needed in the morning and at bedtime for anxiety. 60 capsule 1 08/29/19 25 025 Active SUMAtriptan (Imitrex) 50 MG tablet TAKE 1 TABLET (50 MG) BY MOUTH 1 (ONE) TIME IF NEEDED FOR MIGRAINE. MAY REPEAT DOSE ONCE IN 2 HOURS IF NO RELIEF. DO NOT EXCEED 2 DOSES IN 24 HOURS. 9 tablet 1 09/06/19 25 Active SUMAtriptan (Imitrex) 50 MG tablet Take 1 tablet (50 mg) by mouth 1 (one) time if needed for migraine. May repeat dose once in 2 hours if no relief. Do not exceed 2 doses in 24 hours. 9 tablet 1 07/13/19 25 025 Discontinued Active Problems Problem Noted Date Diagnosed Date Hemorrhoids 08/09/2024 Rectal pain 08/09/2024 Assessment & Plan (08/09/2024 4:02 PM EST): Patient with c/o new onset of rectal pain after she has been having issues with constipation. She denies any hematochezia or melena. She admits that she does not like to use the bathroom at work so she usually holds it until she gets home. Pt agreed to an external rectal exam but did not want to have an internal digital exam due to c/o pain. On exam I was unable to observe any external hemorrhoids but I suspect she might have internal hemorrhoids Plan: Recommended increase fluid intake, increase dietary fiber, avoid holding for long periods of time. Sith baths with Epsom salts . Proctosol cream BID. Pt is already scheduled for a colonoscopy 10/02/2024 Discussed with patient that if she was to experience any blood in the stool or worsening pain despite above treatment plan to come and see us again. Pt verbalized understanding Dysuria 08/09/2024 Assessment & Plan (08/09/2024 4:06 PM EST): Pt with c/o persistent mild dysuria, denies any vaginal discharge UA today: NEGATIVE Pt recommended to increase fluid intake Lower abdominal pain 08/06/2024 Assessment & Plan (08/09/2024 4:11 PM EST): On 08/03/24 pt was seen in [facility] for lower abdominal pain for 3 weeks. Evaluated with lab and CT scan. CT showed mild wall thickening of descending and sigmoid colon, suggestive of colitis. Dx colitis. Rx metronidazole and levofloxacin. Urine culture grew E. Coli resistant to amp and cipro. Pt completed antibiotic treatment for colitis 08/06/24 Repeat Urine, Routine 08/06/24 showed No growth On today's exam she has mild diffuse tenderness , no rebound, no guarding Pt already has appointment with GI for EGD/Colonoscopy 10/02/2024 Assessment & Plan (08/06/2024 1:00 PM EST): [...] in 2014 , evaluated by Dr. Carrasquillo, [facility] -Last PAP in 2017 was NILM -Refer back Abnormal uterine bleeding (AUB) 09/06/2022 Assessment & Plan (04/29/2023 6:17 PM EST): - following with [facility] - Pt has fibroid - EMBx on 03/21/23 was normal Assessment & Plan (03/02/2023 6:24 AM EDT): Pt w known Hx of abnormal uterine bleeding since 08/2022 - was seen by invertebrate paleontologist, but lost care. -I requested senior technical specialist to send again previous referral for pelvic and TV US done by PCP this year. -Advise pt to call invertebrate paleontologist today to reschedule apt. May need endometrial biopsy if ongoing bleeding. I provided pt w her invertebrate paleontologist's phone number so that she can schedule her apt Assessment & Plan (09/12/2022 11:22 AM EDT): -evaluate with US -check lab for early menopause / premature ovarian failure Secondary oligomenorrhea 09/06/2022 Assessment & Plan (09/12/2022 11:16 AM EDT): -likely perimenopausal -Hx DEEPALI I-II, 2014, most recent PAP in 2017 was NILM, followed by [facility] -will refer back to REAL ESTATE DEVELOPER for PAP History of COVID-19 09/05/2022 History [...] (04/29/2023 6:27 PM EST): - following with [facility], last seen on 08/23/22, restarted pantoprazole and sucralfate - continue pantoprazole 40 mg daily - continue sucralfate 1 g qhs Assessment & Plan (09/05/2022 4:33 PM EDT): - following with [facility], last seen on 08/23/22, restarted pantoprazole and sucralfate - continue pantoprazole 40 mg daily - continue sucralfate 1 g qhs Major depressive disorder, r ecurrent, severe with psychotic features 08/10/2022 Assessment & Plan (08/12/2024 10:56 AM EDT): Previously following with Francisco for clinical pharmacology and threapist Abilify 10 mg daily, Trazodone 50 mg at bedtime, Clonazepam 1 mg BID prn. Assessment & Plan (04/29/2023 6:20 PM EST): [...] -PT referral with a possible evaluation by [facility] / pain management -if no improvement, evaluate with MRI -lidocaine patch Asthma 03/28/2014 Assessment & Plan (08/12/2024 10:59 AM EDT): - previously on albuterol HFA and neb - Will start Symbicort as SMART 08/06/24 -continue remaining a non-smoker Assessment & Plan (04/29/2023 6:13 PM EST): -continue albuterol HFA and neb -continue remaining a non-smoker Assessment & Plan (09/12/2022 11:11 AM EDT): -refill albuterol HFA and neb -she requests a new script for albuterol nebulizer machine -continue remaining a non-smoker Panic disorder 03/28/2014 Mixed anxiety and depressive disorder 03/28/2014 04/13/2023 Assessment & Plan (08/12/2024 11:01 AM EDT): PHQ9 score 14; CARLENE 7 score 3 Previously followed by [facility], seeing [facility]. Patient was being prescribed aripiprazole, clonazepam, trazodone Refer back to integrated behavioral health service. Assessment & Plan (06/03/2023 6:44 PM EST): -lost care w Francisco Lai --sent today message to Isela Pinzon to try to reschedule for f up and for med refills Encounters * This document contains information received from the source organization and may not represent a complete record from that organization. Date Type Department Care Team Description 09/05/2024 Refill [facility] [address] [place] [address] Cristhian Lozada MD 08/23/2024 Orders Only [facility] [address] [place] [phone] Elsi Sal MD Breast pain in female (Primary Dx) 08/17/2024 Population Health Risk Score Community [facility] ([facility]) Department [address] [place] [address] [phone] Provider, Population Health Generic 08/09/2024 11:00 AM EST Office Visit [facility] [address] [place] [phone] Taz Nino MD Hemorrhoids, unspecified hemorrhoid type (Primary Dx); Rectal pain; Dysuria; Lower abdominal pain 08/09/2024 Telephone [facility] [address] [place] [address] Elsi Sal MD Error (VOID this visit) 08/09/2024 Telephone [facility] [address] [place] [phone] Elsi Sal MD Appointment Confirmation 08/09/2024 Travel 08/09/2024 Orders Only [address] [address] Elsi Sal MD Breast pain (Primary Dx) 08/08/2024 Telephone [facility] [place] [address] Elsi Sal MD MAMMOGRAM ORDER 08/08/[address] [address] Elsi Sal MD Nurse Triage 08/06/2024 11:00 AM EST Office Visit [address] [phone] Elsi Sal MD Gastroesophageal reflux disease, unspecified [...] adult; Low back pain radiating to both legs; Dietary counseling; Exercise counseling; Mixed anxiety and depressive disorder; Major depressive disorder, recurrent, severe with psychotic features (CMS/HCC) 08/06/2024 Orders Only [address] [address] Elsi Sal MD 08/06/2024 Travel 08/03/[address] [address] lEsi Sal MD ER Follow-up 07/16/2024 8:40 AM EST Office Visit [facility] [address] [place] [phone] Cristhian Lozada MD Urinary tract infection without hematuria, site unspecified (Primary Dx); Acute bilateral low back pain with bilateral sciatica; Other migraine without status migrainosus, not intractable 07/13/2024 8:40 AM EST Office Visit [facility] [address] [place] [phone] Cristhian Lozada MD Acute bilateral low back [...] with others, in a hotel, in a nursing home, living outside on the street, on [...] Sign Reading Time Taken Comments Blood Pressure 127/73 08/09/2024 11:00 AM EST Pulse 71 08/09/2024 11:00 AM EST Temperature 36.1 ??C (96.9 ??F) 08/09/2024 11:[address] Respiratory Rate 18 08/09/2024 11:00 AM EST Oxygen Saturation 98% 08/09/2024 11:00 AM EST Inhaled Oxygen Concentration - - Weight 86 kg (189 lb 9.6 oz) 08/09/2024 11:00 AM EST Height 154.9 cm (5' 1 ) 08/09/2024 11:00 AM EST Body Mass Index 35.82 08/09/2024 11:00 AM EST Plan of Treatment Upcoming Encounters Date Type Department Care Team (Late st Contact Info) Description 10/16/2024 3:30 PM EDT Office Visit [facility] [address] [place] [address] Elsi Sal MD [address] [place] [address] Health Maintenance Due Date Last Done Comments [...] 2024 9, 07/12/2017, 02/26/2016, Additional history exists Alcohol/Substance Use Screening 08/06/2025 08/06/2024 Depression Screening 08/06/2025 08/06/2024, 08/07/19 SDOH Screening 08/06/2025 08/06/2024 Tobacco Screening 08/28/2025 08/28/2024 Cervical Cancer Screening 09/16/2027 HPV/Cotest 09/16/2027 09/15/2022 [...] Associated Diagnosis Comments POCT URINALYSIS DIPSTICK Routine 08/09/2024 11:19 AM EST Lower abdominal pain CULTURE, URINE, ROUTINE Routine 08/06/2024 11:57 AM EST POCT URINALYSIS DIPSTICK Routine 08/06/2024 11:53 AM [...] to Health Maintenance Results * POCT Urinalysis (08/09/2024 11:19 AM EST) Only the most recent of3 resultswithin the time period is included. Color, UA Yellow Clarity, UA Clear Glucose, UA Negative Bilirubin, UA Negative Ketones, UA Positive Comment:Trace Spec Grav, UA 1.020 Blood, UA Negative Negative, None Detected pH, UA 7.0 Protein, UA Negative Urobilinogen, UA 0.2 Leukocytes, UA Negative Negative, Rare, Trace Nitrite, UA Negative Negative, None Detected Appearance, UA yellow QC Media Lot # [id number] Lot# Expiration Date 724 Urine 08/09/2024 11:1 9 AM EST Taz Wright MD POINT OF CARE TEST EN TER/EDIT ORDERABLES Final Result * Culture, Urine, Routine (08/06/2024 11:57 AM EST) Only the most recent of2 resultswithin the time period is included. Urine Urine specimen obtained by clean catch procedure / Unknown 08/06/2024 11:57 AM EST 08/06/2024 6:30 PM EST Comment:UACC Narrative [facility] - 08/08/2024 11:13 AM EST Urine Culture No growth. Specimen Source: Urine clean catch us Elsi Sal MD LAB MICROBIOLOGY - GENERAL ORDER RICH Final Result Performing Organization Address [facility]/ZIP Co de Phone Number [facility] [address] [place] [phone] * Hepatitis C Ab (03/20/2024 10:05 AM EDT) Hepatitis C Antibody Nonreactive Nonreactive [facility] Comment:Antibodies to HCV no t detected; does not exclude early acuteHCV infection. 03/20/2024 10:0 5 AM EDT 03/20/2024 11:11 AM EDT us Generic External Data Provider LAB BLOOD ORDERAB LES Final Result Performing Organization Address [facility] Co de Phone Number [facility] [address] [place] [phone] * HIV-1/2 Antigen and Antibodies, Fourth Generation, with Reflexes (03/20/2024 10:05 AM EDT) HIV AB/AG Nonreactive Nonreactive [facility] Comment:HIV-1 p24 Ag and/or HIV-1/HIV-2 Ab not detected.A test result that is nonreactive does not exclude thepossibility of exposure to or infection with HIV-1 and/orHIV-2. Nonreactive results in this assay for individualswith prior exposure to HIV-1 and/or HIV-2 may be due toantigen and antibody levels that are below the limit ofdetection of this assay.The [facility] HIV Ag/Ab Combo assay result andsupplemental assay results should be interpreted inconjunction with the patient's clinical presentation,history and other laboratory results. If the results areinconsistent with clinical evidence, additional testing issuggested to confirm the result. 03/20/2024 10:0 5 AM EDT 03/20/2024 11:11 AM EDT us Generic External Data Provider LAB BLOOD ORDERAB LES Final Result Performing Organization Address [facility] Co de Phone Number [facility] [address] [place] [phone] * (ABNORMAL) Lipid Panel with Reflex to Direct LDL (05/04/2023 10:45 AM EST) Triglycerides 69 <150 mg/dL [facility] Comment:Desirable Triglyceri de: less than 150 mg/dLBorderline High Triglyceride 150-199 mg/dLHigh Triglyceride: 200-499 mg/dLVery High Triglyceride: greater than or equal to 5OO mg/dL Cholesterol 192 <200 mg/dL [facility] Comment:Desirable Cholestero l: less than 200 mg/dLBorderline High Cholesterol: 200-239 mg/dLHigh Cholesterol: greater than 239 mg/dL LDL Cholesterol Calculated 126(H) <100 mg/dL [facility] Comment:Desirable LDL: less than 100 mg/dLNear Optimal/Above Optimal LDL: 110- 129 mg/dLBorderline High LDL: 130-159 mg/dLHigh LDL: 160-189 mg/dLVery High LDL: greater than or equal to 190 mg/dL HDL Cholesterol 53 >40 mg/dL [facility] Comment:Desirable HDL: great er than 40 mg/dL Note: This HDL assay may give artificially low results in patients with liver disease. Blood 05/04/2023 10:4 5 AM EST 05/04/2023 11:19 AM EST us Elsi Sal MD LAB BLOOD ORDERABLES Final Resul t Performing Organization Address [facility] Co de Phone Number [facility] [address] [place] [phone] * HPV mRNA E6/E7 w/Reflex to HPV Genotypes 16, 18/45 (09/15/2022 10:18 AM EDT) HPV nRNA E6/E7 Not Detected Not Detected [facility] Comment:Methodology: Transcr iption-Mediated AmplificationThis assay detects E6/E7 viral messenger RNA (mRNA) from 14high-risk HPV types (16,18,31,33,35,39,45,51,52,56,58,59,66,68).Cervical sources are required for HPV testing.If a vaginal source from a patient who has had atotal hysterectomy with removal of cervix wassubmitted, please contact the testing laboratoryfor alternative testing options.For additional information, please refer tohttp://education.[employer]/faq/ERN386n5(This link if provided for information/educational purposes only.)THIS TEST WAS PERFORMED AT:[facility] [place] [phone] GARCIA MD HPV mRNA E6/E7 [facility] HPV 16 RNA [facility] HPV 18/45 RNA [facility] 09/15/2022 10:1 8 AM EDT 09/15/2022 12:00 PM EDT us [facility] External Provider LAB CYT OLOGY ORDERABLES Final Result [facility] [address] [place] [address] [phone] * Pap Smear (09/15/2022 10:18 AM EDT) 09/15/2022 10:1 8 AM EDT 09/15/2022 12:00 PM EDT Narrative [facility] - 09/20/2022 12:11 PM EDT ----- ------- Name: Breana Mcmillan I ? Age/Sex: 41/F ? : 1980 Unit#: [id number] ?? Attend Dr: Wilbur Carrasquillo MD ?Re09/15/22 ?Status: DEP REF ? Location: HO.LNP ?Disch: ? ----- ------- SPEC : [id number] ? RECD: 09/15/22-1200 ? STATUS: ??SOUT ? REQ NUM: [id number] ? HERBER: 09/15/22-1018 ? SUBM DR: Wilbur Carrasquillo MD ? ENTERED: ??09/15/22 ?SP TYPE: Pap Smr ?OTHR DR: Elsi [...] 66, 68) ? HPV testing performed by [employer], [place], [place]. ??See reference laboratory ?? portion of the EMR for entire report. ?Clinical Information LMP: 08/30/2022 Previous PAP test: 2017, Abnormal Other history: HPV+ ? Material Received ?? ThinPrep-Cervical Copies To: ?? Esli Sal MD ?? [address] ?? [place] [address] ? Wilbur Carrasquillo MD ?? [address] [facility] ?? [place] [address] ?? [phone] ----- ------- Signed (signature on file) Margaret Ford Brenda 09/20/22 1211 ? ----- ------- ? END OF REPORT ? [facility] External Provider LAB CYT OLOGY ORDERABLES Final Result [facility] [address] [place], [place] [phone] from Last 3 Months or Most Recently Relevant to Health Maintenance [place] [address] [place] [address] C3 Care Teams Women'S Soccer Coach Relationship Specialty Start Date End Date Elsi Sal MD [address] [place] [address] PCP - General Family Medicine 05/09/11
--- OUTSIDE RECORDS SUMMARY | 2024-10-01 08:54 | XMS_ITS | Encounter Summary ---
Author Organization [facility] Address [address] [place] [address] [address] [place] [address] Care Team Providers Care Territory Manager General Sales Name Role Phone Elsi Sal MD Primary Care Provider [phone] Reason for Referral * Imaging (Routine) - Authorized Specialty Diagnoses / Procedures Referred By Contac t Referred To Contact Radiology Diagnoses Breast pain in female Procedures BI US Breast Limited Right Elsi Sal MD [address] [place] [address] Phone: tel: fax: [address] Phone: tel: fax: Referral ID Status Reason Start Date Expiration Date V isits Requested Visits Authorized [id number] Authorized 08/23/2024 08/23/2025 1 1 * Imaging (Routine) - Authorized Specialty Diagnoses / Procedures Referred By Contac t Referred To Contact Radiology Diagnoses Breast pain in female Procedures BI US Breast Limited Left Elsi Sal MD [address] [place] [address] Phone: tel: fax: [address] Phone: tel: fax: Referral ID Status Reason Start Date Expiration Date V isits Requested Visits Authorized [id number] Authorized 08/23/2024 08/23/2025 1 1 * Imaging (Routine) - Authorized Specialty Diagnoses / Procedures Referred By Contac t Referred To Contact Radiology Diagnoses Breast pain in female Procedures BI US Breast Complete Right Elsi Sal MD [address] [place] [address] Phone: tel: fax: [address] Phone: tel: fax: Referral ID Status Reason Start Date Expiration Date V isits Requested Visits Authorized [id number] Authorized 08/23/2024 08/23/2025 1 1 * Imaging (Routine) - Authorized Specialty Diagnoses / Procedures Referred By Contac t Referred To Contact Radiology Diagnoses Breast pain in female Procedures BI US Breast Complete Left Elsi Sal MD [address] [place] [address] Phone: tel: fax: [address] Phone: tel: fax: Referral ID Status Reason Start Date Expiration Date V isits Requested Visits Authorized [id number] Authorized 08/23/2024 08/23/2025 1 1 Encounter Details Date Type Department Care Team (Late st Contact Info) Description 08/23/2024 Orders Only [facility] [address] [place] [phone] Elsi Sal MD [address] [place] [phone] Breast pain in female (Primary Dx) Social History Tobacco Use Types [...] Description 10/16/2024 3:30 PM EDT Office Visit [facility] [address] [place] [address] Elsi Sal MD [address] [place] [address] Scheduled Orders Name Type Priority Associated Diagnoses Orde r Schedule BI US Breast Complete Left Imaging Routine Breast pain in female Expected: 08/23/2024, Expires: 08/23/2025 BI US Breast Complete Right Imaging Routine Breast pain in female Expected: 08/23/2024, Expires: 08/23/2025 BI US Breast Limited Left Imaging Routine Breast pain in female Expected: 08/23/2024, Expires: 08/23/2025 BI US Breast Limited Right Imaging Routine Breast pain in female Expected: 08/23/2024, Expires: 08/23/2025 documented as of this encounter Visit Diagnoses Diagnosis Breast pain in female- Primary Mastodynia documented in this encounter Additional Health Concerns Assessment Noted Time PHQ-9 Depression Total Score: 14 025 11:47 AM EST documented as of this encounter Care Teams Territory Manager General Sales Relationship Specialty Start Date End Date Elsi Sal MD [address] [place] [address] PCP - General Family Medicine 05/09/11 documented as of this encounter
== END 2024-10-01 08:29 | disposition home or self-care (01) ==
LOC: HO.MAMMO 08:28
PROVIDERS: PCP Family Medicine; Visit Provider Family Medicine
DX: N64.4 Mastodynia (principal)
CPT/HCPCS: 76642; 77062; 77066

== ENCOUNTER → 2024-10-01 09:00 | Outpatient (BNV) | payer MEDICAID, SELFPAY | PROVIDERS: PCP Family Medicine; Visit Provider Internal Medicine | DX: N64.4 Mastodynia (principal) | CPT/HCPCS: 76642; 77062; 77066 ==

== ENCOUNTER 2024-10-02 06:22 | Day surgery (SDC) | payer MEDICAID, SELFPAY ==
[2024-05-22 09:37] VITALS: BMI 33.6
--- NOTE | 2024-05-23 08:22 | HO.ANESPROP2 ---
HPI - Anesthesia Eval Consult details Narrative: 43yo F for Upper Endoscopy and Colonoscopy PMFSH Active Problems Active Problems: All Active Problems Bacterial vaginitis (Acute) Vulvovaginitis (Acute) Menopause (Acute) Uterine myoma (Acute) Postmenopausal bleeding (Acute) Pelvic pain (Acute) Abnormal uterine bleeding (AUB) (Acute) Follicular lymphoma (Acute) Past Medical History Medical History Pelvic pain Depression DEEPALI I (cervical intraepithelial neoplasia I) Back pain Follicular lymphoma Family History Family History Maternal Aunt Diabetes Hypertension Colon cancer Family/Other Lung cancer Breast cancer Colon cancer Surgical History Surgical History Hx of tubal ligation Hx of esophagogastroduodenoscopy H/O hernia repair History of Problems with Anesthesia: No Social History Social History Household Members: Spouse and Children Housing: House Are you a primary ambulatory care coordinator to a significant other at home: No Do you presently have visiting nurse or other home services: No Alcohol intake: current Alcohol intake frequency: holidays/special occasions only Alcohol type: wine Patient Tobacco Use Status: Current everyday Tobacco user Tobacco use type: Cigarette Substance Use Type: Marijuana service: No Current occupational status: employed Meds Allergies Allergy/AdvReac Type Severity Reaction Status Date / Time Penicillins [PENICILLINS] Allergy Intermediate RASH Verified 12/26/23 13:24 Home Medications ?Medication ?Instructions ?Recorded ?Confirmed ?Last Taken ?Type clonazepam 1 mg tablet 1 tab PO BID 10/21/20 11/03/23 01/20/21 09:00 History fluticasone propionate 220 0 mcg PO BID 03/03/21 11/03/23 Unknown History mcg/actuation HFA aerosol inhaler (Flovent HFA) trazodone 100 mg tablet 100 mg PO BEDTIME 03/03/21 11/03/23 Unknown History sertraline 25 mg tablet 25 mg PO DAILY 08/23/22 11/03/23 Unknown History cetirizine 10 mg tablet 10 mg PO QAM 12/26/23 Unknown History Exam Height,Weight and Vital Signs: Height 5 ft 1 in Weight 80.739 kg Assessment and Plan Assessment Anesthesia Assessment: Chart Reviewed Final Anesthetic Review History of Problems with Anesthesia: No
--- NOTE | 2024-10-01 09:46 | P.CONAN_ITS ---
Documented by User: Laura Mercedes NP 10/01/24 09:47 HPI - Anesthesia Eval Consult details Narrative: 44yo F for Upper Endoscopy and Colonoscopy PMFSH Active Problems Active Problems: All Active Problems Bacterial vaginitis (Acute) Vulvovaginitis (Acute) Menopause (Acute) Uterine myoma (Acute) Postmenopausal bleeding (Acute) Pelvic pain (Acute) Abnormal uterine bleeding (AUB) (Acute) Follicular lymphoma (Acute) Past Medical History Medical History Pelvic pain Depression DEEPALI I (cervical intraepithelial neoplasia I) Back pain Follicular lymphoma Family History Family History Maternal Aunt Diabetes Hypertension Colon cancer Family/Other Lung cancer Breast cancer Colon cancer Surgical History Surgical History Hx of tubal ligation Hx of esophagogastroduodenoscopy H/O hernia repair History of Problems with Anesthesia: No Social History Social History (Updated 10/02/24 @ 08:30 by Sharonda Maynard MD) Household Members: Spouse and Children Household Members Other:: mother Housing: House Are you a primary ambulatory care nurse to a significant other at home: No Do you presently have visiting nurse or other home services: No Alcohol intake: current Alcohol type: wine Patient Tobacco Use Status: Never used Tobacco Substance Use Type: Marijuana service: No Current occupational status: employed Meds Allergies Allergy/AdvReac Type Severity Reaction Status Date / Time Penicillins [PENICILLINS] Allergy Intermediate RASH Verified 10/02/24 07:30 Home Medications ?Medication ?Instructions ?Recorded ?Confirmed ?Last Taken ?Type fluticasone propionate 220 0 mcg PO BID 03/03/21 10/02/24 Unknown History mcg/actuation HFA aerosol inhaler (Flovent HFA) sertraline 25 mg tablet 25 mg PO DAILY 08/23/22 10/02/24 Unknown History cetirizine 10 mg tablet 10 mg PO QAM 12/26/23 10/02/24 Unknown History Exam Height,Weight and Vital Signs: Height 5 ft 1 in Weight 80.739 kg Assessment and Plan Assessment Anesthesia Assessment: Chart Reviewed Final Anesthetic Review History of Problems with Anesthesia: No Documented by User: Sharonda Maynard MD 10/02/24 08:31 PMFSH Active Problems Active Problems: All Active Problems Bacterial vaginitis (Acute) Vulvovaginitis (Acute) Menopause (Acute) Uterine myoma (Acute) Postmenopausal bleeding (Acute) Pelvic pain (Acute) Abnormal uterine bleeding (AUB) (Acute) Follicular lymphoma (Acute) Marijuana twice a day Past Medical History Medical History Pelvic pain Depression DEEPALI I (cervical intraepithelial neoplasia I) Back pain Follicular lymphoma Family History Family History Maternal Aunt Diabetes Hypertension Colon cancer Family/Other Lung cancer Breast cancer Colon cancer Family history of problems with anesthesia: No Surgical History Surgical History Hx of tubal ligation Hx of esophagogastroduodenoscopy H/O hernia repair History of Problems with Anesthesia: No Social History Social History (Updated 10/02/24 @ 08:30 by Sharonda Maynard MD) Household Members: Spouse and Children Household Members Other:: mother Housing: House Are you a primary ambulatory care nurse to a significant other at home: No Do you presently have visiting nurse or other home services: No Alcohol intake: current Alcohol type: wine Patient Tobacco Use Status: Never used Tobacco Substance Use Type: Marijuana service: No Current occupational status: employed Meds Allergies Allergy/AdvReac Type Severity Reaction Status Date / Time Penicillins [PENICILLINS] Allergy Intermediate RASH Verified 10/02/24 07:30 Home Medications ?Medication ?Instructions ?Recorded ?Confirmed ?Last Taken ?Type fluticasone propionate 220 0 mcg PO BID 03/03/21 10/02/24 Unknown History mcg/actuation HFA aerosol inhaler (Flovent HFA) sertraline 25 mg tablet 25 mg PO DAILY 08/23/22 10/02/24 Unknown History cetirizine 10 mg tablet 10 mg PO QAM 12/26/23 10/02/24 Unknown History Exam Height,Weight and Vital Signs: Height 5 ft 1 in Weight 80.739 kg Vital Signs Temp Pulse Resp BP Pulse Ox O2 Del Method 10/02/24 07:27 98.1 F 66 18 115/68 97 Room Air Airway Mallampati Class: II TM Dist: >3cm Neck ROM: Full Loose/Missing/Broken Teeth: Yes (Missing several teeth. Denies broken or loose teeth) Heart: RRR Lungs: CTAB Assessment and Plan Assessment Anesthesia Assessment: Anesthesia Plan Discussed and Chart Reviewed Final Anesthetic Review Family History of Problems with Anesthesia: No History of Problems with Anesthesia: No NPO: Yes ASA Class: II Final Preanesthetic Review: No Changes in Pt Med Stat, Meds/Allgs Chart Reviewed, Consent Obtained/Reviewed and Anes Risks/Benef Reviewed Patient Risk: Intermediate Procedure Risk: Low Assessment/Block/Sedation in SS: Assess/Block/Sedation-SS Anesthetic Plan Anesthetic Plan: TIVA Disposition: Standard PACU
[2024-10-02 06:36] VITALS: BMI 34.7
[2024-10-02] MEDS: Lactated Ringers 1,000 ML 100 ML IVCONT (07:20)
[2024-10-02 07:27] VITALS: BP 115/68; PULSE 66; RESP 18; TEMP 36.7; O2SAT 97
--- NOTE | 2024-10-02 07:50 | MHC.SHP ---
Pre-Procedural Eval Section A - 24 Hr Update-Section A only Date of Service: 10/02/24 Section B - Complete if H&P > 30 days Chief Complaint: GERD, fam hx of crc Details of Present Illness: Pelvic pain Depression DEEPALI I (cervical intraepithelial neoplasia I) Back pain Follicular lymphoma Surgical History Hx of tubal ligation Hx of esophagogastroduodenoscopy H/O hernia repair Present Medications: see Short Stay Collaborative assessment Allergies: Allergies Allergy/AdvReac Type Severity Reaction Status Date / Time Penicillins [PENICILLINS] Allergy Intermediate RASH Verified 10/02/24 07:30 Review of Systems Review of Systems Comment: Ten point ROS negative Exam Exam Comment: Gen appear: No acute distress HEENT: no icterus Chest: No overt resp distress Abd: soft, nontender, nondistended Psych: Stable affect, answering questions appropriately Neuro: A/Ox3 noted to move all extremities spontaneously Ext: no peripheral edema Plan Diagnosis/Plan: Unchanged I have reviewed the history and physical and performed a pertinent physical examination on my patient. No changes have occurred unless specified. Time Spent With Patient Time: Total time managing care of this patient today ____ minutes.
--- NOTE | 2024-10-02 09:35 | P.OPN-COLO_ITS ---
Colonoscopy Operative Note Operative Note Date of Service: 10/02/24 Narrative: Procedure: Upper endoscopy and colonoscopy Indication: GERD, fam hx of CRC Endoscopist: Nora Hernandez MD Anesthesia Provider: Dr Sharonda Maynard Anesthesia type: MAC Instrument: [id number] and [id number] EGD Procedure:?? The procedure, indications, preparation and potential complications were reviewed with the patient wiht the help of practice advisor, who indicated understanding and gave written informed consent to proceed. The endoscope was introduced through the mouth, and advanced to the 2nd part of the duodenum. The mucosa was carefully examined on slow withdrawal of the endoscope. The patient tolerated the procedure well. There were no immediate complications.? EGD Findings:? * Esophagus:? Erythema and small erosions measuring < 5 mm noted at GE junction. The Z-line was at 39 cm. Cold forceps biopsies were taken from middle and lower esophagus to rule out eosinophilic esophgagitis. * Stomach:?Erythema and erosions in the body and antrum. Retroflexion was performed in the cardia. Random cold forceps biopsies were taken from the stomach. * Duodenum:? Erythema edema and congestion in duodenal bulb. Remaining mucosa normal to the extent examined. Cold forceps biopsies were taken from the duodenal bulb and 2nd portion of the duodenum to rule out celiac sprue. Colonoscopy Procedure:? The patient was then turned for the colonoscopy. A digital rectal exam was performed which was normal.? A distal attachment cap was affixed to the tip of the scope and the colonoscope was then inserted through the anus and advanced through the colon and advanced to the cecum at 70 cm and terminal ileum.? Appendiceal orifice and ileocecal valve were identified. Mucosa was carefully examined under high definition white light as the instrument was slowly withdrawn in a retrograde panoramic fashion. Retroflexion was performed in ascending colon and rectum. The procedure was not difficult. The quality of the prep was BBPS: 2+1+2 = inadequate in transverse colon Withdrawal time 8 minutes Limitations: No limitations Findings: Mucosa: Adherent semi solid stool in transverse colon which could not be adequately cleared out. Remaining mucosa was normal to cecum and terminal ileum. Protruding lesions: * Large internal hemorrhoids with stigmata of recent bleeding. Impression: 1. Grade A esophagitis (biopsy) 2. Gastritis (biopsy) 3. Duodenitis (biopsy) 4. Inadequate prep 5. Internal hemorrhoids Recommendations:?? * Follow-up path results * Avoid NSAIDs * Cont pantoprazole 20 mg once daily * Repeat colonoscopy in 1 year due to quality of prep
[2024-10-02 09:40] VITALS: BP 114/58; PULSE 80; RESP 24; TEMP 36.3; O2SAT 98
[2024-10-02 09:55] VITALS: BP 122/66; PULSE 63; RESP 16; O2SAT 95
[2024-10-02 10:10] VITALS: BP 115/63; PULSE 59; RESP 16; TEMP 36.3; O2SAT 99
== END 2024-10-02 10:49 | disposition home or self-care (01) ==
PROVIDERS: PCP Internal Medicine; Visit Provider Internal Medicine
PROC: (CPT 45378; principal; 2024-10-02 08:20)
DX: Z12.11 Encounter for screening for malignant neoplasm of colon (principal); Z80.0 Family history of malignant neoplasm of digestive organs; K64.8 Other hemorrhoids; K21.9 Gastro-esophageal reflux disease without esophagitis; R10.2 Pelvic and perineal pain; K29.80 Duodenitis without bleeding; K20.80 Other esophagitis without bleeding; K29.70 Gastritis, unspecified, without bleeding; M54.9 Dorsalgia, unspecified; Z85.72 Personal history of non-Hodgkin lymphomas; N87.0 Mild cervical dysplasia; F32.A Depression, unspecified; Z79.899 Other long term (current) drug therapy; Z98.51 Tubal ligation status; Z56.0 Unemployment, unspecified; Z88.0 Allergy status to penicillin
CPT/HCPCS: 45378; 43239; 88305; 88313; 88342; J2003; J2704

== ENCOUNTER → 2024-10-02 06:22 | Outpatient (BNV) | payer MEDICAID, SELFPAY | PROVIDERS: PCP Internal Medicine; Visit Provider Internal Medicine | DX: Z12.11 Encounter for screening for malignant neoplasm of colon (principal); Z80.0 Family history of malignant neoplasm of digestive organs; K64.8 Other hemorrhoids; Z91.199 Patient's noncompliance with other medical treatment and regimen due to unspecified reason; K21.00 Gastro-esophageal reflux disease with esophagitis, without bleeding; K29.80 Duodenitis without bleeding; K29.70 Gastritis, unspecified, without bleeding | CPT/HCPCS: 43239; 45378 ==

== ENCOUNTER 2025-03-12 12:18 | Emergency (ER) | payer MEDICAID, SELFPAY ==
--- NOTE | ~2025-03-12 | US_ITS ---
EXAMINATION: US PELVIS TRANSABDOMINAL AND TRANSVAGINAL HISTORY: vaginal bleeding post menopausal COMPARISON: Comparison is made with the prior examination dated 03/02/2023. TECHNIQUE: Transabdominal real-time 2D ellington-scale ultrasound was performed. The patient declined endovaginal examination. FINDINGS: Uterus: The uterus is normal in size, measuring 10.0 x 4.8 x 5.8 cm. Myometrium has a normal echotexture. No fibroids are identified. Endometrium: The endometrial stripe measures 13 mm in thickness. Right ovary: The right ovary measures 2.5 x 2.3 x 1.4 cm. The right ovary is normal in size and echotexture. There is a probable 1.5 x 1.3 x 1.4 cm cyst. Evaluation is limited on transabdominal examination. Left ovary: The left ovary measures 3.3 x 1.9 x 1.4 cm. The left ovary is normal in size and echotexture. Pelvic fluid: none. US/US pelvic and transvaginal IMPRESSION: Thickened endometrial stripe. Evaluation is limited by lack of endovaginal scanning. AIR TRANSPORTATION PROVIDER evaluation is recommended. Electronically signed by: Tim Romero MD 03/12/2025 03:38 PM EDT
[2025-03-12 12:23] VITALS: BP 142/76; PULSE 61; RESP 16; TEMP 36.6; O2SAT 97; BMI 34.4
--- NOTE | 2025-03-12 12:30 | ED_ITS ---
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 patient is menopausal and has not had period for 2 years. Patient denies any abdominal pain, nausea, vomitting, fever, chills, flank pain, or dysuria/hematuria. Related Data Home Medications ?Medication ?Instructions ?Recorded ?Confirmed fluticasone propionate 220 0 mcg PO BID 03/03/2110/02 mcg/actuation HFA aerosol inhaler (Flovent HFA) sertraline 25 mg tablet 25 mg PO DAILY 08/23/2209/05 cetirizine 10 mg tablet 10 mg PO QAM 12/26/23 Previous Rx's ?Medication ?Instructions ?Recorded bisacodyl 5 mg tablet,delayed 10 mg (2 x 5 mg) PO BEDT AYLSSA #180 01/23/24 release (Dulcolax (bisacodyl)) tabs pantoprazole 40 mg tablet,delayed 40 mg PO DAILY #30 t abs 01/23/24 release terconazole 0.8 % vaginal cream 1 appful vaginal BEDTI ME 3 days 02/22/24 #20 grams Allergies Allergy/AdvReac Type Severity Reaction Status Date / Time Penicillins (PENICILLINS) Allergy Intermediate RASH Verified 03/12/25 12:26 Review of Systems 2 Review of Systems: vaginal bleeding Yes all other systems are reviewed and are negative PMFSH Past Medical History Medical History Pelvic pain Depression DEEPALI I (cervical intraepithelial neoplasia I) Back pain Follicular lymphoma Surgical History Hx of tubal ligation Hx of esophagogastroduodenoscopy H/O hernia repair Family History Family History Maternal Aunt Diabetes Hypertension Colon cancer Family/Other Lung cancer Breast cancer Colon cancer Social History Social History (Updated 10/02/24 @ 08:30 by Sharonda Maynard MD) Household Members: Spouse and Children Household Members Other:: mother Housing: House Are you a primary insurance healthcare consultant to a significant other at home: No Do you presently have visiting nurse or other home services: No Alcohol intake: current Alcohol type: wine Patient Tobacco Use Status: Never used Tobacco Substance Use Type: Marijuana Advance Directives: No Advance Directives Information Provided: No service: No Current occupational status: employed Physical Exam ED Vital Signs: Vital Signs - 24 hr 03/12/25 12:23 03/12/25 18:11 Temperature 98 F 98.6 F Pulse Rate 61 64 Respiratory Rate 16 18 Blood Pressure 142/76 H 149/78 H Pulse Oximetry 97 98 Oxygen Delivery Method Room Air Room Air BMI result Body Mass Index 34.4 Const General: cooperative, healthy appearing, comfortable, no acute distress, well developed, alert, awake and Physically active Orientation/consciousness: patient oriented x3 HENMT Head: Yes normal to inspection, Yes No palpable skull fracture present, Yes normocephalic and Yes atraumatic Eyes General: appearance normal, both eyes and all related structures Neck Neck: Yes normal visual inspection, Yes full ROM, Yes no lymphadenopathy, Yes no meningeal signs, Yes trachea midline, Yes supple, No anterior neck swelling and No tender Chest Chest palpation & inspection: normal inspection of the chest and normal palpation of entire chest wall Resp Effort & Inspection: normal respiratory effort and able to speak in complete sentences Auscultation: clear to auscultation bilaterally Cardio Jugular venous distension: no JVD Heart sounds: S1 normal heart sound present and S2 normal heart sound present GI Inspection: Yes normal to inspection Palpation (GI): Soft to palpation, not firm, nontender, no guarding and not rigid General: Yes no CVA tenderness Back/Spine/Pelvis Back: no CVA tenderness and No back tenderness Skin General skin exam: no rashes or lesions noted, elasticity normal and turgor normal Neuro General: patient oriented x3, gait normal, tone normal, moves all extremities, Normal light touch and pain sensation, no meningeal signs, no focal motor deficits and CN's II-XI intact bilaterally Extrem General: Yes normal to inspection, Yes full ROM and Yes capillary refill normal Psych Appearance: grossly normal, well kempt and not disheveled Course Course Course Narrative: RME: 44-year-old female lymphoma survivor presents to ED for profuse vaginal bleeding that began yesterday. Patient went to menopause at 42 and that is not had her period for the past 2 years. Patient has family history of ovarian cancer and cervical cancer. Labs ordered Medical Decision Making Medical Decision Making [facility] Narrative: [age] year female presents to ED for for vaginal bleeding. Patient states she is menopausal for the past 2 years and has not had her period. Patient denies any abdominal pain flank pain dysuria, fever, or chills. Patient states family history of ovarian and cervical cancer. Patient has history of history of liposarcoma. Labs are stable. Patient is hemodynamically stable. negative. UA shows blood but negative for any infection. Ultrasound shows stinking endometrium stripe. Patient will prefer follow up with OBGYN for outpatient pelvic exam. patient infomred of necessary endometrial biopsy. Patient explained worrisome signs and informed to return to the ED immediately. Differential Diagnosis Differential Diagnoses: The differential diagnosis associated with the presentation includes (Ectopic , dysfunctional uterine bleeding, postmenopausal bleeding) Admission/Observation Consideration of admission/observation: Escalation of care including admission/observation considered Lab Data [facility] Lab Attestation statement: I reviewed the patient's lab results. 03/12/25 12:53 03/12/25 12:53 Labs: Lab Results 03/12/25 Range/Units 12:53 WBC 10.1 (4.8-10.8) X10*3/uL RBC 4.78 (4.20-5.50) X10*6/uL Hgb 14.1 (12.0-16.0) g/dl Hct 41.0 (37.0-47.0) % MCV 85.8 (80.0-98.0) fL MCH 29.5 (27.0-33.0) pg MCHC 34.4 (31.0-35.0) g/dl RDW 13.8 (11.0-16.0) % Plt Count 245 (160-400) X10*3/uL MPV 10.8 (9.4-12.3) fL Immature Gran % (Auto) 0.2 (0.0-0.4) % Neut % (Auto) 59.8 (45-73) % Lymph % (Auto) 32.1 (20-40) % [place] % (Auto) 5.8 (2-11) % Eos % (Auto) 1.7 (0-4) % Baso % (Auto) 0.4 (0-2) % Lymph # (Auto) 3.3 (1.2-4.9) X10*3/uL [place] # (Auto) 0.6 (0.1-1.2) X10*3/uL Eos # (Auto) 0.2 (0.0-0.4) X10*3/uL Baso # (Auto) 0.0 (0.0-0.2) X10*3/uL Abs Immat Gran (auto) 0.02 (0.00-0.03) X10*3/uL Absolute Neuts (auto) 6.1 (2.0-8.3) x10*3/uL Absolute Nucleated RBC 0.000 (0.0-0.012) X10*3/uL Nucleated RBC % (auto) 0.0 (0.0-0.2) /100WBC Sodium 140 (135-145) mmol/L Potassium 4.0 (3.3-5.1) mmol/L Chloride 106 (96-108) mmol/L Carbon Dioxide 27 (22-29) mmol/L Anion Gap 11 L (12-20) BUN 12 (9-16) mg/dL Creatinine 0.71 (0.5-1.4) mg/dL Estim Creat Clear Calc 100.5 Estimated GFR > 60 Random Glucose 92 (60-115) mg/dL Calcium 9.1 (8.4-10.2) mg/dL Total Bilirubin 1.4 H (0.0-1.0) mg/dL AST 28 (5-31) U/L ALT 25 (0-31) U/L Alkaline Phosphatase 83 (39-117) U/L Total Protein 7.0 (6.5-8.0) g/dL Albumin 4.2 (3.5-5.0) g/dL Beta HCG, Quant < 2 mIU/mL Urine Color Yellow Urine Appearance Clear Urine pH 5.5 (5.0-9.0) Ur Specific [place] 1.025 (1.005-1.025) Urine Protein Trace (Neg-Trace) mg/dL Urine Glucose (UA) Negative (Negative) mg/dL Urine Ketones Negative (Negative) mg/dL Urine Blood Large (3+) H (Negative) Urine Nitrite Negative (Negative) Ur Leukocyte Esterase Trace H (Negative) Urine RBC >20 H (0-2) /HPF Urine WBC 0-5 (0-5) /HPF Ur Squamous Epith Cells 3-5 (0-2) /HPF Urine Bacteria None Seen (None Seen) Hyaline Casts 0-2 (0-2) /LPF Urine Test NEGATIVE (NEGATIVE) Independent Interpretation I performed an independent interpretation of an: Ultrasound Radiology Impression Discussion of test interpretation with radiology: I have reviewed the radiologist's reading. Independent Historian Clinical information obtained from an independent historian. History obtained from or confirmed by: Other (Patient) Prescription Management I considered prescription management with: Pain Medication Discharge Plan Discharge Clinical Impression: Postmenopausal bleeding Patient Disposition: Home, Self-Care Instructions: Abnormal (Dysfunctional) Uterine Bleeding (ED), Endometrial Biopsy (DC) Additional Instructions: Due to you having postmenopausal bleeding you will need outpatient follow-up with your OBGYN for a biopsy. Make sure you call your OBGYN tomorrow. Return to the ED immediately for any profuse vaginal bleeding, abdominal pain, weakness, dizziness, chest pain, shortness of breath, or any other concerning symptoms. Ordering Physician: Shola Orellana Date of Service: 03/12/25 Procedure(s): US pelvic and transvaginal Accession Number(s): [id number] cc: Shola Orellana; Elsi Sal MD~ Reason for Exam: vaginal bleeding post menopausal EXAMINATION: US PELVIS TRANSABDOMINAL AND TRANSVAGINAL HISTORY: vaginal bleeding post menopausal COMPARISON: Comparison is made with the prior examination dated 03/02/2023. TECHNIQUE: Transabdominal real-time 2D ellington-scale ultrasound was performed. The patient declined endovaginal examination. FINDINGS: Uterus: The uterus is normal in size, measuring 10.0 x 4.8 x 5.8 cm. Myometrium has a normal echotexture. No fibroids are identified. Endometrium: The endometrial stripe measures 13 mm in thickness. Right ovary: The right ovary measures 2.5 x 2.3 x 1.4 cm. The right ovary is normal in size and echotexture. There is a probable 1.5 x 1.3 x 1.4 cm cyst. Evaluation is limited on transabdominal examination. Left ovary: The left ovary measures 3.3 x 1.9 x 1.4 cm. The left ovary is normal in size and echotexture. Pelvic fluid: none. US/US pelvic and transvaginal IMPRESSION: Thickened endometrial stripe. Evaluation is limited by lack of endovaginal scanning. REAL ESTATE FIRM MANAGER evaluation is recommended. Electronically signed by: Tim Romero MD 03/12/2025 03:38 PM EDT [facility] [address] [place] [id number] Plugman: Nain Dumas M.D. Specimen Inquiry Name: Breana Mcmillan I Age/Sex: 44/F : 1980 Unit#: [id number] Attend Dr: Carola Rincon DO Re03/12/25 Status: REG ER Location: [facility] isch: SPEC : [id number] HERBER: 03/12/25 STATUS: COMP REQ : [id number] RECD: 03/12/[address]: Shola Orellana COMP: 03/12/25 ENTERED: 03/12/[address] [facility] DR: Elsi Sal MD ORDERED: CBC Auto Diff Test Result Flag Reference WBC 10.1 4.8-10.8 X10*3/uL RBC 4.78 4.20-5.50 X10*6/uL HGB 14.1 12.0-16.0 g/dl HCT 41.0 37.0-47.0 % MCV 85.8 80.0-98.0 fL MCH 29.5 27.0-33.0 pg MCHC 34.4 31.0-35.0 g/dl RDW 13.8 11.0-16.0 % PLT 245 160-400 X10*3/uL MPV 10.8 9.4-12.3 fL Neut Pct Auto 59.8 45-73 % ImGran Pct Auto 0.2 0.0-0.4 % Lymp Pct Auto 32.1 20-40 % [place] Pct Auto 5.8 2-11 % Eos Pct Auto 1.7 0-4 % Baso Pct Auto 0.4 0-2 % NRBC Pct Auto 0.0 0.0-0.2 /100WBC ANC Neut Abs # 6.1 2.0-8.3 x10*3/uL ImGran Abs Auto 0.02 0.00-0.03 X10*3/uL Lymph Abs Auto 3.3 1.2-4.9 X10*3/uL [place] Abs Auto 0.6 0.1-1.2 X10*3/uL Eos Abs Auto 0.2 0.0-0.4 X10*3/uL Baso Abs Auto 0.0 0.0-0.2 X10*3/uL NRBC Abs Auto 0.000 0.0-0.012 X10*3/uL Name: Breana Mcmillan I Age/Sex: 44/F : 1980 Unit#: [id number] Attend Dr: Carola Rincon DO Re03/12/25 Status: REG ER Location: [facility] isch: SPEC : [id number] HERBER: 03/12/25 STATUS: COMP REQ : [id number] RECD: 03/12/[address]: Shola Orellana COMP: 03/12/25-1322 ENTERED: 03/12/25-[address]: Elsi Sal MD ORDERED: CMP, HCG Quant Test Result Flag Reference Sodium 140 135-145 mmol/L Potassium 4.0 3.3-5.1 mmol/L CL 106 96-108 mmol/L CO2 27 22-29 mmol/L Gap 11 L 12-20 BUN 12 9-16 mg/dL Creat 0.71 0.5-1.4 mg/dL Estimated CrCl 100.5 Provided height and weight: 154.94 cm, 82.554 kg. eGFR (calculated from the MDRD study equation) and eCrCl (calculated from the Cockcroft-Gault equation) are based on different parameters and may not yield comparable results. If eCrCl result is absurd, please check patient's height/weight. eGFR > 60 Chronic Kidney Disease: Estimated GFR < 60 mL/min/1.73m2 Severe Kidney Disease: Estimated GFR < 15 mL/min/1.73m2 Glucose, Random 92 60-115 mg/dL CA 9.1 8.4-10.2 mg/dL Total Bili 1.4 H 0.0-1.0 mg/dL AST (GOT) 28 5-31 U/L ALT (GPT) 25 0-31 U/L Protein, Total 7.0 6.5-8.0 g/dL Alb 4.2 3.5-5.0 g/dL Alk Phos 83 39-117 U/L HCG Quant < 2 mIU/mL Weeks post LMP Approximate hCG (Last Menstrual Period) Range (mIU/ml) 3 - 4 weeks 9 - 130 4 - 5 weeks 75 - 2,600 5 - 6 weeks 850 - 20,800 6 - 7 weeks 4000 - 100,200 7 - 12 weeks 11,500 - 289,000 12 - 16 weeks 18,300 - 137,000 16 - 29 weeks (2nd trimester) 1,400 - 53,000 29 - 41 weeks (3rd trimester) 940 - 60,000 The Wells B-hCG assay is used for the early detection of ; it cannot be used to diagnose any condition unrelated to . If a B-hCG level is not supported by the clinical evidence, results should be confirmed by an alternative method (qualitative urine hCG, for example). Name: Breana Mcmillan I Age/Sex: 44/F : 1980 Unit#: [id number] Attend Dr: Carola Rincon DO Re03/12/25 Status: REG ER Location: .ED D isch: SPEC : [id number] HERBER: 03/12/25 STATUS: COMP REQ : [id number] RECD: 03/12/[address]: Shola Orellana COMP: 03/12/25 ENTERED: 03/12/25-[address]: Elsi Sal MD ORDERED: [facility] [employer] QUERIES: Collection Date: 03/12/25 Collection Time: 1248 Source: Urine, Clean Catch Test Result Flag Reference Ur Color Yellow Ur Appear Clear PH 5.5 5.0-9.0 Ur Glu Negative Negative mg/dL Urine Blood Large (3+) H Negative Spec [place] Ur 1.025 1.005-1.025 Urine Protein Trace Neg-Trace mg/dL Urine Ketones Negative Negative mg/dL Ur Nitrite Negative Negative Ur Sushant Esterase Trace H Negative Ur RBC >20 H 0-2 /HPF Ur WBC 0-5 0-5 /HPF Ur Squam Epi 3-5 0-2 /HPF Ur Bact None Seen None Seen Ur Hyaline Collection Manager 0-2 0-2 /LPF Prescriptions: No Action bisacodyl [Dulcolax (bisacodyl)] 5 mg tablet,delayed release (DR/EC) 10 mg PO BEDTIME Qty: 180 4RF pantoprazole 40 mg tablet,delayed release (DR/EC) 40 mg PO DAILY Qty: 30 3RF Rx Instructions: take one tablet half an hour before breakfast terconazole 0.8 % cream 1 appful vaginal BEDTIME 3 Days Qty: 20 0RF Flovent HFA 220 mcg/actuation HFA aerosol inhaler 0 mcg PO BID sertraline 25 mg tablet 25 mg PO DAILY cetirizine 10 mg tablet 10 mg PO QAM Referrals: [facility] [Provider Group, INSURANCE HEALTHCARE CONSULTANT] - 2 days Referral Note: Postmenopausal bleeding Clinical Impression: Postmenopausal bleeding Stand Alone Forms: Work/School Release Interventions: ED Discharge Assessment Last Done: 03/12/25 18:38 Discharge Date/Time: 03/12/25 18:38 Print Language: Kuwaiti
[2025-03-12 12:59] LABS: Hematocrit 41.0 % (37.0-47.0); Hemoglobin 14.1 g/dl (12.0-16.0); Imm Gran Abs Auto 0.02 X10*3/uL (0.00-0.03); Imm Gran Pct Auto 0.2 % (0.0-0.4); Lymphocytes Absolute Auto 3.3 X10*3/uL (1.2-4.9); MANUAL DIFF FLAG NO; Mean Corpuscular HGB Conc 34.4 g/dl (31.0-35.0); Mean Corpuscular Hemoglobin 29.5 pg (27.0-33.0); Mean Corpuscular Volume 85.8 fL (80.0-98.0); NRBC Abs Auto 0.000 X10*3/uL (0.0-0.012); NRBC Pct Auto 0.0 /100WBC (0.0-0.2); Platelet Count 245 X10*3/uL (160-400); Red Blood Count 4.78 X10*6/uL (4.20-5.50); White Blood Count 10.1 X10*3/uL (4.8-10.8)
[2025-03-12 13:02] LABS: Appearance Urine Clear; Glucose Urine UA Negative (Negative); PH 5.5 (5.0-9.0); Specific Gravity - Urine 1.025 (1.005-1.025); UMIC TRIGGER UACC YES
[2025-03-12 13:10] LABS: UPreg QC Valid YES
[2025-03-12 13:20] LABS: Alanine Aminotransferase 25 U/L (0-31); Albumin Level 4.2 g/dL (3.5-5.0); Alkaline Phosphatase 83 U/L (39-117); Anion Gap 11 (12-20); Aspartate Amino Transferase 28 U/L (5-31); Blood Urea Nitrogen 12 mg/dL (9-16); Calcium 9.1 mg/dL (8.4-10.2); Carbon Dioxide 27 mmol/L (22-29); Chloride 106 mmol/L (96-108); Creatinine Clr Calc Pharmacy 100.5; Estimated Glomerular Filt Rate > 60; Potassium 4.0 mmol/L (3.3-5.1); Sodium 140 mmol/L (135-145); Total Protein 7.0 g/dL (6.5-8.0)
[2025-03-12 18:11] VITALS: BP 149/78; PULSE 64; RESP 18; TEMP 37; O2SAT 98
[2025-03-12 18:38] VITALS: BP 149/78; PULSE 64; RESP 18; TEMP 37; O2SAT 98
--- OUTSIDE RECORDS SUMMARY | 2025-03-12 19:06 | XMS_ITS | Encounter Summary ---
Author Organization [employer] Address [address] [place] [address] [address] [place] [address] Care Team Providers Care Timber Management Professor Name Role Phone Elsi Sal MD Primary Care Provider [phone] Reason for Visit * Reason Onset Date Comments Med Refill Appointment 07/30/2022 Encounter Details Date Type Department Care Team (Late st Contact Info) Description 07/30/2022 Refill [facility] [address] [place] [address] Francisco Perdomo FNP Social History Tobacco Use [...] AM EST T/C placed to pt @ [phone] and the person who answered my call said is a wrong phone #. Also, I called @ her mother phone # that is listed and is disconnected at this time. documented in this encounter Plan of Treatment Not on file documented as of this encounter Visit Diagnoses Not on filedocumented in this encounter Care Teams Timber Management Professor Relationship Specialty Start Date End Date Elsi Sal MD [address] [place] [address] PCP - General Family Medicine 05/09/11 documented as of this encounter
--- OUTSIDE RECORDS SUMMARY | 2025-03-12 19:06 | XMS_ITS | Encounter Summary ---
Author Organization [employer] [facility] Address [address] [place] [address] [address] [place] [address] Care Team Providers Care Director Of Rehabilitation Name Role Phone Elsi Sal MD Primary Care Provider [phone] Reason for Visit * Reason Comments Med Refill Encounter Details Date Type Department Care Team ([facility] st Contact Info) Description 08/05/2022 Refill [facility] [address] [place] [address] Francisco Perdomo FNP Social History Tobacco Use [...] on filedocumented in this encounter Care Teams Director Of Rehabilitation Relationship Specialty Start Date End Date Elsi Sal MD [address] [place] [address] PCP - General Family Medicine 05/09/11 documented as of this encounter
--- OUTSIDE RECORDS SUMMARY | 2025-03-12 19:06 | XMS_ITS | Encounter Summary ---
Author Organization [employer] Address [address] [place] [address] [address] [place] [address] Care Team Providers Care Twist Tester Name Role Phone Elsi Sal MD Primary Care Provider [phone] Reason for Visit * Reason Onset Date Comments r/s appt 08/06/2022 Appointment 08/06/2022 Encounter Details Date Type Department Care Team ([facility] st Contact Info) Description 08/06/2022 Telephone [facility] [address] [place], [place] [phone] Elsi Sal MD [address] [place], [place] [phone] r/s appt ; Appointment Social History Tobacco [...] appt for 02/22/2022. Please contact pt at [phone] documented in this encounter Plan of Treatment Not on file documented as of this encounter Visit Diagnoses Not on filedocumented in this encounter Care Teams Twist Tester Relationship Specialty Start Date End Date Elsi Sal MD [address] [place] [address] PCP - General Family Medicine 05/09/11 documented as of this encounter
--- OUTSIDE RECORDS SUMMARY | 2025-03-12 19:06 | XMS_ITS | Encounter Summary ---
Author Organization [employer] Address [address] [facility] [address] [place] [address] Care Team Providers Care Director Geophysical Laboratory Name Role Phone Elsi Sal MD Primary Care Provider [phone] Reason for Visit * Reason Onset Date Comments Nurse Triage 05/07/2024 Encounter Details Date Type Department Care Team (Late st Contact Info) Description 05/07/2024 Telephone [facility] MED[facility]INE [address] [place] [address] Elsi Sal MD [address] [place], [place] [phone] Nurse Triage Social History Tobacco Use Types [...] documented as of this encounter Care Teams Director Geophysical Laboratory Relationship Specialty Start Date End Date Elsi Sal MD [address] [place] [address] PCP - General Family Medicine 05/09/11 documented as of this encounter
--- OUTSIDE RECORDS SUMMARY | 2025-03-12 19:07 | XMS_ITS | Encounter Summary ---
Author Organization [employer] Address [address] [place] [address] [address] [place] [address] Care Team Providers Care Stem Crusher Name Role Phone Elsi Sal MD Primary Care Provider [phone] Encounter Details Date Type Department Care Team (Late st Contact Info) Description 03/12/2025 Orders Only GENERIC EXTERNAL DATA DEPARTMENT Provider, Generic External Data Social History Tobacco Use Types Packs/Day Years [...] with others, in a hotel, in a penitentiary, living outside on the street, on a [...] Procedure Name Priority Date/Time Associated Diagnosis Comments US PELVIS TRANSVAGINAL Routine 3:18 PM EDT URINALYSIS, COMPLETE, WITH REFLEX TO CULTURE Routine 03/12/2025 12:53 PM EDT CBC WITH AUTO DIFFERENTIAL Routine 03/12/2025 12:53 PM EDT HCG, QL, URINE Routine 03/12/2025 12:53 PM EDT HCG, TOTAL, QN Routine 03/12/2025 12:53 PM EDT COMPREHENSIVE METABOLIC PANEL Routine 03/12/2025 12:53 PM EDT documented in this encounter Results * US Pelvis Transvaginal (03/12/2025 3:18 PM EDT) Anatomical Region Laterality Modality Pelvis Ultrasound 03/12/2025 3:18 PM EDT Narrative 03/12/2025 3:41 PM EDT [address] [address] Ultrasound Report Signed Patient: Breana Mcmillan I MR#: [id number] : 1980 Acct:[id number] Age/Sex: 44 / F ADM Date: 03/12/25 Loc: HO.ED Attending Dr: Ordering Physician: Shola Orellana Date of Service: 03/12/25 Procedure(s): US pelvic and transvaginal Accession Number(s): [id number] cc: Shola Orellana; Elsi Sal MD Reason for Exam: vaginal bleeding post menopausal EXAMINATION: US PELVIS TRANSABDOMINAL AND TRANSVAGINAL HISTORY: vaginal bleeding post menopausal COMPARISON: Comparison is made with the prior examination dated 03/02/2023. TECHNIQUE: Transabdominal real-time 2D ellington-scale ultrasound was performed. The patient declined endovaginal examination. FINDINGS: Uterus: The uterus is normal in size, measuring 10.0 x 4.8 x 5.8 cm. Myometrium has a normal echotexture. No fibroids are identified. Endometrium: The endometrial stripe measures 13 mm in thickness. Right ovary: The right ovary measures 2.5 x 2.3 x 1.4 cm. The right ovary is normal in size and echotexture. There is a probable 1.5 x 1.3 x 1.4 cm cyst. Evaluation is limited on transabdominal examination. Left ovary: The left ovary measures 3.3 x 1.9 x 1.4 cm. The left ovary is normal in size and echotexture. Pelvic fluid: none. US/US pelvic and transvaginal IMPRESSION: Thickened endometrial stripe. Evaluation is limited by lack of endovaginal scanning. SECRETARY OF STATE evaluation is recommended. Electronically signed by: Tim Romero MD 03/12/2025 03:38 PM EDT Dictated By: Tim Romero MD Signed By: <Electronically signed by Tim Romero MD in OV> 03/12/25 1538 DD/ 1518 TD/TT: 03/12/25 1522 Computer Systems Consultant: Procedure Note Donotuseinterpreter, Image - 03/12/[address] [address] Ultrasound Report Signed Patient: Breana Mcmillan [facility]#: [id number] : 1980Acct:[id number] Age/Sex: 44 / FADM Date: 03/12/25 Loc: HO.ED Attending Dr: Ordering Physician: Shola Orellana Date of Service: 03/12/25 Procedure(s): US pelvic and transvaginal Accession Number(s): [id number] cc: Shola Orellana; Elsi Sal MD Reason for Exam: vaginal bleeding post menopausal EXAMINATION: US PELVIS TRANSABDOMINAL AND TRANSVAGINAL HISTORY: vaginal bleeding post menopausal COMPARISON: Comparison is made with the prior examination dated 03/02/2023. TECHNIQUE: Transabdominal real-time 2D ellington-scale ultrasound was performed. The patient declined endovaginal examination. FINDINGS: Uterus: The uterus is normal in size, measuring 10.0 x 4.8 x 5.8 cm. Myometrium has a normal echotexture. No fibroids are identified. Endometrium: The endometrial stripe measures 13 mm in thickness. Right ovary: The right ovary measures 2.5 x 2.3 x 1.4 cm. The right ovary is normal in size and echotexture. There is a probable 1.5 x 1.3 x 1.4 cm cyst. Evaluation is limited on transabdominal examination. Left ovary: The left ovary measures 3.3 x 1.9 x 1.4 cm. The left ovary is normal in size and echotexture. Pelvic fluid: none. US/US pelvic and transvaginal IMPRESSION: Thickened endometrial stripe. Evaluation is limited by lack of endovaginal scanning. SECRETARY OF STATE evaluation is recommended. Electronically signed by: Tim Romero MD 03/12/2025 03:38 PM EDT Dictated By: Tim Romero MD Signed By: <Electronically signed by Tim Romero MD in OV> 03/12/25 1538 DD/ 1518 TD/TT: 03/12/25 1522 Computer Systems Consultant: us [facility] External Provider IMG US PROCEDURES Final Result * hCG, Total, Quantitative (03/12/2025 12:53 PM EDT) Pathologist [facility] HCG Quantitative <2 mIU/mL [facility] Comment:Weeks post LMP Appro ximate hCG(Last Menstrual Period) Range (mIU/ml)3 - 4 weeks 9 - 1304 - 5 weeks 75 - 2,6005 - 6 weeks 850 - 20,8006 - 7 weeks 4000 - 100,2007 - 12 weeks 11,500 - 289,87622 - 16 weeks 18,300 - 137,00621 - 29 weeks (2nd trimester) 1,400 - 53,40367 - 41 weeks (3rd trimester) 940 - 60,000The Wells B- hCG assay is used for the early detection ofpregnancy; it cannot be used to diagnose any conditionunrelated to . If a B-hCG level is not supportedby the clinical evidence, results should be confirmed by analternative method (qualitative urine hCG, for example). 03/12/2025 12:5 3 PM EDT 03/12/2025 12:56 PM EDT Generic External Data Provider LAB BLOOD ORDERAB LES Final Result [facility] [address] [place] [phone] * (ABNORMAL) Comprehensive Metabolic Panel (03/12/2025 12:53 PM EDT) Pathologist [facility] Sodium 140 135 - 145 mmol/L [facility] Potassium 4.0 3.3 - 5.1 mmol/L [facility] Chloride 106 96 - 108 mmol/L [facility] Carbon Dioxide 27 22 - 29 mmol/L [facility] Anion Gap 11(L) 12 - 20 [facility] Urea Nitrogen (BUN) 12 9 - 16 mg/dL [facility] Creatinine, Serum 0.71 0.5 - 1.4 mg/dL [facility] Creatinine Clr Calc Pharmacy 100.5 [facility] Comment:Provided height and weight: 154.94 cm,82.554 kg.eGFR (calculated from the MDRD study equation) and eCrCl(calculated from the Cockcroft-Gault equation) are based ondifferent parameters and may not yield comparable results.If eCrCl result is absurd, please check patient'sheight/weight. Estimated Glomerular Filt Rate >60 [facility] Comment:Chronic Kidney Disea se: Estimated GFR < 60 mL/min/1.75a5Qxnvhl Kidney Disease: Estimated GFR < 15 mL/min/1.73m2 Glucose 92 60 - 115 mg/dL [facility] Calcium 9.1 8.4 - 10.2 mg/dL [facility] Bilirubin, Total 1.4(H) 0.0 - 1.0 mg/dL [facility] Aspartate Amino Transferase 28 5 - 31 U/L [facility] Alanine Aminotransferase 25 0 - 31 U/L [facility] Total Protein 7.0 6.5 - 8.0 g/dL [facility] Albumin Level 4.2 3.5 - 5.0 g/dL [facility] Alkaline Phosphatase 83 39 - 117 U/L [facility] 03/12/2025 12:5 3 PM EDT 03/12/2025 12:56 PM EDT us Generic External Data Provider LAB BLOOD ORDERAB LES Final Result [facility] [address] [place] [phone] * HCG, Qualitative, Urine (03/12/2025 12:53 PM EDT) Urine NEGATIVE NEGATIVE [facility] Comment:This test was develo ped to detect early . Falsenegative results may occur after the 5th - 7th week ofpregnancy when using this test method. If clinicallyindicated, consider a serum hCG. 03/12/2025 12:5 3 PM EDT 03/12/2025 12:56 PM EDT us Generic External Data Provider LAB URINE ORDERAB LES Final Result Performing Organization Address [facility]/ZIP Co de Phone Number [facility] [address] [place] [address] [phone] * (ABNORMAL) Urinalysis, Complete, with Reflex to Culture (03/12/2025 12:53 PM EDT) Color Urine Yellow [facility] Appearance Urine Clear [facility] PH 5.5 5.0 - 9.0 [facility] Glucose Urine UA Negative Negative mg/dL [facility] Urine Blood Large (3+)(A) Negative [facility] Specific [place] - Urine 1.025 1.005 - 1.025 [facility] Urine Protein Trace Neg-Trace mg/dL [facility] Urine Ketones Negative Negative mg/dL [facility] Nitrite Urine Negative Negative [facility] Leukocyte Esterase Urine Trace(A) Negative [facility] RBC Urine >20(A) 0 - 2 /HPF [facility] Urine WBC 0-5 0 - 5 /HPF [facility] Urine Squamous Epithelial Cell 3-5 0 - 2 /HPF [facility] Urine Bacteria None Seen None Seen [facility] Hyaline Casts, Urine 0-2 0 - 2 /LPF [facility] 03/12/2025 12:5 3 PM EDT 03/12/2025 12:56 PM EDT Narrative [facility] - 03/12/2025 1:05 PM EDT [id number], Clean Catch Generic External Data Provider LAB URINE ORDERAB LES Final Result Performing Organization Address [facility]/ZIP Co de Phone Number [facility] [address] [place] [phone] * CBC auto differential (03/12/2025 12:53 PM EDT) White Blood Count 10.1 4.8 - 10.8 X10*3/uL [facility] Red Blood Count 4.78 4.20 - 5.50 X10*6/uL [facility] Hemoglobin 14.1 12.0 - 16.0 g/dl [facility] Hematocrit 41.0 37.0 - 47.0 % [facility] Mean Corpuscular Volume 85.8 80.0 - 98.0 fL [facility] Mean Corpuscular Hemoglobin 29.5 27.0 - 33.0 pg [facility] Mean Corpuscular HGB Conc 34.4 31.0 - 35.0 g/dl [facility] Red Cell Distribution Width 13.8 11.0 - 16.0 % [facility] Platelet Count 245 160 - 400 X10*3/uL [facility] Mean Platelet Volume 10.8 9.4 - 12.3 fL [facility] Neutrophils Percent Auto 59.8 45 - 73 % [facility] Imm Gran Pct Auto 0.2 0.0 - 0.4 % [facility] Lymphocytes Percent Auto 32.1 20 - 40 % [facility] Monocytes Percent Auto 5.8 2 - 11 % [facility] Eosinophils Percent Auto 1.7 0 - 4 % [facility] Basophils Percent Auto 0.4 0 - 2 % [facility] NRBC Pct Auto 0.0 0.0 - 0.2 /100WBC [facility] Neutrophils Absolute Auto 6.1 2.0 - 8.3 x10*3/uL [facility] Imm Gran Abs Auto 0.02 0.00 - 0.03 X10*3/uL [facility] Lymphocytes Absolute Auto 3.3 1.2 - 4.9 X10*3/uL [facility] Monocytes Absolute Auto 0.6 0.1 - 1.2 X10*3/uL [facility] Eosinophils Absolute Auto 0.2 0.0 - 0.4 X10*3/uL [facility] Basophils Absolute Auto 0.0 0.0 - 0.2 X10*3/uL [facility] NRBC Abs Auto 0.000 0.0 - 0.012 X10*3/uL [facility] 03/12/2025 12:5 3 PM EDT 03/12/2025 12:56 PM EDT us Generic External Data Provider LAB BLOOD ORDERAB LES Final Result [facility] [address] [place] [phone] documented in this encounter Visit Diagnoses Not on filedocumented in this encounter Additional Health Concerns Assessment Noted Time PHQ-9 Depression Total Score: 14 025 11:47 AM EST documented as of this encounter Care Teams Stem Crusher Relationship Specialty Start Date End Date Elsi Sal MD [address] [place] [address] PCP - General Family Medicine 05/09/11 documented as of this encounter
--- OUTSIDE RECORDS SUMMARY | 2025-03-12 19:07 | XMS_ITS | Encounter Summary ---
Author Organization [employer] Address [address] [place] [address] [address] [place] [address] Care Team Providers Care Production Potter Name Role Phone Elsi Sal MD Primary Care Provider [phone] Reason for Referral * Imaging (Routine) - Closed Specialty Diagnoses / Procedures Referred By Cici butts Referred To Contact Radiology Diagnoses Breast pain in female Procedures BI US Breast Limited Right Elsi Sal MD [address] [place] [address] Phone: tel: fax: [address] Phone: tel: fax: Referral ID Status Reason Start Date Expiration Date Visits Re quested Visits Authorized [id number] Closed 08/23/2024 08/23/2025 1 1 * Imaging (Routine) - Closed Specialty Diagnoses / Procedures Referred By Cici butts Referred To Contact Radiology Diagnoses Breast pain in female Procedures BI US Breast Limited Left Elsi Sal MD [address] [place] [address] Phone: tel: fax: [address] Phone: tel: fax: Referral ID Status Reason Start Date Expiration Date Visits Re quested Visits Authorized [id number] Closed 08/23/2024 08/23/2025 1 1 * Imaging (Routine) - Closed Specialty Diagnoses / Procedures Referred By Cici t Referred To Contact Radiology Diagnoses Breast pain in female Procedures BI US Breast Complete Right Elsi Sal MD [address] [place] [address] Phone: tel: fax: [address] Phone: tel: fax: Referral ID Status Reason Start Date Expiration Date Visits Re quested Visits Authorized [id number] Closed 08/23/2024 08/23/2025 1 1 Encounter Details Date Type Department Care Team (Late st Contact Info) Description 08/23/2024 Orders Only [facility] [address] [place] [phone] Elsi Sal MD [address] [place] [address] Breast pain in female (Primary Dx) Social [...] with others, in a hotel, in a custodial, living outside on the street, on a [...] as of this encounter Plan of Treatment Scheduled Orders Name Type Priority Associated Diagnoses Orde r Schedule BI US Breast Complete Right Imaging Routine Breast pain in female Expected: 08/23/2024, Expires: 08/23/2025 BI US Breast Limited Left Imaging Routine Breast pain in female Expected: 08/23/2024, Expires: 08/23/2025 BI US Breast Limited Right Imaging Routine Breast pain in female Expected: 08/23/2024, Expires: 08/23/2025 documented as of this encounter Procedures Procedure Name Priority Date/Time Associated Diagnosis Comments BI US BREAST LIMITED BILATERAL Routine 10/01/2024 9:30 AM EDT documented in this encounter Results * BI US Breast Limited Bilateral (10/01/2024 9:30 AM EDT) Anatomical Region Laterality Modality Breast Bilateral Ultrasound 10/01/2024 9:30 AM EDT Narrative 10/01/2024 10:57 AM EDT [facility] [address] [place] [address] Ultrasound Report Signed Patient: Breana Mcmillan I MR#: [id number] : 1980 Acct:[id number] Age/Sex: 44 / F ADM Date: 10/01/24 Loc: HO.MAMMO Attending Dr: Elsi Sal MD Ordering Physician: Elsi Sal MD Date of Service: 10/01/24 Procedure(s): US breast BI limited mamm only Accession Number(s): [id number] cc: Elsi Sal MD EXAMINATION: MM DIAGNOSTIC DIGITAL BREAST TOMOSYNTHESIS, BILATERAL Bilateral Limited ultrasound. CLINICAL INFORMATION: Bilateral breast pain. COMPARISON: Mammography: Comparison is made with relevant prior exams. TECHNIQUE: Digital breast mammography with tomosynthesis is performed in both the craniocaudal and mediolateral oblique views along with computer-aided detection (CAD). FINDINGS: There are scattered areas of fibroglandular density (ACR BI-RADS breast composition Category b). There are no significant masses, abnormal calcifications, or other abnormalities. Targeted color Doppler ultrasound scanning in the area of the patient's pain the left breast upper outer quadrant lower outer quadrant lower inner quadrant upper inner quadrant demonstrates normal fibronodular breast tissue. There is no sonographic abnormality. Targeted color Doppler ultrasound scanning in the right breast area of patient's pain upper inner quadrant lower inner quadrant lower outer quadrant upper outer quadrant demonstrates normal fibronodular breast tissue. There is no sonographic abnormality. Results are provided to the patient at time of visit by the technologist. US/US breast BI limited mamm only IMPRESSION: No mammographic or sonographic abnormality to account for the patient's bilateral breast pain. Recommend clinical evaluation and follow-up. ASSESSMENT: BI-RADS BI-RADS 1 - Negative RECOMMENDATION: 1 year F/U This patient's information was entered into a reminder system with a target due date for their next mammogram. Electronically signed by: Jordana Velazquez DO 10/01/2024 10:54 AM EDT Dictated By: Jordana Velazquez DO Signed By: <Electronically signed by Jordana Velazquez DO in OV> 10/01/24 1054 DD/ 0930 TD/TT: 10/01/24 0958 Senior Ui Ux Developer: Procedure Note Donotuseinterpreter, Image - 10/01/2024 [facility] [address] [place], [place] [address] Ultrasound Report Signed Patient: Breana Mcmillan IMR#: [id number] : 1980Acct:[id number] Age/Sex: 44 / FADM Date: 10/01/24 Loc: HO.MAMMO Attending Dr: Elsi Sal MD Ordering Physician: Elsi Sal MD Date of Service: 10/01/24 Procedure(s): US breast BI limited mamm only Accession Number(s): [id number] cc: Elsi Sal MD EXAMINATION: MM DIAGNOSTIC DIGITAL BREAST TOMOSYNTHESIS, BILATERAL Bilateral Limited ultrasound. CLINICAL INFORMATION: Bilateral breast pain. COMPARISON: Mammography: Comparison is made with relevant prior exams. TECHNIQUE: Digital breast mammography with tomosynthesis is performed in both the craniocaudal and mediolateral oblique views along with computer-aided detection (CAD). FINDINGS: There are scattered areas of fibroglandular density (ACR BI-RADS breast composition Category b). There are no significant masses, abnormal calcifications, or other abnormalities. Targeted color Doppler ultrasound scanning in the area of the patient's pain the left breast upper outer quadrant lower outer quadrant lower inner quadrant upper inner quadrant demonstrates normal fibronodular breast tissue. There is no sonographic abnormality. Targeted color Doppler ultrasound scanning in the right breast area of patient's pain upper inner quadrant lower inner quadrant lower outer quadrant upper outer quadrant demonstrates normal fibronodular breast tissue. There is no sonographic abnormality. Results are provided to the patient at time of visit by the technologist. US/US breast BI limited mamm only IMPRESSION: No mammographic or sonographic abnormality to account for the patient's bilateral breast pain. Recommend clinical evaluation and follow-up. ASSESSMENT: BI-RADS BI-RADS 1 - Negative RECOMMENDATION: 1 year F/U This patient's information was entered into a reminder system with a target due date for their next mammogram. Electronically signed by: Jordana Velazquez DO 10/01/2024 10:54 AM EDT Dictated By: Jordana Velazquez DO Signed By: <Electronically signed by Jordana Velazquez DO in OV> 10/01/24 1054 DD/ 0930 TD/TT: 10/01/24 0958 Senior Ui Ux Developer: us Elsi Sal MD [facility] [place] PROCEDURES Final Result documented in this encounter Visit Diagnoses Diagnosis Breast pain in female- Primary Mastodynia documented in this encounter Additional Health Concerns Assessment Noted Time PHQ-9 Depression Total Score: 14 025 11:47 AM EST documented as of this encounter Care Teams Production Potter Relationship Specialty Start Date End Date Elsi Sal MD [address] [place] [phone] PCP - General Family Medicine 05/09/11 documented as of this encounter
--- OUTSIDE RECORDS SUMMARY | 2025-03-12 19:07 | XMS_ITS | Clinical Summary ---
Author Organization [employer] Address [address] [place] [address] Care Team Providers Care Advertising Editor Name Role Phone Elsi Sal MD Primary Care Provider [phone] Allergies Active Allergy Reactions Criticality Noted Date Comments Penicillins Rash High 09/03/2014 Medications * This document contains information received from the source organization and may not represent a complete record from that organization. SALINE MIST 0.65 % nasal spray USE 1-2 SPRAY ON EACH NOSTRIL EVERY 2-3 HOURS NEEDED FOR NASAL CONGESTION 2 Active sucralfate (Carafate) 1 g tablet Take 1 g by mouth at bedtime. 3 Active albuterol (2.5 MG/3ML) 0.083% nebulizer solution inhale 3 milliliter (2.5MG) by nebulization route every 4-6 hours as needed for difficulty breathing, up to 4 times/day as needed 75 mL 1 3 Active cetirizine (ZyrTEC) 10 MG tablet Take 1 tablet (10 mg) by mouth in the morning. 90 tablet 3 3 Active ibuprofen 600 MG tablet Take 1 tablet by mouth every 8 hours as needed for pain or fever. 30 tablet 1 3 Active albuterol 108 (90 Base) MCG/ACT inhaler Take 2 puffs via inhaler every 4 hours as needed for difficulty breathing 18 g 3 3 Active fluticasone (Flonase) 50 MCG/ACT nasal spray Administer 1-2 sprays into each nostril in the morning. Shake gently. Before first use, prime pump. After use, clean tip and replace cap. 48 mL 4 Active pantoprazole (ProtoNix) 40 MG EC tabletIndicatio ns:Epigastric pain Take 1 tablet (40 mg) by mouth before breakfast. Do not crush, chew, or split. 30 tablet 3 4 Active ondansetron (Zofran) 4 MG tabletIndicatio ns:Vomiting and diarrhea Take 1 tablet (4 mg) by mouth every 8 (eight) hours if needed for nausea or vomiting for up to 15 doses. 15 tablet 5 Active acetaminophen (Tylenol) 500 MG tabletIndicatio ns:Vomiting and diarrhea Take 2 tablets (1,000 mg) by mouth every 6 (six) hours if needed for moderate pain or fever for up to 25 doses. 50 tablet 5 Active budesonide-form oterol (Symbicort) 80-4.5 MCG/ACT inhaler Take two puffs twice daily and may take additional 1-2 puffs every 4 hours as needed. Maximum 12 puffs per day. Rinse mouth with water after use. Do not swallow. 1 each 11 5 Active meloxicam (Mobic) 7.5 MG tablet Take 1 tablet (7.5 mg) by mouth Once per day. 30 tablet 2 5 08/07/19 26 Active hydrocortisone (Proctosol HC) 2.5 % rectal creamIndication s:Hemorrhoids, unspecified hemorrhoid type Insert into the rectum 2 times daily. 28 g 5 Active traZODone (Desyrel) 50 MG tabletIndicatio ns:Major depressive disorder, recurrent, severe with psychotic features (CMS/HCC) (HCC) Take 1 tablet (50 mg) by mouth at bedtime. 30 tablet 1 5 Active FLUoxetine (PROzac) 10 MG capsuleIndicati ons:Major depressive disorder, recurrent, severe with psychotic features (CMS/HCC) (HCC) Take 1 capsule (10 mg) by mouth in the morning. 30 capsule 1 5 Active ARIPiprazole (Abilify) 10 MG tabletIndicatio ns:Major depressive disorder, recurrent, severe with psychotic features (CMS/HCC) (HCC) Take 0.5 tablets (5 mg) by mouth Once per day. 15 tablet 1 5 Active hydrOXYzine pamoate (Vistaril) 25 MG capsuleIndicati ons:Major depressive disorder, recurrent, severe with psychotic features (CMS/HCC) (HCC),Panic disorder Take 1 capsule (25 mg) by mouth if needed in the morning and at bedtime for anxiety. 60 capsule 1 5 Active SUMAtriptan (Imitrex) 50 MG tablet TAKE 1 TABLET (50 MG) BY MOUTH 1 (ONE) TIME IF NEEDED FOR MIGRAINE. MAY REPEAT DOSE ONCE IN 2 HOURS IF NO RELIEF. DO NOT EXCEED 2 DOSES IN 24 HOURS. 9 tablet 1 5 Active Active Problems Problem Noted Date Diagnosed Date [...] EST): On 08/03/24 pt was seen in [facility] ED for lower abdominal pain for 3 [...] in 2014 , evaluated by Dr. Carrasquillo, [facility] CRATE BUILDER -Last PAP in 2017 was NILM -Refer back Abnormal uterine bleeding (AUB) 09/06/2022 Assessment & Plan (04/29/2023 6:17 PM EST): - following with [facility] gynecology - Pt has fibroid - EMBx on 03/21/23 was normal Assessment & Plan (03/02/2023 6:24 AM EDT): Pt w known Hx of abnormal uterine bleeding since 08/2022 - was seen by video and sound recorder, but lost care. -I requested property specialist to send again previous referral for pelvic and TV US done by PCP this year. -Advise pt to call video and sound recorder today to reschedule apt. May need endometrial biopsy if ongoing bleeding. I provided pt w her video and sound recorder's phone number so that she can schedule her apt Assessment & Plan (09/12/2022 11:22 AM EDT): -evaluate with US -check lab for early menopause / premature ovarian failure Secondary oligomenorrhea 09/06/2022 Assessment & Plan (09/12/2022 11:16 AM EDT): -likely perimenopausal -Hx DEEPALI I-II, 2014, most recent PAP in 2017 was NILM, followed by [facility] CRATE BUILDER -will refer back to CRATE BUILDER for PAP History of COVID-19 09/05/2022 History [...] (04/29/2023 6:27 PM EST): - following with [facility] GI, last seen on 08/23/22, restarted pantoprazole and sucralfate - continue pantoprazole 40 mg daily - continue sucralfate 1 g qhs Assessment & Plan (09/05/2022 4:33 PM EDT): - following with [facility] GI, last seen on 08/23/22, restarted pantoprazole and sucralfate - continue pantoprazole 40 mg daily - continue sucralfate 1 g qhs Major depressive disorder, r ecurrent, severe with psychotic features (CMS/HCC) 08/10/2022 Assessment & Plan (08/12/2024 10:56 AM [...] 10/27/2016 Follicular 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 ([facility]/HCC) 08/26/2016 Assessment & Plan (08/06/2024 1:01 PM [...] -PT referral with a possible evaluation by [facility] / pain management -if [...] Encounters Date Type Department Care Team Description 03/12/2025 Orders Only GENERIC EXTERNAL DATA DEPARTMENT Provider, Generic External Data from Last 3 Months Immunizations Immunization Administration Dates Next Due Influenza injectable quadriv [...] with others, in a hotel, in a assisted, living outside on the street, on a [...] 71 08/09/2024 11:00 AM EST Temperature 36.1 C (96.9 F) 08/09/2024 11:00 AM EST Respiratory Rate 18 08/09/2024 11:00 AM EST Oxygen Saturation 98% 08/09/2024 11:00 AM EST Inhaled Oxygen Concentration - - Weight 86 kg (189 lb 9.6 oz) 08/09/2024 11:00 AM EST Height 154.9 cm (5' 1 ) 08/09/2024 11:00 AM EST Body Mass Index 35.82 08/09/2024 11:00 AM EST Plan of Treatment Health Maintenance Due Date Last Done Comments Disability Screening 1980 COVID-19 Vaccine (#1) 09/29/1987 Family Planning (PISQ) 1997 Hepatitis B Vaccines (1 of 3 - 19+ 3-dose series) 2001 Zoster Vaccines (1 of 2) 2001 HPV Vaccines (1 - Risk 3-dose SCDM series) 2009 Pneumococcal Vaccine: Pediatrics (0 to 5 Years) and At-Risk Patients (6 to 49) Years (3 of 3 - PCV) 03/25/2015 03/25/2014, 04/26/2011, 05/13/2005 DTaP/Tdap/Td Vaccines (2 - Td or Tdap) 04/26/2021 04/26/2011 Influenza Vaccine (#1) 2025 9, 07/12/2017, 02/26/2016, Additional history exists Depression Monitoring 02/06/2025 08/06/2024, 025 Alcohol/Substance Use Screening 08/06/2025 08/06/2024 SDOH Screening 08/06/2025 08/06/2024 Tobacco Screening 08/28/2025 08/28/2024 Mammogram 10/01/2026 10/01/2024, 10/01/2024 Cervical Cancer Screening 09/16/2027 HPV/Cotest 09/16/2027 09/15/2022 [...] patient's age to complete this topic Meningococcal B Vaccine Aged Out No l onger eligible based on patient's age to complete [...] Associated Diagnosis Comments US PELVIS TRANSVAGINAL Routine 5 3:18 PM EDT HCG, TOTAL, QN Routine 03/12/2025 12:53 PM EDT COMPREHENSIVE METABOLIC PANEL Routine 03/12/2025 12:53 PM EDT HCG, QL, URINE Routine 03/12/2025 12:53 PM EDT URINALYSIS, COMPLETE, WITH REFLEX TO CULTURE Routine 03/12/2025 12:53 PM EDT CBC WITH AUTO DIFFERENTIAL Routine 03/12/2025 12:53 PM EDT BI US BREAST LIMITED BILATERAL Routine 10/01/2024 9:30 AM EDT HEPATITIS C ANTIBODY Routine 03/20/2024 10:05 AM [...] Recently Relevant to Health Maintenance Results * US Pelvis Transvaginal (03/12/2025 3:18 PM EDT) Anatomical Region Laterality Modality Pelvis Ultrasound 03/12/2025 3:18 PM EDT Narrative 03/12/2025 3:41 PM EDT [address] [address] Ultrasound Report Signed Patient: Breana Mcmillan I MR#: [id number] : 1980 Acct:[id number] Age/Sex: 44 / F ADM Date: 03/12/25 Loc: HO.ED Attending Dr: Ordering Physician: Shola Orellana Date of Service: 03/12/25 Procedure(s): US pelvic and transvaginal Accession Number(s): [id number] cc: Shola Orellana; Elsi Sal MD Reason [...] is limited by lack of endovaginal scanning. CRATE BUILDER evaluation is recommended. Electronically signed by: Tim Romero MD 03/12/2025 03:38 PM EDT Dictated By: Tim Romero MD Signed By: <Electronically signed by Tim Romero MD in OV> 03/12/25 1538 DD/ 1518 TD/TT: 03/12/25 1522 Gear Keeper: Procedure Note Donotuseinterpreter, Image - 03/12/[address] [address] Ultrasound Report Signed Patient: Breana Mcmillan [facility]#: [id number] : 1980Acct:[id number] Age/Sex: 44 / FADM Date: 03/12/25 Loc: .ED Attending Dr: Ordering Physician: Shola Orellana Date of Service: 03/12/25 Procedure(s): US pelvic and transvaginal Accession Number(s): [id number] cc: Shola Orellana; Elsi Sal MD Reason [...] is limited by lack of endovaginal scanning. CRATE BUILDER evaluation is recommended. Electronically signed by: Tim Romero MD 03/12/2025 03:38 PM EDT Dictated By: Tim Romero MD Signed By: <Electronically signed by Tim Romero MD in OV> 03/12/25 1538 DD/ 1518 TD/TT: 03/12/25 1522 Gear Keeper: us [facility] External Provider IMG US PROCEDURES Final Result * (ABNORMAL) Urinalysis, Complete, with Reflex to Culture (03/12/2025 12:53 PM EDT) Color Urine Yellow [facility] Appearance Urine Clear [facility] PH 5.5 5.0 - 9.0 [facility] Glucose Urine UA Negative Negative mg/dL [facility] Urine Blood Large (3+)(A) Negative [facility] Specific [place] - Urine 1.025 1.005 - 1.025 [facility] Urine Protein Trace Neg-Trace mg/dL [facility] Urine Ketones Negative Negative mg/dL [facility] Nitrite Urine Negative Negative [facility] Leukocyte Esterase Urine Trace(A) Negative [facility] RBC Urine >20(A) 0 - 2 /HPF [facility] Urine WBC 0-5 0 - 5 /HPF [facility] Urine Squamous Epithelial Cell 3-5 0 - 2 /HPF [facility] Urine Bacteria None Seen None Seen [facility] Hyaline Casts, Urine 0-2 0 - 2 /LPF [facility] 03/12/2025 12:5 3 PM EDT 03/12/2025 12:56 PM EDT Narrative [facility] - 03/12/2025 1:05 PM EDT [id number], Clean Catch Generic External Data Provider LAB URINE ORDERAB LES Final Result [facility] [address] [place] [address] [phone] * CBC auto differential (03/12/2025 12:53 PM EDT) White Blood Count 10.1 4.8 - 10.8 X10*3/uL [facility] Red Blood Count 4.78 4.20 - 5.50 X10*6/uL [facility] Hemoglobin 14.1 12.0 - 16.0 g/dl [facility] Hematocrit 41.0 37.0 - 47.0 % [facility] Mean Corpuscular Volume 85.8 80.0 - 98.0 fL [facility] Mean Corpuscular Hemoglobin 29.5 27.0 - 33.0 pg [facility] Mean Corpuscular HGB Conc 34.4 31.0 - 35.0 g/dl [facility] Red Cell Distribution Width 13.8 11.0 - 16.0 % [facility] Platelet Count 245 160 - 400 X10*3/uL [facility] Mean Platelet Volume 10.8 9.4 - 12.3 fL [facility] Neutrophils Percent Auto 59.8 45 - 73 % [facility] Imm Gran Pct Auto 0.2 0.0 - 0.4 % [facility] Lymphocytes Percent Auto 32.1 20 - 40 % [facility] Monocytes Percent Auto 5.8 2 - 11 % [facility] Eosinophils Percent Auto 1.7 0 - 4 % [facility] Basophils Percent Auto 0.4 0 - 2 % [facility] NRBC Pct Auto 0.0 0.0 - 0.2 /100WBC [facility] Neutrophils Absolute Auto 6.1 2.0 - 8.3 x10*3/uL [facility] Imm Gran Abs Auto 0.02 0.00 - 0.03 X10*3/uL [facility] Lymphocytes Absolute Auto 3.3 1.2 - 4.9 X10*3/uL [facility] Monocytes Absolute Auto 0.6 0.1 - 1.2 X10*3/uL [facility] Eosinophils Absolute Auto 0.2 0.0 - 0.4 X10*3/uL [facility] Basophils Absolute Auto 0.0 0.0 - 0.2 X10*3/uL [facility] NRBC Abs Auto 0.000 0.0 - 0.012 X10*3/uL [facility] 03/12/2025 12:5 3 PM EDT 03/12/2025 12:56 PM EDT us Generic External Data Provider LAB BLOOD ORDERAB LES Final Result Performing Organization Address [facility]/ZIP Co de Phone Number [facility] [address] [place] [phone] * HCG, Qualitative, Urine (03/12/2025 12:53 PM EDT) Urine NEGATIVE NEGATIVE [facility] Comment:This test was develo ped to detect early . Falsenegative results may occur after the 5th - 7th week ofpregnancy when using this test method. If clinicallyindicated, consider a serum hCG. 03/12/2025 12:5 3 PM EDT 03/12/2025 12:56 PM EDT Generic External Data Provider LAB URINE ORDERAB LES Final Result Performing Organization Address [facility] Co de Phone Number [facility] [address] [place] [phone] * hCG, Total, Quantitative (03/12/2025 12:53 PM EDT) HCG Quantitative <2 mIU/mL [facility] Comment:Weeks post LMP Appro ximate hCG(Last Menstrual Period) Range (mIU/ml)3 - 4 weeks 9 - 1304 - 5 weeks 75 - 2,6005 - 6 weeks 850 - 20,8006 - 7 weeks 4000 - 100,2007 - 12 weeks 11,500 - 289,71002 - 16 weeks 18,300 - 137,65477 - 29 weeks (2nd trimester) 1,400 - 53,40532 - 41 weeks (3rd trimester) 940 - [...] Provider LAB BLOOD ORDERAB LES Final Result [facility] [address], [place] [phone] * (ABNORMAL) Comprehensive Metabolic Panel (03/12/2025 12:53 PM EDT) Sodium 140 135 - 145 mmol/L [facility] Potassium 4.0 3.3 - 5.1 mmol/L [facility] Chloride 106 96 - 108 mmol/L [facility] Carbon Dioxide 27 22 - 29 mmol/L [facility] Anion Gap 11(L) 12 - 20 [facility] Urea Nitrogen (BUN) 12 9 - 16 mg/dL [facility] Creatinine, Serum 0.71 0.5 - 1.4 mg/dL [facility] Creatinine Clr Calc Pharmacy 100.5 [facility] Comment:Provided height and weight: 154.94 cm,82.554 kg.eGFR (calculated from the MDRD study equation) and eCrCl(calculated from the Cockcroft-Gault equation) are based ondifferent parameters and may not yield comparable results.If eCrCl result is absurd, please check patient'sheight/weight. Estimated Glomerular Filt Rate >60 [facility] Comment:Chronic Kidney Disea se: Estimated GFR < 60 mL/min/1.69h9Zgndqi Kidney Disease: Estimated GFR < 15 mL/min/1.73m2 Glucose 92 60 - 115 mg/dL [facility] Calcium 9.1 8.4 - 10.2 mg/dL [facility] Bilirubin, Total 1.4(H) 0.0 - 1.0 mg/dL [facility] Aspartate Amino Transferase 28 5 - 31 U/L [facility] Alanine Aminotransferase 25 0 - 31 U/L [facility] Total Protein 7.0 6.5 - 8.0 g/dL [facility] Albumin Level 4.2 3.5 - 5.0 g/dL [facility] Alkaline Phosphatase 83 39 - 117 U/L [facility] 03/12/2025 12:5 3 PM EDT 03/12/2025 12:56 PM EDT us Generic External Data Provider LAB BLOOD ORDERAB LES Final Result [facility] [address] [place] [address] [phone] * BI US Breast Limited Bilateral (10/01/2024 9:30 AM EDT) Anatomical Region Laterality Modality Breast Bilateral Ultrasound 10/01/2024 9:30 AM EDT Narrative 10/01/2024 10:57 AM EDT [address] [place] [address] Ultrasound Report Signed Patient: Breana Mcmillan I MR#: [id number] : 1980 Acct:[id number] Age/Sex: 44 / F ADM Date: 10/01/24 Loc: HO.MAMMO Attending Dr: Elsi Sal MD Ordering Physician: Elsi Sal MD Date of Service: 10/01/24 Procedure(s): US breast BI limited mamm only Accession Number(s): [id number] cc: Elsi Sal MD EXAMINATION: MM DIAGNOSTIC [...] Velazquez DO in OV> 10/01/24 1054 DD/ 9 TD/TT: 10/01/24 0958 Gear Keeper: Procedure Note Donotuseinterpreter, Image - 10/01/2024 [facility] [address] [place], [place] [address] Ultrasound Report Signed Patient: Breana Mcmillan IMR#: [id number] : 1980Acct:[id number] Age/Sex: 44 / FADM Date: 10/01/24 Loc: DAVID Attending Dr: Elsi Sal MD Ordering Physician: Elsi Sal MD Date of Service: 10/01/24 Procedure(s): US breast BI limited mamm only Accession Number(s): [id number] cc: Elsi Sal MD EXAMINATION: MM DIAGNOSTIC [...] 10/01/24 1054 DD/ 0930 TD/TT: 10/01/24 0958 Gear Keeper: us Elsi Sal MD IMG US PROCEDURES Final Result * Hepatitis C Ab (03/20/2024 10:05 AM EDT) Hepatitis C Antibody Nonreactive Nonreactive [facility] Comment:Antibodies to HCV no t detected; does not exclude early acuteHCV infection. 03/20/2024 10:0 5 AM EDT 03/20/2024 11:11 AM EDT us Generic External Data Provider LAB BLOOD ORDERAB LES Final Result [facility] [address] [place] [phone] * HIV-1/2 Antigen and Antibodies, Fourth Generation, with Reflexes (03/20/2024 10:05 AM EDT) HIV AB/AG Nonreactive Nonreactive [facility] Comment:HIV-1 p24 Ag and/or HIV-1/HIV-2 Ab not detected.A test result that is nonreactive does not exclude thepossibility of exposure to or infection with HIV-1 and/orHIV-2. Nonreactive results in this assay for individualswith prior exposure to HIV-1 and/or HIV-2 may be due toantigen and antibody levels that are below the limit ofdetection of this assay.The [employer] HIV Ag/Ab Combo assay result andsupplemental assay results should be interpreted inconjunction with the patient's clinical presentation,history and other laboratory results. If the results areinconsistent with clinical evidence, additional testing issuggested to confirm the result. 03/20/2024 10:0 5 AM EDT 03/20/2024 11:11 AM EDT us Generic External Data Provider LAB BLOOD ORDERAB LES Final Result [facility] [address] [place] [phone] * (ABNORMAL) Lipid Panel with Reflex to Direct LDL (05/04/2023 10:45 AM EST) Triglycerides 69 <150 mg/dL [facility] Comment:Desirable Triglyceri de: less than 150 mg/dLBorderline High Triglyceride 150-199 mg/dLHigh Triglyceride: 200-499 mg/dLVery High Triglyceride: greater than or equal to 5OO mg/dL Cholesterol 192 <200 mg/dL [facility] Comment:Desirable Cholestero l: less than 200 mg/dLBorderline High Cholesterol: 200-239 mg/dLHigh Cholesterol: greater than 239 mg/dL LDL Cholesterol Calculated 126(H) <100 mg/dL [facility] Comment:Desirable LDL: less than 100 mg/dLNear Optimal/Above Optimal LDL: 110- 129 mg/dLBorderline High LDL: 130-159 mg/dLHigh LDL: 160-189 mg/dLVery High LDL: greater than or equal to 190 mg/dL HDL Cholesterol 53 >40 mg/dL [facility] Comment:Desirable HDL: great er than 40 mg/dL Note: This HDL assay may give artificially low results in patients with liver disease. Blood 05/04/2023 10:4 5 AM EST 05/04/2023 11:19 AM EST lEsi Sal MD LAB BLOOD ORDERABLES Final Resul t Performing Organization Address [facility]/ZIP Co de Phone Number [facility] [address] [place] [phone] * HPV mRNA E6/E7 w/Reflex to HPV Genotypes 16, 18/45 (09/15/2022 10:18 AM EDT) HPV nRNA E6/E7 Not Detected Not Detected [facility] Comment:Methodology: Transcr iption-Mediated AmplificationThis assay detects E6/E7 viral messenger RNA (mRNA) from 14high-risk HPV types (16,18,31,33,35,39,45,51,52,56,58,59,66,68).Cervical sources are required for HPV testing.If a vaginal source from a patient who has had atotal hysterectomy with removal of cervix wassubmitted, please contact the testing laboratoryfor alternative testing options.For additional information, please refer [email or web address].GetGifted/faq/JQZ795k8(This link if provided for information/educational purposes only.)THIS TEST WAS PERFORMED AT:[address] [place] [phone] GARCIA MD HPV mRNA E6/E7 [facility] HPV 16 RNA [facility] HPV 18/45 RNA [facility] 09/15/2022 10:1 8 AM EDT 09/15/2022 12:00 PM EDT us [facility] External Provider LAB CYT OLOGY ORDERABLES Final Result Performing Organization Address City/[facility]/ZIP Co de Phone Number [facility] [address] [place] [phone] * Pap Smear (09/15/2022 10:18 AM EDT) 09/15/2022 10:1 8 AM EDT 09/15/2022 12:00 PM EDT [facility] - 09/20/2022 12:11 PM EDT ----- ------- Name: Breana Mcmillan I Age/Sex: 41/F : 1980 Unit#: [id number] Attend Dr: Wilbur Carrasquillo MD Re09/15/22 Status: [facility] REF Location: [facility] Disch: ----- ------- SPEC : [id number] RECD: 09/15/22-1199 STATUS: DALILA ALANISTangela NUM: [id number] HERBER: 09/15/22-1018 [facility] DR: Wilbur Carrasquillo MD ENTERED: 09/15/22-1216 SP TYPE: Pap Smr OTHR DR: Elsi Sal MD ORDERED: Pap Smear Interpretation Satisfactory for evaluation. No endocervical cells seen. Negative for intraepithelial lesion or malignancy. HPV mRNA E6/E7: NOT DETECTED This assay detects E6/E7 viral messenger RNA (mRNA) from 14 high-risk HPV types (16, 18, 31, 33, 35, 39, 45, 51, 52, 56, 58, 59, 66, 68) HPV testing performed by [employer], [place], [place]. See reference laboratory portion of the EMR for entire report. Clinical Information LMP: 08/30/2022 Previous PAP test: 2017, Abnormal Other history: HPV+ Material Received ThinPrep-Cervical Copies To: Elsi Sal MD [address] [place] [address] Wilbur Carrasquillo MD [address] [place] [address] [place] [address] ----- ------- Signed (signature on file) Margaret Gutierrez 09/20/22 1211 ----- ------- END OF REPORT [facility] External Provider LAB [facility] ORDERABLES Final Result [facility] [address] [place] [address] [phone] from Last 3 Months or Most Recently Relevant to Health Maintenance Insurance [facility] Care Teams Advertising Editor Relationship Specialty Start Date End Date Elsi Sal MD [address] [place] [phone] PCP - General Family Medicine 05/09/11
--- OUTSIDE RECORDS SUMMARY | 2025-03-12 19:07 | XMS_ITS | Encounter Summary ---
Author Organization [employer] Address [address] [place] [address] 7t [place] [address] Care Team Providers Care Bilingual Spanish Inbound Sales Name Role Phone Elsi Sal MD Primary Care Provider [phone] Reason for Referral * Imaging (Routine) - Closed Specialty Diagnoses / Procedures Referred By Cici butts Referred To Contact Radiology Diagnoses Breast pain Procedures BI Mammogram Diagnostic Tomosynthesis Bilateral Elsi Sal MD [address] [place] [address] Phone: tel: fax: [address] Phone: tel: fax: Referral ID Status Reason Start Date Expiration Date Visits Re quested Visits Authorized [id number] Closed 08/09/2024 08/09/2025 1 1 Encounter Details Date Type Department Care Team (Late st Contact Info) Description 08/09/2024 Orders Only [facility] [address] [place] [address] [phone] Elsi Sal MD [address] [place], [place] [phone] Breast pain (Primary Dx) Social History Tobacco [...] with others, in a hotel, in a fdc, living outside on the street, on a [...] Name Priority Date/Time Associated Diagnosis Comments BI MAMMOGRAM DIAGNOSTIC TOMOSYNTHESIS BILATERAL Routine 10/01/2024 8:50 AM EDT Breast pain documented in this encounter Results * BI Mammogram Diagnostic Tomosynthesis Bilateral (10/01/2024 8:50 AM EDT) Anatomical Region Laterality Modality Breast Bilateral Mammography 10/01/2024 8:50 AM EDT Narrative 10/01/2024 10:57 AM EDT [facility] [address] [place], [place] [address] Mammography Report Signed Patient: Breana Mcmillan I MR#: [id number] : 1980 Acct:[id number] Age/Sex: 44 / F ADM Date: 10/01/24 Loc: HO.MAMMO Attending Dr: Elsi Sal MD Ordering Physician: Elsi Sal MD Results: 1Negative Date of Service: 10/01/24 Follow Up: 1 Year From Orig ina Mammogram Procedure(s): MM tomosynthesis diagnostic BI Accession Number(s): [id number] cc: Elsi Sal MD EXAMINATION: MM DIAGNOSTIC [...] at time of visit by the technologist. MM/MM tomosynthesis diagnostic BI IMPRESSION: No mammographic or sonographic abnormality to account for the patient's bilateral breast pain. Recommend clinical evaluation and follow-up. ASSESSMENT: BI-RADS BI-RADS 1 - Negative RECOMMENDATION: 1 year F/U This patient's information was entered into a reminder system with a target due date for their next mammogram. Electronically signed by: Jordana Velazquez DO 10/01/2024 10:54 AM EDT RP Dictated By: Jordana Velazquez DO Signed By: <Electronically signed by Jordana Velazquez DO in OV> 10/01/24 1054 DD/ 0850 TD/TT: 10/01/24 0920 [facility] Nurse Staff: Procedure Note Donotuseinterpreter, Image - 10/01/2024 [facility] [address] [place] [address] Mammography Report Signed Patient: Breana Mcmillan IMR#: [id number] : 1980Acct:[id number] Age/Sex: 44 / FADM Date: 10/01/24 Loc: HO.MAMMO Attending Dr: Elsi Sal MD Ordering Physician: Elsi Sal MDResults: 1Negative Date of Service: 10/01/24Follow Up: 1 Year From [facility] Mammogram Procedure(s): MM tomosynthesis diagnostic BI Accession Number(s): [id number] cc: Elsi Sal MD EXAMINATION: MM DIAGNOSTIC [...] at time of visit by the technologist. MM/MM tomosynthesis diagnostic BI IMPRESSION: No mammographic or sonographic abnormality to [...] Velazquez DO in OV> 10/01/24 1054 DD/ 0850 TD/TT: 10/01/24 0920 [facility] Nurse Staff: Elsi Sal MD IMG BI PROCEDURES Final Result documented in this encounter Visit Diagnoses Diagnosis Breast pain- Primary Mastodynia documented in this encounter Additional Health Concerns Assessment Noted Time PHQ-9 Depression Total Score: 14 025 11:47 AM EST documented as of this encounter Care Teams Bilingual Spanish Inbound Sales Relationship Specialty Start Date End Date Elsi Sal MD [address] [place] [address] PCP - General Family Medicine 05/09/11 documented as of this encounter
--- OUTSIDE RECORDS SUMMARY | 2025-03-12 19:07 | XMS_ITS | Encounter Summary ---
Author Organization [employer] Address [address] [place] [address] 7 [place] [address] Care Team Providers Care Buckle Sewer Machine Name Role Phone Elsi Sal MD Primary Care Provider [phone] Reason for Visit * Reason Onset Date Comments ER Follow-up 08/03/2024 Encounter Details Date Type Department Care Team ([facility] st Contact Info) Description 08/03/2024 Telephone [facility] [address] [place], [place] [phone] Elsi Sal MD [address] [place], [place] [phone] ER Follow-up Social History Tobacco Use Types [...] with others, in a hotel, in a chcf, living outside on the street, on a [...] got money to buy more: Never True 03/03/ 2025 Within the past 12 months,th e food [...] AM EDT documented as of this encounter Functional Status * Over the past 2 weeks, how often have you been bothered by any of the following problems? Question Answer Date of Assessment Author Patient Health Questionnaire -2 Score 3 08/06/2024 11:47 AM Ashanti Marin [place] * Little interest or pleasure in doing things Answer Date of Assessment Author More than half the days 08/06/2024 11:47 AM Ashanti Marin [place] * Feeling down, depressed, or hopeless Answer Date of Assessment Author Several days 08/06/2024 11:47 AM Ashanti Marin [place] * Trouble falling or staying asleep, or sleeping too much Answer Date of Assessment Author Nearly every day 08/06/2024 11:47 AM Ashanti Marin [place] * Feeling tired or having little energy Answer Date of Assessment Author Nearly every day 08/06/2024 11:47 AM Ashanti Marin [place] * Poor appetite or overeating Answer Date of Assessment Author Several days 08/06/2024 11:47 AM Ashanti Marin [place] * Feeling bad about yourself - or that you are a failure or have let yourself or your family down Answer Date of Assessment Author Not at all 08/06/2024 11:47 AM Ashanti Marin [place] * Trouble concentrating on things, such as reading the newspaper or watching television Answer Date of Assessment Author Several days 08/06/2024 11:47 AM Ashanti Marin [place] * Moving or speaking so slowly that other people could have noticed? Or the opposite - being so fidgety or restless that you have been moving around a lot more than usual. Answer Date of Assessment Author Nearly every day 08/06/2024 11:47 AM Ashanti Marin [place] * Thoughts that you would be better off or hurting yourself in some way Answer Date of Assessment Author Not at all 08/06/2024 11:47 AM Ashanti Marin [place] * Patient Health Questionnaire-9 Score Answer Date of Assessment Author 14 08/06/2024 11:47 AM Ashanti Marin [place] * How difficult have these problems made it for you to do your work, take care of things at home, or get along with other people? Answer Date of Assessment Author Not difficult at all 08/06/2024 11:47 AM Ashanti Potter [place] * Over the last 2 weeks, how often have you been bothered by any of the following problems? Question Answer Date of Assessment Author Feeling nervous, anxious, or on edge 0 08/06/2024 11:47 AM Ashanti Marin MA Not being able to stop or co ntrol worrying 1 08/06/2024 11:47 AM Ashanti Marin MA Worrying too much about diff erent things 1 08/06/2024 11:47 AM Ashanti Marin [place] Trouble relaxing 1 08/06/2024 11:47 AM Ashanti Marin [place] Being so restless that it is hard to sit still 0 08/06/2024 11:47 AM Ashnati Marin MA Becoming easily annoyed or irritable 2 08/06/2024 11:47 AM Ashanti Marin [place] Feeling afraid as if somethi ng awful might happen 0 08/06/2024 11:47 AM Ashanti Marin MA CARLENE-7 Total Score 5 08/06/2024 11:47 AM EST Ashanti Moe MA documented as of this encounter Miscellaneous Notes * Telephone Encounter - Nikki Pizarro RN - 08/03/2024 2:12 PM EST Date: 08/03/24 Hospital: [facility] Seen for: UTI Symptomatic Yes 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 Pt states that she was seen a couple weeks ago in [facility] for UTI sx. Pt. Had UTI and was put on antibiotics. Pt. Then went to [facility] ED on 08/03/24 for same UTI sx. [...] to be seen sooner walk in at [facility] hours provided to pt. I will send note to clinical coordinators to get [facility] ED note into chart from 08/03/24. Protocol [...] Cranberry Juice * Telephone Encounter - Eitan Tye - 08/03/2024 1:16 PM EST Patient calling to report ED visit on : Date: 08/03/24 Hospital: [facility] Seen for: UTI Symptomatic Yes Symptom: Abdominal Pain - Female - Not Outcome: Schedule an appointment to be seen within 24 hours Reason: Caller denied all higher acuity questions Please contact pt at [phone]. (Vietnamese Speaker) documented in this encounter Plan of Treatment Not on file documented as of this encounter Visit Diagnoses Not on filedocumented in this encounter Additional Health Concerns Assessment Noted Time PHQ-9 Depression Total Score: 7 04/20/20 23 10:34 AM EST documented as of this encounter Care Teams Buckle Sewer Machine Relationship Specialty Start Date End Date Elsi Sal MD [address] [place] [address] PCP - General Family Medicine 05/09/11 documented as of this encounter
== END 2025-03-12 18:38 | disposition home or self-care (01) ==
PROVIDERS: Physician Assistant; Emergency Provider Student in an Organized Health Care Education/Training Program; PCP Family Medicine
DX: N95.0 Postmenopausal bleeding (principal); Z79.899 Other long term (current) drug therapy
CPT/HCPCS: 36415; 76830; 76856; 80053; 81001; 81003; 81025; 84702; 85025; 99282; 99284

== ENCOUNTER → 2025-03-12 13:48 | Outpatient (BNV) | payer MEDICAID, SELFPAY | PROVIDERS: PCP Family Medicine; Visit Provider Radiology Diagnostic Radiology | DX: N85.00 Endometrial hyperplasia, unspecified (principal); N95.0 Postmenopausal bleeding | CPT/HCPCS: 76830; 76856 ==

== ENCOUNTER 2025-03-27 11:31 | Outpatient (AMB) | payer MEDICAID, SELFPAY ==
--- NOTE | 2025-03-27 11:40 | MHC.OFFVIS ---
Vital Signs 03/27/25 11:50 Height 5 ft 1 in Weight 182 lb BMI 34.4 BP 124/82 Intake Visit Reasons: PMB Excavating Machine Operator Required: Yes Excavating Machine Operator Language: Manager Communication Services: Excavating Machine Operator Present (in person) Excavating Machine Operator Name: Jaylene LOPEZ Information Interpreted: non-clinical & clinical Manager Trust: Manager Trust Present (Jaylene LOPEZ) Accompanied by: Self / Same As Patient Allergies Penicillins (PENICILLINS) Allergy (Intermediate, Verified 03/27/25 11:51) RASH Is last menstrual period known: Yes Last menstrual period: 04/03/20 Post menopausal: Yes Patient : No Do you need a note to return to daycare/school/sports/work: Yes (for surgery on tuesday) HPI Comments Details: Presenting with an episode of vaginal bleeding that lasted 2 weeks during which the patient went to the emergency room. The following workup was done 03/30 H&H wnl 03/30 pelvic ultrasound showed the following: Uterus: The uterus is normal in size, measuring 10.0 x 4.8 x 5.8 cm. Myometrium has a normal echotexture. No fibroids are identified. Endometrium: The endometrial stripe measures 13 mm in thickness. Right ovary: The right ovary measures 2.5 x 2.3 x 1.4 cm. The right ovary is normal in size and echotexture. There is a probable 1.5 x 1.3 x 1.4 cm cyst. Evaluation is limited on transabdominal examination. Left ovary: The left ovary measures 3.3 x 1.9 x 1.4 cm. The left ovary is normal in size and echotexture. Pelvic fluid: none. US/US pelvic and transvaginal IMPRESSION: Thickened endometrial stripe. Evaluation is limited by lack of endovaginal scanning. FAN MAIL EDITOR evaluation is recommended. Last co testing done in 09/26 was negative 03/28 FSH /LH were in the menopausal range PFSH Medical History Pelvic pain Depression DEEPALI I (cervical intraepithelial neoplasia I) Back pain Follicular lymphoma Surgical History Hx of tubal ligation Hx of esophagogastroduodenoscopy H/O hernia repair Family History Maternal Aunt Diabetes Hypertension Colon cancer Family/Other Lung cancer Breast cancer Colon cancer Social History Household Members: Spouse and Children Household Members Other:: mother Housing: House Are you a primary nanny caregiver to a significant other at home: No Do you presently have visiting nurse or other home services: No Alcohol intake: current Alcohol type: wine Patient Tobacco Use Status: Never used Tobacco Substance Use Type: Marijuana Patient : No service: No Current occupational status: employed Female Reproductive History Menstrual Date of last menstrual period: 04/03/20 Total pregnancies: 2 Full term: 2 Review of Systems Const All systems reviewed & are unremarkable except as noted in HPI and below Card Reports as per HPI and Reports no additional complaints Resp Reports as per HPI and Reports no additional complaints GI Reports as per HPI and Reports no additional complaints Reports as per HPI Physical Exam Vital Signs: Last Vital Signs BP 124/82 03/27/25 11:50 BMI result Body Mass Index 34.4 Const General: cooperative, healthy appearing and comfortable Resp Effort & Inspection: normal respiratory effort Auscultation: clear to auscultation bilaterally Percussion: percussion normal Cardio Palpation: normal PMI Rate: regular rate Rhythm: regular rhythm Heart sounds: no murmurs and no rubs Peripheral pulses: Peripheral pulses 2+ throughout GI Inspection: Yes normal to inspection Palpation (GI): Soft to palpation, nontender, no guarding, not rigid and No hepatosplenomegaly present Percussion: Yes normal to percussion Auscultation: normal bowel sounds Rectal Exam - Female: deferred General: Yes no CVA tenderness External Female Exam: normal external appearance and normal appearance of the urethra Speculum Exam - Vagina: normal appearance of the vagina, normal palpation, no lesions and no masses Speculum Exam - Cervix: normal appearance of the cervix, normal palpation, no lesions, no masses and nontender Bimanual exam- vagina & uterus: normal bimanual exam, normal palpation, uterine size normal, normal palpation, uterine shape normal, No Cervical tenderness present and non-tender Bimanual Exam- Adnexa, other: normal adnexae Back/Spine/Pelvis Back: no CVA tenderness Assessment & Plan Assessment & Plan (1) Postmenopausal bleeding: Code(s): N95.0 - Postmenopausal bleeding Category: Medical Plan: Discussed with the patient the pelvic ultrasound findings, the endometrial stripe thickenss measured by ultrasound was more than 4mm. The negative predictive value, positive predictive value, Sensitivity, specificity of using ultrasound measurement of endometrial stripe to detecting endometrial pathology including hyperplasia , polyp or cancer were discussed with the patient. Recommended to the patient that the next step is an endometrial sampling via hysteroscopy D&C possible polypectomy versus endometrial biopsy to r/o endometrial pathology including hyperplasia or cancer. All the pros and cons risks and benefits of each approach were discussed with the patient. All questions were answered pt verbalized understanding and decided to proceed with hysteroscopy D&C possible polypectomy/myomectomy. Discussed with the patient the procedure , all benefits and risks including but not limited to inability to complete the procedure , insufficient endometrial tissue for a complete evaluation of the endometrial cavity , bleeding, infection, possible need for blood transfusion with all its risk ( HIV,syphilis, Hepatitis, anaphylaxis shock, others..), injury to bladder, rectum, possible need for laparoscopy/laparotomy or hysterectomy. The patient verbalized understanding and signed the consent. Instructions given the patient to stay NPO after midnight the day prior to the procedure and to take only the specific medication (s) discussed the morning of the surgical procedure and to schedule a 2 week postoperative appointment Coding Level of Care Code Est Pt Level 3 (53835) Diagnoses Postmenopausal bleeding N95.0
[2025-03-27 11:50] VITALS: BP 124/82; BMI 34.4
--- OUTSIDE RECORDS SUMMARY | 2025-03-27 15:56 | XMS_ITS | Encounter Summary ---
Author Organization [employer] [facility] Address [address] [place] [address] [address] [place] [address] Care Team Providers Care Dust Mill Operator Name Role Phone Elsi Sal MD Primary Care Provider [phone] Justine Henriquez Unavailable [phone] Ben Aguilar Unavailable Reason for Visit * Reason Comments Med Refill Encounter Details Date Type Department Care Team ([facility] st Contact Info) Description 08/05/2022 Refill [facility] [address] [place] [address] Francisco Perdomo FNP Social History Tobacco Use [...] on filedocumented in this encounter Care Teams Dust Mill Operator Relationship Specialty Start Date End Date Elsi Sal MD [address] [place] [address] PCP - General Family Medicine 05/09/11 Justine Henriquez Registered Nurse 03/13/25 03/14/25 Ben Aguilar 03/13/25 03/14/25 documented as of this encounter
--- OUTSIDE RECORDS SUMMARY | 2025-03-27 15:56 | XMS_ITS | Encounter Summary ---
Author Organization [employer] Address [address] [place] [address] [address] [place] [address] Care Team Providers Care Lay Ups Assembler Name Role Phone Elsi Sal MD Primary Care Provider [phone] Justine Henriquez Unavailable [phone] Ben Aguilar Unavailable Reason for Visit * Reason Onset Date Comments r/s appt 08/06/2022 Appointment 08/06/2022 Encounter Details Date Type Department Care Team ([facility] st Contact Info) Description 08/06/2022 Telephone [facility] [address] [place], [place] [phone] Elsi Sal MD [address] [place], [place] [phone] r/s appt ; Appointment Social History Tobacco [...] appt for 02/22/2022. Please contact pt at [phone] documented in this encounter Plan of Treatment Not on file documented as of this encounter Visit Diagnoses Not on filedocumented in this encounter Care Teams Lay Ups Assembler Relationship Specialty Start Date End Date Elsi Sal MD [address] [place] [address] PCP - General Family Medicine 05/09/11 Justine Henriquez Registered Nurse 03/13/25 03/14/25 Ben Aguilar 03/13/25 03/14/25 documented as of this encounter
--- OUTSIDE RECORDS SUMMARY | 2025-03-27 15:56 | XMS_ITS | Clinical Summary ---
Author Organization [employer] Address [address] [facility] 7[address] [place] [address] Care Team Providers Care Vending Machine Mechanic Name Role Phone Elsi Sal MD Primary Care Provider [phone] Allergies Active Allergy Reactions Criticality Noted Date [...] EST): On 08/03/24 pt was seen in [facility] ED for lower abdominal pain for 3 [...] in 2014 , evaluated by Dr. Carrasquillo, [facility] -Last PAP in 2017 was NILM -Refer back Abnormal uterine bleeding (AUB) 09/06/2022 Assessment & Plan (04/29/2023 6:17 PM EST): - following with [facility] gynecology - Pt has fibroid - EMBx on 03/21/23 was normal Assessment & Plan (03/02/2023 6:24 AM EDT): Pt w known Hx of abnormal uterine bleeding since 08/2022 - was seen by merchant mill utility worker, but lost care. -I requested production support specialist to send again previous referral for pelvic and TV US done by PCP this year. -Advise pt to call merchant mill utility worker today to reschedule apt. May need endometrial biopsy if ongoing bleeding. I provided pt w her merchant mill utility worker's phone number so that she can schedule her apt Assessment & Plan (09/12/2022 11:22 AM EDT): -evaluate with US -check lab for early menopause / premature ovarian failure Secondary oligomenorrhea 09/06/2022 Assessment & Plan (09/12/2022 11:16 AM EDT): -likely perimenopausal -Hx DEEPALI I-II, 2014, most recent PAP in 2017 was NILM, followed by [facility] -will refer back to [facility] for PAP History of COVID-19 09/05/2022 History [...] (04/29/2023 6:27 PM EST): - following with [facility] GI, last seen on 08/23/22, restarted pantoprazole and sucralfate - continue pantoprazole 40 mg daily - continue sucralfate 1 g qhs Assessment & Plan (09/05/2022 4:33 PM EDT): - following with [facility] GI, last seen on 08/23/22, restarted pantoprazole [...] 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 Date Type Department Care Team Description 03/14/2025 Patient Outreach [address] [address] Elsi Sal MD Care Coordination ([facility] Ben Aguilar - ADT Outreach-Declined ) 03/13/2025 Patient Outreach [address] [address] Elsi Sal MD Care Coordination ([facility]/Damaso Aguilar, Chart Review) 03/13/2025 Patient Outreach [address] [address] Elsi Sal MD Care Management ([facility] chart review) 03/13/2025 Patient Outreach [address] [address] Elsi Sal MD 03/12/2025 Orders Only GENERIC EXTERNAL DATA DEPARTMENT [...] housing situation today? I have mati fink 03/14/[address] you li ve. Do you have problems with any of the following? None of the above 03/14/2025 Food Insecurity Answer Date Recorded Within the past 12 months, y ou worried that your food would run out before you got money to buy more: Never True 03/14/2025 Within the past 12 months,th e food you bought just didn't last and you didn't have enough money to get more: Never True 02/2025 Transportation Answer Date Recorded In the past [...] Access Answer Date Recorded Internet Access Q1 Yes 03/14/2025 Internet Access Q2 Not on file 03/14/2025 Comments No Sex and Gender Information Value [...] 08/06/2024, 025 Alcohol/Substance Use Screening 08/06/2025 08/06/2024 Tobacco Screening 08/28/2025 08/28/2024 SDOH Screening 03/14/2026 03/14/2025 Mammogram 10/01/2026 10/01/2024, 10/01/2024 Cervical Cancer Screening [...] US PELVIS TRANSVAGINAL Routine 3:18 PM EDT HCG, TOTAL, QN Routine [...] PM EDT Narrative 03/12/2025 3:41 PM EDT [address] [address] Ultrasound Report Signed Patient: Breana Mcmillan I MR#: [id number] : 1980 Acct:[id number] Age/Sex: 44 / F ADM Date: 03/12/25 Loc: .ED Attending Dr: Ordering Physician: Shola Orellana Date of Service: 03/12/25 Procedure(s): US pelvic and transvaginal Accession Number(s): [id number] cc: Shola Orellana; Elsi Sal MD Reason [...] is limited by lack of endovaginal scanning. [facility] evaluation is recommended. Electronically signed by: Tim Romero MD 03/12/2025 03:38 PM EDT RP Dictated By: Tim Romero MD Signed By: <Electronically signed by Tim Romero MD in OV> 03/12/25 1538 DD/ 1518 TD/TT: 03/12/25 1522 Automation Machine Operator: Procedure Note Donotuseinterpreter, Image - 03/12/2025 [place] [address] Ultrasound Report Signed Patient: Breana Mcmillan IMR#: [id number] : 1980Acct:[id number] Age/Sex: 44 / FADM Date: 03/12/25 Loc: HO.ED Attending Dr: Ordering Physician: Shola Orellana Date of Service: 03/12/25 Procedure(s): US pelvic and transvaginal Accession Number(s): [id number] cc: Shola Orellana; Elsi Sal MD Reason [...] is limited by lack of endovaginal scanning. [facility] evaluation is recommended. Electronically signed by: Tim Romero MD 03/12/2025 03:38 PM EDT Dictated By: Tim Romero MD Signed By: <Electronically signed by Tim Romero MD in OV> 03/12/25 1538 DD/ 1518 TD/TT: 03/12/25 1522 Automation Machine Operator: us [facility] External Provider IMG US PROCEDURES Final Result * (ABNORMAL) Urinalysis, Complete, with Reflex to Culture (03/12/2025 12:53 PM EDT) Color Urine Yellow [facility] Appearance Urine Clear [facility] PH 5.5 5.0 - 9.0 [facility] Glucose Urine UA Negative Negative mg/dL [facility] Urine Blood Large (3+)(A) Negative [facility] Specific [place] - Urine 1.025 1.005 - 1.025 [facility] Urine Protein Trace Neg-Trace mg/dL [facility] Urine Ketones Negative Negative mg/dL [facility] Nitrite Urine Negative Negative [facility] Leukocyte Esterase Urine Trace(A) Negative [facility] RBC Urine >20(A) 0 - 2 /HPF [facility] Urine WBC 0-5 0 - 5 /HPF [facility] Urine Squamous Epithelial Cell 3-5 0 - 2 /HPF [facility] Urine Bacteria None Seen None Seen [facility] Hyaline Casts, Urine 0-2 0 - 2 /LPF [facility] 03/12/2025 12:5 3 PM EDT 03/12/2025 12:56 PM EDT Narrative [facility] - 03/12/2025 1:05 PM EDT [id number], Clean Catch us Generic External Data Provider LAB URINE ORDERAB LES Final Result [facility] [address] [place] [address] [phone] * CBC auto differential (03/12/2025 12:53 PM EDT) White Blood Count 10.1 4.8 - 10.8 X10*3/uL [facility] Red Blood Count 4.78 4.20 - 5.50 X10*6/uL [facility] Hemoglobin 14.1 12.0 - 16.0 g/dl [facility] Hematocrit 41.0 37.0 - 47.0 % [facility] Mean Corpuscular Volume 85.8 80.0 - 98.0 fL [facility] Mean Corpuscular Hemoglobin 29.5 27.0 - 33.0 pg [facility] Mean Corpuscular HGB Conc 34.4 31.0 - 35.0 g/dl [facility] Red Cell Distribution Width 13.8 11.0 - 16.0 % [facility] Platelet Count 245 160 - 400 X10*3/uL [facility] Mean Platelet Volume 10.8 9.4 - 12.3 fL [facility] Neutrophils Percent Auto 59.8 45 - 73 % [facility] Imm Gran Pct Auto 0.2 0.0 - 0.4 % [facility] Lymphocytes Percent Auto 32.1 20 - 40 % [facility] Monocytes Percent Auto 5.8 2 - 11 % [facility] Eosinophils Percent Auto 1.7 0 - 4 % [facility] Basophils Percent Auto 0.4 0 - 2 % [facility] NRBC Pct Auto 0.0 0.0 - 0.2 /100WBC [facility] Neutrophils Absolute Auto 6.1 2.0 - 8.3 x10*3/uL [facility] Imm Gran Abs Auto 0.02 0.00 - 0.03 X10*3/uL [facility] Lymphocytes Absolute Auto 3.3 1.2 - 4.9 X10*3/uL [facility] Monocytes Absolute Auto 0.6 0.1 - 1.2 X10*3/uL [facility] Eosinophils Absolute Auto 0.2 0.0 - 0.4 X10*3/uL [facility] Basophils Absolute Auto 0.0 0.0 - 0.2 X10*3/uL [facility] NRBC Abs Auto 0.000 0.0 - 0.012 X10*3/uL [facility] 03/12/2025 12:5 3 PM EDT 03/12/2025 12:56 PM EDT Generic External Data Provider LAB BLOOD ORDERAB LES Final Result Performing Organization Address [facility] Co de Phone Number [facility] [address] [place] [address] [phone] * HCG, Qualitative, Urine (03/12/2025 12:53 PM EDT) Urine NEGATIVE NEGATIVE [facility] Comment:This test was develo ped to detect early . Falsenegative results may occur after the 5th - 7th week ofpregnancy when using this test method. If clinicallyindicated, consider a serum hCG. 03/12/2025 12:5 3 PM EDT 03/12/2025 12:56 PM EDT Generic External Data Provider LAB URINE ORDERAB LES Final Result Performing Organization Address [facility]/ZIP Co de Phone Number [facility] [address] [place] [address] [phone] * hCG, Total, Quantitative (03/12/2025 12:53 PM EDT) HCG Quantitative <2 mIU/mL [facility] Comment:Weeks post LMP Appr oximate hCG(Last Menstrual Period) Range (mIU/ml)3 - 4 weeks 9 - 1304 - 5 weeks 75 - 2,6005 - 6 weeks 850 - 20,8006 - 7 weeks 4000 - 100,2007 - 12 weeks 11,500 - 289,33039 - 16 weeks 18,300 - 137,56648 - 29 weeks (2nd trimester) 1,400 - 53,62170 - 41 weeks (3rd trimester) 940 - [...] Provider LAB BLOOD ORDERAB LES Final Result [facility] [address] [place] [address] [phone] * (ABNORMAL) Comprehensive Metabolic Panel (03/12/2025 12:53 PM EDT) Sodium 140 135 - 145 mmol/L [facility] Potassium 4.0 3.3 - 5.1 mmol/L [facility] Chloride 106 96 - 108 mmol/L [facility] Carbon Dioxide 27 22 - 29 mmol/L [facility] Anion Gap 11(L) 12 - 20 [facility] Urea Nitrogen (BUN) 12 9 - 16 mg/dL [facility] Creatinine, Serum 0.71 0.5 - 1.4 mg/dL [facility] Creatinine Clr Calc Pharmacy 100.5 [facility] Comment:Provided height and weight: 154.94 cm,82.554 kg.eGFR (calculated from the MDRD study equation) and eCrCl(calculated from the Cockcroft-Gault equation) are based ondifferent parameters and may not yield comparable results.If eCrCl result is absurd, please check patient'sheight/weight. Estimated Glomerular Filt Rate >60 [facility] Comment:Chronic Kidney Disea se: Estimated GFR < 60 mL/min/1.31o5Vrosji Kidney Disease: Estimated GFR < 15 mL/min/1.73m2 Glucose 92 60 - 115 mg/dL [facility] Calcium 9.1 8.4 - 10.2 mg/dL [facility] Bilirubin, Total 1.4(H) 0.0 - 1.0 mg/dL [facility] Aspartate Amino Transferase 28 5 - 31 U/L [facility] Alanine Aminotransferase 25 0 - 31 U/L [facility] Total Protein 7.0 6.5 - 8.0 g/dL [facility] Albumin Level 4.2 3.5 - 5.0 g/dL [facility] Alkaline Phosphatase 83 39 - 117 U/L [facility] 03/12/2025 12:5 3 PM EDT 03/12/2025 12:56 PM EDT us Generic External Data Provider LAB BLOOD ORDERAB LES Final Result Performing Organization Address City/State/[facility] Co de Phone Number [facility] [address] [place] [phone] * BI US Breast Limited Bilateral (10/01/2024 9:30 AM EDT) Anatomical Region Laterality Modality Breast Bilateral Ultrasound 10/01/2024 9:30 AM EDT Narrative 10/01/2024 10:57 AM EDT [facility] [address] [place] [address] Ultrasound Report Signed Patient: Breana Mcmillan I MR#: [id number] : 1980 Acct:[id number] Age/Sex: 44 / F ADM Date: 10/01/24 Loc: DAVID Attending Dr: Elsi Sal MD Ordering Physician: Elsi Sal MD Date of Service: 10/01/24 Procedure(s): US breast BI limited mamm only Accession Number(s): [id number] cc: Elsi Sal MD EXAMINATION: MM DIAGNOSTIC [...] 10/01/24 1054 DD/ 0930 TD/TT: 10/01/24 0958 Automation Machine Operator: Procedure Note Donotuseinterpreter, Image - 10/01/2024 [place] [facility] [address] [place] [address] Ultrasound Report Signed Patient: Breana Mcmillan [facility]#: [id number] : 1980Acct:[id number] Age/Sex: 44 / FADM Date: 10/01/24 Loc: HO.MAMMO Attending Dr: Elsi Sal MD Ordering Physician: Elsi Sal MD Date of Service: 10/01/24 Procedure(s): US breast BI limited mamm only Accession Number(s): [id number] cc: Elsi Sal MD EXAMINATION: MM DIAGNOSTIC [...] 10/01/24 1054 DD/ 0930 TD/TT: 10/01/24 0958 Automation Machine Operator: Elsi Sal MD IM US PROCEDURES Final Result * Hepatitis C Ab (03/20/2024 10:05 AM EDT) Hepatitis C Antibody Nonreactive Nonreactive [facility] Comment:Antibodies to HCV no t detected; does not exclude early acuteHCV infection. 03/20/2024 10:0 5 AM EDT 03/20/2024 11:11 AM EDT Generic External Data Provider LAB BLOOD ORDERAB LES Final Result Performing Organization Address [facility]/ZIP Co de Phone Number [facility] [address] [place] [address] [phone] * HIV-1/2 Antigen and Antibodies, Fourth Generation, with Reflexes (03/20/2024 10:05 AM EDT) HIV AB/AG Nonreactive Nonreactive [facility] Comment:HIV-1 p24 Ag and/or HIV-1/HIV-2 Ab not detected.A test result that is nonreactive does not exclude thepossibility of exposure to or infection with HIV-1 and/orHIV-2. Nonreactive results in this assay for individualswith prior exposure to HIV-1 and/or HIV-2 may be due toantigen and antibody levels that are below the limit ofdetection of this assay.The [employer] HIV Ag/Ab Combo assay result andsupplemental assay results should be interpreted inconjunction with the patient's clinical presentation,history and other laboratory results. If the results areinconsistent with clinical evidence, additional testing issuggested to confirm the result. 03/20/2024 10:0 5 AM EDT 03/20/2024 11:11 AM EDT us Generic External Data Provider LAB BLOOD ORDERAB LES Final Result Performing Organization Address City/[facility]/ZIP Co de Phone Number [facility] [address] [place] [address] [phone] * (ABNORMAL) Lipid Panel with Reflex to Direct LDL (05/04/2023 10:45 AM EST) Triglycerides 69 <150 mg/dL [facility] Comment:Desirable Triglyceri de: less than 150 mg/dLBorderline High Triglyceride 150-199 mg/dLHigh Triglyceride: 200-499 mg/dLVery High Triglyceride: greater than or equal to 5OO mg/dL Cholesterol 192 <200 mg/dL [facility] Comment:Desirable Cholestero l: less than 200 mg/dLBorderline High Cholesterol: 200-239 mg/dLHigh Cholesterol: greater than 239 mg/dL LDL Cholesterol Calculated 126(H) <100 mg/dL [facility] Comment:Desirable LDL: less than 100 mg/dLNear Optimal/Above Optimal LDL: 110- 129 mg/dLBorderline High LDL: 130-159 mg/dLHigh LDL: 160-189 mg/dLVery High LDL: greater than or equal to 190 mg/dL HDL Cholesterol 53 >40 mg/dL [facility] Comment:Desirable HDL: great er than 40 mg/dL Note: This HDL assay may give artificially low results in patients with liver disease. Blood 05/04/2023 10:4 5 AM EST 05/04/2023 11:19 AM EST us Elsi Sal MD LAB BLOOD ORDERABLES Final Resul t [facility] [address] [place] [phone] * HPV mRNA E6/E7 w/Reflex to HPV Genotypes 16, 18/45 (09/15/2022 10:18 AM EDT) HPV nRNA E6/E7 Not Detected Not Detected [facility] Comment:Methodology: Transcr iption-Mediated AmplificationThis assay detects E6/E7 viral messenger RNA (mRNA) from 14high-risk HPV types (16,18,31,33,35,39,45,51,52,56,58,59,66,68).Cervical sources are required for HPV testing.If a vaginal source from a patient who has had atotal hysterectomy with removal of cervix wassubmitted, please contact the testing laboratoryfor alternative testing options.For additional information, please refer tohttp://education.OpenX/faq/GFP439k5(This link if provided for information/educational purposes only.)THIS TEST WAS PERFORMED AT:[facility] [place] [phone] GARCIA MD HPV mRNA E6/E7 TNP [facility] HPV 16 RNA TNP [facility] HPV 18/45 RNA TNP [facility] 09/15/2022 10:1 8 AM EDT 09/15/2022 12:00 PM EDT us [facility] External Provider LAB CYT OLOGY ORDERABLES Final Result [facility] [address] [place] [phone] * Pap Smear (09/15/2022 10:18 AM EDT) 09/15/2022 10:1 8 AM EDT 09/15/2022 12:00 PM EDT Narrative [facility] - 09/20/2022 12:11 PM EDT ----- ------- Name: Breana Mcmillan I Age/Sex: 41/F : 1980 Unit#: [id number] Attend Dr: Wilbur Carrasquillo MD Re09/15/22 Status: DEP REF Location: [facility] Disch: ----- ------- SPEC : [id number] RECD: 09/15/22-1200 STATUS: DALILA DOMINGUEZ NUM: [id number] HERBER: 09/15/22-1018 [facility] DR: Wilbur Carrasquillo MD ENTERED: 09/15/22-1216 [...] 59, 66, 68) HPV testing performed by [facility] ([facility] [employer] [place], [place]. See reference laboratory portion of the EMR for entire report. Clinical Information LMP: 08/30/2022 Previous PAP test: 2017, Abnormal Other history: HPV+ Material Received ThinPrep-Cervical Copies To: Elsi Sal MD [address] [place] [address] Wilbur Carrasquillo MD [address] [place] [address] [address] ----- ------- Signed (signature on file) Margaret Gutierrez 09/20/22 1211 ----- ------- END OF REPORT [facility] External Provider LAB [facility]T [facility] ORDERABLES Final Result [facility] [address] [place] [address] [phone] from Last 3 Months or Most Recently Relevant to Health Maintenance Insurance [employer] Care Teams Vending Machine Mechanic Relationship Specialty Start Date End Date Elsi Sal MD [address] [place] [address] PCP - General Family Medicine 05/09/11
--- OUTSIDE RECORDS SUMMARY | 2025-03-27 15:56 | XMS_ITS | Encounter Summary ---
Author Organization [employer] Address [address] [place] [address] 7[address] [place] [address] Care Team Providers Care Watch Manufacturing Supervisor Name Role Phone Elsi Sal MD Primary Care Provider [phone] Justine Henriquez Unavailable [phone] Ben Aguilar Unavailable Reason for Visit * Reason Onset Date Comments Med Refill Appointment 07/30/2022 Encounter Details Date Type Department Care Team ([facility] st Contact Info) Description 07/30/2022 Refill [facility] MED[facility]INE [address] [place] [address] Francisco Perdomo FNP Social History Tobacco Use [...] AM EST T/C placed to pt @ [phone] and the person who answered my call said is a wrong phone #. Also, I called @ her mother phone # that is listed and is disconnected at this time. documented in this encounter Plan of Treatment Not on file documented as of this encounter Visit Diagnoses Not on filedocumented in this encounter Care Teams Watch Manufacturing Supervisor Relationship Specialty Start Date End Date Elsi Sal MD [address] [place] [phone] PCP - General Family Medicine 05/09/11 Justine Henriquez Registered Nurse 03/13/25 03/14/25 Ben Aguilar 03/13/25 03/14/25 documented as of this encounter
--- OUTSIDE RECORDS SUMMARY | 2025-03-27 15:56 | XMS_ITS | Encounter Summary ---
Author Organization [employer] Address [address] [place] [address] 7[address] [place] [address] Care Team Providers Care Shovel Operator Name Role Phone Elsi Sal MD Primary Care Provider [phone] Justine Henriquez Unavailable [phone] Ben Aguilar Unavailable Reason for Visit * Reason Onset Date Comments Nurse Triage 05/07/2024 Encounter Details Date Type Department Care Team (Late st Contact Info) Description 05/07/2024 Telephone [facility] MEDICINE [address] [place] [address] Elsi Sal MD [address] [place], [place] [phone] Nurse Triage Social History Tobacco Use Types [...] documented as of this encounter Care Teams Shovel Operator Relationship Specialty Start Date End Date Elsi Sal MD [address] [place] [address] PCP - General Family Medicine 05/09/11 Justine Henriquez Registered Nurse 03/13/25 03/14/25 Ben Aguilar 03/13/25 03/14/25 documented as of this encounter
--- OUTSIDE RECORDS SUMMARY | 2025-03-27 15:57 | XMS_ITS | Encounter Summary ---
Author Organization [employer] Address [address] [place] [address] 7t [place] [address] Care Team Providers Care Studio Operator Name Role Phone Elsi Sal MD Primary Care Provider [phone] Justine Henriquez Unavailable [phone] Ben Aguilar Unavailable Reason for Referral * Imaging (Routine) - Closed Specialty Diagnoses / Procedures Referred By Contac t Referred To Contact Radiology Diagnoses Breast pain in female Procedures BI US Breast Limited Right Elsi Sal MD [address] [place] [address] Phone: tel: fax: [address] Phone: tel: fax: Referral ID Status Reason Start Date Expiration Date Visits Re quested Visits Authorized [id number] Closed 08/23/2024 08/23/2025 1 1 * Imaging (Routine) - Closed Specialty Diagnoses / Procedures Referred By Contac t Referred To Contact Radiology Diagnoses Breast pain in female Procedures BI US Breast Limited Left Elsi Sal MD [address] [place] [address] Phone: tel: fax: [address] Phone: tel: fax: Referral ID Status Reason Start Date Expiration Date Visits Re quested Visits Authorized [id number] Closed 08/23/2024 08/23/2025 1 1 * Imaging (Routine) - Closed Specialty Diagnoses / Procedures Referred By Cici butts Referred To Contact Radiology Diagnoses Breast pain in female Procedures BI US Breast Complete Right Elsi Sal MD [address] [place] [address] Phone: tel: fax: [address] Phone: tel: fax: Referral ID Status Reason Start Date Expiration Date Visits Re quested Visits Authorized [id number] Closed 08/23/2024 08/23/2025 1 1 Encounter Details Date Type Department Care Team (Late st Contact Info) Description 08/23/2024 Orders Only [facility] MEDICINE [address] [place] [address] Elsi Sal MD [address] [place], [place] [phone] Breast pain in female (Primary Dx) Social [...] with others, in a hotel, in a long term, living outside on the street, on a [...] EDT Narrative 10/01/2024 10:57 AM EDT [place] [address] [place], [place] [address] Ultrasound Report Signed Patient: Breana Mcmillan I MR#: [id number] : 1980 Acct:[id number] Age/Sex: 44 / F ADM Date: 10/01/24 Loc: HO.MAMMO Attending Dr: Elsi Sal MD Ordering Physician: Elsi Sal MD Date of Service: 10/01/24 Procedure(s): US breast BI limited mamm only Accession Number(s): [id number] cc: Elsi Sal MD EXAMINATION: MM DIAGNOSTIC [...] signed by Jordana Velazquez DO in OV> 04/28/25 1054 DD/ 0930 TD/TT: 10/01/24 0958 Aircraft Parts Assembler: Procedure Note Donotuseinterpreter, Image - 10/01/2024 [facility] [address] [place], [place] [address] Ultrasound Report Signed Patient: Breana Mcmillan IMR#: [id number] : 1980Acct:[id number] Age/Sex: 44 / FADM Date: 10/01/24 Loc: HO.MAMMO Attending Dr: Elsi Sal MD Ordering Physician: Elsi Sal MD Date of Service: 10/01/24 Procedure(s): US breast BI limited mamm only Accession Number(s): [id number] cc: Elsi Sal MD EXAMINATION: MM DIAGNOSTIC [...] 10/01/24 1054 DD/ 0930 TD/TT: 10/01/24 0958 Aircraft Parts Assembler: us Elsi Sal MD IMG US PROCEDURES Final Result documented in this encounter Visit Diagnoses Diagnosis Breast pain in female- Primary Mastodynia documented in this encounter Additional Health Concerns Assessment Noted Time PHQ-9 Depression Total Score: 14 025 11:47 AM EST documented as of this encounter Care Teams Studio Operator Relationship Specialty Start Date End Date Elsi Sal MD [address] [place] [address] PCP - General Family Medicine 05/09/11 Justine Henriquez Registered Nurse 03/13/25 03/14/25 Ben Aguilar 03/13/25 03/14/25 documented as of this encounter
--- OUTSIDE RECORDS SUMMARY | 2025-03-27 15:57 | XMS_ITS | Encounter Summary ---
Author Organization [employer] Address [address] [place] [address] 7t [place] [address] Care Team Providers Care Pipe Maker Name Role Phone Elsi Sal MD Primary Care Provider [phone] Justine Henriquez Unavailable [phone] Ben Aguilar Unavailable Reason for Referral * Imaging (Routine) - Closed Specialty Diagnoses / Procedures Referred By Contac t Referred To Contact Radiology Diagnoses Breast pain Procedures BI Mammogram Diagnostic Tomosynthesis Bilateral Elis Sal MD [address] [place] [address] Phone: tel: fax: [address] Phone: tel: fax: Referral ID Status Reason Start Date Expiration Date Visits Re quested Visits Authorized [id number] Closed 08/09/2024 08/09/2025 1 1 Encounter Details Date Type Department Care Team (Late st Contact Info) Description 08/09/2024 Orders Only [facility] MEDICINE [address] [place], [place] [phone] Elsi Sal MD [address] [place], [place] [phone] Breast pain (Primary Dx) Social History Tobacco [...] with others, in a hotel, in a usp, living outside on the street, on a [...] Narrative 10/01/2024 10:57 AM EDT [place] [facility] [address] [place], [place] [address] Mammography Report Signed Patient: Breana Mcmillan I MR#: [id number] : 1980 Acct:[id number] Age/Sex: 44 / F ADM Date: 10/01/24 Loc: HO.MAMMO Attending Dr: Elsi Sal MD Ordering Physician: Elsi Sal MD Results: 1Negative Date of Service: 10/01/24 Follow Up: 1 Year From [facility] Mammogram Procedure(s): MM tomosynthesis diagnostic BI Accession Number(s): [id number] cc: Elsi Sal MD EXAMINATION: MM DIAGNOSTIC [...] 10/01/24 1054 DD/ 0850 TD/TT: 10/01/24 0920 Clarifier: Procedure Note Donotuseinterpreter, Image - 10/01/2024 [facility] [address] [place] [address] Mammography Report Signed Patient: Breana Mcmillan IMR#: [id number] : 1980Acct:[id number] Age/Sex: 44 / FADM Date: 10/01/24 Loc: DAVID Attending Dr: Elsi Sal MD Ordering Physician: Elsi Sal MDResults: 1Negative Date of Service: 10/01/24Follow Up: 1 Year From [facility] Mammogram Procedure(s): MM tomosynthesis diagnostic BI Accession Number(s): [id number] cc: Elsi Sal MD EXAMINATION: MM DIAGNOSTIC [...] 10/01/24 1054 DD/ 0850 TD/TT: 10/01/24 0920 Clarifier: Elsi Sal MD IMG BI PROCEDURES Final Result documented in this encounter Visit Diagnoses Diagnosis Breast pain- Primary Mastodynia documented in this encounter Additional Health Concerns Assessment Noted Time PHQ-9 Depression Total Score: 14 025 11:47 AM EST documented as of this encounter Care Teams Pipe Maker Relationship Specialty Start Date End Date Elsi Sal MD [address] [place] [address] PCP - General Family Medicine 05/09/11 Justine Henriquez Registered Nurse 03/13/25 03/14/25 Ben Aguilar 03/13/25 03/14/25 documented as of this encounter
--- OUTSIDE RECORDS SUMMARY | 2025-03-27 15:57 | XMS_ITS | Encounter Summary ---
Author Organization [employer] Address [address] [place] [address] 7t [place] [address] Care Team Providers Care Bakery Associate Name Role Phone Elsi Sal MD Primary Care Provider [phone] Justine Henriquez Unavailable [phone] Ben Aguilar Unavailable Reason for Visit * Reason Onset Date Comments ER Follow-up 08/03/2024 Encounter Details Date Type Department Care Team ([facility] st Contact Info) Description 08/03/2024 Telephone [facility] MEDICINE [address] [place], [place] [phone] Elsi Sal MD [address] [place], [place] [phone] ER Follow-up Social History Tobacco Use Types [...] to sit still 0 08/06/2024 11:47 AM Ashanti Marin [place] Becoming easily annoyed or irritable 2 08/06/2024 11:47 AM Ashanti Marin [place] Feeling afraid as if somethi ng awful might happen 0 08/06/2024 11:47 AM Ashanti Marin [place] CARLENE-7 Total Score 5 08/06/2024 11:47 AM Ashanti Marin [place] documented as of this encounter Miscellaneous Notes * Telephone Encounter - Nikki Pizarro RN - 08/03/2024 2:12 PM EST Date: 08/03/24 Hospital: [facility] Seen for: UTI Symptomatic Yes Called pt. [employer] [address] María Elena. Pt states that she was seen a couple weeks ago in Walk [facility] for UTI sx. Pt. Had UTI and was put on antibiotics. Pt. Then went to [facility] on 08/03/24 for same UTI sx. [...] seen sooner walk in at [facility] hours provided to pt. I will send note to clinical coordinators to get [facility] note into chart from 08/03/24. Protocol [...] ED visit on : Date: 08/03/24 Hospital: [facility] Seen for: UTI Symptomatic Yes Symptom: Abdominal Pain - Female - Not Outcome: Schedule an appointment to be seen within 24 hours Reason: Caller denied all higher acuity questions Please contact pt at [phone]. (Slovenian Speaker) documented in this encounter Plan of Treatment Not on file documented as of this encounter Visit Diagnoses Not on filedocumented in this encounter Additional Health Concerns Assessment Noted Time PHQ-9 Depression Total Score: 7 04/20/20 23 10:34 AM EST documented as of this encounter Care Teams Bakery Associate Relationship Specialty Start Date End Date Elsi Sal MD [address] [place] [address] PCP - General Family Medicine 05/09/11 Justine Henriquez Registered Nurse 03/13/25 03/14/25 Ben Aguilar 03/13/25 03/14/25 documented as of this encounter
== END 2025-03-27 12:21 | disposition home or self-care (01) ==
LOC: HO.HWS 11:31
PROVIDERS: PCP Family Medicine; Visit Provider Obstetrics & Gynecology
DX: N95.0 Postmenopausal bleeding (principal)
CPT/HCPCS: 99213

== ENCOUNTER → 2025-03-27 11:31 | Outpatient (BNVA) | payer MEDICAID, SELFPAY | PROVIDERS: PCP Family Medicine; Visit Provider Obstetrics & Gynecology | DX: N95.0 Postmenopausal bleeding (principal) | CPT/HCPCS: 99212 ==

== ENCOUNTER 2025-04-26 08:14 | Day surgery (SDC) | payer MEDICAID, SELFPAY ==
--- OUTSIDE RECORDS SUMMARY | 2025-04-01 15:59 | XMS_ITS | Clinical Summary ---
Author Organization [employer] Address [address] [facility] 7t [place] [address] Care Team Providers Care Cleaner Greaser Name Role Phone Elsi Sal MD Primary Care Provider [phone] Allergies Active Allergy Reactions Criticality Noted Date [...] EST): On 08/03/24 pt was seen in [facility] ED for lower abdominal pain for 3 [...] in 2014 , evaluated by Dr. Carrasquillo, [facility] CULTURAL ANTHROPOLOGY PROFESSOR -Last PAP in 2017 was NILM -Refer back Abnormal uterine bleeding (AUB) 09/06/2022 Assessment & Plan (04/29/2023 6:17 PM EST): - following with [facility] gynecology - Pt has fibroid - EMBx on 03/21/23 was normal Assessment & Plan (03/02/2023 6:24 AM EDT): Pt w known Hx of abnormal uterine bleeding since 08/2022 - was seen by transport nurse, but lost care. -I requested associate relations specialist to send again previous referral for pelvic and TV US done by PCP this year. -Advise pt to call transport nurse today to reschedule apt. May need endometrial biopsy if ongoing bleeding. I provided pt w her transport nurse's phone number so that she can schedule her apt Assessment & Plan (09/12/2022 11:22 AM EDT): -evaluate with US -check lab for early menopause / premature ovarian failure Secondary oligomenorrhea 09/06/2022 Assessment & Plan (09/12/2022 11:16 AM EDT): -likely perimenopausal -Hx DEEPALI I-II, 2014, most recent PAP in 2017 was NILM, followed by [facility] CULTURAL ANTHROPOLOGY PROFESSOR -will refer back to CULTURAL ANTHROPOLOGY PROFESSOR for PAP History of COVID-19 09/05/2022 History [...] (04/29/2023 6:27 PM EST): - following with [facility] GI, last seen on 08/23/22, restarted pantoprazole and sucralfate - continue pantoprazole 40 mg daily - continue sucralfate 1 g qhs Assessment & Plan (09/05/2022 4:33 PM EDT): - following with [facility] GI, last seen on 08/23/22, restarted pantoprazole [...] 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 ([facility]/HCC) 08/26/2016 Assessment & Plan (08/06/2024 1:01 [...] -PT referral with a possible evaluation by [facility] / pain management -if [...] Department Care Team Description 03/14/2025 Patient Outreach [address] [address] Elsi Sal MD Care Coordination ([facility] Ben Aguilar - ADT Outreach-Declined ) 03/13/2025 Patient Outreach [address] [address] Elsi Sal MD Care Coordination ([facility]/Damaso Aguilar, Chart Review) 03/13/2025 Patient Outreach [address] [address] Elsi Sal MD Care Management ([facility] chart review) 03/13/2025 Patient Outreach [address] [address] Elsi Sal MD 03/12/2025 Orders Only GENERIC [...] PM EDT Narrative 03/12/2025 3:41 PM EDT [address] [address] Ultrasound Report Signed Patient: Breana Mcmillan I MR#: [id number] : 1980 Acct:[id number] Age/Sex: 44 / F ADM Date: 03/12/25 Loc: .ED Attending Dr: Ordering Physician: Shola Orellana Date of Service: 03/12/25 Procedure(s): US pelvic and transvaginal Accession Number(s): [id number] cc: Shola Orellana; Elsi Sal MD Reason [...] is limited by lack of endovaginal scanning. CULTURAL ANTHROPOLOGY PROFESSOR evaluation is recommended. Electronically signed by: Tim Romero MD 03/12/2025 03:38 PM EDT RP Dictated By: Tim Romero MD Signed By: <Electronically signed by Tim Romero MD in OV> 03/12/25 1538 DD/ 1518 TD/TT: 03/12/25 1522 Steel Heater: Procedure Note Donotuseinterpreter, Image - 03/12/2025 [place] [address] Ultrasound Report Signed Patient: Breana Mcmillan IMR#: [id number] : 1980Acct:[id number] Age/Sex: 44 / FADM Date: 03/12/25 Loc: HO.ED Attending Dr: Ordering Physician: Shola Orellana Date of Service: 03/12/25 Procedure(s): US pelvic and transvaginal Accession Number(s): [id number] cc: Shola Orellana; Elsi Sal MD Reason [...] is limited by lack of endovaginal scanning. CULTURAL ANTHROPOLOGY PROFESSOR evaluation is recommended. Electronically signed by: Tim Romero MD 03/12/2025 03:38 PM EDT Dictated By: Tim Romero MD Signed By: <Electronically signed by Tim Romero MD in OV> 03/12/25 1538 DD/ 1518 TD/TT: 03/12/25 1522 Steel Heater: us [facility] External Provider IMG US PROCEDURES [...] Negative [facility] Specific Cameron - Urine 1.025 1.005 - 1.025 [facility] Urine Protein Trace Neg-Trace mg/dL [facility] Urine Ketones Negative Negative mg/dL [facility] Nitrite Urine Negative Negative [facility] Leukocyte Esterase Urine Trace(A) Negative [facility] RBC Urine >20(A) 0 - 2 /HPF [facility] Urine WBC 0-5 0 - 5 /HPF [facility] Urine Squamous Epithelial Cell 3-5 0 - 2 /HPF [facility] Urine Bacteria None Seen None Seen [facility] Hyaline Casts, Urine 0-2 0 - 2 /LPF [facility] 03/12/2025 12:5 3 PM EDT 03/12/2025 12:56 PM EDT Narrative [facility] - 03/12/2025 1:05 PM EDT [id number], Clean Catch us Generic External Data Provider LAB URINE ORDERAB LES Final Result [facility] [address] [place] [address] [phone] * CBC auto differential (03/12/2025 12:53 [...] ORDERAB LES Final Result Performing Organization Address [facility] Co de Phone Number [facility] [address] [place] [address] [phone] * HCG, Qualitative, Urine (03/12/2025 12:53 PM EDT) Urine NEGATIVE NEGATIVE [facility] Comment:This test was develo ped to detect early . Falsenegative results may occur after the 5th - 7th week ofpregnancy when using this test method. If clinicallyindicated, consider a serum hCG. 03/12/2025 12:5 3 PM EDT 03/12/2025 12:56 PM EDT Generic External Data Provider LAB URINE ORDERAB LES Final Result Performing Organization Address [facility]/ZIP Co de Phone Number [facility] [address] [place] [address] [phone] * hCG, Total, Quantitative (03/12/2025 12:53 PM EDT) HCG Quantitative <2 mIU/mL [facility] Comment:Weeks post LMP Appr oximate hCG(Last Menstrual Period) Range (mIU/ml)3 - 4 weeks 9 - 1304 - 5 weeks 75 - 2,6005 - 6 weeks 850 - 20,8006 - 7 weeks 4000 - 100,2007 - 12 weeks 11,500 - 289,03243 - 16 weeks 18,300 - 137,18805 - 29 weeks (2nd trimester) 1,400 - 53,29345 - 41 weeks (3rd trimester) 940 - [...] Final Result [facility] [address] [place] [address] [phone] * (ABNORMAL) Comprehensive Metabolic Panel (03/12/2025 [...] Kidney Disea se: Estimated GFR < 60 mL/min/1.72c3Laavsq Kidney Disease: Estimated GFR < 15 mL/min/1.73m2 [...] ORDERAB LES Final Result Performing Organization Address City/State/[facility] Co de Phone Number [facility] [address] [place] [phone] * BI US Breast Limited Bilateral (10/01/2024 9:30 AM EDT) Anatomical Region Laterality Modality Breast Bilateral Ultrasound 10/01/2024 9:30 AM EDT Narrative 10/01/2024 10:57 AM EDT [facility] [address] [place] [address] Ultrasound Report Signed Patient: Breana Mcmillan I MR#: [id number] : 1980 Acct:[id number] Age/Sex: 44 / F ADM Date: 10/01/24 Loc: DAVID Attending Dr: Elsi Sal MD Ordering Physician: Elsi Sal MD Date of Service: 10/01/24 Procedure(s): US breast BI limited mamm only Accession Number(s): [id number] cc: Elsi Sal MD EXAMINATION: MM DIAGNOSTIC [...] 10/01/24 1054 DD/ 0930 TD/TT: 10/01/24 0958 Steel Heater: Procedure Note Donotuseinterpreter, Image - 10/01/2024 [place] [facility] [address] [place] [address] Ultrasound Report Signed Patient: Breana Mcmillan [facility]#: [id number] : 1980Acct:[id number] Age/Sex: 44 / FADM Date: 10/01/24 Loc: HO.MAMMO Attending Dr: Elsi Sal MD Ordering Physician: Elsi Sal MD Date of Service: 10/01/24 Procedure(s): US breast BI limited mamm only Accession Number(s): [id number] cc: Elsi Sla MD EXAMINATION: MM DIAGNOSTIC DIGITAL BREAST TOMOSYNTHESIS, [...] Velazquez DO Signed By: <Electronically signed by Jordaan Velazquez DO in OV> 10/01/24 1054 DD/ 0930 TD/TT: 10/01/24 0958 Steel Heater: Elsi Sal MD IM US PROCEDURES Final Result * Hepatitis C Ab (03/20/2024 10:05 AM EDT) Hepatitis C Antibody Nonreactive Nonreactive [facility] Comment:Antibodies to HCV no t detected; does not exclude early acuteHCV infection. 03/20/2024 10:0 5 AM EDT 03/20/2024 11:11 AM EDT Generic External Data Provider LAB BLOOD ORDERAB LES Final Result Performing Organization Address [facility]/ZIP Co de Phone Number [facility] [address] [place] [address] [phone] * HIV-1/2 Antigen and Antibodies, Fourth Generation, with Reflexes (03/20/2024 10:05 AM EDT) HIV AB/AG Nonreactive Nonreactive [facility] Comment:HIV-1 p24 Ag and/or HIV-1/HIV-2 Ab not detected.A test result that is nonreactive does not exclude thepossibility of exposure to or infection with HIV-1 and/orHIV-2. Nonreactive results in this assay for individualswith prior exposure to HIV-1 and/or HIV-2 may be due toantigen and antibody levels that are below the limit ofdetection of this assay.The [employer] HIV Ag/Ab Combo assay result andsupplemental assay results should be interpreted inconjunction with the patient's clinical presentation,history and other laboratory results. If the results areinconsistent with clinical evidence, additional testing issuggested to confirm the result. 03/20/2024 10:0 5 AM EDT 03/20/2024 11:11 AM EDT us Generic External Data Provider LAB BLOOD ORDERAB LES Final Result Performing Organization Address City/[facility]/ZIP Co de Phone Number [facility] [address] [place] [address] [phone] * (ABNORMAL) Lipid Panel with Reflex to Direct LDL (05/04/2023 10:45 AM EST) Triglycerides 69 <150 mg/dL [facility] Comment:Desirable Triglyceri de: less than [...] 190 mg/dL HDL Cholesterol 53 >40 mg/dL [facility] Comment:Desirable HDL: great er than 40 mg/dL Note: This HDL assay may give artificially low results in patients with liver disease. Blood 05/04/2023 10:4 5 AM EST 05/04/2023 11:19 AM EST us Elsi Sal MD LAB BLOOD ORDERABLES Final Resul t [facility] [address] [place] [phone] * HPV mRNA E6/E7 w/Reflex to [...] alternative testing options.For additional information, please refer [email or web address]/[email or web address](This link if provided for information/educational purposes only.)THIS TEST WAS PERFORMED AT:[employer] [place] [phone] GARCIA MD HPV mRNA E6/E7 TNP [facility] HPV 16 RNA TNP [facility] HPV 18/45 RNA TNP [facility] 09/15/2022 10:1 8 AM EDT 09/15/2022 12:00 PM EDT us [facility] External Provider LAB CYT OLOGY ORDERABLES Final Result [facility] [address] [place] [phone] * Pap Smear (09/15/2022 10:18 AM EDT) 09/15/2022 10:1 8 AM EDT 09/15/2022 12:00 PM EDT Narrative [facility] - 09/20/2022 12:11 PM EDT ----- ------- Name: Breana Mcmillan I Age/Sex: 41/F : 1980 Unit#: [id number] Attend Dr: Wilbur Carrasquillo MD Re09/15/22 Status: DEP REF Location: [facility] Disch: ----- ------- SPEC : [id number] RECD: 09/15/22-1200 STATUS: DALILA DOMINGUEZ NUM: [id number] HERBER: 09/15/22-[address] [facility] DR: Wilbur Carrasquillo MD ENTERED: 09/15/22-1216 SP [...] 59, 66, 68) HPV testing performed by [employer], [place], [place]. See reference laboratory portion of the EMR for entire report. Clinical Information LMP: 08/30/2022 Previous PAP test: 2017, Abnormal Other history: HPV+ Material Received ThinPrep-Cervical Copies To: Elsi Sal MD [address] [place] [address] Wilbur Carrasquillo MD [address] [place] [address] [address] ----- ------- Signed (signature on file) Margaret Gutierrez 09/20/22 1211 ----- ------- END OF REPORT [facility] External Provider LAB [facility]T [facility] ORDERABLES Final Result [facility] [address] [place] [address] [phone] from Last 3 Months or Most Recently Relevant to Health Maintenance Insurance [facility] Care Teams Cleaner Greaser Relationship Specialty Start Date End Date Elsi Sal MD [address] [place] [address] PCP - General Family Medicine 05/09/11
--- OUTSIDE RECORDS SUMMARY | 2025-04-01 15:59 | XMS_ITS | Encounter Summary ---
Author Organization [employer] Address [address] [place] [address] 7t [place] [address] Care Team Providers Care Accounts Receivable Executive Name Role Phone Elsi Sal MD Primary Care Provider [phone] Justine Henriquez Unavailable [phone] Ben Aguilar Unavailable Reason for Referral * Imaging (Routine) - Closed Specialty Diagnoses / Procedures Referred By Contac t Referred To Contact Radiology Diagnoses Breast pain in female Procedures BI US Breast Limited Right Elsi Sal MD [address] [place] [address] Phone: tel: fax: [address] Phone: tel: fax: Referral ID Status Reason Start Date Expiration Date Visits Re quested Visits Authorized [id number] Closed 08/23/2024 08/23/2025 1 1 * Imaging (Routine) - Closed Specialty Diagnoses / Procedures Referred By Contac t Referred To Contact Radiology Diagnoses Breast pain in female Procedures BI US Breast Limited Left Elsi Sal MD [address] [place] [address] Phone: tel: fax: [address] Phone: tel: fax: Referral ID Status Reason Start Date Expiration Date Visits Re quested Visits Authorized [id number] Closed 08/23/2024 08/23/2025 1 1 * Imaging (Routine) - Closed Specialty Diagnoses / Procedures Referred By Cici butts Referred To Contact Radiology Diagnoses Breast pain in female Procedures BI US Breast Complete Right Elsi Sal MD [address] [place] [address] Phone: tel: fax: [address] Phone: tel: fax: Referral ID Status Reason Start Date Expiration Date Visits Re quested Visits Authorized [id number] Closed 08/23/2024 08/23/2025 1 1 Encounter Details Date Type Department Care Team (Late st Contact Info) Description 08/23/2024 Orders Only [facility] MEDICINE [address] [place] [address] Elsi Sal MD [address] [place], [place] [phone] Breast pain in female (Primary Dx) Social [...] with others, in a hotel, in a alf, living outside on the street, on a [...] Narrative 10/01/2024 10:57 AM EDT [facility] [address] [place] [place], [place] [address] Ultrasound Report Signed Patient: Breana Mcmillan I MR#: [id number] : 1980 Acct:[id number] Age/Sex: 44 / F ADM Date: 10/01/24 Loc: HO.MAMMO Attending Dr: Elsi Sal MD Ordering Physician: Elsi Sal MD Date of Service: 10/01/24 Procedure(s): US breast BI limited mamm only Accession Number(s): [id number] cc: Elsi Sal MD EXAMINATION: MM DIAGNOSTIC [...] 04/28/25 1054 DD/ 0930 TD/TT: 10/01/24 0958 Riveter Portable Machine: Procedure Note Donotuseinterpreter, Image - 10/01/2024 [facility] [address] [place], [place] [address] Ultrasound Report Signed Patient: Breana Mcmillan IMR#: [id number] : 1980Acct:[id number] Age/Sex: 44 / FADM Date: 10/01/24 Loc: HO.MAMMO Attending Dr: Elsi Sal MD Ordering Physician: Elsi Sal MD Date of Service: 10/01/24 Procedure(s): US breast BI limited mamm only Accession Number(s): [id number] cc: Elsi Sal MD EXAMINATION: MM DIAGNOSTIC [...] 10/01/24 1054 DD/ 0930 TD/TT: 10/01/24 0958 Riveter Portable Machine: us Elsi Sal MD IMG US PROCEDURES Final Result documented in this encounter Visit Diagnoses Diagnosis Breast pain in female- Primary Mastodynia documented in this encounter Additional Health Concerns Assessment Noted Time PHQ-9 Depression Total Score: 14 025 11:47 AM EST documented as of this encounter Care Teams Accounts Receivable Executive Relationship Specialty Start Date End Date Elsi Sal MD [address] [place] [address] PCP - General Family Medicine 05/09/11 Justine Henriquez Registered Nurse 03/13/25 03/14/25 Ben Aguilar 03/13/25 03/14/25 documented as of this encounter
--- OUTSIDE RECORDS SUMMARY | 2025-04-01 15:59 | XMS_ITS | Encounter Summary ---
Author Organization [employer] [facility] Address [address] [place] [address] 7t [place] [address] Care Team Providers Care Welder Fitter Name Role Phone Elsi Sal MD Primary Care Provider [phone] Justine Henriquez Unavailable [phone] Ben Aguilar Unavailable Reason for Visit * Reason Comments Med Refill Encounter Details Date Type Department Care Team ([facility] st Contact Info) Description 08/05/2022 Refill [facility] MEDICINE [address] [place] [address] Francisco Perdomo FNP Social History Tobacco Use [...] on filedocumented in this encounter Care Teams Welder Fitter Relationship Specialty Start Date End Date Elsi Sal MD [address] [place] [address] PCP - General Family Medicine 05/09/11 Justine Henriquez Registered Nurse 03/13/25 03/14/25 Ben Aguilar 03/13/25 03/14/25 documented as of this encounter
--- OUTSIDE RECORDS SUMMARY | 2025-04-01 15:59 | XMS_ITS | Encounter Summary ---
Author Organization [employer] Address [address] [place] [address] 7t [place] [address] Care Team Providers Care Wheat Combine Driver Name Role Phone Elsi Sal MD Primary Care Provider [phone] Justine Henriquez Unavailable [phone] Bne Aguilar Unavailable Reason for Referral * Imaging (Routine) - Closed Specialty Diagnoses / Procedures Referred By Contac t Referred To Contact Radiology Diagnoses Breast pain Procedures BI Mammogram Diagnostic Tomosynthesis Bilateral Elsi Sal MD [address] [place] [address] Phone: tel: fax: [address] Phone: tel: fax: Referral ID Status Reason Start Date Expiration Date Visits Re quested Visits Authorized [id number] Closed 08/09/2024 08/09/2025 1 1 Encounter Details Date Type Department Care Team (Late st Contact Info) Description 08/09/2024 Orders Only [facility] MEDICINE [address] [place], [place] [phone] Elsi Sal MD [address] [place], [place] [phone] Breast pain (Primary Dx) Social History Tobacco [...] 10/01/2024 10:57 AM EDT [facility] [address] [place], [place] [address] Mammography Report Signed Patient: Breana Mcmillan I MR#: [id number] : 1980 Acct:[id number] Age/Sex: 44 / F ADM Date: 10/01/24 Loc: HO.MAMMO Attending Dr: Elsi Sal MD Ordering Physician: Elsi Sal MD Results: 1Negative Date of Service: 10/01/24 Follow Up: 1 Year From [facility] Mammogram Procedure(s): MM tomosynthesis diagnostic BI Accession Number(s): [id number] cc: lEsi Sal MD EXAMINATION: MM DIAGNOSTIC DIGITAL BREAST [...] 10/01/24 1054 DD/ 0850 TD/TT: 10/01/24 0920 Stock Counter: Procedure Note Donotuseinterpreter, Image - 10/01/2024 [facility] [address] [place] [address] Mammography Report Signed Patient: Breana Mcmillan IMR#: [id number] : 1980Acct:[id number] Age/Sex: 44 / FADM Date: 10/01/24 Loc: DAVID Attending Dr: Elsi Sal MD Ordering Physician: Elsi Sal MDResults: 1Negative Date of Service: 10/01/24Follow Up: 1 Year From [facility] Mammogram Procedure(s): MM tomosynthesis diagnostic BI Accession Number(s): [id number] cc: Elsi Sal MD EXAMINATION: MM DIAGNOSTIC [...] 10/01/24 1054 DD/ 0850 TD/TT: 10/01/24 0920 Stock Counter: Elsi Sal MD IMG BI PROCEDURES Final Result documented in this encounter Visit Diagnoses Diagnosis Breast pain- Primary Mastodynia documented in this encounter Additional Health Concerns Assessment Noted Time PHQ-9 Depression Total Score: 14 025 11:47 AM EST documented as of this encounter Care Teams Wheat Combine Driver Relationship Specialty Start Date End Date Elsi Sal MD [address] [place] [address] PCP - General Family Medicine 05/09/11 Justine Henriquez Registered Nurse 03/13/25 03/14/25 Ben Aguilar 03/13/25 03/14/25 documented as of this encounter
--- OUTSIDE RECORDS SUMMARY | 2025-04-01 15:59 | XMS_ITS | Encounter Summary ---
Author Organization [employer] Address [address] [place] [address] 7[address] [place] [address] Care Team Providers Care Software Development Test Engineer Name Role Phone Elsi Sal MD Primary Care Provider [phone] Justine Henriquez Unavailable [phone] Ben Aguilar Unavailable Reason for Visit * Reason Onset Date Comments Nurse Triage 05/07/2024 Encounter Details Date Type Department Care Team (Late st Contact Info) Description 05/07/2024 Telephone [facility] MEDICINE [address] [place] [address] Elsi Sal MD [address] [place], [place] [phone] Nurse Triage Social History Tobacco Use Types [...] documented as of this encounter Care Teams Software Development Test Engineer Relationship Specialty Start Date End Date Elsi Sal MD [address] [place] [address] PCP - General Family Medicine 05/09/11 Justine Henriquez Registered Nurse 03/13/25 03/14/25 Ben Aguilar 03/13/25 03/14/25 documented as of this encounter
--- OUTSIDE RECORDS SUMMARY | 2025-04-01 15:59 | XMS_ITS | Encounter Summary ---
Author Organization [employer] Address [address] [place] [address] 7t [place] [address] Care Team Providers Care Search Engine Optimization Specialist Name Role Phone Elsi Sal MD Primary Care Provider [phone] Justine Henriquez Unavailable [phone] Ben Aguilar Unavailable Reason for Visit * Reason Onset Date Comments r/s appt 08/06/2022 Appointment 08/06/2022 Encounter Details Date Type Department Care Team ([facility] st Contact Info) Description 08/06/2022 Telephone [facility] MEDICINE [address] [place], [place] [phone] Elsi Sal MD [address] [place], [place] [phone] r/s appt ; Appointment Social History Tobacco [...] encounter Miscellaneous Notes * Telephone Encounter - Iesla García - 08/06/2022 11:34 AM EST T/C placed to pt regarding to re-schedule her appt as tele-visit -RV. Pt agrees to schedule for 08/10/22 @ 2:15pm. * Telephone Encounter - Andrew Vick - 08/06/2022 10:06 AM EST Tc from pt wanting to r/s appt for 02/22/2022. Please contact pt at [phone] documented in this encounter Plan of Treatment Not on file documented as of this encounter Visit Diagnoses Not on filedocumented in this encounter Care Teams Search Engine Optimization Specialist Relationship Specialty Start Date End Date Elsi Sal MD [address] [place] [address] PCP - General Family Medicine 05/09/11 Justine Henriquez Registered Nurse 03/13/25 03/14/25 Ben Aguilar 03/13/25 03/14/25 documented as of this encounter
--- OUTSIDE RECORDS SUMMARY | 2025-04-01 15:59 | XMS_ITS | Encounter Summary ---
Author Organization [employer] Address [address] [place] [address] 7t [place] [address] Care Team Providers Care Byproducts Maker Name Role Phone Elsi Sal MD Primary Care Provider [phone] Justine Henriquez Unavailable [phone] Ben Aguilar Unavailable Reason for Visit * Reason Onset Date Comments ER Follow-up 08/03/2024 Encounter Details Date Type Department Care Team ([facility] st Contact Info) Description 08/03/[address] [facility] MEDICINE [address] [place], [place] [phone] Elsi Sal MD [address] [place], [place] [phone] ER Follow-up Social History Tobacco Use Types [...] 08/03/2024 2:12 PM EST Date: 08/03/24 Hospital: [facility] Seen for: UTI Symptomatic Yes Called pt. 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 Pt states that she was seen a couple weeks ago in Walk in for UTI sx. Pt. Had UTI and was put on antibiotics. Pt. Then went to [facility] ED on 08/03/24 for same UTI sx. [...] to be seen sooner walk in at [facility] hours provided to pt. I will send note to clinical coordinators to get [facility] ED note into chart from 08/03/24. Protocol [...] ED visit on : Date: 08/03/24 Hospital: [facility] Seen for: UTI Symptomatic Yes Symptom: Abdominal Pain - Female - Not Outcome: Schedule an appointment to be seen within 24 hours Reason: Caller denied all higher acuity questions Please contact pt at [phone]. (Bengali Speaker) documented in this encounter Plan of Treatment Not on file documented as of this encounter Visit Diagnoses Not on filedocumented in this encounter Additional Health Concerns Assessment Noted Time PHQ-9 Depression Total Score: 7 04/20/20 23 10:34 AM EST documented as of this encounter Care Teams Byproducts Maker Relationship Specialty Start Date End Date Elsi Sal MD [address] [place] [address] PCP - General Family Medicine 05/09/11 Justine Henriquez Registered Nurse 03/13/25 03/14/25 Ben Aguilar 03/13/25 03/14/25 documented as of this encounter
--- OUTSIDE RECORDS SUMMARY | 2025-04-01 15:59 | XMS_ITS | Encounter Summary ---
Author Organization [facility] Address [address] [place] [address] 7t [place] [address] Care Team Providers Care Manager Resort Name Role Phone Elsi Sal MD Primary Care Provider [phone] Justine Henriquez Unavailable [phone] Ben Aguilar Unavailable Reason for Visit * Reason Onset Date Comments Med Refill Appointment 07/30/2022 Encounter Details Date Type Department Care Team ([facility] st Contact Info) Description 07/30/2022 Refill [facility] MEDICINE [address] [place] [address] Francisco Perdomo FNP Social History Tobacco Use [...] AM EST T/C placed to pt @ [phone] and the person who answered my call said is a wrong phone #. Also, I called @ her mother phone # that is listed and is disconnected at this time. documented in this encounter Plan of Treatment Not on file documented as of this encounter Visit Diagnoses Not on filedocumented in this encounter Care Teams Manager Resort Relationship Specialty Start Date End Date Elsi Sal MD [address] [place] [address] PCP - General Family Medicine 05/09/11 Justien Henriquez Registered Nurse 03/13/25 03/14/25 Ben Aguilar 03/13/25 03/14/25 documented as of this encounter
--- NOTE | 2025-04-23 10:55 | HO.ANESPROP2 ---
Documented by User: Laura Mercedes NP 04/23/25 10:55 HPI - Anesthesia Eval Consult details Narrative: 44yo F for D&C Hysteroscopy,possible myomectomy,possible polypectomy PMFSH Active Problems Active Problems: All Active Problems Bacterial vaginitis (Acute) Vulvovaginitis (Acute) Menopause (Acute) Uterine myoma (Acute) Postmenopausal bleeding (Acute) Pelvic pain (Acute) Abnormal uterine bleeding (AUB) (Acute) Follicular lymphoma (Acute) Past Medical History Medical History Pelvic pain Depression DEEPALI I (cervical intraepithelial neoplasia I) Back pain Follicular lymphoma Family History Family History Maternal Aunt Diabetes Hypertension Colon cancer Family/Other Lung cancer Breast cancer Colon cancer Family history of problems with anesthesia: No Surgical History Surgical History Hx of tubal ligation Hx of esophagogastroduodenoscopy H/O hernia repair History of Problems with Anesthesia: No Social History Social History Household Members: Spouse and Children Household Members Other:: mother Housing: House Are you a primary patient care manager to a significant other at home: No Do you presently have visiting nurse or other home services: No Alcohol intake: current Alcohol intake frequency: does not drink Alcohol type: wine Patient Tobacco Use Status: Never used Tobacco Substance Use Type: Marijuana Have you been hit, kicked, punched, or otherwise hurt by someone within the past year? If so, by whom?: No Are you DNR?: No Advance Directives: No Advance Directives Information Provided: Yes Patient : No service: No Current occupational status: employed Meds Allergies Allergy/AdvReac Type Severity Reaction Status Date / Time Penicillins (PENICILLINS) Allergy Intermediate RASH Verified 03/27/25 11:51 Home Medications ?Medication ?Instructions ?Recorded ?Confirmed ?Last Taken ?Type sertraline 25 mg tablet 25 mg PO DAILY 08/23/22 04/26/25 Unknown History cetirizine 10 mg tablet 10 mg PO QAM 12/26/23 04/26/25 Unknown History budesonide-formoterol HFA 80 1 inh inhalation BID 04/24/25 04/26/25 Unknown History mcg-4.5 mcg/actuation aerosol inhaler (Symbicort) Exam Pertinent Lab Results Pertinent Lab Results: Laboratory Tests 03/12/25 12:53 WBC 10.1 Hgb 14.1 Hct 41.0 Plt Count 245 Sodium 140 Potassium 4.0 Chloride 106 Carbon Dioxide 27 BUN 12 Creatinine 0.71 Assessment and Plan Assessment Anesthesia Assessment: Anesthesia Plan Discussed and Chart Reviewed Final Anesthetic Review Family History of Problems with Anesthesia: No History of Problems with Anesthesia: No Documented by User: Ye Degroot MD 04/26/25 09:35 PMFSH Past Medical History Medical History Pelvic pain Depression DEEPALI I (cervical intraepithelial neoplasia I) Back pain Follicular lymphoma Family History Family History Maternal Aunt Diabetes Hypertension Colon cancer Family/Other Lung cancer Breast cancer Colon cancer Surgical History Surgical History Hx of tubal ligation Hx of esophagogastroduodenoscopy H/O hernia repair Social History Social History Household Members: Spouse and Children Household Members Other:: mother Housing: House Are you a primary patient care manager to a significant other at home: No Do you presently have visiting nurse or other home services: No Alcohol intake: current Alcohol intake frequency: does not drink Alcohol type: wine Patient Tobacco Use Status: Never used Tobacco Substance Use Type: Marijuana Have you been hit, kicked, punched, or otherwise hurt by someone within the past year? If so, by whom?: No Are you DNR?: No Advance Directives: No Advance Directives Information Provided: Yes Patient : No service: No Current occupational status: employed Meds Allergies Allergy/AdvReac Type Severity Reaction Status Date / Time Penicillins (PENICILLINS) Allergy Intermediate RASH Verified 03/27/25 11:51 Home Medications ?Medication ?Instructions ?Recorded ?Confirmed ?Last Taken ?Type sertraline 25 mg tablet 25 mg PO DAILY 08/23/22 04/26/25 Unknown History cetirizine 10 mg tablet 10 mg PO QAM 12/26/23 04/26/25 Unknown History budesonide-formoterol HFA 80 1 inh inhalation BID 04/24/25 04/26/25 Unknown History mcg-4.5 mcg/actuation aerosol inhaler (Symbicort) Exam Exam Date and Time: 04/26/25 Airway Mallampati Class: II TM Dist: >3cm Neck ROM: Full Heart: rrr Lungs: ctab vesicular Assessment and Plan Final Anesthetic Review NPO: Yes ASA Class: II Final Preanesthetic Review: No Changes in Pt Med Stat, Meds/Allgs Chart Reviewed, Consent Obtained/Reviewed and Anes Risks/Benef Reviewed Patient Risk: Low Procedure Risk: Low Anesthetic Plan Anesthetic Plan: GA Disposition: Standard PACU
[2025-04-24 11:35] VITALS: BMI 34.4
[2025-04-26] VITALS (18 sets, daily range): BP systolic 100–143; BP diastolic 62–93; PULSE 66–92; RESP 10–16; TEMP 36.1; O2SAT 97–100
[2025-04-26 08:44] LABS: UPreg QC Valid YES
[2025-04-26] MEDS: Lactated Ringers 1,000 ML 100 ML IVCONT (09:09)
--- NOTE | 2025-04-26 09:21 | MHC.SHP ---
Pre-Procedural Eval Section A - 24 Hr Update-Section A only Date of Service: 04/26/25 The patient is an INPATIENT: No Changes since office visit: No Cold of Flu in the past 2 weeks, No New Medical Problems, No Changes in Medication and No Patient answered all questions The patient has been examined within 24 hours of the surgical procedure. The History & Physical has been completed within 30 days and I have reviewed it.: Yes Section B - Complete if H&P > 30 days Chief Complaint: Postmenopausal bleeding Allergies: Allergies Allergy/AdvReac Type Severity Reaction Status Date / Time Penicillins (PENICILLINS) Allergy Intermediate RASH Verified 03/27/25 11:51 Plan Diagnosis/Plan: Unchanged I have reviewed the history and physical and performed a pertinent physical examination on my patient. No changes have occurred unless specified. Time Spent With Patient Time: Total time managing care of this patient today ____ minutes.
--- NOTE | 2025-04-26 10:09 | P.BOP_ITS ---
Brief Operative Note Date of Service: 04/26/25 Pre-op diagnosis: Postmenopausal bleeding Post-op diagnosis: same (Endometrial polyp) Procedure: Hysteroscopy D&C, Polypectomy Surgeon: Wilbur Carrasquillo MD Anesthesia: GLMA Was an Forward Air Controller/Air Officer used for this Procedure?: No Estimated blood loss (mL): 0 Pathology: other (Endometrial Scrapping. Polyp) Condition: stable Disposition: PACU
--- NOTE | 2025-04-26 10:10 | W.PM.OPN ---
Operative Note Operative Note Date of Service: 04/26/25 Narrative: Preop Diagnosis: Endometrial polyp by US Operation: Diagnostic Hysteroscopy, Dilataion & Curettage and polypectomy Post Op Diagnosis: Endometrial Polyp QBL: Minimal Anesthesia: GLMA Surgeon: Wilbur Carrasquillo MD Cosmetic Assembler: None Complication: None Pathology: Endometrial Scrapings, Endometrial polyp Procedure: The patient was put in the dorsal lithotomy position, scrubbed, and draped in the usual manner. A sterile speculum was inserted in the patient's vagina. The anterior lip of the cervix was grasped with a single tooth tenaculum. The cervix was dilated up to 5 mm, then the scope was inserted in the patient's uterus. Inspection revealed endometrial polyp. The Myosure Reach device was used; it was introduced through the operative channel and polypectomy done with no complications. The scope was then taken out from the uterine cavity, sharp curettings was carried on with minimal to moderate amount of tissues retrieved. At the end of the procedure, all instruments were taken out of the patient uterine and vaginal cavity. The single tooth tenaculum was removed and homeostasis was assured using pressure,. The patient tolerated the procedure well and was transferred to the PACU in a stable condition.
[2025-04-26 11:40] LABS: Hematocrit 39.7 % (37.0-47.0); Hemoglobin 13.1 g/dl (12.0-16.0); Mean Corpuscular HGB Conc 33.0 g/dl (31.0-35.0); Mean Corpuscular Hemoglobin 28.8 pg (27.0-33.0); Mean Corpuscular Volume 87.3 fL (80.0-98.0); NRBC Abs Auto 0.000 X10*3/uL (0.0-0.012); NRBC Pct Auto 0.0 /100WBC (0.0-0.2); Platelet Count 206 X10*3/uL (160-400); Red Blood Count 4.55 X10*6/uL (4.20-5.50); White Blood Count 8.1 X10*3/uL (4.8-10.8)
--- NOTE | 2025-04-26 12:10 | PM.EVENT ---
Event Note Date of Service: 04/26/25 Event Note: The patient complained of postoperative pain, no nausea or vomiting no vaginal bleeding Stable vital signs afebrile Abdominal exam is soft nontender no guarding or rebound CBC normal Patient was Medicated and pain improved markedly and remained stable was seen findings Will discharge patient to home. Instructions given the patient to call if pain recurs, in case of vaginal bleeding, nausea or vomiting, fever above 100.4. And follow-up in the office as scheduled. All questions answered, the patient verbalized understanding Time Spent With Patient Time: Total time managing care of this patient today ____ minutes.
== END 2025-04-26 13:08 | disposition home or self-care (01) ==
PROVIDERS: PCP Family Medicine; Visit Provider Obstetrics & Gynecology
PROC: 0UDB8ZZ Extraction of Endometrium, Via Natural or Artificial Opening Endoscopic (ICD-10-PCS; CPT 58558; principal; 2025-04-26 11:00)
DX: N95.0 Postmenopausal bleeding (principal); N84.0 Polyp of corpus uteri; G89.18 Other acute postprocedural pain; R10.20 Pelvic and perineal pain unspecified side; Z87.410 Personal history of cervical dysplasia; Z85.72 Personal history of non-Hodgkin lymphomas; Z92.21 Personal history of antineoplastic chemotherapy; F32.A Depression, unspecified; Z79.51 Long term (current) use of inhaled steroids; Z79.899 Other long term (current) drug therapy; Z88.0 Allergy status to penicillin; Z98.51 Tubal ligation status; Z98.890 Other specified postprocedural states
CPT/HCPCS: 58558; 36415; 81025; 85027; 88305; J0131; J1100; J1171; J1885; J2003; J2405; J2704; J3010

== ENCOUNTER → 2025-04-26 08:14 | Outpatient (BNV) | payer MEDICAID, SELFPAY | PROVIDERS: PCP Family Medicine; Visit Provider Obstetrics & Gynecology | DX: N84.0 Polyp of corpus uteri (principal) | CPT/HCPCS: 58558 ==

== ENCOUNTER 2025-05-16 15:04 | Outpatient (AMB) | payer MEDICAID, SELFPAY ==
--- NOTE | 2025-05-16 15:05 | MHC.OFFVIS ---
Intake Visit Reasons: post op Allergies Penicillins (PENICILLINS) Allergy (Intermediate, Verified 03/27/25 11:51) RASH HPI Comments Details: The patient is presenting post hysteroscopy D&C no complaints minimal vaginal bleeding no feverishness chills or abdominal pain. The pathology showed the following: A. Endometrial polyp, resection: Fragments of benign endometrial polyp, and benign secretory endometrium with poorly-developed glands and stromal collapse; no atypia or carcinoma. B. Endometrium, curettage: Benign secretory endometrium with poorly-developed glands and stromal collapse, and benign endocervical glandular and squamous epithelium; no atypia or carcinoma PFSH Medical History Pelvic pain Depression DEEPALI I (cervical intraepithelial neoplasia I) Back pain Follicular lymphoma Surgical History Hx of tubal ligation Hx of esophagogastroduodenoscopy H/O hernia repair Family History Maternal Aunt Diabetes Hypertension Colon cancer Family/Other Lung cancer Breast cancer Colon cancer Social History Household Members: Spouse and Children Household Members Other:: mother Housing: House Are you a primary career based intervention coordinator to a significant other at home: No Do you presently have visiting nurse or other home services: No Alcohol intake: current Alcohol intake frequency: does not drink Alcohol type: wine Patient Tobacco Use Status: Never used Tobacco Substance Use Type: Marijuana service: No Current occupational status: employed Review of Systems Const All systems reviewed & are unremarkable except as noted in HPI and below Reports as per HPI and Reports no additional complaints GI Reports no additional complaints Reports no additional complaints Telehealth Telehealth Telehealth Platform: Friday Location of provider rendering services: practice address Location of patient: address on file Patient Identification confirmed using: Name, : Yes Telehealth method: video Patient verbally consented to treatment: Yes Patient verbally consented to billing insurance company: Yes Patient informed of any privacy concerns related to visit: Yes Minutes spent on Phone/Video with Pt.: 7 Assessment & Plan Assessment & Plan (1) Postmenopausal bleeding: Comment: secretory endometrium Code(s): N95.0 - Postmenopausal bleeding Category: Medical Plan: Discussed with the patient the results of the endometrial biopsy. Discussed with the patient the sensitivity, specificity, positive and negative predictive value, of endometrial biopsy in detecting endometrial pathology including but not limited to endometrial hyperplasia, cancer and other pathology; instructed the patient to call in case vaginal bleeding recurs, the next step will be to proceed with a diagnostic hysteroscopy/D&C for further endometrial sampling evaluation to rule out endometrial pathology. All questions answered and the patient verbalized understanding and agreed with the plan. I spent a total of 20 minutes reviewing the chart, talking to the patient via video and documenting in the medical record. Coding Level of Care Code Est Pt Level 3 (08325) Diagnoses Postmenopausal bleeding N95.0
--- OUTSIDE RECORDS SUMMARY | 2025-05-16 22:36 | XMS_ITS | Encounter Summary ---
Author Organization [employer] Address [address] [facility] [address] [place] [address] Care Team Providers Care Full Stack Python Developer Name Role Phone Elsi Sal MD Primary Care Provider [phone] Justine Zambrano Unavailable [phone] Ben Aguilar Unavailable Reason for Visit * Reason Onset Date Comments Nurse Triage 05/07/2024 Encounter Details Date Type Department Care Team ([facility] st Contact Info) Description 05/07/2024 Telephone [facility] MEDICINE [address] [place] [address] Elsi Sal MD [address] [place], [place] [phone] Nurse Triage Social History Tobacco Use Types [...] documented as of this encounter Care Teams Full Stack Python Developer Relationship Specialty Start Date End Date Elsi Sal MD [address] [place] [address] PCP - General Family Medicine 05/09/11 Justine Zambrano Registered Nurse 03/13/25 03/14/25 Ben Aguilar 03/13/25 03/14/25 documented as of this encounter
--- OUTSIDE RECORDS SUMMARY | 2025-05-16 22:36 | XMS_ITS | Encounter Summary ---
Author Organization [employer] Address [address] [place] [address] 7[address] [place] [address] Care Team Providers Care Tire Manager Name Role Phone Elsi Sal MD Primary Care Provider [phone] Justine Zambrano Unavailable [phone] Ben Aguilar Unavailable Reason for Referral * Imaging (Routine) - Closed Specialty Diagnoses / Procedures Referred By Contac t Referred To Contact Radiology Diagnoses Breast pain in female Procedures BI US Breast Limited Right Elsi Sal MD [address] [place], [place] Phone: tel: fax: [address] [address] Phone: tel: fax: Referral ID Status Reason Start Date Expiration Date Visits Re quested Visits Authorized [id number] Closed 08/23/2024 08/23/2025 1 1 * Imaging (Routine) - Closed Specialty Diagnoses / Procedures Referred By Contac t Referred To Contact Radiology Diagnoses Breast pain in female Procedures BI US Breast Limited Left Elsi Sal MD [address] [place], [place] Phone: tel: fax: [address] [address] Phone: tel: fax: Referral ID Status Reason Start Date Expiration Date Visits Re quested Visits Authorized [id number] Closed 08/23/2024 08/23/2025 1 1 * Imaging (Routine) - Closed Specialty Diagnoses / Procedures Referred By Cici butts Referred To Contact Radiology Diagnoses Breast pain in female Procedures BI US Breast Complete Right Elsi Sal MD [address] [place] [address] Phone: tel: fax: [facility] [address] [place] [id number] Phone: tel: fax: Referral ID Status Reason Start Date Expiration Date Visits Re quested Visits Authorized [id number] Closed 08/23/2024 08/23/2025 1 1 Encounter Details Date Type Department Care Team (Late st Contact Info) Description 08/23/2024 Orders Only [facility] MEDICINE [address] [place], [place] [phone] Elsi Sal MD [address] [place], [place] [phone] Breast pain in female (Primary Dx) Social [...] with others, in a hotel, in a longterm, living outside on the street, on a [...] Narrative 10/01/2024 10:57 AM EDT [place] [facility] [address] [place] [address] Ultrasound Report Signed Patient: Breana Mcmillan I MR#: [id number] : 1980 Acct:[id number] Age/Sex: 44 / F ADM Date: 10/01/24 Loc: HO.MAMMO Attending Dr: Elsi Sal MD Ordering Physician: Elsi Sal MD Date of Service: 10/01/24 Procedure(s): US breast BI limited mamm only Accession Number(s): [id number] cc: Elsi Sal MD EXAMINATION: MM DIAGNOSTIC [...] 10/01/24 1054 DD/ 0930 TD/TT: 10/01/24 0958 Tree Doctor: Procedure Note Donotuseinterpreter, Image - [facility] [address] [place] [address] Ultrasound Report Signed Patient: Breana Mcmillan IMR#: [id number] : 1980Acct:[id number] Age/Sex: 44 / FADM Date: 10/01/24 Loc: HO.MAMMO Attending Dr: Elsi Sal MD Ordering Physician: Elsi Sal MD Date of Service: 10/01/24 Procedure(s): US breast BI limited mamm only Accession Number(s): [id number] cc: Elsi Sal MD EXAMINATION: MM DIAGNOSTIC [...] 10/01/24 1054 DD/ 0930 TD/TT: 10/01/24 0958 Tree Doctor: us Elsi Sal MD IMG US PROCEDURES Final Result documented in this encounter Visit Diagnoses Diagnosis Breast pain in female- Primary Mastodynia documented in this encounter Additional Health Concerns Assessment Noted Time PHQ-9 Depression Total Score: 14 025 11:47 AM EST documented as of this encounter Care Teams Tire Manager Relationship Specialty Start Date End Date Elsi Sal MD [address] [place] [address] PCP - General Family Medicine 05/09/11 Justine Zambrano Registered Nurse 03/13/25 03/14/25 Ben Aguilar 03/13/25 03/14/25 documented as of this encounter
--- OUTSIDE RECORDS SUMMARY | 2025-05-16 22:36 | XMS_ITS | Clinical Summary ---
Author Organization [employer] Address [address] [place] [address] Care Team Providers Care Ship Boat Or Barge Mate Name Role Phone Elsi Sal MD Primary Care Provider [phone] Allergies Active Allergy Reactions Criticality Noted Date [...] EST): On 08/03/24 pt was seen in [facility] ED for lower abdominal pain for 3 [...] in 2014 , evaluated by Dr. Carrasquillo, [facility] VETERINARY TECHNICIAN ASSISTANT -Last PAP in 2017 was NILM -Refer back Abnormal uterine bleeding (AUB) 09/06/2022 Assessment & Plan (04/29/2023 6:17 PM EST): - following with [facility] gynecology - Pt has fibroid - EMBx on 03/21/23 was normal Assessment & Plan (03/02/2023 6:24 AM EDT): Pt w known Hx of abnormal uterine bleeding since 08/2022 - was seen by iron carrier, but lost care. -I requested loan servicing specialist to send again previous referral for pelvic and TV US done by PCP this year. -Advise pt to call iron carrier today to reschedule apt. May need endometrial biopsy if ongoing bleeding. I provided pt w her iron carrier's phone number so that she can schedule her apt Assessment & Plan (09/12/2022 11:22 AM EDT): -evaluate with US -check lab for early menopause / premature ovarian failure Secondary oligomenorrhea 09/06/2022 Assessment & Plan (09/12/2022 11:16 AM EDT): -likely perimenopausal -Hx DEEPALI I-II, 2014, most recent PAP in 2017 was NILM, followed by [facility] VETERINARY TECHNICIAN ASSISTANT -will refer back to VETERINARY TECHNICIAN ASSISTANT for PAP History of COVID-19 09/05/2022 History [...] (04/29/2023 6:27 PM EST): - following with [facility] GI, last seen on 08/23/22, restarted pantoprazole and sucralfate - continue pantoprazole 40 mg daily - continue sucralfate 1 g qhs Assessment & Plan (09/05/2022 4:33 PM EDT): - following with [facility] GI, last seen on 08/23/22, restarted pantoprazole [...] 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 Date Type Department Care Team Description 04/26/2025 Orders Only GENERIC EXTERNAL DATA DEPARTMENT Provider, Generic External Data 03/14/2025 Patient Outreach [address] [address] Elsi Sal MD Care Coordination ([facility] Ben Aguilar - ADT Outreach-Declined ) 03/13/2025 Patient Outreach [address] [address] Elsi Sal MD Care Coordination ([facility]/Damaso Aguilar, Chart Review) 03/13/2025 Patient Outreach [address] [address] Elsi Sal MD Care Management ([facility] chart review) 03/13/2025 Patient Outreach [address] [address] Elsi Sal MD 03/12/2025 Orders Only GENERIC [...] SDOH Screening 03/14/2026 03/14/2025 Mammogram 10/01/2026 10/01/2024, 09/05, 10/01/2024 Cervical Cancer Screening 09/16/2027 HPV/Cotest 09/16/2027 [...] Procedure Name Priority Date/Time Associated Diagnosis Comments CBC Routine 04/26/2025 11:34 AM EST HEMATOXYLIN AND EOSIN STAIN Routine 04/26/2025 9:57 AM EST HCG, QL, URINE Routine 04/26/2025 8:33 AM EST US PELVIS TRANSVAGINAL Routine 3:18 PM EDT [...] Recently Relevant to Health Maintenance Results * CBC (04/26/2025 11:34 AM EST) White Blood Count 8.1 4.8 - 10.8 X10*3/uL [facility] Red Blood Count 4.55 4.20 - 5.50 X10*6/uL [facility] Hemoglobin 13.1 12.0 - 16.0 g/dl [facility] Hematocrit 39.7 37.0 - 47.0 % [facility] Mean Corpuscular Volume 87.3 80.0 - 98.0 fL [facility] Mean Corpuscular Hemoglobin 28.8 27.0 - 33.0 pg [facility] Mean Corpuscular HGB Conc 33.0 31.0 - 35.0 g/dl [facility] Red Cell Distribution Width 13.2 11.0 - 16.0 % [facility] Platelet Count 206 160 - 400 X10*3/uL [facility] Mean Platelet Volume 10.7 9.4 - 12.3 fL [facility] NRBC Pct Auto 0.0 0.0 - 0.2 /100WBC [facility] NRBC Abs Auto 0.000 0.0 - 0.012 X10*3/uL [facility] 04/26/2025 11:3 4 AM EST 04/26/2025 11:37 AM EST us Generic External Data Provider LAB BLOOD ORDERAB LES Final Result [facility] [address] [place] [phone] * Hematoxylin and Eosin Stain (04/26/2025 9:57 AM EST) 04/26/2025 9:57 AM EST 04/26/2025 10:56 AM EST Narrative [facility] - 04/29/2025 12:12 PM EST ----- ------- Name: Abhi GarciaAristidesBreana Larry Age/Sex: 44/F : 1980 Unit#: [id number] Attend Dr: Wilbur Carrasquillo MD Re04/26/25 Status: [facility] Location: [facility] Disch: ----- ------- SPEC : [id number] RECD: 04/26/25 STATUS: DALILA DOMINGUEZ NUM: [id number] HERBER: 04/26/[address] [facility] [address]: Wilbur Carrasquillo MD ENTERED: 04/26/257 SP TYPE: Surgical OTHR DR: Elsi Sal MD ORDERED: HE Stain/4, Gross Micro L4/2 Diagnosis A. Endometrial polyp, resection: Fragments of benign endometrial polyp, and benign secretory endometrium with poorly-developed glands and stromal collapse; no atypia or carcinoma. B. Endometrium, curettage: Benign secretory endometrium with poorly-developed glands and stromal collapse, and benign endocervical glandular and squamous epithelium; no atypia or carcinoma. Clinical History Pre-Op Dx: Postmenopausal bleeding Post-Op Dx: Endometrial polyp Microscopic Description Microscopic sections reviewed. Material Received A. Endometrial polyp B. [facility] Gross Description A. Received in formalin in a mesh bag is a 2.2 x 1.4 x 0.4 cm aggregate of sofia-pink soft tissue fragments, totally submitted in A1. B. Received in formalin is a 1.5 x 1.5 x 0.3 cm aggregate of sofia-red soft tissue, totally submitted in B1. (RJD) IHC S/NG Disclaimer NOTE: Unless otherwise stated, all tissue is formalin-fixed and paraffin-embedded. Some or all of the immunohistochemical tests reported herein may have been developed and their performance characteristics determined by [facility]. They have not been cleared or approved by the U.S. Food and Drug Administration (FDA). However, the FDA has determined that such clearance or approval is not necessary. This laboratory is certified under the Clinical Laboratory Improvement Amendments of 1988 (CLIA) as qualified to perform high complexity clinical laboratory testing. CONTINUED ON NEXT PAGE ----- ------- Name: Breana Mcmillan I Age/Sex: 44/F : 1980 Unit#: [id number] Attend Dr: Wilbur Carrasquillo MD Re04/26/25 Status: [facility] Location: [facility] Disch: ----- ------- SPEC : [id number] RECD: 04/26/25 STATUS: DALILA DOMINGUEZ NUM: [id number] HERBER: 04/26/[address] [facility] [address]: Wilbur Carrasquillo MD ENTERED: 04/26/25 SP TYPE: Surgical OTHR DR: Elsi Sal MD ORDERED: HE Stain/4, Gross Micro L4/2 Copies To: Elsi Sal MD [address] [phone] Wilbur Carrasquillo MD [facility] [address] [place], [place] [phone] ----- ------- Signed (signature on file) Michaelle Medeiros MD 04/29/25 1212 ----- ------- END OF REPORT us Generic External Data Provider LAB BLOOD ORDERAB LES Final Result [facility] [address] [place] [address] [phone] * HCG, Qualitative, Urine (04/26/2025 8:33 AM EST) Only the most recent of2 resultswithin the time period is included. Urine NEGATIVE NEGATIVE [facility] Comment:This test was develo ped to detect early . Falsenegative results may occur after the 5th - 7th week ofpregnancy when using this test method. If clinicallyindicated, consider a serum hCG. 04/26/2025 8:33 AM EST 04/26/2025 8:39 AM EST us Generic External Data Provider LAB URINE ORDERAB LES Final Result Performing Organization Address City/State/[facility] Co de Phone Number [facility] [address] [place] [phone] * US Pelvis Transvaginal (03/12/2025 3:18 PM EDT) Anatomical Region Laterality Modality Pelvis Ultrasound 03/12/2025 3:18 PM EDT Narrative 03/12/2025 3:41 PM EDT [address] [address] Ultrasound Report Signed Patient: Breana Mcmillan I MR#: [id number] : 1980 Acct:[id number] Age/Sex: 44 / F ADM Date: 03/12/25 Loc: .ED Attending Dr: Ordering Physician: Shola Orellana Date of Service: 03/12/25 Procedure(s): US pelvic and transvaginal Accession Number(s): [id number] cc: Shola Orellana; Elsi Sal MD Reason [...] is limited by lack of endovaginal scanning. VETERINARY TECHNICIAN ASSISTANT evaluation is recommended. Electronically signed by: Tim Romero MD 03/12/2025 03:38 PM EDT RP Dictated By: Tim Romero MD Signed By: <Electronically signed by Tim Romero MD in OV> 03/12/25 1538 DD/ 1518 TD/TT: 03/12/25 1522 Bass Fisher: Procedure Note Donotuseinterpreter, Image - 03/12/2025 [place] [address] Ultrasound Report Signed Patient: Breana Mcmillan [facility]#: [id number] : 1980Acct:[id number] Age/Sex: 44 / FADM Date: 03/12/25 Loc: .ED Attending Dr: Ordering Physician: Shola Orellana Date of Service: 03/12/25 Procedure(s): US pelvic and transvaginal Accession Number(s): [id number] cc: Shola Orellana; Elsi Sal MD Reason [...] is limited by lack of endovaginal scanning. VETERINARY TECHNICIAN ASSISTANT evaluation is recommended. Electronically signed by: Tim Romero MD 03/12/2025 03:38 PM EDT RP Dictated By: Tim Romero MD Signed By: <Electronically signed by Tim Romero MD in OV> 03/12/25 1538 DD/ 1518 TD/TT: 03/12/25 1522 Bass Fisher: us [facility] External Provider IMG US PROCEDURES Final Result * (ABNORMAL) Urinalysis, Complete, with Reflex to Culture (03/12/2025 12:53 PM EDT) Color Urine Yellow [facility] Appearance Urine Clear [facility] PH 5.5 5.0 - 9.0 [facility] Glucose Urine UA Negative Negative mg/dL [facility] Urine Blood Large (3+)(A) Negative [facility] Specific [place] - Urine 1.025 1.005 - 1.025 [facility] Urine Protein Trace Neg-Trace mg/dL [facility] Urine Ketones Negative Negative mg/dL [facility] Nitrite Urine Negative Negative [facility] Leukocyte Esterase Urine Trace(A) Negative [facility] RBC Urine >20(A) 0 - 2 /HPF [facility] Urine WBC 0-5 0 - 5 /HPF [facility] Urine Squamous Epithelial Cell 3-5 0 - 2 /HPF [facility] Urine Bacteria None Seen None Seen [facility] Hyaline Casts, Urine 0-2 0 - 2 /LPF [facility] 03/12/2025 12:5 3 PM EDT 03/12/2025 12:56 PM EDT Narrative [facility] - 03/12/2025 1:05 PM EDT [id number], Clean Catch us Generic External Data Provider LAB URINE ORDERAB LES Final Result [facility] [address] [place] [phone] [phone] * CBC auto differential (03/12/2025 12:53 PM EDT) White Blood Count 10.1 4.8 - 10.8 X10*3/uL [facility] Red Blood Count 4.78 4.20 - 5.50 X10*6/uL [facility] Hemoglobin 14.1 12.0 - 16.0 g/dl [facility] Hematocrit 41.0 37.0 - 47.0 % [facility] Mean Corpuscular Volume 85.8 80.0 - 98.0 fL [facility] Mean Corpuscular Hemoglobin 29.5 27.0 - 33.0 pg [facility] Mean Corpuscular HGB Conc 34.4 31.0 - 35.0 g/dl [facility] Red Cell Distribution Width 13.8 11.0 - 16.0 % [facility] Platelet Count 245 160 - 400 X10*3/uL [facility] Mean Platelet Volume 10.8 9.4 - 12.3 fL [facility] Neutrophils Percent Auto 59.8 45 - 73 % [facility] Imm Gran Pct Auto 0.2 0.0 - 0.4 % [facility] Lymphocytes Percent Auto 32.1 20 - 40 % [facility] Monocytes Percent Auto 5.8 2 - 11 % [facility] Eosinophils Percent Auto 1.7 0 - 4 % [facility] Basophils Percent Auto 0.4 0 - 2 % [facility] NRBC Pct Auto 0.0 0.0 - 0.2 /100WBC [facility] Neutrophils Absolute Auto 6.1 2.0 - 8.3 x10*3/uL [facility] Imm Gran Abs Auto 0.02 0.00 - 0.03 X10*3/uL [facility] Lymphocytes Absolute Auto 3.3 1.2 - 4.9 X10*3/uL [facility] Monocytes Absolute Auto 0.6 0.1 - 1.2 X10*3/uL [facility] Eosinophils Absolute Auto 0.2 0.0 - 0.4 X10*3/uL [facility] Basophils Absolute Auto 0.0 0.0 - 0.2 X10*3/uL [facility] NRBC Abs Auto 0.000 0.0 - 0.012 X10*3/uL [facility] 03/12/2025 12:5 3 PM EDT 03/12/2025 12:56 PM EDT us Generic External Data Provider LAB BLOOD ORDERAB LES Final Result [facility] [address] [place] [phone] * hCG, Total, Quantitative (03/12/2025 12:53 PM EDT) HCG Quantitative <2 mIU/mL [facility] Comment:Weeks post LMP Appr oximate hCG(Last Menstrual Period) Range (mIU/ml)3 - 4 weeks 9 - 1304 - 5 weeks 75 - 2,6005 - 6 weeks 850 - 20,8006 - 7 weeks 4000 - 100,2007 - 12 weeks 11,500 - 289,22704 - 16 weeks 18,300 - 137,39191 - 29 weeks (2nd trimester) 1,400 - 53,43157 - 41 weeks (3rd trimester) 940 - [...] Provider LAB BLOOD ORDERAB LES Final Result [facility] [address] [place] [address] [phone] * (ABNORMAL) Comprehensive Metabolic Panel (03/12/2025 12:53 PM EDT) Sodium 140 135 - 145 mmol/L [facility] Potassium 4.0 3.3 - 5.1 mmol/L [facility] Chloride 106 96 - 108 mmol/L [facility] Carbon Dioxide 27 22 - 29 mmol/L [facility] Anion Gap 11(L) 12 - 20 [facility] Urea Nitrogen (BUN) 12 9 - 16 mg/dL [facility] Creatinine, Serum 0.71 0.5 - 1.4 mg/dL [facility] Creatinine Clr Calc Pharmacy 100.5 [facility] Comment:Provided height and weight: 154.94 cm,82.554 kg.eGFR (calculated from the MDRD study equation) and eCrCl(calculated from the Cockcroft-Gault equation) are based ondifferent parameters and may not yield comparable results.If eCrCl result is absurd, please check patient'sheight/weight. Estimated Glomerular Filt Rate >60 [facility] Comment:Chronic Kidney Disea se: Estimated GFR < 60 mL/min/1.76i8Lsbmsk Kidney Disease: Estimated GFR < 15 mL/min/1.73m2 Glucose 92 60 - 115 mg/dL [facility] Calcium 9.1 8.4 - 10.2 mg/dL [facility] Bilirubin, Total 1.4(H) 0.0 - 1.0 mg/dL [facility] Aspartate Amino Transferase 28 5 - 31 U/L [facility] Alanine Aminotransferase 25 0 - 31 U/L [facility] Total Protein 7.0 6.5 - 8.0 g/dL [facility] Albumin Level 4.2 3.5 - 5.0 g/dL [facility] Alkaline Phosphatase 83 39 - 117 U/L [facility] 03/12/2025 12:5 3 PM EDT 03/12/2025 12:56 PM EDT us Generic External Data Provider LAB BLOOD ORDERAB LES Final Result [facility] [address] [place] [phone] * BI US Breast Limited Bilateral (10/01/2024 9:30 AM EDT) Anatomical Region Laterality Modality Breast Bilateral Ultrasound 10/01/2024 9:30 AM EDT Narrative 10/01/2024 10:57 AM EDT [facility] [address] [place] [address] Ultrasound Report Signed Patient: Breana Mcmillan I MR#: [id number] : 1980 Acct:[id number] Age/Sex: 44 / F ADM Date: 10/01/24 Loc: HO.MAMMO Attending Dr: Elsi Sal MD Ordering Physician: Elsi Sal MD Date of Service: 10/01/24 Procedure(s): US breast BI limited mamm only Accession Number(s): [id number] cc: Elsi Sal MD EXAMINATION: MM DIAGNOSTIC [...] 10/01/24 1054 DD/ 0930 TD/TT: 10/01/24 0958 Bass Fisher: Procedure Note Donotuseinterpreter, Image - 10/01/2024 [facility] [address] [place], [place] [address] Ultrasound Report Signed Patient: Breana Mcmillan IMR#: [id number] : 1980Acct:[id number] Age/Sex: 44 / FADM Date: 10/01/24 Loc: AFIAO Attending Dr: Elsi Sal MD Ordering Physician: Elsi Sal MD Date of Service: 10/01/24 Procedure(s): US breast BI limited mamm only Accession Number(s): [id number] cc: Elsi Sal MD EXAMINATION: MM DIAGNOSTIC [...] 10/01/24 1054 DD/ 0930 TD/TT: 10/01/24 0958 Bass Fisher: us Elsi Sal MD IMG US PROCEDURES Final Result * Hepatitis C Ab (03/20/2024 10:05 AM EDT) Hepatitis C Antibody Nonreactive Nonreactive [facility] Comment:Antibodies to HCV no t detected; does not exclude early acuteHCV infection. 03/20/2024 10:0 5 AM EDT 03/20/2024 11:11 AM EDT us Generic External Data Provider LAB BLOOD ORDERAB LES Final Result [facility] [address] [place] [phone] * HIV-1/2 Antigen and Antibodies, Fourth Generation, with Reflexes (03/20/2024 10:05 AM EDT) Pathologist [facility] HIV AB/AG Nonreactive Nonreactive [facility] Comment:HIV-1 p24 Ag and/or HIV-1/HIV-2 Ab not detected.A test result that is nonreactive does not exclude thepossibility of exposure to or infection with HIV-1 and/orHIV-2. Nonreactive results in this assay for individualswith prior exposure to HIV-1 and/or HIV-2 may be due toantigen and antibody levels that are below the limit ofdetection of this assay.The [employer]+ HIV Ag/Ab Combo assay result andsupplemental assay results should be interpreted inconjunction with the patient's clinical presentation,history and other laboratory results. If the results areinconsistent with clinical evidence, additional testing issuggested to confirm the result. 03/20/2024 10:0 5 AM EDT 03/20/2024 11:11 AM EDT us Generic External Data Provider LAB BLOOD ORDERAB LES Final Result [facility] [address] [place] [phone] * (ABNORMAL) Lipid Panel with Reflex to Direct LDL (05/04/2023 10:45 AM EST) Pathologist [facility] Triglycerides 69 <150 mg/dL [facility] Comment:Desirable Triglyceri de: less than 150 mg/dLBorderline High Triglyceride 150-199 mg/dLHigh Triglyceride: 200-499 mg/dLVery High Triglyceride: greater than or equal to 5OO mg/dL Cholesterol 192 <200 mg/dL [facility] Comment:Desirable Cholestero l: less than 200 mg/dLBorderline High Cholesterol: 200-239 mg/dLHigh Cholesterol: greater than 239 mg/dL LDL Cholesterol Calculated 126(H) <100 mg/dL [facility] Comment:Desirable LDL: less than 100 mg/dLNear Optimal/Above Optimal LDL: 110- 129 mg/dLBorderline High LDL: 130-159 mg/dLHigh LDL: 160-189 mg/dLVery High LDL: greater than or equal to 190 mg/dL HDL Cholesterol 53 >40 mg/dL [facility] Comment:Desirable HDL: great er than 40 mg/dL Note: This HDL assay may give artificially low results in patients with liver disease. Blood 05/04/2023 10:4 5 AM EST 05/04/2023 11:19 AM EST us Elsi Sal MD LAB BLOOD ORDERABLES Final Resul t [facility] [address] [place] [address] [phone] * HPV mRNA E6/E7 w/Reflex to HPV Genotypes 16, 18/45 (09/15/2022 10:18 AM EDT) HPV nRNA E6/E7 Not Detected Not Detected [facility] Comment:Methodology: Transcr iption-Mediated AmplificationThis assay detects E6/E7 viral messenger RNA (mRNA) from 14high-risk HPV types (16,18,31,33,35,39,45,51,52,56,58,59,66,68).Cervical sources are required for HPV testing.If a vaginal source from a patient who has had atotal hysterectomy with removal of cervix wassubmitted, please contact the testing laboratoryfor alternative testing options.For additional information, please refer tohttp://education.Titansan/faq/NMU672t6(This link if provided for information/educational purposes only.)THIS TEST WAS PERFORMED AT:[employer] [place] [phone] GARCIA MD HPV mRNA E6/E7 TNP [facility] HPV 16 RNA [facility] HPV 18/45 RNA [facility] 09/15/2022 10:1 8 AM EDT 09/15/2022 12:00 PM EDT us [facility] External Provider LAB CYT OLOGY ORDERABLES Final Result [facility] [address] [place] [address] [phone] * Pap Smear (09/15/2022 10:18 AM EDT) 09/15/2022 10:1 8 AM EDT 09/15/2022 12:00 PM EDT Narrative [facility] - 09/20/2022 12:11 PM EDT ----- ------- Name: Breana Mcmillan I Age/Sex: 41/F : 1980 Unit#: [id number] Attend Dr: Wilbur Carrasquillo MD Re09/15/22 Status: DEP REF Location: [facility] Disch: ----- ------- SPEC : [id number] RECD: 09/15/22-1199 STATUS: DALILA DOMINGUEZ NUM: [id number] HERBER: 09/15/22-[address] [facility] [address]: Wilbur Carrasquillo MD ENTERED: 09/15/22-1216 SP [...] 59, 66, 68) HPV testing performed by [employer], [place], [place]. See reference laboratory portion of the EMR for entire report. Clinical Information LMP: 08/30/2022 Previous PAP test: 2017, Abnormal Other history: HPV+ Material Received ThinPrep-Cervical Copies To: Elsi Sal MD [address] [place] [address] Wilbur Carrasquillo MD [address] [place] [address] Dr[address] Gallagher [address] [place] [phone] ----- ------- Signed (signature on file) Margaret Gutierrez 09/20/22 1211 ----- ------- END OF REPORT [facility] External Provider LAB CYT OLOGY ORDERABLES Final Result [facility] [address] [place] [phone] [phone] from Last 3 Months or Most Recently Relevant to Health Maintenance Insurance [facility] Care Teams Ship Boat Or Barge Mate Relationship Specialty Start Date End Date Elsi Sal MD [address] [place] [phone] PCP - General Family Medicine 05/09/11
--- OUTSIDE RECORDS SUMMARY | 2025-05-16 22:36 | XMS_ITS | Encounter Summary ---
Author Organization [employer] Address [address] [place] [address] [address] [place] [address] Care Team Providers Care Director Private Name Role Phone Elsi Sal MD Primary Care Provider [phone] Justine Zambrano Unavailable [phone] Ben Aguilar Unavailable Reason for Referral * Imaging (Routine) - Closed Specialty Diagnoses / Procedures Referred By Contac t Referred To Contact Radiology Diagnoses Breast pain Procedures BI Mammogram Diagnostic Tomosynthesis Bilateral Elsi Sal MD [address] [place] [address] Phone: tel: fax: [address] [address] Phone: tel: fax: Referral ID Status Reason Start Date Expiration Date Visits Re quested Visits Authorized [id number] Closed 08/09/2024 08/09/2025 1 1 Encounter Details Date Type Department Care Team (Late st Contact Info) Description 08/09/2024 Orders Only [facility] MEDICINE [address] [place], [place] [phone] Elsi Sal MD [address] [place], [place] [phone] Breast pain (Primary Dx) Social History Tobacco [...] with others, in a hotel, in a correction, living outside on the street, on a [...] EDT Narrative 10/01/2024 10:57 AM EDT [place] [facility] [place], [place] [address] Mammography Report Signed Patient: Breana Mcmillan I MR#: [id number] : 1980 Acct:[id number] Age/Sex: 44 / F ADM Date: 10/01/24 Loc: HO.MAMMO Attending Dr: Elsi Sal MD Ordering Physician: Elsi Sal MD Results: 1Negative Date of Service: 10/01/24 Follow Up: 1 Year From [facility] Mammogram Procedure(s): MM tomosynthesis diagnostic BI Accession Number(s): [id number] cc: Elsi Sal MD EXAMINATION: MM DIAGNOSTIC [...] 10/01/24 1054 DD/ 0850 TD/TT: 10/01/24 0920 Bagging Machine Operator: Procedure Note Donotuseinterpreter, Image - [facility]/01/[facility] [address] [place] [address] Mammography Report Signed Patient: Breana Mcmillan IMR#: [id number] : 1980Acct:[id number] Age/Sex: 44 / FADM Date: 10/01/24 Loc: DAVID Attending Dr: Elsi Sal MD Ordering Physician: Elsi Sal MDResults: 1Negative Date of Service: 10/01/24Follow Up: 1 Year From [facility] Mammogram Procedure(s): MM tomosynthesis diagnostic BI Accession Number(s): [id number] cc: Elsi Sal MD EXAMINATION: MM DIAGNOSTIC [...] 10/01/24 1054 DD/ 0850 TD/TT: 10/01/24 0920 Bagging Machine Operator: Elsi Sal MD IMG BI PROCEDURES Final Result documented in this encounter Visit Diagnoses Diagnosis Breast pain- Primary Mastodynia documented in this encounter Additional Health Concerns Assessment Noted Time PHQ-9 Depression Total Score: 14 025 11:47 AM EST documented as of this encounter Care Teams Director Private Relationship Specialty Start Date End Date Elsi Sal MD [address] [place] [address] PCP - General Family Medicine 05/09/11 Justine Zambrano Registered Nurse 03/13/25 03/14/25 Ben Aguilar 03/13/25 03/14/25 documented as of this encounter
--- OUTSIDE RECORDS SUMMARY | 2025-05-16 22:36 | XMS_ITS | Encounter Summary ---
Author Organization [employer] Address [address] [place] [address] 7[address] [place] [address] Care Team Providers Care Computerized Mill Mill Recorder Name Role Phone Elsi Sal MD Primary Care Provider [phone] Justine Zambrano Unavailable [phone] Ben Aguilar Unavailable Reason for Visit * Reason Onset Date Comments r/s appt 08/06/2022 Appointment 08/06/2022 Encounter Details Date Type Department Care Team ([facility] st Contact Info) Description 08/06/2022 Telephone [facility] MEDICINE [address] [place], [place] [phone] Elsi Sal MD [address] [place], [place] [phone] r/s appt ; Appointment Social History Tobacco [...] appt for 02/22/2022. Please contact pt at [phone] documented in this encounter Plan of Treatment Not on file documented as of this encounter Visit Diagnoses Not on filedocumented in this encounter Care Teams Computerized Mill Mill Recorder Relationship Specialty Start Date End Date Elsi Sal MD [address] [place] [address] PCP - General Family Medicine 05/09/11 Justine Zambrano Registered Nurse 03/13/25 03/14/25 Ben Aguilar 03/13/25 03/14/25 documented as of this encounter
--- OUTSIDE RECORDS SUMMARY | 2025-05-16 22:36 | XMS_ITS | Encounter Summary ---
Author Organization [employer] Address [address] [place] [address] 7 [place] [address] Care Team Providers Care Counter Maker Name Role Phone Elsi Sal MD Primary Care Provider [phone] Justine Zambrano Unavailable [phone] Ben Aguilar Unavailable Reason for Visit * Reason Onset Date Comments ER Follow-up 08/03/2024 Encounter Details Date Type Department Care Team (Late st Contact Info) Description 08/03/2024 Telephone [facility] MEDICINE [address] [place] [address] Elsi Sal MD [address] [place], [place] [phone] ER Follow-up Social History Tobacco Use Types [...] [place] Trouble relaxing 1 08/06/2024 11:47 AM Ashatni Marin [place] Being so restless that it [...] 08/03/2024 2:12 PM EST Date: 08/03/24 Hospital: [facility] Seen for: UTI Symptomatic Yes Called pt. Via [employer] [address] María Elena. Pt states that she was seen a couple weeks ago in Walk in for UTI sx. Pt. Had UTI and was put on antibiotics. Pt. Then went [place] [facility] [place]03[place]24 for same UTI sx. [...] to be seen sooner walk in at [facility] hours provided to pt. I will send note to clinical coordinators to get [facility] note into chart from 08/03/24. Protocol [...] ED visit on : Date: 08/03/24 Hospital: [facility] Seen for: UTI Symptomatic Yes Symptom: Abdominal Pain - Female - Not Outcome: Schedule an appointment to be seen within 24 hours Reason: Caller denied all higher acuity questions Please contact pt at [phone]. (Finnish Speaker) documented in this encounter Plan of Treatment Not on file documented as of this encounter Visit Diagnoses Not on filedocumented in this encounter Additional Health Concerns Assessment Noted Time PHQ-9 Depression Total Score: 7 04/20/20 23 10:34 AM EST documented as of this encounter Care Teams Counter Maker Relationship Specialty Start Date End Date Elsi Sal MD [address] [place] [address] PCP - General Family Medicine 05/09/11 Justine Zambrano Registered Nurse 03/13/25 03/14/25 Ben Aguilar 03/13/25 03/14/25 documented as of this encounter
--- OUTSIDE RECORDS SUMMARY | 2025-05-16 22:36 | XMS_ITS | Encounter Summary ---
Author Organization [employer] [facility] Address [address] [place] [address] 7[address] [place] [address] Care Team Providers Care Pan Washer Hand Name Role Phone Elsi Sal MD Primary Care Provider [phone] Justine Zambrano Unavailable [phone] Ben Aguilar Unavailable Reason for Visit * Reason Comments Med Refill Encounter Details Date Type Department Care Team ([facility] st Contact Info) Description 08/05/2022 Refill [facility] MEDICINE [address] [place] [address] Francisco Perdomo FNP Social History Tobacco Use [...] on filedocumented in this encounter Care Teams Pan Washer Hand Relationship Specialty Start Date End Date Elsi Sal MD [address] [place] [address] PCP - General Family Medicine 05/09/11 Justine Zambrano Registered Nurse 03/13/25 03/14/25 Ben Aguilar 03/13/25 03/14/25 documented as of this encounter
--- OUTSIDE RECORDS SUMMARY | 2025-05-16 22:36 | XMS_ITS | Encounter Summary ---
Author Organization [employer] Address [address] [place] [address] 7[address] [place] [address] Care Team Providers Care Laboratory Analyst Name Role Phone Elsi Sal MD Primary Care Provider Justine Zambrano Unavailable [phone] Ben Aguilar Unavailable Reason for Visit * Reason Onset Date Comments Med Refill Appointment 07/30/2022 Encounter Details Date Type Department Care Team ([facility] st Contact Info) Description 07/30/2022 Refill [facility] MEDICINE [address] [place] [address] Francisco Perdomo FNP Social History Tobacco Use [...] AM EST T/C placed to pt @ [phone] and the person who answered my call said is a wrong phone #. Also, I called @ her mother phone # that is listed and is disconnected at this time. documented in this encounter Plan of Treatment Not on file documented as of this encounter Visit Diagnoses Not on filedocumented in this encounter Care Teams Laboratory Analyst Relationship Specialty Start Date End Date Elsi Sal MD [address] [place] [address] PCP - General Family Medicine 05/09/11 Justine Zambrano Registered Nurse 03/13/25 03/14/25 Ben Aguilar 03/13/25 03/14/25 documented as of this encounter
== END 2025-05-16 16:27 | disposition home or self-care (01) ==
LOC: HO.HWS 15:04
PROVIDERS: PCP Family Medicine; Visit Provider Obstetrics & Gynecology
DX: N95.0 Postmenopausal bleeding (principal)
CPT/HCPCS: 99213

== ENCOUNTER → 2025-05-16 15:04 | Outpatient (BNVA) | payer MEDICAID, SELFPAY | PROVIDERS: PCP Family Medicine; Visit Provider Obstetrics & Gynecology | DX: Z48.816 Encounter for surgical aftercare following surgery on the genitourinary system (principal); N95.0 Postmenopausal bleeding | CPT/HCPCS: 99212 ==